=== PATIENT | male | born 1965 | race Caucasian/White ===

== ENCOUNTER 2024-12-26 15:17 | Emergency (ER) | payer OTHER ==
[2024-12-26 15:36] VITALS: RESP 18
--- NOTE | 2024-12-26 16:15 | ED ---
SOB HPI - General Chief Complaint: Shortness of Breath Stated Complaint: SOB Time Seen by Provider: 12/26/24 15:47 Source: patient Limitations: no limitations - History of Present Illness Initial Comments: This patient is a 59-year-old man who presents to have evaluation for what he is describing as lung congestion. The patient states that over the past 9 or 10 days or so he has been having increasingly frequent cough, and is now bringing up yellow to brown sputum. He states that it feels like it is affecting the left side of his lungs more than the right. He has not noted fever or chills. Denies elena pain. No hemoptysis. The patient feels short of breath when he w alks around. The review of systems also reveals that he has lost probably 15 pounds over the past few months. States that he does smoke maybe a couple of cigarettes per day though he may go a day without smoking any. MD Complaint: shortness of breath, cough Onset/Timin -: days(s) Severity scale (1-10): 0 Consistency: constant Improves With: nothing Worsens With: exertion Associated Symptoms: cough, sputum production Treatments Prior to Arrival: none - Related Data Home Oxygen Therapy: No Previous Rx's Medication Instructions Recorded Azithromycin [Zithromax] 0 mg PO DIRECTED #6 tab 12/26/24 Allergies Allergy/AdvReac Type Severity Reaction Status Date / Time No Known Allergies Allergy Verified 12/26/24 15:36 Review of Systems ROS Statement: Those systems with pertinent positive or pertinent negative responses have been documented in the HPI. ROS Other: All systems not noted in ROS Statement are negative. Constitutional: Reports: weight change. Denies: fever, chills, weakness Respiratory: Reports: cough. Denies: wheezes, hemoptysis, stridor Cardiovascular: Reports: dyspnea on exertion. Denies: chest pain, palpitations, edema, syncope Gastrointestinal: Denies: abdominal pain, nausea, vomiting Genitourinary: Denies: dysuria, hematuria Musculoskeletal: Denies: back pain Skin: Denies: rash Neurological: Denies: headache, weakness Past Medical History Additional Past Surgical History / Comment(s): broken leg@15 years old Past Psychological History: No Psychological Hx Reported Smoking Status: Current every day smoker Past Alcohol Use History: None Reported Past Drug Use History: Marijuana General Exam Limitations: no limitations General appearance: alert, in no apparent distress Head exam: Present: atraumatic, normocephalic Eye exam: Present: normal appearance. Absent: scleral icterus, conjunctival injection ENT exam: Present: normal oropharynx Neck exam: Present: normal inspection Respiratory exam: Present: wheezes. Absent: respiratory distress, rales, rhonchi, stridor, accessory muscle use Cardiovascular Exam: Present: regular rate, normal rhythm, normal heart sounds. Absent: systolic murmur, diastolic murmur, rubs, gallop GI/Abdominal exam: Present: soft. Absent: distended, tenderness, guarding, rebound, rigid, mass Extremities exam: Present: normal inspection, normal capillary refill. Absent: pedal edema, calf tenderness Back exam: Present: normal inspection. Absent: CVA tenderness (R), CVA tenderness (L) Neurological exam: Present: alert Skin exam: Present: warm, dry, intact, normal color. Absent: rash Course Vital Signs 12/26/24 12/26/24 12/26/24 15:31 16:10 19:51 Temperature 98.6 F Pulse Rate 102 H 86 Respiratory 18 18 18 Rate Blood Pressure 118/63 99/63 O2 Sat by Pulse 98 96 Oximetry Medical Decision Making - Medical Decision Making The patient had two-view chest x-ray that I interpreted that showing left upper lung cavitary mass concerning for possible malignancy. - Lab Data Result diagrams: 12/26/24 16:56 12/26/24 16:56 Lab Results 12/26/24 12/26/24 12/26/24 Range/Units 16:56 16:56 16:56 WBC 12.90 H (4.50-10.00) 10*3/uL RBC 3.93 L (4.40-5.60) 10*6/uL Hgb 12.3 L (13.0-17.0) g/dL Hct 35.0 L (39.6-50.0) % MCV 89.1 (80.0-97.0) fL MCH 31.3 (27.0-32.0) pg MCHC 35.1 (32.0-37.0) g/dL Plt Count 512 H (140-440) 10*3/uL MPV 9.1 L (9.5-12.2) fL Immature Gran % (Auto) 0.9 % Neutrophils % 83.8 % Lymphocytes % 7.8 % Monocytes % 6.8 % Eosinophils % 0.2 % Basophils % 0.5 % Immature Gran # 0.11 H (0.00-0.04) 10*3/uL Neutrophils # 10.82 H (1.80-7.70) 10*3/uL Lymphocytes # 1.00 (0.90-5.00) 10*3/uL Monocytes # 0.88 (0.20-1.00) 10*3/uL Eosinophils # 0.02 L (0.04-0.35) 10*3/uL Basophils # 0.07 (0.00-0.10) 10*3/uL PT 11.6 (10.0-12.5) sec INR 1.1 (<1.2) APTT 27.1 (22.0-30.0) sec D-Dimer 1.79 H (<0.60) mg/L FEU Sodium 126 L (137-145) mmol/L Potassium 3.8 (3.5-5.1) mmol/L Chloride 85 L (98-107) mmol/L Carbon Dioxide 35 H (22-30) mmol/L Anion Gap 6 mmol/L BUN 20 (9-20) mg/dL Creatinine 0.89 (0.66-1.25) mg/dL Est GFR (CKD-EPI)AfAm >90 (>60 ml/min/1.73 sqM) Est GFR (CKD-EPI)NonAf >90 (>60 ml/min/1.73 sqM) Glucose 131 H (74-99) mg/dL Lactic Ac Sepsis Rflx Plasma Lactic Acid Milton (0.7-2.0) mmol/L Calcium 8.5 (8.4-10.2) mg/dL Total Bilirubin 0.8 (0.2-1.3) mg/dL AST 31 (17-59) U/L ALT 19 (4-49) U/L Alkaline Phosphatase 85 (38-126) U/L Troponin I (0.000-0.034) ng/mL NT-Pro-B Natriuret Pep 330 pg/mL Total Protein 6.6 (6.3-8.2) g/dL Albumin 2.9 L (3.5-5.0) g/dL 12/26/24 12/26/24 12/26/24 Range/Units 16:56 16:56 17:43 WBC (4.50-10.00) 10*3/uL RBC (4.40-5.60) 10*6/uL Hgb (13.0-17.0) g/dL Hct (39.6-50.0) % MCV (80.0-97.0) fL MCH (27.0-32.0) pg MCHC (32.0-37.0) g/dL Plt Count (140-440) 10*3/uL MPV (9.5-12.2) fL Immature Gran % (Auto) % Neutrophils % % Lymphocytes % % Monocytes % % Eosinophils % % Basophils % % Immature Gran # (0.00-0.04) 10*3/uL Neutrophils # (1.80-7.70) 10*3/uL Lymphocytes # (0.90-5.00) 10*3/uL Monocytes # (0.20-1.00) 10*3/uL Eosinophils # (0.04-0.35) 10*3/uL Basophils # (0.00-0.10) 10*3/uL PT (10.0-12.5) sec INR (<1.2) APTT (22.0-30.0) sec D-Dimer (<0.60) mg/L FEU Sodium (137-145) mmol/L Potassium (3.5-5.1) mmol/L Chloride (98-107) mmol/L Carbon Dioxide (22-30) mmol/L Anion Gap mmol/L BUN (9-20) mg/dL Creatinine (0.66-1.25) mg/dL Est GFR (CKD-EPI)AfAm (>60 ml/min/1.73 sqM) Est GFR (CKD-EPI)NonAf (>60 ml/min/1.73 sqM) Glucose (74-99) mg/dL Lactic Ac Sepsis Rflx Y Plasma Lactic Acid Milton 2.2 H* (0.7-2.0) mmol/L Calcium (8.4-10.2) mg/dL Total Bilirubin (0.2-1.3) mg/dL AST (17-59) U/L ALT (4-49) U/L Alkaline Phosphatase (38-126) U/L Troponin I <0.012 (0.000-0.034) ng/mL NT-Pro-B Natriuret Pep pg/mL Total Protein (6.3-8.2) g/dL Albumin (3.5-5.0) g/dL - EKG Data -: EKG Interpreted by Me EKG shows normal: sinus rhythm (Rate 97 bpm), axis (Indeterminate axis), intervals (Normal), QRS complexes (Incomplete right bundle branch block.), ST-T waves (Elevation suggestive of early repolarization) Rate: normal Disposition Clinical Impression: Lung mass Narrative: suspected lung cancer Disposition: HOME SELF-CARE Condition: Fair Instructions (If sedation given, give patient instructions): Lung Cancer (DC) Additional Instructions: As we discussed, your CT scan is very suspicious for lung cancer. You must follow-up to have a biopsy or MRI to confirm this diagnosis. If there is any problem scheduling follow-up return to the emergency department. If your condition changes in any way return to the emergency department. Prescriptions: Azithromycin [Zithromax] 0 mg PO DIRECTED #6 tab Is patient prescribed a controlled substance at d/c from ED?: No Referrals: None,Stated [Primary Care Provider] - 1-2 days Joe Garcia DO [Doctor of Osteopathic Medicine] - 1-2 days Mario Lazaro MD [STAFF PHYSICIAN] - 1-2 days
[2024-12-26 17:08] LABS: Basophils # (A) 0.07 10*3/uL (0.00-0.10); Basophils % (A) 0.5 %; Eosinophils # (A) 0.02 10*3/uL (0.04-0.35); Eosinophils % (A) 0.2 %; HGB 12.3 g/dL (13.0-17.0); Lymphocytes % (A) 7.8 %; MCH 31.3 pg (27.0-32.0); MCHC 35.1 g/dL (32.0-37.0); MCV 89.1 fL (80.0-97.0); Mean Platelet Volume 9.1 fL (9.5-12.2); Monocytes # (A) 0.88 10*3/uL (0.20-1.00); Monocytes % (A) 6.8 %; Neutrophils # (A) 10.82 10*3/uL (1.80-7.70); Neutrophils % (A) 83.8 %; Platelet Count 512 10*3/uL (140-440); RBC 3.93 10*6/uL (4.40-5.60); RDW 13.5 % (11.5-14.5)
[2024-12-26 17:24] LABS: ALT 19 U/L (4-49); AST 31 U/L (17-59); African American GFR (CKD) >90 (>60 ml/min/1.73 sqM); Albumin 2.9 g/dL (3.5-5.0); Alkaline Phosphatase 85 U/L (38-126); Anion Gap 6 mmol/L; Blood Urea Nitrogen 20 mg/dL (9-20); Calcium 8.5 mg/dL (8.4-10.2); Carbon Dioxide 35 mmol/L (22-30); Chloride 85 mmol/L (98-107); Glucose 131 mg/dL (74-99); Non-African American GFR(CKD) >90 (>60 ml/min/1.73 sqM); Potassium 3.8 mmol/L (3.5-5.1); Sodium 126 mmol/L (137-145); Total Bilirubin 0.8 mg/dL (0.2-1.3); Total Protein 6.6 g/dL (6.3-8.2)
[2024-12-26 17:32] LABS: NT-Pro-B-Type Natriuretic Pept 330 pg/mL
--- NOTE | 2024-12-26 17:42 | XR ---
EXAMINATION TYPE: XR chest 2V DATE OF EXAM: 12/26/2024 5:03 PM COMPARISON: None. CLINICAL INDICATION: Male, 59 years old with history of difficulty breathing: Shortness of breath TECHNIQUE: XR chest 2V views of the chest are obtained. FINDINGS: Scattered senescent parenchymal changes noted. Hyperinflation compatible with COPD. Cavitary infiltrate or mass left upper lobe. Correlate for pneumonia or atypical pneumonia as well as fungal infection. Neoplasm is not excluded. Linear parenchymal scarring right upper lobe. Heart size is stable. Mediastinal structures are stable and grossly unremarkable. No evidence for hilar prominence. Degenerative changes dorsal spine. IMPRESSION: 1. Cavitary infiltrate or mass left upper lobe. Correlate for pneumonia or atypical pneumonia as well as fungal infection. Neoplasm is not excluded. [facility], , 12/26/2024 5:39 PM
[2024-12-26 18:05] LABS: INR 1.1 (<1.2); Partial Thromboplastin Time 27.1 sec (22.0-30.0); Prothrombin Time 11.6 sec (10.0-12.5)
[2024-12-26] MEDS: SODIUM CHLORIDE 0.9% 500 ML 500 ML IV STA (18:14)
--- NOTE | 2024-12-26 19:14 | CT ---
EXAMINATION TYPE: CT chest angio for PE DATE OF EXAM: 12/26/2024 6:52 PM COMPARISON: None. CLINICAL INDICATION: Male, 59 years old with history of elevated d-dimer, possible PE, cough/kerri, TECHNIQUE: CT of the chest is performed on a spiral scan at 2 mm thick sections. Study is performed with intravenous contrast timed for evaluation for pulmonary embolism. This will limit additional po rtions of the evaluation. 10mm MIP images reconstructed by the technologist are reviewed on the comp uter in the coronal and sagittal planes. Contrast used:100 mL of Isovue 370 with IV Contrast, (none if empty) Oral contrast used: (none if empty) CT DLP: 223 mGycm, Automated exposure control for dose reduction was used. FINDINGS: No persistent filling defects are evident to suggest an acute pulmonary embolism. Aortopulmonic window lymphadenopathy is present. The ascending aorta diameter at the level of the main pulmonary artery is 3.5 cm. The main pulmonary artery diameter at the bifurcation is 2.3 cm. There is a 5.1 cm mass at the anterior left apex. Additional consolidation is present posteriorly and inferiorly. There is a 0.8 cm nodule anterior right upper lobe. Series 401 image 40. Some peripheral increased de nsity lateral right upper lobe. Image 45. Lobular mass in the posterior right lung base measuring 1. 8 cm. Series 401 image 91. Some mild consolidation isn't posterior left mid to lower lung field. There is a calcification along the anterolateral right midlung. Image 70. There is a 1 cm density wit hin the periphery of the right upper lobe. Image 45. No significant coronary artery calcifications. Limited CT sections were through the upper abdomen. Upper abdomen appears unremarkable. IMPRESSION: 1. Left apical lung mass with adjacent consolidation. 2. Lobular density posterior right lung. 3. Additional small nodules consolidations discussed above. 4. No pulmonary embolism. [facility], , 12/26/2024 7:11 PM
[2024-12-26 20:56] VITALS: BP 103/63; PULSE 87; TEMP 99.3
== END 2024-12-26 21:10 | disposition home or self-care (01) ==
LOC: EC 15:17
DX: R91.8 Other nonspecific abnormal finding of lung field (principal); I45.10 Unspecified right bundle-branch block; F17.200 Nicotine dependence, unspecified, uncomplicated
CPT/HCPCS: 36415; 93005; 85379; 83880; 80053; 83605; 84484; 85025; 85610; 85730; 71046; 71275; 99285; Q9967

== ENCOUNTER 2025-01-18 16:50 | Inpatient (IN) | payer OTHER ==
--- NOTE | 2025-01-18 17:40 | ED ---
Weakness HPI - General Chief complaint: Weakness Stated complaint: SOB Time Seen by Provider: 01/18/25 17:05 Source: patient, EMS Mode of arrival: EMS Limitations: no limitations - History of Present Illness Initial comments: 59-year-old male presents to the emergency department with weakness. Patient has had difficulties with ambulation due to generalized weakness. He also reported to EMS that he was having some chest pain and shortness of breath. They found him to be saturating 78% at home. Patient typically does not wear oxygen. He was seen in the emergency department on December 26 and diagnosed with a lung mass. Patient wanted to go home at that time. He did see Dr. Garcia on January 08. The plan is to get a PET scan this . Sister is at bedside and states the patient has a extremely poor appetite. He has had 23 pounds of weight loss since December 26. Patient denies any chest pain at this time. Does report increased sputum production. No other alleviating, precipitating or modifying factors - Related Data Home Medications Medication Instructions Recorded Confirmed No Known Home Medications 01/18/25 01/18/25 Allergies Allergy/AdvReac Type Severity Reaction Status Date / Time No Known Allergies Allergy Verified 01/18/25 20:38 Review of Systems ROS Statement: Those systems with pertinent positive or pertinent negative responses have been documented in the HPI. ROS Other: All systems not noted in ROS Statement are negative. Past Medical History Additional Past Medical History / Comment(s): lung nodule History of Any Multi-Drug Resistant Organisms: None Reported Additional Past Surgical History / Comment(s): broken leg@15 years old Past Psychological History: No Psychological Hx Reported Smoking Status: Current some day smoker Past Alcohol Use History: None Reported Past Drug Use History: Marijuana General Exam Limitations: no limitations General appearance: cachectic Head exam: Present: atraumatic, normocephalic, normal inspection Eye exam: Present: normal appearance, PERRL, EOMI. Absent: scleral icterus, conjunctival injection, periorbital swelling ENT exam: Present: mucous membranes dry Respiratory exam: Present: decreased breath sounds (on the left) Cardiovascular Exam: Present: regular rate, normal rhythm, normal heart sounds. Absent: systolic murmur, diastolic murmur, rubs, gallop, clicks GI/Abdominal exam: Present: soft, normal bowel sounds. Absent: distended, tenderness, guarding, rebound, rigid Neurological exam: Present: alert, oriented X3, CN II-XII intact Psychiatric exam: Present: flat affect Skin exam: Present: warm, dry, intact, normal color. Absent: rash Course Vital Signs 01/18/25 01/18/25 01/18/25 17:03 17:13 23:03 Temperature 97.5 F L Pulse Rate 84 56 L Respiratory 21 22 16 Rate Blood Pressure 103/69 97/73 O2 Sat by Pulse 97 95 Oximetry 01/19/25 01/19/25 00:04 00:24 Temperature Pulse Rate 92 Respiratory 20 Rate Blood Pressure 93/63 O2 Sat by Pulse 95 95 Oximetry Medical Decision Making - Medical Decision Making Was pt. sent in by a medical professional or institution (, PA, AFTER SCHOOL TEACHER, urgent care, hospital, or longterm...) When possible be specific @ -No Did you speak to anyone other than the patient for history (EMS, parent, family, police, friend...)? What history was obtained from this source @ -Spoke with the sister for history Did you review nursing and triage notes (agree or disagree)? Why? @ -I reviewed and agree with nursing and triage notes Were old charts reviewed (outside hosp., previous admission, EMS record, old EKG, old radiological studies, urgent care reports/EKG's, longterm records)? Report findings @ -I reviewed the ER visit from December 26 Differential Diagnosis (chest pain, altered mental status, abdominal pain women, abdominal pain men, vaginal bleeding, weakness, fever, dyspnea, syncope, headache, dizziness, GI bleed, back pain, seizure, CVA, palpatations, mental health, musculoskeletal)? @ -Differential Dyspnea: Coronary syndrome, arrhythmia, tamponade, asthma, COPD, pulmonary embolism, pneumonia, pneumothorax, pulmonary effusion, anaphylaxis, diabetic ketoacidosis, flailed chest, pulmonary contusion, diaphragmatic rupture, anemia, neuromuscular, this is not meant to be an all-inclusive list. EKG interpreted by me (3pts min.). @ -Yes and demonstrates sinus rhythm with rate of 86. ND interval 140. QRS 10 5. QTc of 427. Incomplete right bundle branch block. No acute ST segment elevations X-rays interpreted by me (1pt min.). @ -Yes which demonstrates significant opacification of the left chest CT interpreted by me (1pt min.). @ -None done U/S interpreted by me (1pt. min.). @ -None done What testing was considered but not performed or refused? (CT, X-rays, U/S, labs)? Why? @ -None What meds were considered but not given or refused? Why? @ -None Did you discuss the management of the patient with other professionals (professionals i.e. , PA, AFTER SCHOOL TEACHER, lab, RT, psych nurse, social services aide, family medicine physician assistant, teacher, juvenile correctional officer, shoe caser)? Give summary @ -Spoke with Dr. Ortiz for the admission Was smoking cessation discussed for >3mins.? @ -No Was critical care preformed (if so, how long)? @ -No Were there social determinants of health that impacted care today? How? (Homelessness, low income, unemployed, alcoholism, drug addiction, transportation, low edu. Level, literacy, decrease access to med. care, custodial, rehab)? @ -No Was there de-escalation of care discussed even if they declined (Discuss DNR or withdrawal of care, Hospice)? DNR status @ -No What co-morbidities impacted this encounter? (DM, HTN, Smoking, COPD, CAD, Cancer, CVA, ARF, Chemo, Hep., AIDS, mental health diagnosis, sleep apnea, morbid obesity)? @ -None Was patient admitted / discharged? Hospital course, mention meds given and route, prescriptions, significant lab abnormalities, going to OR and other pertinent info. @ -Upon arrival patient seen and evaluated in hallway 21. Thorough history and physical exam was performed. Patient has diminished breath sounds on the left. Laboratory studies are conducted and chest x-ray was performed which demonstrates significant advancement of the opacity in the left lung. Patient's white blood cell count has increased to 17,000. I do feel that the patient should be admitted for IV antibiotics and pulm consult. Patient was agreeable to this. Spoke with Dr. Oritz for the admission Undiagnosed new problem with uncertain prognosis? @ -Yes Drug Therapy requiring intensive monitoring for toxicity (Heparin, Nitro, Insulin, Cardizem)? @ -No Were any procedures done? @ -No Diagnosis/symptom? @ -Acute hypoxic respiratory failure, acute left-sided lung mass/opacification, leukocytosis Acute, or Chronic, or Acute on Chronic? @ -Acute Uncomplicated (without systemic symptoms) or Complicated (systemic symptoms)? @ -Complicated Side effects of treatment? @ -No Exacerbation, Progression, or Severe Exacerbation? @ -No Poses a threat to life or bodily function? How? (Chest pain, [place], [place], pneumonia, PE, COPD, DKA, ARF, appy, cholecystitis, CVA, Diverticulitis, Homicidal, Suicidal, threat to staff... and all critical care pts) @ -No - Lab Data Result diagrams: 01/18/25 18:07 01/18/25 18:07 Lab Results 01/18/25 01/18/25 01/18/25 Range/Units 18:07 18:07 18:07 WBC 17.45 H (4.50-10.00) 10*3/uL RBC 3.32 L (4.40-5.60) 10*6/uL Hgb 10.0 L D (13.0-17.0) g/dL Hct 29.1 L (39.6-50.0) % MCV 87.7 (80.0-97.0) fL MCH 30.1 (27.0-32.0) pg MCHC 34.4 (32.0-37.0) g/dL Plt Count 309 (140-440) 10*3/uL MPV 10.0 (9.5-12.2) fL Immature Gran % (Auto) 0.6 % Neutrophils % 93.4 % Lymphocytes % 3.6 % Monocytes % 2.2 % Eosinophils % 0.0 % Basophils % 0.2 % Immature Gran # 0.10 H (0.00-0.04) 10*3/uL Neutrophils # 16.31 H (1.80-7.70) 10*3/uL Lymphocytes # 0.62 L (0.90-5.00) 10*3/uL Monocytes # 0.39 (0.20-1.00) 10*3/uL Eosinophils # 0.00 L (0.04-0.35) 10*3/uL Basophils # 0.03 (0.00-0.10) 10*3/uL PT 11.6 (10.0-12.5) sec INR 1.1 (<1.2) APTT 24.5 (22.0-30.0) sec Sodium 130 L (137-145) mmol/L Potassium 4.7 (3.5-5.1) mmol/L Chloride 91 L (98-107) mmol/L Carbon Dioxide 30 (22-30) mmol/L Anion Gap 9 mmol/L BUN 51 H (9-20) mg/dL Creatinine 1.07 (0.66-1.25) mg/dL Est GFR (CKD-EPI)AfAm 87 (>60 ml/min/1.73 sqM) Est GFR (CKD-EPI)NonAf 75 (>60 ml/min/1.73 sqM) Glucose 108 H (74-99) mg/dL Lactic Ac Sepsis Rflx Plasma Lactic Acid Milton (0.7-2.0) mmol/L Calcium 8.2 L (8.4-10.2) mg/dL Magnesium 2.0 (1.6-2.3) mg/dL Total Bilirubin 1.1 (0.2-1.3) mg/dL AST 61 H (17-59) U/L ALT 38 (4-49) U/L Alkaline Phosphatase 121 (38-126) U/L Troponin I (0.000-0.034) ng/mL NT-Pro-B Natriuret Pep 2610 pg/mL Total Protein 6.5 (6.3-8.2) g/dL Albumin 2.5 L (3.5-5.0) g/dL 01/18/25 01/18/25 01/18/25 Range/Units 18:07 18:07 18:55 WBC (4.50-10.00) 10*3/uL RBC (4.40-5.60) 10*6/uL Hgb (13.0-17.0) g/dL Hct (39.6-50.0) % MCV (80.0-97.0) fL MCH (27.0-32.0) pg MCHC (32.0-37.0) g/dL Plt Count (140-440) 10*3/uL MPV (9.5-12.2) fL Immature Gran % (Auto) % Neutrophils % % Lymphocytes % % Monocytes % % Eosinophils % % Basophils % % Immature Gran # (0.00-0.04) 10*3/uL Neutrophils # (1.80-7.70) 10*3/uL Lymphocytes # (0.90-5.00) 10*3/uL Monocytes # (0.20-1.00) 10*3/uL Eosinophils # (0.04-0.35) 10*3/uL Basophils # (0.00-0.10) 10*3/uL PT (10.0-12.5) sec INR (<1.2) APTT (22.0-30.0) sec Sodium (137-145) mmol/L Potassium (3.5-5.1) mmol/L Chloride (98-107) mmol/L Carbon Dioxide (22-30) mmol/L Anion Gap mmol/L BUN (9-20) mg/dL Creatinine (0.66-1.25) mg/dL Est GFR (CKD-EPI)AfAm (>60 ml/min/1.73 sqM) Est GFR (CKD-EPI)NonAf (>60 ml/min/1.73 sqM) Glucose (74-99) mg/dL Lactic Ac Sepsis Rflx Y Plasma Lactic Acid Milton 3.0 H* (0.7-2.0) mmol/L Calcium (8.4-10.2) mg/dL Magnesium (1.6-2.3) mg/dL Total Bilirubin (0.2-1.3) mg/dL AST (17-59) U/L ALT (4-49) U/L Alkaline Phosphatase (38-126) U/L Troponin I <0.012 (0.000-0.034) ng/mL NT-Pro-B Natriuret Pep pg/mL Total Protein (6.3-8.2) g/dL Albumin (3.5-5.0) g/dL Disposition Clinical Impression: Lung mass, Hypoxia, Leukocytosis Disposition: ADMITTED IP TO THIS [facility] Condition: Serious Is patient prescribed a controlled substance at d/c from ED?: No Time of Disposition: 19:35 Decision to Admit Reason: Admit from EC Decision Date: 01/18/25 Decision Time: 19:35
[2025-01-18] MEDS: SODIUM CHLORIDE 0.9% 1,000 ML IV ONE (18:13)
[2025-01-18 18:31] LABS: Basophils # (A) 0.03 10*3/uL (0.00-0.10); Basophils % (A) 0.2 %; Eosinophils # (A) 0.00 10*3/uL (0.04-0.35); Eosinophils % (A) 0.0 %; HCT 29.1 % (39.6-50.0); Lymphocytes # (A) 0.62 10*3/uL (0.90-5.00); Lymphocytes % (A) 3.6 %; MCH 30.1 pg (27.0-32.0); MCHC 34.4 g/dL (32.0-37.0); MCV 87.7 fL (80.0-97.0); Monocytes # (A) 0.39 10*3/uL (0.20-1.00); Monocytes % (A) 2.2 %; Neutrophils # (A) 16.31 10*3/uL (1.80-7.70); Neutrophils % (A) 93.4 %; Platelet Count 309 10*3/uL (140-440); RBC 3.32 10*6/uL (4.40-5.60); RDW 14.1 % (11.5-14.5); WBC 17.45 10*3/uL (4.50-10.00)
[2025-01-18 18:38] LABS: HGB 10.0 g/dL (13.0-17.0)
--- NOTE | 2025-01-18 18:41 | XR ---
EXAMINATION TYPE: XR chest 2V DATE OF EXAM: 01/18/2025 6:23 PM COMPARISON: CT CLINICAL INDICATION: Male, 59 years old with history of Weakness; [facility] TECHNIQUE: XR chest 2V Frontal and lateral views of the chest. FINDINGS: Lungs/Pleura: Worsening consolidation changes in left upper lung now extending more inferiorly. Right lung demonstrates no evidence of pleural effusion, focal consolidation, or pneumothorax. Pulmonary vascularity: Unremarkable. Heart/mediastinum: Cardiomediastinal silhouette is unremarkable. Musculoskeletal: No acute osseous pathology. Other findings: None IMPRESSION: Worsening consolidation changes in the left upper lung now extending more inferiorly correlate for pn eumonia and/or developing worsening atelectasis superimposed mass is obscured by airspace opacities. [facility], , 01/18/2025 6:39 PM
[2025-01-18 18:43] LABS: INR 1.1 (<1.2); Partial Thromboplastin Time 24.5 sec (22.0-30.0); Prothrombin Time 11.6 sec (10.0-12.5)
[2025-01-18 18:52] LABS: ALT 38 U/L (4-49); African American GFR (CKD) 87 (>60 ml/min/1.73 sqM); Anion Gap 9 mmol/L; Blood Urea Nitrogen 51 mg/dL (9-20); Calcium 8.2 mg/dL (8.4-10.2); Carbon Dioxide 30 mmol/L (22-30); Chloride 91 mmol/L (98-107); Glucose 108 mg/dL (74-99); Non-African American GFR(CKD) 75 (>60 ml/min/1.73 sqM); Sodium 130 mmol/L (137-145)
[2025-01-18 18:53] LABS: Magnesium 2.0 mg/dL (1.6-2.3); Potassium 4.7 mmol/L (3.5-5.1); Total Protein 6.5 g/dL (6.3-8.2)
[2025-01-18 18:54] LABS: AST 61 U/L (17-59); Albumin 2.5 g/dL (3.5-5.0); Alkaline Phosphatase 121 U/L (38-126)
[2025-01-18 19:00] LABS: NT-Pro-B-Type Natriuretic Pept 2610 pg/mL
[2025-01-18] MEDS ORDERED: NALOXONE 0.4 MG/ML 1 ML VIAL IV PRN (19:35)
[2025-01-18] MEDS ORDERED: ACETAMINOPHEN TAB 325 MG TAB PO PRN (19:35)
[2025-01-18] MEDS: SODIUM CHLORIDE 0.9% 1,000 ML IV SCH (20:49)
[2025-01-18] MEDS: PIPERACILLIN-TAZOBACTAM 3.375 GM in SODIUM CHLORIDE 0.9% 100 ML IVPB SCH (20:52)
[2025-01-18 23:57] LABS: RSV Not Detected (Not Detectd)
--- NOTE | 2025-01-19 05:36 | P.CNPUL ---
History of Present Illness Consult date: 01/19/25 Requesting physician: Tania Tamayo Reason for consult: lung mass Chief complaint: Shortness of breath History of present illness: Patient is a 59-year-old male with significant smoking history of over 40 pack years, recent unintentional weight loss, and recent findings of left upper lung mass. Chest CT angiogram done December 26, 2024 remarkable for left apical lung mas measuring 5.1 cm with adjacent consolidations, anteriorly and posteriorly. Lobular density in the posterior right lung measuring 1.8 cm. Also, 0.8 cm anterior right lung nodularity. Did have new patient visit with Dr. Garcia on January 08, 2025. Reportedly, scheduled to undergo outpatient PET scan on . Brought into the emergency department yesterday evening by EMS. He was short of breath and was found to be hypoxic when EMS arrived with an SpO2 of 78%. He has been increasingly weak and has lost some additional weight, reportedly an additional 23 pounds in less than a month. Chest x-ray done in the ED showing worsening consolidative changes in the left lung, concerning for obstructive atelectasis or pneumonia. CBC: WBC count 17.45, hemoglobin 10, platelets 309. BMP with a sodium 130, potassium 4.7, chloride 91, serum bicarb 30, BUN 51, creatinine 1.07, glucose 108. Lactic was 3 now down to 2. Troponin less than 0.012. Repeat 2610. Viral screen negative for influenza A/B, RSV, COVID. While in the emergency department, patient was empirically started on Zosyn. Also, normal saline started at 130 mL/h. He is currently being evaluated on the fifth floor. He is a poor historian. On 2 L/min nasal cannula, nondistressed. He has a congested cough with reportedly increased sputum production. Does have a green sputum in collection cup. Denies any hemoptysis. Denies any fevers. Reports left-sided chest pain with coughing and deep breathing. He continues to have weight loss. He is very frail and cachectic in appearance. Appetite has been poor. Denies any nausea, vomiting, diarrhea, abdominal pain. Nontachycardic. Blood pressure normotensive. Normal saline infusing at 130 mL/h. Review of Systems Constitutional: Reports fatigue, Reports poor appetite, Reports weight loss, Denies chills, Denies fever, Denies night sweats, Denies weight gain Ears, nose, mouth and throat: Denies dysphagia, Denies headache, Denies nasal congestion, Denies nasal discharge, Denies post-nasal drip, Denies sinus pain, Denies sinus pressure, Denies sore throat Cardiovascular: Reports chest pain (See HPI), Denies leg edema, Denies lightheadedness, Denies orthopnea, Denies palpitations, Denies paroxysmal nocturnal dyspnea, Denies syncope Respiratory: Reports as per HPI Gastrointestinal: Reports loss of appetite, Denies abdominal pain, Denies coffee ground emesis, Denies diarrhea, Denies hematemesis, Denies hematochezia, Denies melena, Denies nausea, Denies vomiting Genitourinary: Denies dysuria Musculoskeletal: Reports gait dysfunction (With generalized weakness), Denies limitation of motion Integumentary: Denies rash Neurological: Denies seizures, Denies syncope Psychiatric: Denies anxiety, Denies depression Past Medical History Additional Past Medical History / Comment(s): lung nodule History of Any Multi-Drug Resistant Organisms: None Reported Additional Past Surgical History / Comment(s): broken leg@15 years old Past Anesthesia/Blood Transfusion Reactions: No Reported Reaction Past Psychological History: No Psychological Hx Reported Smoking Status: Current some day smoker Past Alcohol Use History: None Reported Past Drug Use History: Marijuana Medications and Allergies Home Medications Medication Instructions Recorded Confirmed Type No Known Home Medications 01/18/25 01/18/25 History Allergies Allergy/AdvReac Type Severity Reaction Status Date / Time No Known Allergies Allergy Verified 01/18/25 20:38 Physical Exam Vitals: Vital Signs Temp Pulse Pulse Resp BP BP Pulse Ox 01/19/25 01:40 97.5 F L 54 L 18 101/65 97 01/19/25 01:10 20 01/19/25 00:24 92 20 93/63 95 01/19/25 00:04 95 01/18/25 23:03 56 L 16 97/73 95 01/18/25 17:13 22 01/18/25 17:03 97.5 F L 84 21 103/69 97 Intake and Output 01/18/25 01/18/25 01/19/25 14:59 22:59 06:59 Output Total 200 Balance -200 Output: Urine 200 Other: Voiding Method Diaper External Catheter Weight 55.792 kg 55.792 kg GENERAL EXAM: Alert, 59-year-old male, frail/cachectic, comfortable in no apparent distress. HEAD: Normocephalic and atraumatic EYES: Normal reaction of pupils, equal size. NOSE: Clear with pink turbinates. THROAT: No erythema or exudates. Poor dentition. NECK: No masses, no JVD. CHEST: No chest wall deformity. LUNGS: Equal air entry with markedly diminished lung sounds on the left. On 2 L/min nasal cannula. No conversational dyspnea or accessory muscle use.. CVS: S1 and S2 normal with no audible murmur, regular rhythm. No extra heart s ounds ABDOMEN: No hepatosplenomegaly, active bowel sounds, no guarding or rigidity. SPINE: No scoliosis or deformity SKIN: No rashes CENTRAL NERVOUS SYSTEM: No focal deficits, tone is normal in all 4 extremities. EXTREMITIES: There is no peripheral edema or cyanosis. Peripheral pulses are intact. Digital clubbing noted. Results - Laboratory Findings CBC and BMP: 01/19/25 04:19 01/19/25 04:19 PT/INR, D-dimer PT 11.6 sec (10.0-12.5) 01/18/25 18:07 INR 1.1 (<1.2) 01/18/25 18:07 Abnormal lab findings: Abnormal Labs 01/18/25 01/18/25 01/18/25 18:07 18:07 18:07 WBC 17.45 H RBC 3.32 L Hgb 10.0 L D Hct 29.1 L Immature Gran # 0.10 H Neutrophils # 16.31 H Lymphocytes # 0.62 L Eosinophils # 0.00 L Sodium 130 L Chloride 91 L BUN 51 H Glucose 108 H Plasma Lactic Acid Milton 3.0 H* Calcium 8.2 L AST 61 H Albumin 2.5 L - Diagnostic Findings Chest x-ray: image reviewed Assessment and Plan Assessment: Acute hypoxemic respiratory failure, currently on 2 L/min nasal cannula, repeat chest x-ray showing worsening consolidative changes in the left upper lung now extending inferiorly, concerning for disease progression and/or post-obstructive pneumonia Left upper lung mass, measuring 5.1 cm Right posterior lung nodule measuring 1.8 cm Acute leukocytosis Normocytic, normochromic anemia monitor for blood loss Unintentional weight loss Severe protein calorie malnutrition with a BMI of 16.2 kg/m Chronic tobacco dependence Plan: Patient's medications, labs, imaging reviewed Continue supplemental oxygen to maintain oxygen saturation 92% or greater Continue empiric antibiotics Patient currently undergoing outpatient workup for malignancy Reportedly has outpatient PET scan ordered on Consult Oncology Staff nurse reporting intermittent periods of nonsustained bradycardia, consult cardiology Case will be reviewed with my supervising physician, additional recommendations forthcoming I have personally seen and examined the patient, performed the documentation and the assessment and plan as written. Number of minutes spent on the visit:20 This is a joint evaluation that was done along with the nurse practitioner. This evaluation was done in 35 minutes. The patient is quite debilitated and has significant loss in total body muscle mass and carries a BMI of 16.2. He also has a left upper lobe mass measuring 5.1 cm in size. He presented to us with ac [place] hypoxic yas failure and worsening shortness of breath. A CT scan of the chest that was done on 12/26/2024 showed a large upper lobe mass with adjacent area of consolidation highly suspicious for underlying pneumonia. The patient has a weak cough. He has a congested cough and is bringing minute amount of sputum. He is currently covered with IV Zosyn as an empiric antibiotic coverage he is also receiving normal saline at rate of 130 cc an hour. Also on DuoNeb nebulized treatments [id number]. His white cell count is 11.1 from this morning which is improved compared to yesterday with hemoglobin 8.5 and a platelet count of 282. BUN is 43 with a creatinine of 1.1 and a sodium level is 134. Procalcitonin level is at 1.4. The viral screen at the time of admission was essentially negative. No hemoptysis. No pleurisy. No reported fever. Some chest discomfort especially with deep breathing. He has had significant weight loss and looks very frail and cachectic and he has poor insight in his condition. Furthermore, he is noted to have some altered mentation and confusion. No focal neurological deficits. Unable to do a bronchoscopy at this point as the patient's condition is unstable. Recommend a CAT scan of the brain to rule out any [employer] metastases. Will continue IV antibiotics for next 1 4 to 48 hours and reevaluate his condition. Carries a very poor prognosis based on very impaired performance of functional status and comorbidities as discussed above. Time with Patient: Greater than 30
[2025-01-19 07:55] LABS: Basophils # (A) 0.02 X 10*3/uL (0.00-0.10); Basophils % (A) 0.2 %; Eosinophils # (A) 0 X 10*3/uL (0.04-0.35); Eosinophils % (A) 0 %; HCT 25.9 % (39.6-50.0); HGB 8.5 g/dL (13.0-17.0); Immature Grans, Automated 0.70 %; Lymphocytes # (A) 0.57 X 10*3/uL (0.90-5.00); Lymphocytes % (A) 5.1 %; MCH 29.0 pg (27.0-32.0); MCHC 32.8 g/dL (32.0-37.0); MCV 88.4 FL (80.0-97.0); Monocytes # (A) 0.19 X 10*3/uL (0.20-1.00); Monocytes % (A) 1.7 %; NRBC Per 100 WBC 0 X 10*3/uL (0.00-0.01); Neutrophils # (A) 10.26 X 10*3/uL (1.80-7.70); Neutrophils % (A) 92.3 %; Platelet Count 282 X 10*3/uL (140-440); RBC 2.93 X 10*6/uL (4.40-5.60); RDW 14.1 % (11.5-14.5); WBC 11.12 X 10*3/uL (4.50-10.00)
[2025-01-19] MEDS: IPRATROPIUM-ALBUTEROL 3 ML NEB INHALATION SCH (07:59)
[2025-01-19 08:11] LABS: Anion Gap 11.00 mmol/L (4.00-12.00); BUN/Creat Ratio 39.18 Ratio (12.00-20.00); Blood Urea Nitrogen 43.1 mg/dL (9.0-27.0); Calcium 7.7 mg/dL (8.7-10.3); Carbon Dioxide 27.0 mmol/L (21.6-31.8); Chloride 96 mmol/L (96-109); Glucose 187 mg/dL (70-110); Potassium 3.8 mmol/L (3.5-5.5); Sodium 134 mmol/L (135-145)
--- NOTE | 2025-01-19 12:56 | P.CRDCN ---
History of Present Illness Consult date: 01/19/25 Requesting physician: Aiyana Spain Reason for Consult (text): bradycardia, abnormal tele Chief complaint: shortness of breath History of present illness: This is a pleasant 59-year-old male patient who does not follow regularly with cardiology and in fact up until recently had not been seen by a physician in many years. Presented to the hospital with complaints of discomfort in the chest and shortness of breath. In December he had presented to the emergency department with complaints of shortness of breath and had a chest x-ray that showed concerns for mass. He subsequently was seen in the office by Dr. Garcia and scheduled for a PET scan. Over the last 1-1/2 months he has had about a 25 pound weight loss. The patient is quite confused and has become increasingly more confused at home therefore the HPI was obtained from the daughter and the chart. He apparently been complaining of some discomfort or pressure in his chest on the left side and feels it is related to the mass. He has also been feeling more short of breath at home. He is a prior smoker smoked about 1-1/2 packs/day up until 1-1/2 months ago. We were asked to see the patient in consultation for bradycardia and pauses on telemetry at which time the patient is asymptomatic according to him and the daughter has not noticed any symptoms at the time and no symptoms were noted by nursing staff. Diagnostics -Chest x-ray: Worsening consolidation changes in the left upper lung now extending more inferiorly correlate for pneumonia and/or developing worsening atelectasis superimposed mass is obscured by airspace opacities -Laboratory studies: White blood cell count 11,000, hemoglobin 8.5, sodium 134, potassium 3.8, BUN 41, creatinine 1.1, troponin less than 0.012 and NT proBNP 2610 -Home cardiac medications: None -Prior stress test: None -Echocardiogram: None -Cardiac catheterization: None Review Of Systems: At the time of my exam: CONSTITUTIONAL: Denies fever or chills. HEENT: Denies blurred vision, vision changes. CARDIOVASCULAR: + chest discomfort. Denies orthopnea. Denies PND. Denies palpitations, dizziness, or syncope. RESPIRATORY: + shortness of breath, wheezing, and cough. + hemoptysis. GASTROINTESTINAL: Denies abdominal pain. Denies nausea or vomiting. Denies bleeding. HEMATOLOGIC: Denies bleeding disorders. GENITOURINARY: Denies hematuria. SKIN: Denies puritis. Denies rash. PHYSICAL EXAMINATION: This is a 59-year-old male in no apparent distress at the time of my examination. VITAL SIGNS: Reviewed. HEENT: Head is atraumatic, normocephalic. Pupils are equal, round. Sclerae anicteric. Conjunctivae are clear. Mucous membranes of the mouth are moist. Neck is supple. There is no elevated jugular venous pressure. No carotid bruit is heard. CHEST EXAMINATION: Lungs diminished bilaterally with wheezing and scattered rhonchi. Respirations even and nonlabored. HEART EXAMINATION: Heart regular, positive S1 and S2. No S3. No S4. Systolic murmur. ABDOMEN: Soft, nontender. Bowel sounds are heard. No organomegaly noted. EXTREMITIES: 2+ peripheral pulses with no evidence of peripheral edema and no calf tenderness noted. NEUROLOGIC EXAMINATION: Patient is awake, alert and oriented x1. Assessment: 1. Bradycardia with sinus pauses, intermittent, asymptomatic 2. Lung mass 3. Confusion Plan: From cardiology's perspective we will obtain a 2D echo with Doppler study to assess cardiac structure and function. We will check TSH. Await input from both pulmonary and oncology. Patient likely needs further workup due to underlying confusion to rule out brain metastasis. Thank you kindly for this consultation. Nurse practitioner note has been reviewed, I agree with documented findings and plan of care. Patient was seen and examined. Past Medical History Additional Past Medical History / Comment(s): lung nodule History of Any Multi-Drug Resistant Organisms: None Reported Additional Past Surgical History / Comment(s): broken leg@15 years old Past Anesthesia/Blood Transfusion Reactions: No Reported Reaction Past Psychological History: No Psychological Hx Reported Smoking Status: Current some day smoker Past Alcohol Use History: None Reported Past Drug Use History: Marijuana Medications and Allergies Home Medications Medication Instructions Recorded Confirmed Type No Known Home Medications 01/18/25 01/18/25 History Allergies Allergy/AdvReac Type Severity Reaction Status Date / Time No Known Allergies Allergy Verified 01/18/25 20:38 Physical Exam Vitals: Vital Signs Temp Pulse Pulse Resp BP BP Pulse Ox 01/19/25 12:26 98.5 F 84 16 85/39 99 01/19/25 12:12 96 01/19/25 11:57 92 01/19/25 09:54 98.1 F 81 20 85/48 98 01/19/25 08:09 94 01/19/25 07:59 96 99 01/19/25 07:14 97.7 F 96 18 102/59 99 01/19/25 06:00 89 105/65 01/19/25 05:30 84 101/65 01/19/25 05:00 87 102/61 01/19/25 04:20 89 105/64 01/19/25 04:00 89 138/55 01/19/25 03:30 87 95/59 01/19/25 03:06 79 102/66 01/19/25 01:40 97.5 F L 54 L 18 101/65 97 01/19/25 01:10 20 01/19/25 00:24 92 20 93/63 95 01/19/25 00:04 95 01/18/25 23:03 56 L 16 97/73 95 01/18/25 17:13 22 01/18/25 17:03 97.5 F L 84 21 103/69 97 Intake and Output 01/18/25 01/19/25 01/19/25 22:59 06:59 14:59 Intake Total 118 Output Total 500 Balance -500 118 Intake: Oral 118 Output: Urine 500 Other: Voiding Method Diaper External Catheter Weight 55.792 kg 55.792 kg Results 01/19/25 04:19 01/19/25 04:19 Cardiac Enzymes 01/18/25 01/18/25 Range/Units 18:07 18:07 AST 61 H (17-59) U/L Troponin I <0.012 (0.000-0.034) ng/mL Coagulation 01/18/25 Range/Units 18:07 PT 11.6 (10.0-12.5) sec APTT 24.5 (22.0-30.0) sec CBC 01/18/25 01/19/25 Range/Units 18:07 04:19 WBC 17.45 H 11.12 H (4.50-10.00) 10*3/uL RBC 3.32 L 2.93 L (4.40-5.60) 10*6/uL Hgb 10.0 L D 8.5 L (13.0-17.0) g/dL Hct 29.1 L 25.9 L (39.6-50.0) % Plt Count 309 282 (140-440) 10*3/uL Comprehensive Metabolic Panel 01/18/25 01/19/25 Range/Units 18:07 04:19 Sodium 130 L 134 L (137-145) mmol/L Potassium 4.7 3.8 (3.5-5.1) mmol/L Chloride 91 L 96 (98-107) mmol/L Carbon Dioxide 30 27.0 (22-30) mmol/L BUN 51 H 43.1 H (9-20) mg/dL Creatinine 1.07 1.1 (0.66-1.25) mg/dL Glucose 108 H 187 H (74-99) mg/dL Calcium 8.2 L 7.7 L (8.4-10.2) mg/dL AST 61 H (17-59) U/L ALT 38 (4-49) U/L Alkaline Phosphatase 121 (38-126) U/L Total Protein 6.5 (6.3-8.2) g/dL Albumin 2.5 L (3.5-5.0) g/dL Current Medications Generic Name Dose Route Start Last Admin Trade Name Freq PRN Reason Stop Dose Admin Acetaminophen 650 mg 01/18/25 19:35 Acetaminophen Tab 325 Mg Tab PO Q6HR PRN Mild Pain or Fever > 100.5 Albuterol/Ipratropium 3 ml 01/19/25 08:00 01/19/25 11:50 Ipratropium-Albuterol 3 Ml Neb INHALATION 3 ml RT-QID EDMOND Administration Sodium Chloride 1,000 mls @ 130 mls/hr 01/18/25 19:45 01/19/25 03:03 Saline 0.9% IV 130 mls/hr .[id number] EDMOND Administration Piperacillin Sod/Tazobactam 100 mls @ 25 mls/hr 01/18/25 20:00 01/19/25 12:37 Sod 3.375 gm/ Sodium Chloride IVPB 25 mls/hr Q8H EDMOND Administration Protocol Naloxone HCl 0.2 mg 01/18/25 19:35 Naloxone 0.4 Mg/Ml 1 Ml Vial IV Q2M PRN Opioid Reversal Intake and Output 01/18/25 01/19/25 01/19/25 22:59 06:59 14:59 Intake Total 118 Output Total 500 Balance -500 118 Intake: Oral 118 Output: Urine 500 Other: Voiding Method Diaper External Catheter Weight 55.792 kg 55.792 kg 01/19/25 04:19 01/19/25 04:19
[2025-01-19] MEDS ORDERED: RX INFO: IV CONTRAST WAS GIVEN 1 EACH MISC MISCELLANE PRN (14:02)
--- NOTE | 2025-01-19 14:29 | P.CONS ---
History of Present Illness - Reason for Consult Consult date: 01/19/25 Lung mass Requesting physician: Malvin Varner - History of Present Illness 59 year old man who presented to the emergency department on 01/18 with complaints of weakness. He has no known PMH. He underwent a CTA on 12/26/24 which showed a left apical lung mas measuring 5.1 cm with adjacent consolidations, anteriorly and posteriorly. Lobular density in the posterior right lung measuring 1.8 cm. Also, 0.8 cm anterior right lung nodularity. He had a new patient appointment with Dr. Garcia (Pulmonology) on 01/08/25 and was scheduled to undergo an outpatient PET scan this coming (01/22/25). He endorses having had worsening shortness of breath, weakness, fatigue and an inability to lie flat. Additionally, he notes having had unintentional weight loss, about 23 lbs over the past month. He does endorse having had a productive cough over that same time period, with some sputum he describes having been greenish in color, some left side chest pain with coughing and taking deep breaths. He also has had intermittent episodes of blurry vision, which he does not associate with head movement. He denies any hemoptysis, headaches, fevers, nausea or vomiting. He is a known former smoker over >40 pack year history, states he quit smoking 2-3 months ago. Review of Systems All systems reviewed, pertinent positives and negatives noted in HPI. All other symptoms are negative. Past Medical History Additional Past Medical History / Comment(s): lung nodule History of Any Multi-Drug Resistant Organisms: None Reported Additional Past Surgical History / Comment(s): broken leg@15 years old Past Anesthesia/Blood Transfusion Reactions: No Reported Reaction Past Psychological History: No Psychological Hx Reported Smoking Status: Current some day smoker Past Alcohol Use History: None Reported Past Drug Use History: Marijuana Medications and Allergies Home Medications Medication Instructions Recorded Confirmed Type No Known Home Medications 01/18/25 01/18/25 History Allergies Allergy/AdvReac Type Severity Reaction Status Date / Time No Known Allergies Allergy Verified 01/18/25 20:38 Physical Exam Vitals: Vital Signs Temp Pulse Pulse Resp BP BP Pulse Ox 01/19/25 12:26 98.5 F 84 16 85/39 99 01/19/25 12:12 96 01/19/25 11:57 92 01/19/25 09:54 98.1 F 81 20 85/48 98 01/19/25 08:09 94 01/19/25 07:59 96 99 01/19/25 07:14 97.7 F 96 18 102/59 99 01/19/25 06:00 89 105/65 01/19/25 05:30 84 101/65 01/19/25 05:00 87 102/61 01/19/25 04:20 89 105/64 01/19/25 04:00 89 138/55 01/19/25 03:30 87 95/59 01/19/25 03:06 79 102/66 01/19/25 01:40 97.5 F L 54 L 18 101/65 97 01/19/25 01:10 20 01/19/25 00:24 92 20 93/63 95 01/19/25 00:04 95 01/18/25 23:03 56 L 16 97/73 95 01/18/25 17:13 22 01/18/25 17:03 97.5 F L 84 21 103/69 97 Intake and Output 01/18/25 01/19/25 01/19/25 22:59 06:59 14:59 Intake Total 118 Output Total 500 Balance -500 118 Intake: Oral 118 Output: Urine 500 Other: Voiding Method Diaper External Catheter Weight 55.792 kg 55.792 kg Physical Exam: General: very thin, chacetic appearing, with noted muscle wasting Head: atraumatic, normocephalic, symmetric Eyes: EOMI, anicteric sclera Mouth: no lip lesion, mucus membranes moist Cardiovascular: S1 S2 reg, no murmur, rubs, or gallops Lungs: Diminished breath sounds bilaterally, wheeze noted on the right Abdominal: soft, non-tender to palpataion, no appreciable organomegaly Neuro: Alert, Oriented, CNII-XII grossly intact, gait normal Psych: well appearing, appropriate affect Results CBC & Chem 7: 01/20/25 06:01 01/20/25 06:01 Labs: Abnormal Lab Results - Last 24 Hours (Table) 01/18/25 01/18/25 01/18/25 Range/Units 18:07 18:07 18:07 WBC 17.45 H (4.50-10.00) 10*3/uL RBC 3.32 L (4.40-5.60) 10*6/uL Hgb 10.0 L D (13.0-17.0) g/dL Hct 29.1 L (39.6-50.0) % Immature Gran # 0.10 H (0.00-0.04) 10*3/uL Neutrophils # 16.31 H (1.80-7.70) 10*3/uL Lymphocytes # 0.62 L (0.90-5.00) 10*3/uL Monocytes # (0.20-1.00) X 10*3/uL Eosinophils # 0.00 L (0.04-0.35) 10*3/uL Sodium 130 L (137-145) mmol/L Chloride 91 L (98-107) mmol/L BUN 51 H (9-20) mg/dL BUN/Creatinine Ratio (12.00-20.00) Ratio Glucose 108 H (74-99) mg/dL Plasma Lactic Acid Milton 3.0 H* (0.7-2.0) mmol/L Calcium 8.2 L (8.4-10.2) mg/dL AST 61 H (17-59) U/L Albumin 2.5 L (3.5-5.0) g/dL Procalcitonin (0.02-0.50) ng/mL 01/19/25 01/19/25 01/19/25 Range/Units 04:19 04:19 04:50 WBC 11.12 H (4.50-10.00) 10*3/uL RBC 2.93 L (4.40-5.60) 10*6/uL Hgb 8.5 L (13.0-17.0) g/dL Hct 25.9 L (39.6-50.0) % Immature Gran # 0.08 H (0.00-0.04) 10*3/uL Neutrophils # 10.26 H (1.80-7.70) 10*3/uL Lymphocytes # 0.57 L (0.90-5.00) 10*3/uL Monocytes # 0.19 L (0.20-1.00) X 10*3/uL Eosinophils # 0 L (0.04-0.35) 10*3/uL Sodium 134 L (137-145) mmol/L Chloride (98-107) mmol/L BUN 43.1 H (9-20) mg/dL BUN/Creatinine Ratio 39.18 H (12.00-20.00) Ratio Glucose 187 H (74-99) mg/dL Plasma Lactic Acid [place] (0.7-2.0) mmol/L Calcium 7.7 L (8.4-10.2) mg/dL AST (17-59) U/L Albumin (3.5-5.0) g/dL Procalcitonin 1.40 H (0.02-0.50) ng/mL Assessment and Plan Assessment: #New onset lung masses, left upper lung measuring 5.1 cm and right posterior lung nodule measuring 1.8 cm - Currently undergoing outpatient malignancy workup - CTA on 12/26/24 confirmed the findings listed above - Outpatient PET scan was scheduled for this coming 01/22/25 - Unable to tolerate brain MRI as he is unable to lie flat - Brain CT ordered to evaluate for any brain met disease, with noted blurry vision - Will continue to follow for the duration of his stay - Pulmonology following for possible bronchoscopy/biopsy when patient stabilizes #Acute hypoxemic respiratory failure, possibly secondary to post-obstructive pneumonia #Leukocytosis, likely reactive - Chest x-ray done in the ED showing worsening consolidative changes in the left lung, concerning for obstructive atelectasis or pneumonia. - Continue supplemental oxygen to maintain oxygen saturation 92% or greater - Continue empiric antibiotics as perpulmonoary and primary team - Continue to monitor CBC #Normocytic normochromic anemia - Hgb 8.5 today, compared to 10.0 yesterday - Likely due to underlying inflammation from pneumonia and suspected malignancy - Continue to monitor CBC - Hgb <7 transfuse #Hyponatremia, improving - Sodium 134 today, as compared to 130 yesterday - Continue to monitor BMP Saul Gallagher MD PGY2 - IM Patient seen with resident and agree with assessment and plan outlined above. Discussed suspicious findings on imaging and need for bronchoscopy when stable to confirm diagnosis of malignancy. CT brain with contrast ordered to r/o intracranial metastases due to inability to lie flat for MRI. Mario Lazaro MD
--- NOTE | 2025-01-19 15:52 | P.HPIM ---
History of Present Illness Chief Complaint: Shortness of breath History of present illness; Patient is a 59-year-old male with significant past smoking history of [id number] with unintentional weight loss presents to the ER with significant shortness of breath hypoxic at SpO2 of 78% has increased weakness and additional weight loss of 23 pounds in the last month. Chest x-ray was performed in the ER showing worsening consolidation in the left lung concerning for atelectasis or pneumonia. Patient had a recent CTA in December 2024 with evidence of left apical lung mass measuring 5.1 cm with consolidation A&P. In the ER patient was started on Zosyn empirically with saline infusion 138 mL/h Labs in ER WBC 17.45 HBG 10 PLT 309 NA 130 K4.7 BUN 51 CR 1.07 GLU 108 lactic 3 Trop 0.012 Quad screen negative Patient was admitted with consults from pulmonology, cardiology and oncology. At time of encounter patient is on 2 L nasal cannula and not in acute distress, eating breakfast. He denies worsening shortness of breath, Dizziness, Fever or chills. Imaging: REVIEW OF SYSTEMS: As stated above in HPI. The rest of the 14-point review of systems is negative. PHYSICAL EXAMINATION: GENERAL: The patient is alert and oriented x3, not in any acute distress. Eating but poorly nourished HEENT: Pupils are round and equally reacting to light. EOMI. No scleral icterus. No conjunctival pallor. Normocephalic, atraumatic. CARDIOVASCULAR: S1 and S2 present. No murmurs, rubs, or gallops. PULMONARY: Decreased air entry bilaterally ABDOMEN: Soft, nontender, nondistended, normoactive bowel sounds. No palpable organomegaly. MUSCULOSKELETAL: No joint swelling or deformity. EXTREMITIES: No cyanosis, clubbing, or pedal edema. NEUROLOGICAL: Gross neurological examination did not reveal any focal deficits. SKIN: No rashes. Assessment and Plan #Acute hypoxic respiratory failure likely secondary to post obstructive PNA #Apical lung mass #acute leukocytosis #normocytic anemia -PET scan scheduled for 01/22 Supplemental oxygen SPO2 > 92% Continue Zosyn IV Consult oncology recommendations appreciated - Pulm assisted biopsy planned awaiting hemodynamic stability Pulmonology consult recommendations appreciated #unintentional weight loss #malnutrition Normal diet # Nonsustained bradycardia - Tele reports max to 30-40, transfered to cardiac 3S as a result -Since transfer, consistently 80-95, remains asymptomatic Consult cardiology recommendations appreciated 2D echocardiogram per cardiology DVT ppx: SCDs CODE STATUS: Full Dispo: Pending clinical course Past Medical History Additional Past Medical History / Comment(s): lung nodule History of Any Multi-Drug Resistant Organisms: None Reported Additional Past Surgical History / Comment(s): broken leg@15 years old Past Anesthesia/Blood Transfusion Reactions: No Reported Reaction Past Psychological History: No Psychological Hx Reported Smoking Status: Current some day smoker Past Alcohol Use History: None Reported Past Drug Use History: Marijuana Medications and Allergies Home Medications Medication Instructions Recorded Confirmed Type No Known Home Medications 01/18/25 01/18/25 History Allergies Allergy/AdvReac Type Severity Reaction Status Date / Time No Known Allergies Allergy Verified 01/18/25 20:38 Physical Exam Vitals: Vital Signs Temp Pulse Pulse Resp BP BP Pulse Ox 01/19/25 08:09 94 01/19/25 07:59 96 99 01/19/25 07:14 97.7 F 96 18 102/59 99 01/19/25 06:00 89 105/65 01/19/25 05:30 84 101/65 01/19/25 05:00 87 102/61 01/19/25 04:20 89 105/64 01/19/25 04:00 89 138/55 01/19/25 03:30 87 95/59 01/19/25 03:06 79 102/66 01/19/25 01:40 97.5 F L 54 L 18 101/65 97 01/19/25 01:10 20 01/19/25 00:24 92 20 93/63 95 01/19/25 00:04 95 01/18/25 23:03 56 L 16 97/73 95 01/18/25 17:13 22 01/18/25 17:03 97.5 F L 84 21 103/69 97 Intake and Output 01/18/25 01/19/25 01/19/25 22:59 06:59 14:59 Output Total 500 Balance -500 Output: Urine 500 Other: Voiding Method Diaper External Catheter Weight 55.792 kg 55.792 kg Results CBC & Chem 7: 01/19/25 04:19 01/19/25 04:19 Labs: Abnormal Lab Results - Last 24 Hours (Table) 01/18/25 01/18/25 01/18/25 Range/Units 18:07 18:07 18:07 WBC 17.45 H (4.50-10.00) 10*3/uL RBC 3.32 L (4.40-5.60) 10*6/uL Hgb 10.0 L D (13.0-17.0) g/dL Hct 29.1 L (39.6-50.0) % Immature Gran # 0.10 H (0.00-0.04) 10*3/uL Neutrophils # 16.31 H (1.80-7.70) 10*3/uL Lymphocytes # 0.62 L (0.90-5.00) 10*3/uL Monocytes # (0.20-1.00) X 10*3/uL Eosinophils # 0.00 L (0.04-0.35) 10*3/uL Sodium 130 L (137-145) mmol/L Chloride 91 L (98-107) mmol/L BUN 51 H (9-20) mg/dL BUN/Creatinine Ratio (12.00-20.00) Ratio Glucose 108 H (74-99) mg/dL Plasma Lactic Acid Milton 3.0 H* (0.7-2.0) mmol/L Calcium 8.2 L (8.4-10.2) mg/dL AST 61 H (17-59) U/L Albumin 2.5 L (3.5-5.0) g/dL Procalcitonin (0.02-0.50) ng/mL 01/19/25 01/19/25 01/19/25 Range/Units 04:19 04:19 04:50 WBC 11.12 H (4.50-10.00) 10*3/uL RBC 2.93 L (4.40-5.60) 10*6/uL Hgb 8.5 L (13.0-17.0) g/dL Hct 25.9 L (39.6-50.0) % Immature Gran # 0.08 H (0.00-0.04) 10*3/uL Neutrophils # 10.26 H (1.80-7.70) 10*3/uL Lymphocytes # 0.57 L (0.90-5.00) 10*3/uL Monocytes # 0.19 L (0.20-1.00) X 10*3/uL Eosinophils # 0 L (0.04-0.35) 10*3/uL Sodium 134 L (137-145) mmol/L Chloride (98-107) mmol/L BUN 43.1 H (9-20) mg/dL BUN/Creatinine Ratio 39.18 H (12.00-20.00) Ratio Glucose 187 H (74-99) mg/dL Plasma Lactic Acid Milton (0.7-2.0) mmol/L Calcium 7.7 L (8.4-10.2) mg/dL AST (17-59) U/L Albumin (3.5-5.0) g/dL Procalcitonin 1.40 H (0.02-0.50) ng/mL Thrombosis Risk Factor Assmnt - Choose All That Apply Any of the Below Risk Factors Present?: No Other Risk Factors: Yes Each Risk Factor Represents 2 Points: Age 61-74 years Other congenital or acquired thrombophilia - If yes, enter type in comment: No Thrombosis Risk Factor Assessment Total Risk Factor Score: 2 Thrombosis Risk Factor Assessment Level: Low Risk
--- NOTE | 2025-01-19 17:45 | CT ---
EXAMINATION TYPE: CT brain wo/w con DATE OF EXAM: 01/19/2025 5:22 PM COMPARISON: None. CLINICAL INDICATION: Male, 59 years old with history of Lung mass, blurry vision, hallucinations; ams , lung mass, hallucinations TECHNIQUE: Axial CT images were obtained with coronal and sagittal reformats created and reviewed. Contrast used:100 ml mL of Isovue 300 without and with IV Contrast, Oral contrast used: none. CT DLP: 2222.9 mGycm, Automated exposure control for dose reduction was used. FINDINGS: Extra-axial spaces: No abnormal extra-axial fluid collections. Ventricular system: Within normal limits Cerebral parenchyma: No acute intraparenchymal hemorrhage or mass effect. The senior-white junction is well differentiated. No abnormal enhancement is seen after the administration of intravenous contras t. Cerebellum: Unremarkable. Mass effect: No evidence for high-grade stenosis or aneurysm. Intracranial vasculature: unremarkable Soft tissues: Normal. Calvarium/osseous structures: No depressed skull fracture. Paranasal sinuses and mastoid air cells: Clear. Visualized orbits: Orbital contents are intact. IMPRESSION: No acute intracranial process. No abnormal enhancement consider MRI for further evaluation 4 several small masses. [facility], , 01/19/2025 5:43 PM
[2025-01-20 07:27] LABS: Basophils # (A) 0.01 10*3/uL (0.00-0.10); Basophils % (A) 0.1 %; Eosinophils # (A) 0.00 10*3/uL (0.04-0.35); Eosinophils % (A) 0.0 %; HCT 26.8 % (39.6-50.0); HGB 8.7 g/dL (13.0-17.0); Lymphocytes # (A) 0.98 10*3/uL (0.90-5.00); Lymphocytes % (A) 6.3 %; MCH 29.3 pg (27.0-32.0); MCHC 32.5 g/dL (32.0-37.0); MCV 90.2 fL (80.0-97.0); Monocytes # (A) 0.67 10*3/uL (0.20-1.00); Monocytes % (A) 4.3 %; Neutrophils # (A) 13.88 10*3/uL (1.80-7.70); Neutrophils % (A) 88.5 %; Platelet Count 270 10*3/uL (140-440); RBC 2.97 10*6/uL (4.40-5.60); RDW 14.4 % (11.5-14.5); WBC 15.67 10*3/uL (4.50-10.00)
[2025-01-20 07:49] LABS: ALT 55 U/L (4-49); AST 89 U/L (17-59); African American GFR (CKD) >90 (>60 ml/min/1.73 sqM); Albumin 2.0 g/dL (3.5-5.0); Alkaline Phosphatase 148 U/L (38-126); Anion Gap 5 mmol/L; Blood Urea Nitrogen 38 mg/dL (9-20); Calcium 8.1 mg/dL (8.4-10.2); Carbon Dioxide 29 mmol/L (22-30); Chloride 100 mmol/L (98-107); Glucose 85 mg/dL (74-99); Non-African American GFR(CKD) 82 (>60 ml/min/1.73 sqM); Potassium 3.9 mmol/L (3.5-5.1); Sodium 134 mmol/L (137-145); Total Protein 5.4 g/dL (6.3-8.2)
--- NOTE | 2025-01-20 08:52 | CA ---
Transthoracic Echo Report Name: Joe Mays Age: 59 Gender: M : 1965 Exam Date: 01/19/2025 13:47 Exam Location: [facility] Ht (in): 73 Wt (lb): 123 Ordering Physician: Shante Vivas Attending/Referring Phys: [id number], [facility] [employer] Yamel Hinton RDCS Procedure CPT: Indications: Bradycardia Cardiac Hx: Technical Quality: Fair Contrast 1: Total Dose (mL): Contrast 2: Total Dose (mL): MEASUREMENTS (Male / Female) Normal Values 2D ECHO LV Diastolic Diameter PLAX 3.8 cm 4.2 - 5.9 / 3.9 - 5.3 cm LV Systolic Diameter PLAX 2.6 cm IVS Diastolic Thickness 0.7 cm 0.6 - 1.0 / 0.6 - 0.9 cm LVPW Diastolic Thickness 0.9 cm 0.6 - 1.0 / 0.6 - 0.9 cm LV Relative Wall Thickness 0.4 LVOT Diameter 2.0 cm LV Diastolic Volume MOD 4C 88.0 cm??? LV Systolic Volume MOD 4C 35.3 cm??? LV Ejection Fraction MOD 4C 59.9 % LV Cardiac Index MOD 4C 2676.4 cm???/min???m??? LV Diastolic Length 4C 7.3 cm LV Systolic Length 4C 5.8 cm Ascending Aorta Diameter 3.2 cm DOPPLER AV Peak Velocity 141.6 cm/s AV Peak Gradient 8.0 mmHg AV Mean Velocity 98.4 cm/s AV Mean Gradient 4.5 mmHg AV Velocity Time Integral 27.6 cm LVOT Peak Velocity 101.1 cm/s LVOT Peak Gradient 4.1 mmHg LVOT Velocity Time Integral 20.4 cm LVOT Stroke Volume 67.0 cm??? LVOT Stroke Volume Index 38.3 ml/m??? LVOT Cardiac Index 3403.5 cm???/min???m??? AV Area Cont Eq vti 2.4 cm??? AV Area Cont Eq pk 2.3 cm??? MV Area PHT 4.0 cm??? Mitral E Point Velocity 68.0 cm/s Mitral A Point Velocity 46.1 cm/s Mitral E to A Ratio 1.5 MV Deceleration Time 190.5 ms TR Peak Velocity 321.1 cm/s TR Peak Gradient 41.2 mmHg Right Atrial Pressure 5.0 mmHg Pulmonary Artery Systolic Pressu 46.2 mmHg Right Ventricular Systolic Press 46.2 mmHg PV Peak Velocity 80.9 cm/s PV Peak Gradient 2.6 mmHg FINDINGS Left Ventricle Left ventricular ejection fraction is estimated at 55-60 %. Left ventricular cavity size normal. Left ventricular wall thickness normal. No obvious regional wall motion abnormalities. Right Ventricle Right ventricle not well visualized. Normal right ventricular global systolic function. Moderate pulmonary hypertension. Right Atrium Right atrium not well visualized. Left Atrium Normal left atrial size. Mitral Valve Mitral valve thickened. Mitral annular calcification. No mitral stenosis, regurgitation or prolapse. Aortic Valve Trileaflet aortic valve. Aortic valve sclerosis. No aortic valve stenosis or regurgitation. Tricuspid Valve Structurally normal tricuspid valve. No tricuspid stenosis. Mild to moderate tricuspid regurgitation. Pulmonic Valve Structurally normal pulmonic valve. No pulmonic stenosis. Mild pulmonic regurgitation. Pericardium No pericardial effusion. Aorta Normal size aortic root and proximal ascending aorta. CONCLUSIONS Pt dozed off during exam and HR dropped to 33bpm from 80-90 image 55 Normal biventricular systolic function Aortic sclerosis with no stenosis or insufficiency Mild mitral and tricuspid regurgitation Moderate pulmonary hypertension Previewed by: Dr. Michael Quick MD (Electronically Signed) Final Date: 20 January 2025 08:51
--- NOTE | 2025-01-20 09:20 | P.PN ---
Subjective Progress Note Date: 01/20/25 This is a pleasant 59-year-old male patient who does not follow regularly with cardiology and in fact up until recently had not been seen by a physician in many years. Presented to the hospital with complaints of discomfort in the chest and shortness of breath. In December he had presented to the emergency department with complaints of shortness of breath and had a chest x-ray that showed concerns for mass. He subsequently was seen in the office by Dr. Garcia and scheduled for a PET scan. Over the last 1-1/2 months he has had about a 25 pound weight loss. The patient is quite confused and has become increasingly more confused at home therefore the HPI was obtained from the daughter and the chart. He apparently been complaining of some discomfort or pressure in his chest on the left side and feels it is related to the mass. He has also been feeling more short of breath at home. He is a prior smoker smoked about 1-1/2 packs/day up until 1-1/2 months ago. We were asked to see the patient in consultation for bradycardia and pauses on telemetry at which time the patient is asymptomatic according to him and the daughter has not noticed any symptoms at the time and no symptoms were noted by nursing staff. Diagnostics -Chest x-ray: Worsening consolidation changes in the left upper lung now extending more inferiorly correlate for pneumonia and/or developing worsening atelectasis superimposed mass is obscured by airspace opacities -Laboratory studies: White blood cell count 11,000, hemoglobin 8.5, sodium 134, potassium 3.8, BUN 41, creatinine 1.1, troponin less than 0.012 and NT proBNP 2610 -Home cardiac medications: None -Prior stress test: None -Echocardiogram: None -Cardiac catheterization: None 01/20/2025 The patient was seen and examined resting comfortably in bed. Does not appear to be in any distress. Continues to have pauses on telemetry with the longest of 4.5 seconds occurring at night, patient likely sleeping. Episodes of sinus pause and sinus bradycardia are asymptomatic. Patient continues to be somewhat confused. Echocardiogram is pending. TSH is normal PHYSICAL EXAMINATION: This is a 59-year-old male in no apparent distress at the time of my examinati on. VITAL SIGNS: Reviewed. HEENT: Head is atraumatic, normocephalic. Pupils are equal, round. Sclerae anicteric. Conjunctivae are clear. Mucous membranes of the mouth are moist. Neck is supple. There is no elevated jugular venous pressure. No carotid bruit is heard. CHEST EXAMINATION: Lungs diminished bilaterally with wheezing and scattered rhonchi. Respirations even and nonlabored. HEART EXAMINATION: Heart regular, positive S1 and S2. No S3. No S4. Systolic murmur. ABDOMEN: Soft, nontender. Bowel sounds are heard. No organomegaly noted. EXTREMITIES: 2+ peripheral pulses with no evidence of peripheral edema and no calf tenderness noted. NEUROLOGIC EXAMINATION: Patient is awake, alert and oriented x1. Assessment: 1. Bradycardia with sinus pauses, intermittent, asymptomatic 2. Lung mass 3. Confusion Plan: From cardiology's perspective we will review the echocardiogram. Await input from both pulmonary and oncology. Patient likely needs further workup due to underlying confusion to rule out brain metastasis. We will continue to follow the patient and provide further recommendations accordingly. Nurse practitioner note has been reviewed, I agree with documented findings and plan of care. Patient was seen and examined. Objective - Vital Signs Vital signs: Vital Signs Temp 98.2 F 01/20/25 07:54 Pulse 103 H 01/20/25 07:54 Resp 14 01/20/25 07:54 BP 90/60 01/20/25 07:54 Pulse Ox 95 01/20/25 07:54 FiO2 Intake & Output 01/19/25 01/20/25 01/20/25 18:59 06:59 18:59 Intake Total 118 Output Total 600 Balance 118 -600 Weight 50 kg Intake: Oral 118 Output: Urine 600 Other: Voiding Method External Catheter External Catheter - Labs CBC & Chem 7: 01/20/25 06:01 01/20/25 06:01 Labs: Abnormal Lab Results - Last 24 Hours (Table) 01/20/25 01/20/25 Range/Units 06:01 06:01 WBC 15.67 H (4.50-10.00) 10*3/uL RBC 2.97 L (4.40-5.60) 10*6/uL Hgb 8.7 L (13.0-17.0) g/dL Hct 26.8 L (39.6-50.0) % Immature Gran # 0.13 H (0.00-0.04) 10*3/uL Neutrophils # 13.88 H (1.80-7.70) 10*3/uL Eosinophils # 0.00 L (0.04-0.35) 10*3/uL Sodium 134 L (137-145) mmol/L BUN 38 H (9-20) mg/dL Calcium 8.1 L (8.4-10.2) mg/dL AST 89 H (17-59) U/L ALT 55 H (4-49) U/L Alkaline Phosphatase 148 H (38-126) U/L Total Protein 5.4 L (6.3-8.2) g/dL Albumin 2.0 L (3.5-5.0) g/dL Microbiology - Last 24 Hours (Table) 01/18/25 19:43 Gram Stain - Preliminary Sputum
[2025-01-20] MEDS: guaiFENesin SYRUP 100MG/5ML 200 MG/10 ML CUP PO PRN (09:44)
[2025-01-20] MEDS: SODIUM CHLORIDE 0.9% 1,000 ML IV ONE (11:18)
--- NOTE | 2025-01-20 13:00 | P.PN ---
Subjective Subjective: History of present illness; Patient is a 59-year-old male with significant past smoking history of [id number] with unintentional weight loss presents to the ER with significant shortness of breath hypoxic at SpO2 of 78% has increased weakness and additional weight loss of 23 pounds in the last month. Chest x-ray was performed in the ER showing worsening consolidation in the left lung concerning for atelectasis or pneumonia. Patient had a recent CTA in December 2024 with evidence of left apical lung mass measuring 5.1 cm with consolidation A&P. In the ER patient was started on Zosyn empirically with saline infusion 138 mL/h Patient was admitted with consults from pulmonology, cardiology and oncology. At time of encounter patient is on 2 L nasal cannula and not in acute distress, eating breakfast. He denies worsening shortness of breath, Dizziness, Fever or chills. 01/20/2025: Patient seen at bedside last night notified about decreased blood pressure to 87 systolic on the left arm, blood pressure checked on right arm 107 systolic. Daughter at bedside discussed CODE STATUS family still wants full code. Pertinent positives and negatives discussed above, a complete review of systems was preformed and all the other sytems were negative. Vitals Signs Reveiwed. General: He is cachectic, appears older than stated age Head: Temporal wasting Eyes: EOMI, no lid lag, anicteric sclera, pupils equal round reactive to light ENT: Nose and ears atraumatic Neck: No cervical lymphadenopathy, trachea midline, supple Mouth: no lip lesion, mucus membranes moist Cardiovascular: S1S2 reg, no murmur, positive dorsalis pedis pulse bilateral, no edema Lungs: Decreased air entry bilaterally, no rhonchi, no rales, no accessory muscle use, several episodes of productive cough with green sputum Abdominal: soft, nontender to palpation, no guarding Ext: muscle strength 5 out of 5 in all 4 extremities grossly, no gross muscle atrophy, no contractures, Neuro: CN II-XI grossly intact, no gross focal neuro deficits Psych: Alert, oriented, appropriate affect Data Reveiwed Today: #Acute hypoxic respiratory failure likely secondary to post obstructive PNA #Apical lung mass 5.1 cm left side #acute leukocytosis (15.67) #normocytic anemia #Confusion secondary to malignancy Hgb 8.5 transfuse if less than 7 -PET scan scheduled for 01/22 Supplemental oxygen SPO2 > 92% Continue Zosyn IV, potentially broaden coverage Consult ID appreciate recommendations Oncology following - Pulm assisted biopsy planned awaiting hemodynamic stability Pulmonology following Brain CT to evaluate for metastasis Discussed CODE STATUS with family, still wants full code #unintentional weight loss #malnutrition Normal diet + protein supplament #Hypotension #Nonsustained bradycardia - Tele reports max to 30-40, transfered to cardiac 3S as a result -Since transfer, consistently 80-95, remains asymptomatic Consulted cardiology recommendations appreciated 2D echocardiogram per cardiology Fluid rate decreased from 130mL/h ro 70 ml/ hr, pt believed to be overloaded DVT ppx: SCDs CODE STATUS: Full Dispo: Pending clinical course Objective - Vital Signs Vital signs: Vital Signs Temp 98.2 F 01/20/25 07:54 Pulse 103 H 01/20/25 07:54 Resp 14 01/20/25 07:54 BP 90/60 01/20/25 07:54 Pulse Ox 95 01/20/25 07:54 FiO2 Intake & Output 01/19/25 01/20/25 01/20/25 18:59 06:59 18:59 Intake Total 118 Output Total 600 Balance 118 -600 Weight 50 kg Intake: Oral 118 Output: Urine 600 Other: Voiding Method External Catheter External Catheter - Labs CBC & Chem 7: 01/20/25 06:01 01/20/25 06:01 Labs: Abnormal Lab Results - Last 24 Hours (Table) 01/20/25 01/20/25 Range/Units 06:01 06:01 WBC 15.67 H (4.50-10.00) 10*3/uL RBC 2.97 L (4.40-5.60) 10*6/uL Hgb 8.7 L (13.0-17.0) g/dL Hct 26.8 L (39.6-50.0) % Immature Gran # 0.13 H (0.00-0.04) 10*3/uL Neutrophils # 13.88 H (1.80-7.70) 10*3/uL Eosinophils # 0.00 L (0.04-0.35) 10*3/uL Sodium 134 L (137-145) mmol/L BUN 38 H (9-20) mg/dL Calcium 8.1 L (8.4-10.2) mg/dL AST 89 H (17-59) U/L ALT 55 H (4-49) U/L Alkaline Phosphatase 148 H (38-126) U/L Total Protein 5.4 L (6.3-8.2) g/dL Albumin 2.0 L (3.5-5.0) g/dL Microbiology - Last 24 Hours (Table) 01/18/25 19:43 Gram Stain - Preliminary Sputum
--- NOTE | 2025-01-20 13:46 | P.PN ---
Subjective Progress Note Date: 01/20/25 Patient is a 59-year-old male with significant smoking history of over 40 pack years, recent unintentional weight loss, and recent findings of left upper lung mass. Chest CT angiogram done December 26, 2024 remarkable for left apical lung mas measuring 5.1 cm with adjacent consolidations, anteriorly and posteriorly. Lobular density in the posterior right lung measuring 1.8 cm. Also, 0.8 cm anterior right lung nodularity. Did have new patient visit with Dr. Garcia on January 08, 2025. Reportedly, scheduled to undergo outpatient PET scan on . Brought into the emergency department yesterday evening by EMS. He was short of breath and was found to be hypoxic when EMS arrived with an SpO2 of 78%. He has been increasingly weak and has lost some additional weight, reportedly an additional 23 pounds in less than a month. Chest x-ray done in the ED showing worsening consolidative changes in the left lung, concerning for obstructive atelectasis or pneumonia. CBC: WBC count 17.45, hemoglobin 10, platelets 309. BMP with a sodium 130, potassium 4.7, chloride 91, serum bicarb 30, BUN 51, creatinine 1.07, glucose 108. Lactic was 3 now down to 2. Troponin less than 0.012. Repeat 2610. Viral screen negative for influenza A/B, RSV, COVID. While in the emergency department, patient was empirically started on Zosyn. Also, normal saline started at 130 mL/h. He is currently being evalua ladarius on the fifth floor. He is a poor historian. On 2 L/min nasal cannula, nondistressed. He has a congested cough with reportedly increased sputum production. Does have a green sputum in collection cup. Denies any hemoptysis. Denies any fevers. Reports left-sided chest pain with coughing and deep breathing. He continues to have weight loss. He is very frail and cachectic in appearance. Appetite has been poor. Denies any nausea, vomiting, diarrhea, abdominal pain. Nontachycardic. Blood pressure normotensive. Normal saline infusing at 130 mL/h. On 01/20/2025, the patient is being seen for a follow-up. Extremely debilitated. Continues to have a congested cough. Trying to increase oral intake and the patient was given Ensure. Remains on IV Zosyn as a broad-spectrum antibiotic coverage. Sputum sample was positive for gram-negative/moderate Enterobacter cloacae complex. The patient remains also on bronchodilators. The patient is profoundly weak. No altered mentation for now. CAT scan of the brain was obtained yesterday and shows no evidence of any GARMENT PATTERNMAKER metastases. Echocardiogram also showed a preserved LV function with a left ventricular ejection fraction being in the order of 55 to 60%. Nevertheless, the patient had moderate degree of pulm hypertension with right ventricular systolic pressure estimated to be around 46 mmHg. No signs of any volume overload. The patient remains on IV fluids and the patient is currently at normal Saint rate of 130 cc an hour. Objective - Vital Signs Vital signs: Vital Signs Temp 98.2 F 01/20/25 07:54 Pulse 103 H 01/20/25 07:54 Resp 14 01/20/25 07:54 BP 90/60 01/20/25 07:54 Pulse Ox 95 01/20/25 07:54 FiO2 Intake & Output 01/19/25 01/20/25 01/20/25 18:59 06:59 18:59 Intake Total 118 Output Total 600 Balance 118 -600 Weight 50 kg Intake: Oral 118 Output: Urine 600 Other: Voiding Method External Catheter External Catheter - Exam GENERAL EXAM: Alert, 59-year-old male, frail/cachectic, comfortable in no apparent distress. HEAD: Normocephalic and atraumatic EYES: Normal reaction of pupils, equal size. NOSE: Clear with pink turbinates. THROAT: No erythema or exudates. Poor dentition. NECK: No masses, no JVD. CHEST: No chest wall deformity. LUNGS: Equal air entry with markedly diminished lung sounds on the left. On 2 L/min nasal cannula. No conversational dyspnea or accessory muscle use.. CVS: S1 and S2 normal with no audible murmur, regular rhythm. No extra heart sounds ABDOMEN: No hepatosplenomegaly, active bowel sounds, no guarding or rigidity. SPINE: No scoliosis or deformity SKIN: No rashes CENTRAL NERVOUS SYSTEM: No focal deficits, tone is normal in all 4 extremities. EXTREMITIES: There is no peripheral edema or cyanosis. Peripheral pulses are intact. Digital clubbing noted. - Labs CBC & Chem 7: 01/20/25 06:01 01/20/25 06:01 Labs: Abnormal Lab Results - Last 24 Hours (Table) 01/20/25 01/20/25 Range/Units 06:01 06:01 WBC 15.67 H (4.50-10.00) 10*3/uL RBC 2.97 L (4.40-5.60) 10*6/uL Hgb 8.7 L (13.0-17.0) g/dL Hct 26.8 L (39.6-50.0) % Immature Gran # 0.13 H (0.00-0.04) 10*3/uL Neutrophils # 13.88 H (1.80-7.70) 10*3/uL Eosinophils # 0.00 L (0.04-0.35) 10*3/uL Sodium 134 L (137-145) mmol/L BUN 38 H (9-20) mg/dL Calcium 8.1 L (8.4-10.2) mg/dL AST 89 H (17-59) U/L ALT 55 H (4-49) U/L Alkaline Phosphatase 148 H (38-126) U/L Total Protein 5.4 L (6.3-8.2) g/dL Albumin 2.0 L (3.5-5.0) g/dL Microbiology - Last 24 Hours (Table) 01/18/25 19:43 Gram Stain - Preliminary Sputum Assessment and Plan Assessment: Acute hypoxemic respiratory failure, currently on 2 L/min nasal cannula, repeat chest x-ray showing worsening consolidative changes in the left upper lung now extending inferiorly, concerning for disease progression and/or post-obstructive pneumonia. Extensive left lung pneumonia with a left upper lobe mass. Sputum positive for Enterobacter cloacae complex and the patient remains on IV Zosyn. No significant leukocytosis. No significant hemodynamic instability. The patient is normotensive. Left upper lung mass, measuring 5.1 cm Right posterior lung nodule measuring 1.8 cm Acute leukocytosis Normocytic, normochromic anemia monitor for blood loss Unintentional weight loss Severe protein calorie malnutrition with a BMI of 16.2 kg/m Chronic tobacco dependence Preserved RV function with moderate degree of pulm hypertension, likely group 3 pulmonary hypertension with an estimated RVSP of 46 mmHg. Plan: Keep oxygen 2 L/min nasal cannula Continue IV Zosyn Patient currently undergoing outpatient workup for malignancy Reportedly has outpatient PET scan ordered on Consult Oncology has been obtained The patient is being provided dietary support and the patient is currently on Ensure. CAT scan of the brain was negative Patient is still very much debilitated. As such, we are still unable to do a bronchoscopy at this point as the patient's condition is unstable. Will continue IV antibiotics and continue to reevaluate. May consider bronchoscopy within the next 24 to 48 hours based on his overall progress. Case was explained to the daughter at the bedside. Explained our concerns for doing a bronchoscopy which may be essentially complicated procedure and it may result into complication including respiratory failure. As such, we are going to support the patient medically and optimize his clinical condition prior to undergoing the bronchoscopy. Suspicion for malignancy is extremely high in this patient. Prognosis remains poor.
--- NOTE | 2025-01-21 11:28 | XR ---
EXAMINATION TYPE: XR chest 1V DATE OF EXAM: 01/21/2025 COMPARISON: 01/18/2025 CLINICAL INDICATION: Male, 59 years old with history of FU pneumonia; TECHNIQUE: Single frontal view of the chest is obtained. FINDINGS: The extensive pleural parenchymal opacities in the left hemithorax persist but show interv al worsening now obscuring the left heart margin and left sided mediastinal structures. Asymmetricall y smaller left hemithorax is similar. Calcified granuloma lateral right upper lobe. Mild interstitial densities in the right upper lung have increased. IMPRESSION: 1. Worsening severe pleural-parenchymal opacities throughout the left hemithorax. 2. There may be some developing interstitial infiltrate in the right upper lung now. [facility], , 01/21/2025 11:25 AM
[2025-01-21] MEDS: methylPREDNISolone SOD SUCCI 125 MG/2 ML VIAL IV SCH (11:39)
--- NOTE | 2025-01-21 12:44 | P.PN ---
Subjective Progress Note Date: 01/21/25 This is a pleasant 59-year-old male patient who does not follow regularly with cardiology and in fact up until recently had not been seen by a physician in many years. Presented to the hospital with complaints of discomfort in the chest and shortness of breath. In December he had presented to the emergency department with complaints of shortness of breath and had a chest x-ray that showed concerns for mass. He subsequently was seen in the office by Dr. Garcia and scheduled for a PET scan. Over the last 1-1/2 months he has had about a 25 pound weight loss. The patient is quite confused and has become increasingly more confused at home therefore the HPI was obtained from the daughter and the chart. He apparently been complaining of some discomfort or pressure in his chest on the left side and feels it is related to the mass. He has also been feeling more short of breath at home. He is a prior smoker smoked about 1-1/2 packs/day up until 1-1/2 months ago. We were asked to see the patient in consultation for bradycardia and pauses on telemetry at which time the patient is asymptomatic according to him and the daughter has not noticed any symptoms at the time and no symptoms were noted by nursing staff. Diagnostics -Chest x-ray: Worsening consolidation changes in the left upper lung now extending more inferiorly correlate for pneumonia and/or developing worsening atelectasis superimposed mass is obscured by airspace opacities -Laboratory studies: White blood cell count 11,000, hemoglobin 8.5, sodium 134, potassium 3.8, BUN 41, creatinine 1.1, troponin less than 0.012 and NT proBNP 2610 -Home cardiac medications: None -Prior stress test: None -Echocardiogram: None -Cardiac catheterization: None 01/20/2025 The patient was seen and examined resting comfortably in bed. Does not appear to be in any distress. Continues to have pauses on telemetry with the longest of 4.5 seconds occurring at night, patient likely sleeping. Episodes of sinus pause and sinus bradycardia are asymptomatic. Patient continues to be somewhat confused. Echocardiogram is pending. TSH is normal 01/21/2025 Patient seen and examined. Patient has had no further sinus pauses. He states his breathing is better. No chest pain, chest pressure no palpitations. Blood pressure 101/59, heart rate 100, pulse ox 86% on 5 L nasal cannula. Echocardiogram reveals EF 55 to 60%, mild mitral and tricuspid regurgitation, moderate pulmonary hypertension. PHYSICAL EXAMINATION: This is a 59-year-old male in no apparent distress at the time of my examination. VITAL SIGNS: Reviewed. HEENT: Head is atraumatic, normocephalic. Pupils are equal, round. Sclerae anicteric. Conjunctivae are clear. Mucous membranes of the mouth are moist. Neck is supple. There is no elevated jugular venous pressure. No carotid bruit is heard. CHEST EXAMINATION: Lungs diminished bilaterally with wheezing and scattered rhon chi. Respirations even and nonlabored. HEART EXAMINATION: Heart regular, positive S1 and S2. No S3. No S4. Systolic murmur. ABDOMEN: Soft, nontender. Bowel sounds are heard. No organomegaly noted. EXTREMITIES: 2+ peripheral pulses with no evidence of peripheral edema and no calf tenderness noted. NEUROLOGIC EXAMINATION: Patient is awake, alert and oriented x1. Assessment: 1. Bradycardia with sinus pauses, intermittent, asymptomatic 2. Lung mass 3. Confusion 4. Moderate pulmonary hypertension. Plan: Patient had sinus bradycardia predominantly at night and monitoring that showed no indication for pacemaker. Cardiology will sign off this case and follow on an as-needed basis. Please r econsult for any new concerns. Nurse practitioner note has been reviewed, I agree with documented findings and plan of care. Patient was seen and examined. Objective - Vital Signs Vital signs: Vital Signs Temp 98.4 F 01/21/25 03:34 Pulse 102 H 01/21/25 09:07 Resp 18 01/21/25 03:34 BP 99/60 01/21/25 03:34 Pulse Ox 93 L 01/21/25 03:34 FiO2 Intake & Output 01/20/25 01/21/25 01/21/25 18:59 06:59 18:59 Intake Total 473 Output Total 800 240 Balance -327 -240 Weight 50 kg 50.7 kg Intake: Oral 473 Output: Urine 800 240 Other: Voiding Method External Catheter External Catheter # Bowel Movements 1 - Labs CBC & Chem 7: 01/20/25 06:01 01/20/25 06:01 Labs: Microbiology - Last 24 Hours (Table) 01/18/25 20:22 Blood Culture - Preliminary Blood 01/18/25 19:43 Gram Stain - Preliminary Sputum Sputum Culture - Preliminary Enterobacter cloacae Complex
[2025-01-21] MEDS ORDERED: VANCOMYCIN IV PER PHARMACY 1 EACH MISC MISCELLANE PRN (14:07)
--- NOTE | 2025-01-21 14:07 | P.PN ---
Subjective Progress Note Date: 01/21/25 Patient is a 59-year-old male with significant smoking history of over 40 pack years, recent unintentional weight loss, and recent findings of left upper lung mass. Chest CT angiogram done December 26, 2024 remarkable for left apical lung mas measuring 5.1 cm with adjacent consolidations, anteriorly and posteriorly. Lobular density in the posterior right lung measuring 1.8 cm. Also, 0.8 cm anterior right lung nodularity. Did have new patient visit with Dr. Garcia on January 08, 2025. Reportedly, scheduled to undergo outpatient PET scan on . Brought into the emergency department yesterday evening by EMS. He was short of breath and was found to be hypoxic when EMS arrived with an SpO2 of 78%. He has been increasingly weak and has lost some additional weight, reportedly an additional 23 pounds in less than a month. Chest x-ray done in the ED showing worsening consolidative changes in the left lung, concerning for obstructive atelectasis or pneumonia. CBC: WBC count 17.45, hemoglobin 10, platelets 309. BMP with a sodium 130, potassium 4.7, chloride 91, serum bicarb 30, BUN 51, creatinine 1.07, glucose 108. Lactic was 3 now down to 2. Troponin less than 0.012. Repeat 2610. Viral screen negative for influenza A/B, RSV, COVID. While in the emergency department, patient was empirically started on Zosyn. Also, normal saline started at 130 mL/h. He is currently being evalua ladarius on the fifth floor. He is a poor historian. On 2 L/min nasal cannula, nondistressed. He has a congested cough with reportedly increased sputum production. Does have a green sputum in collection cup. Denies any hemoptysis. Denies any fevers. Reports left-sided chest pain with coughing and deep breathing. He continues to have weight loss. He is very frail and cachectic in appearance. Appetite has been poor. Denies any nausea, vomiting, diarrhea, abdominal pain. Nontachycardic. Blood pressure normotensive. Normal saline infusing at 130 mL/h. On 01/20/2025, the patient is being seen for a follow-up. Extremely debilitated. Continues to have a congested cough. Trying to increase oral intake and the patient was given Ensure. Remains on IV Zosyn as a broad-spectrum antibiotic coverage. Sputum sample was positive for gram-negative/moderate Enterobacter cloacae complex. The patient remains also on bronchodilators. The patient is profoundly weak. No altered mentation for now. CAT scan of the brain was obtained yesterday and shows no evidence of any MASTER FISHER metastases. Echocardiogram also showed a preserved LV function with a left ventricular ejection fraction being in the order of 55 to 60%. Nevertheless, the patient had moderate degree of pulm hypertension with right ventricular systolic pressure estimated to be around 46 mmHg. No signs of any volume overload. The patient remains on IV fluids and the patient is currently at normal Saint rate of 130 cc an hour. On today's evaluation of 01/21/2025, the patient remains extremely debilitated and weak. Continues to have cough and congestion. As mentioned earlier, the sputum sample was positive for Enterobacter cloacae and the patient was kept on IV Zosyn. Meanwhile, repeat chest x-ray was done and showed worsening in the pleural-parenchymal opacity on the left hemithorax and there was also some developing interstitial infiltrates in the right upper lobe. I also noted that the sputum sample was also positive for Aspergillus fumigatus. Oral intake remains quite diminished. The white cell count is 15.6 with a hemoglobin 8.7 and a platelet count of 270. Sodium is at 134, potassium is at 3.9, BUN is 38 with a creatinine 0.9. AST is at 89 with an ALT of 55 and alkaline phosphatase of 148. Procalcitonin level is at 1.4. TSH is 2.6. Objective - Vital Signs Vital signs: Vital Signs Temp 98.4 F 01/21/25 03:34 Pulse 102 H 01/21/25 09:07 Resp 18 01/21/25 03:34 BP 99/60 01/21/25 03:34 Pulse Ox 93 L 01/21/25 03:34 FiO2 Intake & Output 01/20/25 01/21/25 01/21/25 18:59 06:59 18:59 Intake Total 473 473 Output Total 800 240 Balance -327 -240 473 Weight 50 kg 50.7 kg Intake: Oral 473 473 Output: Urine 800 240 Other: Voiding Method External Catheter External Catheter # Bowel Movements 1 - Exam GENERAL EXAM: Alert, 59-year-old male, frail/cachectic, comfortable in no apparent distress.The patient carries a body mass index of 14. The patient is currently on oxygen at 4 L/min nasal cannula. Cachectic, debilitated, weak, significant loss in total body muscle mass along with temporal wasting. HEAD: Normocephalic and atraumatic EYES: Normal reaction of pupils, equal size. NOSE: Clear with pink turbinates. THROAT: No erythema or exudates. Poor dentition. NECK: No masses, no JVD. CHEST: No chest wall deformity. LUNGS: Equal air entry with markedly diminished lung sounds on the left. No conversational dyspnea or accessory muscle use.. CVS: S1 and S2 normal with no audible murmur, regular rhythm. No extra heart sounds ABDOMEN: No hepatosplenomegaly, active bowel sounds, no guarding or rigidity. SPINE: No scoliosis or deformity SKIN: No rashes CENTRAL NERVOUS SYSTEM: No focal deficits, tone is normal in all 4 extremities. EXTREMITIES: There is no peripheral edema or cyanosis. Peripheral pulses are intact. Digital clubbing noted. - Labs CBC & Chem 7: 01/20/25 06:01 01/20/25 06:01 Labs: Microbiology - Last 24 Hours (Table) 01/18/25 20:22 Blood Culture - Preliminary Blood 01/18/25 19:43 Gram Stain - Preliminary Sputum Sputum Culture - Preliminary Enterobacter cloacae Complex Assessment and Plan Assessment: Acute hypoxemic respiratory failure, currently on 4 L/min nasal cannula, repeat chest x-ray showing worsening consolidative changes in the left upper lung now extending inferiorly, concerning for disease progression and/or post-obstructive pneumonia. Noted the patient has a cavitating left upper lobe pulmonary infiltrate. Follow-up chest x-ray shows interval worsening of the left lung consolidation and the patient has a left upper lobe mass in the left lung seems to be completely consolidated at this point. Extensive left lung pneumonia with a left upper lobe mass. Sputum positive for Enterobacter cloacae complex and the patient remains on IV Zosyn. No significant leukocytosis. No significant hemodynamic instability. The patient is normotensive. Procalcitonin level was mildly elevated. Furthermore, the sputum sample was showed Aspergillus fumigatus. Possibility of a fungal pneumonia with cavitation/fungal ball cannot be completely excluded. Left upper lung mass, measuring 5.1 cm Right posterior lung nodule measuring 1.8 cm Acute leukocytosis Normocytic, normochromic anemia monitor for blood loss Unintentional weight loss Severe protein calorie malnutrition with a BMI of 16.2 kg/m Chronic tobacco dependence Preserved RV function with moderate degree of pulm hypertension, likely group 3 pulmonary hypertension with an estimated RVSP of 46 mmHg. Plan: Keep oxygen 4 L/min nasal cannula Continue IV Zosyn, will add vancomycin and will also add voriconazole due to suspicion for fungal cavitating pneumonia. Will check serum Aspergillus titers Consult Oncology has been obtained The patient is being provided dietary support and the patient is currently on Ensure. CAT scan of the brain was negative Patient is still very much debilitated. As such, we are still unable to do a bronchoscopy at this point as the patient's condition is unstable. Will continue IV antibiotics I will make further decisions based on his progress. As mentioned, he has severe loss in total body muscle protein and looks extremely emaciated and cachectic. He cannot handle any bronchoscopic intervention at this point in time. Will consult ID. Will monitor LFTs as the patient is going to be started on voriconazole. Case was explained to the daughter at the bedside. Explained our concerns for doing a bronchoscopy which may be essentially complicated procedure and it may result into complication including respiratory failure. As such, we are going to support the patient medically and optimize his clinical condition prior to undergoing the bronchoscopy. Suspicion for malignancy is extremely high in this patient. Prognosis remains poor. Time with Patient: Greater than 30
--- NOTE | 2025-01-21 14:15 | P.PN ---
Subjective Subjective: History of present illness; Patient is a 59-year-old male with significant past smoking history of [id number] with unintentional weight loss presents to the ER with significant shortness of breath hypoxic at SpO2 of 78% has increased weakness and additional weight loss of 23 pounds in the last month. Chest x-ray was performed in the ER showing worsening consolidation in the left lung concerning for atelectasis or pneumonia. Patient had a recent CTA in December 2024 with evidence of left apical lung mass measuring 5.1 cm with consolidation A&P. In the ER patient was started on Zosyn empirically with saline infusion 138 mL/h Patient was admitted with consults from pulmonology, cardiology and oncology. At time of encounter patient is on 2 L nasal cannula and not in acute distress, eating breakfast. He denies worsening shortness of breath, Dizziness, Fever or chills. 01/20/2025: Patient seen at bedside last night notified about decreased blood pressure to 87 systolic on the left arm, blood pressure checked on right arm 107 systolic. Daughter at bedside discussed CODE STATUS family still wants full code. 01/21/2025: Patient's blood pressure is improved since yesterday, he is still disoriented not able to give clear history. Patient denies pain or worsening shortness of breath. Endorses photophobia Pertinent positives and negatives discussed above, a complete review of systems was preformed and all the other sytems were negative. Vitals Signs Reveiwed. General: He is cachectic, appears older than stated age Head: Temporal wasting Eyes: EOMI, no lid lag, anicteric sclera, pupils equal round reactive to light ENT: Nose and ears atraumatic Neck: No cervical lymphadenopathy, trachea midline, supple Mouth: no lip lesion, mucus membranes moist Cardiovascular: S1S2 reg, no murmur, positive dorsalis pedis pulse bilateral, no edema Lungs: Decreased air entry bilaterally, no rhonchi, no rales, no accessory muscle use, several episodes of productive cough with green sputum Abdominal: soft, nontender to palpation, no guarding Ext: muscle strength 5 out of 5 in all 4 extremities grossly, no gross muscle atrophy, no contractures, Neuro: CN II-XI grossly intact, no gross focal neuro deficits Psych: Alert, oriented, appropriate affect Data Reveiwed Today: #Acute hypoxic respiratory failure likely secondary to post obstructive PNA #Apical lung mass 5.1 cm left side #acute leukocytosis (15.67) #normocytic anemia #Confusion secondary to malignancy Hgb 8.5 transfuse if less than 7 -PET scan scheduled for 01/22 Supplemental oxygen SPO2 > 92% Continue Zosyn IV, potentially broaden coverage Consult ID appreciate recommendations Oncology following - Pulm assisted biopsy planned awaiting hemodynamic stability Pulmonology following Brain CT reveals no acute process or metastatic disease Discussed CODE STATUS with family, still wants full code #unintentional weight loss #malnutrition Normal diet + protein supplament #Hypotension (improved) #Nonsustained bradycardia - Tele reports max to 30-40, transfered to cardiac 3S as a result -Since transfer, consistently 80-95, remains asymptomatic Consulted cardiology recommendations appreciated 2D echocardiogram per cardiology Fluid rate decreased from 130mL/h ro 70 ml/ hr, pt believed to be overloaded DVT ppx: SCDs CODE STATUS: Full Dispo: Pending clinical course Objective - Vital Signs Vital signs: Vital Signs Temp 98.4 F 01/21/25 03:34 Pulse 102 H 01/21/25 09:07 Resp 18 01/21/25 03:34 BP 99/60 01/21/25 03:34 Pulse Ox 93 L 01/21/25 03:34 FiO2 Intake & Output 01/20/25 01/21/25 01/21/25 18:59 06:59 18:59 Intake Total 473 Output Total 800 240 Balance -327 -240 Weight 50 kg 50.7 kg Intake: Oral 473 Output: Urine 800 240 Other: Voiding Method External Catheter External Catheter # Bowel Movements 1 - Labs CBC & Chem 7: 01/20/25 06:01 01/20/25 06:01 Labs: Microbiology - Last 24 Hours (Table) 01/18/25 20:22 Blood Culture - Preliminary Blood 01/18/25 19:43 Gram Stain - Preliminary Sputum Sputum Culture - Preliminary Enterobacter cloacae Complex
--- NOTE | 2025-01-21 15:00 | CT ---
EXAMINATION TYPE: CT abdomen pelvis w con DATE OF EXAM: 01/21/2025 COMPARISON: None CLINICAL INDICATION: Male, 59 years old with history of staging, eval for biopsy site. Known lung mas s; PHH, STAGING EVAL FOR BIOPSY, KNOWN LUNG MASS TECHNIQUE: Multiple axial images are obtained to the abdomen and pelvis following IV contrast. CT DLP: 524.[address] CTDI: mGy Automated exposure control for dose reduction was used. FINDINGS: There is a small right lower lobe infiltrate and pleural effusion. There is a large partially consoli dated infiltrate in the left lung with a small pleural effusion. The gallbladder is normal without distention, wall thickening, pericholecystic fluid or gallstones. T here is no biliary ductal dilatation. There is no focal mass or organomegaly involving the liver, pancreas, spleen or adrenal glands. There is no solid renal mass or hydronephrosis and there is homogeneous contrast enhancement of the r enal parenchyma. The caliber the abdominal aorta is normal is no retroperitoneal adenopathy or hemorr dorota. The bowel loops are normal in caliber and there is no evidence of dilatation or obstruction. No infla mmatory changes are identified in the bowel wall or mesentery. There is a large amount of stool withi n the colon and rectum. There is no free intraperitoneal air or fluid. No pelvic mass, free fluid, abscess or adenopathy. The osseous structures and soft tissues are intact. IMPRESSION: 1. Bilateral small pleural effusions, small right lower lobe infiltrate and large left lower lobe inf iltrate. 2. Large amount of stool within the colon and rectum but no bowel obstruction. 3. No other significant abnormality seen within the abdomen or pelvis [facility], , 01/21/2025 2:57 PM
[2025-01-21] MEDS: VANCOMYCIN 1,000 MG in SODIUM CHLORIDE 0.9% 250 ML IVPB STA (15:50)
[2025-01-21] MEDS: SODIUM CHLORIDE 0.9% IVPB SCH (15:51)
[2025-01-21] MEDS: VORICONAZOLE IVPB SCH (15:51)
--- NOTE | 2025-01-21 19:17 | P.PN ---
Subjective Progress Note Date: 01/21/25 Objective - Vital Signs Vital signs: Vital Signs Temp 97.9 F 01/21/25 15:00 Pulse 98 01/21/25 16:22 Resp 21 01/21/25 15:00 BP 104/54 01/21/25 15:00 Pulse Ox 95 01/21/25 15:00 FiO2 Intake & Output 01/21/25 01/21/25 01/22/25 06:59 18:59 06:59 Intake Total 768 Output Total 240 700 Balance -240 68 Weight 50.7 kg Intake: Oral 768 Output: Urine 240 700 Other: Voiding Method External Catheter External Catheter # Bowel Movements 1 - Labs CBC & Chem 7: 01/20/25 06:01 01/20/25 06:01 Labs: Microbiology - Last 24 Hours (Table) 01/18/25 20:22 Blood Culture - Preliminary Blood 01/18/25 19:43 Gram Stain - Final Sputum Sputum Culture - Final Enterobacter cloacae Complex Aspergillus fumigatus Assessment and Plan (1) Hypoxia Current Visit: Yes Status: Acute Code(s): R09.02 - HYPOXEMIA SNOMED Code(s): 833082308 (2) Leukocytosis Current Visit: Yes Status: Acute Code(s): D72.829 - ELEVATED WHITE BLOOD CELL COUNT, UNSPECIFIED SNOMED Code(s): 791568271 (3) Lung mass Current Visit: Yes Status: Acute Code(s): R91.8 - OTHER NONSPECIFIC ABNORMAL FINDING OF LUNG FIELD SNOMED Code(s): 810948398 Plan: #New onset lung masses, left upper lung measuring 5.1 cm and right posterior lung nodule measuring 1.8 cm - Currently undergoing outpatient malignancy workup - CTA on 12/26/24 confirmed the findings listed above - Outpatient PET scan was scheduled for this coming 01/22/25 - Unable to tolerate brain MRI as he is unable to lie flat - Brain CT ordered to evaluate for any brain met disease, with noted blurry vis ion. Scan was negative for metastatic disease - Will continue to follow for the duration of his stay - Pulmonology following for possible bronchoscopy/biopsy when patient stabilizes. Unfortunately, pt has been unable to undergo bronch due to poor respiratory status. Will obtain CT AP to try to identify other possible sites for biopsy and to complete staging #Acute hypoxemic respiratory failure, possibly secondary to post-obstructive pneumonia #Leukocytosis, likely reactive - Chest x-ray done in the ED showing worsening consolidative changes in the left lung, concerning for obstructive atelectasis or pneumonia. - Continue supplemental oxygen to maintain oxygen saturation 92% or greater - Sputum culture positive for Aspergillus fumigatus and Enterobacter cloacae - Continue antibiotics, per pulmonoary and primary team #Normocytic normochromic anemia - Hgb stable in 8 range - Likely due to underlying inflammation from pneumonia and suspected malignancy - Continue to monitor CBC - Hgb <7 transfuse #Hyponatremia, improving - Sodium stable at 134 today - Continue to monitor Doctor attests: I performed a history and physical examination of this patient, developed impression and plan of care. Discussed with dictator. I agree with dictators note, documented as a scribe.
[2025-01-22 07:04] LABS: Basophils # (A) 0.01 10*3/uL (0.00-0.10); Basophils % (A) 0.1 %; Eosinophils # (A) 0.00 10*3/uL (0.04-0.35); Eosinophils % (A) 0.0 %; HCT 28.4 % (39.6-50.0); HGB 9.1 g/dL (13.0-17.0); Lymphocytes # (A) 0.55 10*3/uL (0.90-5.00); Lymphocytes % (A) 3.7 %; MCH 29.4 pg (27.0-32.0); MCHC 32.0 g/dL (32.0-37.0); MCV 91.9 fL (80.0-97.0); Monocytes # (A) 0.09 10*3/uL (0.20-1.00); Monocytes % (A) 0.6 %; Neutrophils # (A) 14.23 10*3/uL (1.80-7.70); Neutrophils % (A) 94.8 %; Platelet Count 273 10*3/uL (140-440); RBC 3.09 10*6/uL (4.40-5.60); RDW 15.0 % (11.5-14.5); WBC 15.00 10*3/uL (4.50-10.00)
[2025-01-22 07:21] LABS: ALT 39 U/L (4-49); AST 36 U/L (17-59); African American GFR (CKD) >90 (>60 ml/min/1.73 sqM); Albumin 2.0 g/dL (3.5-5.0); Alkaline Phosphatase 123 U/L (38-126); Anion Gap 8 mmol/L; Blood Urea Nitrogen 25 mg/dL (9-20); Calcium 8.5 mg/dL (8.4-10.2); Carbon Dioxide 27 mmol/L (22-30); Chloride 101 mmol/L (98-107); Glucose 149 mg/dL (74-99); Non-African American GFR(CKD) >90 (>60 ml/min/1.73 sqM); Potassium 4.2 mmol/L (3.5-5.1); Sodium 136 mmol/L (137-145); Total Protein 5.5 g/dL (6.3-8.2)
--- NOTE | 2025-01-22 07:28 | P.CONS ---
History of Present Illness - Reason for Consult Consult date: 01/21/25 Pneumonia Requesting physician: Mehran Caba - Chief Complaint Weakness shortness of breath x days - History of Present Illness Patient is a 59-year-old male with a past medical history significant for recent finding of a left upper lung mass unintentional weight loss and [id number]-[id number] smoking presenting to the hospital 4 days ago for evaluation of generalized weakness patient was complaining of chest pain and shortness of breath and was noted to be hypoxic by EMS with lower sats of 78% at home patient also have a cough moderate intensity and bring up some sputum but no hemoptysis and did have decreased appetite along with 23 pound weight loss on presentation to the hospital the patient was afebrile and no fever have recorded subsequently patient has been tachycardic occasionally but not hypotensive hypoxic currently on 4 L nasal cannula oxygen patient did have a white count of 17.45 on admission creatinine 0.99 electrolytes has been normal liver enzymes mildly elevated Pro- Eleno is 1.40 influenza RSV COVID testing has been negative blood culture so far pending sputum is growing Enterobacter and Aspergillus patient did have a chest x-ray was because of increased change in the left upper lung extending more inferiorly correlate for pneumonia or developing worsening atelectasis and did have abdominal pelvis CT bilateral small effusion large left lower lobe infiltrate large amount of stool within the colon no significant abnormality seen within the abdomen pelvis patient being treated with Zosyn and vancomycin voriconazole was added today infectious disease was consulted regarding pneumonia Review of Systems Positive point and negatives has been mentioned in the HPI, complete review of systems was performed and all other systems are negative Past Medical History Additional Past Medical History / Comment(s): lung nodule History of Any Multi-Drug Resistant Organisms: None Reported Additional Past Surgical History / Comment(s): broken leg@15 years old Past Anesthesia/Blood Transfusion Reactions: No Reported Reaction Past Psychological History: No Psychological Hx Reported Smoking Status: Current some day smoker Past Alcohol Use History: None Reported Past Drug Use History: Marijuana Medications and Allergies Home Medications Medication Instructions Recorded Confirmed Type No Known Home Medications 01/18/25 01/18/25 History Allergies Allergy/AdvReac Type Severity Reaction Status Date / Time No Known Allergies Allergy Verified 01/18/25 20:38 Physical Exam Vitals: Vital Signs Temp Pulse Pulse Resp BP Pulse Ox 01/21/25 12:00 102 H 01/21/25 11:50 108 H 01/21/25 09:07 102 H 01/21/25 08:54 100 01/21/25 07:35 98.1 F 115 H 22 101/59 86 L 01/21/25 03:34 98.4 F 96 18 99/60 93 L 01/20/25 23:40 98.3 F 100 16 111/60 90 L 01/20/25 20:59 103 H 22 01/20/25 20:52 99 22 01/20/25 20:00 98.5 F 99 16 121/65 97 Intake and Output 01/21/25 01/21/25 01/21/25 06:59 14:59 22:59 Intake Total 709 Output Total 240 Balance -240 709 Intake: Oral 709 Output: Urine 240 Other: Voiding Method External Catheter External Catheter # Bowel Movements 1 Weight 50.7 kg GENERAL DESCRIPTION: Middle-age male who looks older than his age cachectic lying in bed, no distress. No tachypnea or accessory muscle of respiration use. HEENT: Shows Pallor , no scleral icterus. Oral mucous membrane is dry. NECK: Trachea central, no thyromegaly. LUNGS: Unlabored breathing. Coarse breath sounds left side HEART: S1, S2, regular rate and rhythm. No loud murmur ABDOMEN: Soft, no tenderness , EXTREMITIES: No edema of feet. SKIN: No rash, no masses palpable. NEUROLOGICAL: The patient is awake, alert, mood and affect normal. Results CBC & Chem 7: 01/22/25 06:26 01/22/25 06:26 Labs: Microbiology - Last 24 Hours (Table) 01/18/25 20:22 Blood Culture - Preliminary Blood 01/18/25 19:43 Gram Stain - Final Sputum Sputum Culture - Final Enterobacter cloacae Complex Aspergillus fumigatus Assessment and Plan (1) Postobstructive pneumonia Current Visit: Yes Status: Acute Code(s): J18.9 - PNEUMONIA, UNSPECIFIED ORGANISM SNOMED Code(s): 256985394 (2) Leukocytosis Current Visit: Yes Status: Acute Code(s): D72.829 - ELEVATED WHITE BLOOD CELL COUNT, UNSPECIFIED SNOMED Code(s): 069984140 (3) Aspergillus Current Visit: Yes Status: Acute Code(s): B44.9 - ASPERGILLOSIS, UNSPECIFIED SNOMED Code(s): 94724160 Plan: 1patient presented to hospital with increasing shortness of breath weakness did have a cough and this patient has been recently diagnosed with a lung nodule now with evidence of worsening pleural parenchymal opacity throughout the left hemithorax and may be developing disease contributing to right upper lung highly suspicious for malignancy and concern for possible postobstructive pneumonia patient sputum now growing Enterobacter as well as Aspergillus fumigatus 2-patient benefit from bronchoscopy and lavage and transbronchial biopsy to see the significance of the Aspergillus been growing in the culture and diagnosis primary condition more likely malignancy 3patient will be treated with Zosyn and voriconazole for now however discontinue vancomycin has no gram-positive has been grown and to decrease risk of his nephrotoxicity Prognosis guarded We will follow on clinical condition and cultures to further adjust medication if needed Thank you for this consultation we will follow the patient along with you Dictation was produced using [employer] dictation software. please excuse any grammatical, word or spelling errors. Time with Patient: Greater than 30
[2025-01-22] MEDS ORDERED: VANCOMYCIN 1,000 MG in SODIUM CHLORIDE 0.9% 250 ML IVPB SCH (08:00)
--- NOTE | 2025-01-22 12:30 | P.PN ---
Subjective Progress Note Date: 01/22/25 Patient is a 59-year-old male with significant smoking history of over 40 pack years, recent unintentional weight loss, and recent findings of left upper lung mass. Chest CT angiogram done December 26, 2024 remarkable for left apical lung mas measuring 5.1 cm with adjacent consolidations, anteriorly and posteriorly. Lobular density in the posterior right lung measuring 1.8 cm. Also, 0.8 cm anterior right lung nodularity. Did have new patient visit with Dr. Garcia on January 08, 2025. Reportedly, scheduled to undergo outpatient PET scan on . Brought into the emergency department yesterday evening by EMS. He was short of breath and was found to be hypoxic when EMS arrived with an SpO2 of 78%. He has been increasingly weak and has lost some additional weight, reportedly an additional 23 pounds in less than a month. Chest x-ray done in the ED showing worsening consolidative changes in the left lung, concerning for obstructive atelectasis or pneumonia. CBC: WBC count 17.45, hemoglobin 10, platelets 309. BMP with a sodium 130, potassium 4.7, chloride 91, serum bicarb 30, BUN 51, creatinine 1.07, glucose 108. Lactic was 3 now down to 2. Troponin less than 0.012. Repeat 2610. Viral screen negative for influenza A/B, RSV, COVID. While in the emergency department, patient was empirically started on Zosyn. Also, normal saline started at 130 mL/h. He is currently being evalua ladarius on the fifth floor. He is a poor historian. On 2 L/min nasal cannula, nondistressed. He has a congested cough with reportedly increased sputum production. Does have a green sputum in collection cup. Denies any hemoptysis. Denies any fevers. Reports left-sided chest pain with coughing and deep breathing. He continues to have weight loss. He is very frail and cachectic in appearance. Appetite has been poor. Denies any nausea, vomiting, diarrhea, abdominal pain. Nontachycardic. Blood pressure normotensive. Normal saline infusing at 130 mL/h. On 01/20/2025, the patient is being seen for a follow-up. Extremely debilitated. Continues to have a congested cough. Trying to increase oral intake and the patient was given Ensure. Remains on IV Zosyn as a broad-spectrum antibiotic coverage. Sputum sample was positive for gram-negative/moderate Enterobacter cloacae complex. The patient remains also on bronchodilators. The patient is profoundly weak. No altered mentation for now. CAT scan of the brain was obtained yesterday and shows no evidence of any RECTIFYING ATTENDANT metastases. Echocardiogram also showed a preserved LV function with a left ventricular ejection fraction being in the order of 55 to 60%. Nevertheless, the patient had moderate degree of pulm hypertension with right ventricular systolic pressure estimated to be around 46 mmHg. No signs of any volume overload. The patient remains on IV fluids and the patient is currently at normal Saint rate of 130 cc an hour. On today's evaluation of 01/21/2025, the patient remains extremely debilitated and weak. Continues to have cough and congestion. As mentioned earlier, the sputum sample was positive for Enterobacter cloacae and the patient was kept on IV Zosyn. Meanwhile, repeat chest x-ray was done and showed worsening in the pleural-parenchymal opacity on the left hemithorax and there was also some developing interstitial infiltrates in the right upper lobe. I also noted that the sputum sample was also positive for Aspergillus fumigatus. Oral intake remains quite diminished. The white cell count is 15.6 with a hemoglobin 8.7 and a platelet count of 270. Sodium is at 134, potassium is at 3.9, BUN is 38 with a creatinine 0.9. AST is at 89 with an ALT of 55 and alkaline phosphatase of 148. Procalcitonin level is at 1.4. TSH is 2.6. On 01/22/2025, the patient's overall condition is unchanged. Continues to produce copious amounts of thick and purulent respiratory secretions and mucus. Noted, the patient sputum sample was positive for Enterobacter and Aspergillus. Due to this cavitating left lung pneumonia and possibility of a fungus ball, the patient was started on voriconazole. Nutritional status remains poor. Oral intake is minimal. He is very much debilitated and weak. He is able to communicate. He remains on oxygen 4 L/min nasal cannula with a pulse ox of 96%. CAT scan of the abdomen and pelvis was also completed and it showed small bilateral pleural effusion and large amount of stool within the colon and the rectum and there is no evidence of any bowel obstruction. No other acute intra- abdominal abnormalities. Second 15 with a hemoglobin 9.1 and a platelet count o f 273. LFTs are improved compared to yesterday. AST is 39 and ALT is 39 with an alkaline phosphatase of 123. Total protein is 5.5 with an albumin of 2.0. The white cell count of 15 with hemoglobin 9.1. The patient is currently on DuoNeb treatment [id number], IV Solu-Medrol, IV Zosyn and IV voriconazole. Objective - Vital Signs Vital signs: Vital Signs Temp 97.5 F L 01/22/25 07:55 Pulse 70 01/22/25 08:35 Resp 16 01/22/25 07:55 BP 117/66 01/22/25 07:55 Pulse Ox 97 01/22/25 07:55 FiO2 Intake & Output 01/21/25 01/22/25 01/22/25 18:59 06:59 18:59 Intake Total 768 540 0 Output Total 700 1000 Balance 68 540 -1000 Weight 50 kg Intake: Oral 768 540 0 Output: Urine 700 1000 Other: Voiding Method External Catheter External Catheter - Exam GENERAL EXAM: Alert, 59-year-old male, frail/cachectic, comfortable in no apparent distress.The patient carries a body mass index of 14. The patient is currently on oxygen at 4 L/min nasal cannula. Cachectic, debilitated, weak, significant loss in total body muscle mass along with temporal wasting. HEAD: Normocephalic and atraumatic EYES: Normal reaction of pupils, equal size. NOSE: Clear with pink turbinates. THROAT: No erythema or exudates. Poor dentition. NECK: No masses, no JVD. CHEST: No chest wall deformity. LUNGS: Equal air entry with markedly diminished lung sounds on the left. No conversational dyspnea or accessory muscle use.. CVS: S1 and S2 normal with no audible murmur, regular rhythm. No extra heart sounds ABDOMEN: No hepatosplenomegaly, active bowel sounds, no guarding or rigidity. SPINE: No scoliosis or deformity SKIN: No rashes CENTRAL NERVOUS SYSTEM: No focal deficits, tone is normal in all 4 extremities. EXTREMITIES: There is no peripheral edema or cyanosis. Peripheral pulses are intact. Digital clubbing noted. - Labs CBC & Chem 7: 01/22/25 06:26 01/22/25 06:26 Labs: Abnormal Lab Results - Last 24 Hours (Table) 01/22/25 01/22/25 Range/Units 06:26 06:26 WBC 15.00 H (4.50-10.00) 10*3/uL RBC 3.09 L (4.40-5.60) 10*6/uL Hgb 9.1 L (13.0-17.0) g/dL Hct 28.4 L (39.6-50.0) % Immature Gran # 0.12 H (0.00-0.04) 10*3/uL Neutrophils # 14.23 H (1.80-7.70) 10*3/uL Lymphocytes # 0.55 L (0.90-5.00) 10*3/uL Monocytes # 0.09 L (0.20-1.00) 10*3/uL Eosinophils # 0.00 L (0.04-0.35) 10*3/uL Sodium 136 L (137-145) mmol/L BUN 25 H (9-20) mg/dL Glucose 149 H (74-99) mg/dL Total Protein 5.5 L (6.3-8.2) g/dL Albumin 2.0 L (3.5-5.0) g/dL Microbiology - Last 24 Hours (Table) 01/18/25 20:22 Blood Culture - Preliminary Blood 01/18/25 19:43 Gram Stain - Final Sputum Sputum Culture - Final Enterobacter cloacae Complex Aspergillus fumigatus Assessment and Plan Assessment: Acute hypoxemic respiratory failure, currently on 4 L/min nasal cannula, repeat chest x-ray showing worsening consolidative changes in the left upper lung now extending inferiorly, concerning for disease progression and/or post-obstructive pneumonia. Noted the patient has a cavitating left upper lobe pulmonary i nfiltrate. Follow-up chest x-ray shows interval worsening of the left lung consolidation and the patient has a left upper lobe mass in the left lung seems to be completely consolidated at this point. Extensive left lung pneumonia with a left upper lobe mass. Sputum positive for Enterobacter cloacae complex and the patient remains on IV Zosyn. No significant leukocytosis. No significant hemodynamic instability. The patient is normotensive. Procalcitonin level was mildly elevated. Furthermore, the sputum sample was showed Aspergillus fumigatus. Possibility of a fungal pneumonia with cavitation/fungal ball cannot be completely excluded. Left upper lung mass, measuring 5.1 cm Right posterior lung nodule measuring 1.8 cm Acute leukocytosis Normocytic, normochromic anemia monitor for blood loss Unintentional weight loss Severe protein calorie malnutrition with a BMI of 16.2 kg/m Chronic tobacco dependence Preserved RV function with moderate degree of pulm hypertension, likely group 3 pulmonary hypertension with an estimated RVSP of 46 mmHg. Plan: Condition is essentially unchanged compared to yesterday. Remains extremely debilitated and weak Keep oxygen 4 L/min nasal cannula Continue IV Zosyn and voriconazole due to suspicion for fungal cavitating pneumonia. Will check serum Aspergillus titers, results are still pending Consult Oncology has been obtained The patient is being provided dietary support and the patient is currently on Ensure. CAT scan of the brain was negative CT scan of the abdomen showed small bilateral pleural effusions and stool in the colon without any acute abnormalities. Patient is still very much debilitated. As such, we are still unable to do a bronchoscopy at this point as the patient's condition is unstable. Will continue IV antibiotics I will make further decisions based on his progress. As mentioned, he has severe loss in total body muscle protein and looks extremely emaciated and cachectic. He cannot handle any bronchoscopic intervention at this point in time. Will consult ID. Will monitor LFTs as the patient is going to be started on voriconazole. LFTs are stable and improved compared to yesterday Case was explained to the daughter at the bedside to the sister and earlier to the daughter.. Explained our concerns for doing a bronchoscopy which may be essentially complicated procedure and it may result into complication including respiratory failure. As such, we are going to support the patient medically and optimize his clinical condition prior to undergoing the bronchoscopy. Suspicion for malignancy is extremely high in this patient. Prognosis remains poor.
--- NOTE | 2025-01-22 14:39 | P.PN ---
Subjective Subjective: History of present illness; Patient is a 59-year-old male with significant past smoking history of [id number] with unintentional weight loss presents to the ER with significant shortness of breath hypoxic at SpO2 of 78% has increased weakness and additional weight loss of 23 pounds in the last month. Chest x-ray was performed in the ER showing worsening consolidation in the left lung concerning for atelectasis or pneumonia. Patient had a recent CTA in December 2024 with evidence of left apical lung mass measuring 5.1 cm with consolidation A&P. In the ER patient was started on Zosyn empirically with saline infusion 138 mL/h Patient was admitted with consults from pulmonology, cardiology and oncology. At time of encounter patient is on 2 L nasal cannula and not in acute distress, eating breakfast. He denies worsening shortness of breath, Dizziness, Fever or chills. 01/20/2025: Patient seen at bedside last night notified about decreased blood pressure to 87 systolic on the left arm, blood pressure checked on right arm 107 systolic. Daughter at bedside discussed CODE STATUS family still wants full code. 01/21/2025: Patient's blood pressure is improved since yesterday, he is still disoriented not able to give clear history. Patient denies pain or worsening shortness of breath. Endorses photophobia 01/22/2025 Pertinent positives and negatives discussed above, a complete review of systems was preformed and all the other sytems were negative. Vitals Signs Reveiwed. General: He is cachectic, appears older than stated age Head: Temporal wasting Eyes: EOMI, no lid lag, anicteric sclera, pupils equal round reactive to light ENT: Nose and ears atraumatic Neck: No cervical lymphadenopathy, trachea midline, supple Mouth: no lip lesion, mucus membranes moist Cardiovascular: S1S2 reg, no murmur, positive dorsalis pedis pulse bilateral, no edema Lungs: Decreased air entry bilaterally, no rhonchi, no rales, no accessory muscle use, several episodes of productive cough with green sputum Abdominal: soft, nontender to palpation, no guarding Ext: muscle strength 5 out of 5 in all 4 extremities grossly, no gross muscle atrophy, no contractures, Neuro: CN II-XI grossly intact, no gross focal neuro deficits Psych: Alert, oriented, appropriate affect Data Reveiwed Today: #Acute hypoxic respiratory failure likely secondary to post obstructive PNA #Postobstructive pneumonia positive for Aspergillus and Enterobacter #Apical lung mass 5.1 cm left side #acute leukocytosis #normocytic anemia #Confusion secondary to malignancy transfuse if less than 7 -PET scan scheduled for 01/22 Supplemental oxygen SPO2 > 92% Continue Zosyn IV, potentially broaden coverage Consult ID appreciate recommendations Oncology following - Pulm assisted biopsy planned awaiting hemodynamic stability Pulmonology following Brain CT reveals no acute process or metastatic disease Discussed CODE STATUS with family, still wants full code Sputum culture reveals Enterobacter and Aspergillus Discontinue vancomycin continue Zosyn, voriconazole and methylprednisolone #unintentional weight loss #malnutrition Normal diet + protein supplament #Hypotension (improved) #Nonsustained bradycardia - Tele reports max to 30-40, transfered to cardiac 3S as a result -Since transfer, consistently 80-95, remains asymptomatic Consulted cardiology recommendations appreciated 2D echocardiogram per cardiology -Continue NS 75/h DVT ppx: SCDs CODE STATUS: Full Dispo: Pending clinical course Objective - Vital Signs Vital signs: Vital Signs Temp 97.5 F L 01/22/25 07:55 Pulse 70 01/22/25 08:35 Resp 16 01/22/25 07:55 BP 117/66 01/22/25 07:55 Pulse Ox 97 01/22/25 07:55 FiO2 Intake & Output 01/21/25 01/22/25 01/22/25 18:59 06:59 18:59 Intake Total 768 540 0 Output Total 700 1000 Balance 68 540 -1000 Weight 50 kg Intake: Oral 768 540 0 Output: Urine 700 1000 Other: Voiding Method External Catheter External Catheter - Labs CBC & Chem 7: 01/22/25 06:26 01/22/25 06:26 Labs: Abnormal Lab Results - Last 24 Hours (Table) 01/22/25 01/22/25 Range/Units 06:26 06:26 WBC 15.00 H (4.50-10.00) 10*3/uL RBC 3.09 L (4.40-5.60) 10*6/uL Hgb 9.1 L (13.0-17.0) g/dL Hct 28.4 L (39.6-50.0) % Immature Gran # 0.12 H (0.00-0.04) 10*3/uL Neutrophils # 14.23 H (1.80-7.70) 10*3/uL Lymphocytes # 0.55 L (0.90-5.00) 10*3/uL Monocytes # 0.09 L (0.20-1.00) 10*3/uL Eosinophils # 0.00 L (0.04-0.35) 10*3/uL Sodium 136 L (137-145) mmol/L BUN 25 H (9-20) mg/dL Glucose 149 H (74-99) mg/dL Total Protein 5.5 L (6.3-8.2) g/dL Albumin 2.0 L (3.5-5.0) g/dL Microbiology - Last 24 Hours (Table) 01/18/25 20:22 Blood Culture - Preliminary Blood 01/18/25 19:43 Gram Stain - Final Sputum Sputum Culture - Final Enterobacter cloacae Complex Aspergillus fumigatus
--- NOTE | 2025-01-22 18:55 | P.PN ---
Subjective Progress Note Date: 01/22/25 Pt reporting improvement in breathing. Continues on IV abx and steroids. SPO2 97% on 4L. WBC 15.0, Hgb 9.1, Plt 273 Objective - Vital Signs Vital signs: Vital Signs Temp 97.5 F L 01/22/25 07:55 Pulse 70 01/22/25 11:28 Resp 16 01/22/25 07:55 BP 117/66 01/22/25 07:55 Pulse Ox 97 01/22/25 07:55 FiO2 Intake & Output 01/21/25 01/22/25 01/22/25 18:59 06:59 18:59 Intake Total 768 540 0 Output Total 700 1000 Balance 68 540 -1000 Weight 50 kg 50 kg Intake: Oral 768 540 0 Output: Urine 700 1000 Other: Voiding Method External Catheter External Catheter - Constitutional General appearance: Present: thin - EENT Eyes: Present: anicteric sclerae, EOMI ENT: Present: hearing grossly normal - Respiratory Details: breathing is mildly labored - Cardiovascular Details: skin warm and dry - Gastrointestinal General gastrointestinal: Present: soft. Absent: tenderness - Integumentary Integumentary: Absent: cyanotic, jaundiced - Psychiatric Psychiatric: Present: A&O x's 3 - Labs CBC & Chem 7: 01/22/25 06:26 01/22/25 06:26 Labs: Abnormal Lab Results - Last 24 Hours (Table) 01/22/25 01/22/25 Range/Units 06:26 06:26 WBC 15.00 H (4.50-10.00) 10*3/uL RBC 3.09 L (4.40-5.60) 10*6/uL Hgb 9.1 L (13.0-17.0) g/dL Hct 28.4 L (39.6-50.0) % Immature Gran # 0.12 H (0.00-0.04) 10*3/uL Neutrophils # 14.23 H (1.80-7.70) 10*3/uL Lymphocytes # 0.55 L (0.90-5.00) 10*3/uL Monocytes # 0.09 L (0.20-1.00) 10*3/uL Eosinophils # 0.00 L (0.04-0.35) 10*3/uL Sodium 136 L (137-145) mmol/L BUN 25 H (9-20) mg/dL Glucose 149 H (74-99) mg/dL Total Protein 5.5 L (6.3-8.2) g/dL Albumin 2.0 L (3.5-5.0) g/dL Microbiology - Last 24 Hours (Table) 01/18/25 20:22 Blood Culture - Preliminary Blood 01/18/25 19:43 Gram Stain - Final Sputum Sputum Culture - Final Enterobacter cloacae Complex Aspergillus fumigatus - Imaging and Cardiology CT scan - abdomen: report reviewed CT scan - pelvis: report reviewed Assessment and Plan (1) Hypoxia Current Visit: Yes Status: Acute Code(s): R09.02 - HYPOXEMIA SNOMED Code(s): 516465061 (2) Leukocytosis Current Visit: Yes Status: Acute Code(s): D72.829 - ELEVATED WHITE BLOOD CELL COUNT, UNSPECIFIED SNOMED Code(s): 475456053 (3) Lung mass Current Visit: Yes Status: Acute Code(s): R91.8 - OTHER NONSPECIFIC ABNORMAL FINDING OF LUNG FIELD SNOMED Code(s): 527588295 Plan: #New onset lung masses, left upper lung measuring 5.1 cm and right posterior lung nodule measuring 1.8 cm - Currently undergoing outpatient malignancy workup - CTA on 12/26/24 confirmed the findings listed above - Outpatient PET scan was scheduled for this coming 01/22/25 - Unable to tolerate brain MRI as he is unable to lie flat - Brain CT ordered to evaluate for any brain met disease, with noted blurry vision. Scan was negative for metastatic disease - Will continue to follow for the duration of his stay - Pulmonology following for possible bronchoscopy/biopsy when patient stabilizes. Unfortunately, pt has been unable to undergo bronch due to poor respiratory status. Will obtain CT AP to try to identify other possible sites for biopsy and to complete staging. CT AP revealed no abnormal lymphadenopathy or mass/lesions. Once respiratory status improves pt will hopefully be able to undergo bronch to obtain tissue diagnosis #Acute hypoxemic respiratory failure, possibly secondary to post-obstructive pneumonia #Leukocytosis, likely reactive - Chest x-ray done in the ED showing worsening consolidative changes in the left lung, concerning for obstructive atelectasis or pneumonia. - Continue supplemental oxygen to maintain oxygen saturation 92% or greater - Sputum culture positive for Aspergillus fumigatus and Enterobacter cloacae - Continue antibiotics, per pulmonoary and primary team #Normocytic normochromic anemia - Hgb stable in 8-9 range - Likely due to underlying inflammation from pneumonia and suspected malignancy - Continue to monitor CBC - Hgb <7 transfuse #Hyponatremia, improving - Sodium improving - Continue to monitor
--- NOTE | 2025-01-22 22:45 | P.PN ---
Subjective Progress Note Date: 01/22/25 Principal diagnosis: Reason for follow-up is pneumonia Patient is a 59-year-old male with a past medical history significant for recent finding of a left upper lung mass unintentional weight loss and [id number] smoking presenting to the hospital for evaluation of generalized weakness has been diagnosed with pneumonia sputum positive for Enterobacter Aspergillus prompted this consultation. On today's evaluation that is 01/22/2025,the patient remains to be afebrile, patient is on 4 L supplemental oxygen and mentioned breathing slightly comfortably with no chest pain still complaining of significant cough and sputum production.Patient denies having any nausea or vomiting, no abdominal pain and no diarrhea has been reported. Patient white count slightly down to 15,000 creatinine 0.80 Objective - Vital Signs Vital signs: Vital Signs Temp 97.6 F 01/22/25 12:09 Pulse 92 01/22/25 12:09 Resp 14 01/22/25 12:09 BP 105/61 01/22/25 12:09 Pulse Ox 96 01/22/25 12:09 FiO2 Intake & Output 01/21/25 01/22/25 01/22/25 18:59 06:59 18:59 Intake Total 768 540 180 Output Total 700 1000 Balance 68 540 -820 Weight 50 kg 50 kg Intake: Oral 768 540 180 Output: Urine 700 1000 Other: Voiding Method External Catheter External Catheter External Catheter # Bowel Movements 1 - Exam GENERAL DESCRIPTION: Middle-age male lying in bed in no distress RESPIRATORY SYSTEM: Unlabored breathing , decreased breath sounds at bases HEART: S1 S2 regular rate and rhythm , ABDOMEN: Soft , no tenderness EXTREMITIES: No edema feet - Labs CBC & Chem 7: 01/22/25 06:26 01/22/25 06:26 Labs: Abnormal Lab Results - Last 24 Hours (Table) 01/22/25 01/22/25 Range/Units 06:26 06:26 WBC 15.00 H (4.50-10.00) 10*3/uL RBC 3.09 L (4.40-5.60) 10*6/uL Hgb 9.1 L (13.0-17.0) g/dL Hct 28.4 L (39.6-50.0) % Immature Gran # 0.12 H (0.00-0.04) 10*3/uL Neutrophils # 14.23 H (1.80-7.70) 10*3/uL Lymphocytes # 0.55 L (0.90-5.00) 10*3/uL Monocytes # 0.09 L (0.20-1.00) 10*3/uL Eosinophils # 0.00 L (0.04-0.35) 10*3/uL Sodium 136 L (137-145) mmol/L BUN 25 H (9-20) mg/dL Glucose 149 H (74-99) mg/dL Total Protein 5.5 L (6.3-8.2) g/dL Albumin 2.0 L (3.5-5.0) g/dL Microbiology - Last 24 Hours (Table) 01/18/25 20:22 Blood Culture - Preliminary Blood Assessment and Plan (1) Postobstructive pneumonia Current Visit: Yes Status: Acute Code(s): J18.9 - PNEUMONIA, UNSPECIFIED ORGANISM SNOMED Code(s): 392721185 (2) Leukocytosis Current Visit: Yes Status: Acute Code(s): D72.829 - ELEVATED WHITE BLOOD CELL COUNT, UNSPECIFIED SNOMED Code(s): 656043202 (3) Aspergillus Current Visit: Yes Status: Acute Code(s): B44.9 - ASPERGILLOSIS, UNSPECIFIED SNOMED Code(s): 14946489 Plan: 1patient presented to hospital with increasing shortness of breath weakness did have a cough and this patient has been recently diagnosed with a lung nodule now with evidence of worsening pleural parenchymal opacity throughout the left he mithorax and may be developing disease contributing to right upper lung highly suspicious for malignancy and concern for possible postobstructive pneumonia patient sputum now growing Enterobacter as well as Aspergillus fumigatus 2-patient will benefit from bronchoscopy and lavage and transbronchial biopsy to see the significance of the Aspergillus been growing in the culture and diagnosis primary condition more likely malignancy 3patient patient to continue Zosyn and voriconazole while waiting for the workup to be completed Family at bedside question answered Dictation was produced using [employer] dictation software. please excuse any grammatical, word or spelling errors. Time with Patient: Less than 30
[2025-01-23 11:34] LABS: Basophils # (A) 0.03 10*3/uL (0.00-0.10); Basophils % (A) 0.2 %; Eosinophils # (A) 0.00 10*3/uL (0.04-0.35); Eosinophils % (A) 0.0 %; HCT 30.1 % (39.6-50.0); HGB 9.8 g/dL (13.0-17.0); Lymphocytes # (A) 0.67 10*3/uL (0.90-5.00); Lymphocytes % (A) 3.6 %; MCH 30.0 pg (27.0-32.0); MCHC 32.6 g/dL (32.0-37.0); MCV 92.0 fL (80.0-97.0); Monocytes # (A) 0.49 10*3/uL (0.20-1.00); Monocytes % (A) 2.7 %; Neutrophils # (A) 17.04 10*3/uL (1.80-7.70); Neutrophils % (A) 92.5 %; Platelet Count 375 10*3/uL (140-440); RBC 3.27 10*6/uL (4.40-5.60); RDW 15.6 % (11.5-14.5); WBC 18.42 10*3/uL (4.50-10.00)
[2025-01-23 11:46] LABS: ALT 50 U/L (4-49); AST 55 U/L (17-59); African American GFR (CKD) >90 (>60 ml/min/1.73 sqM); Albumin 2.2 g/dL (3.5-5.0); Alkaline Phosphatase 127 U/L (38-126); Anion Gap 6 mmol/L; Blood Urea Nitrogen 29 mg/dL (9-20); Calcium 8.5 mg/dL (8.4-10.2); Carbon Dioxide 29 mmol/L (22-30); Chloride 104 mmol/L (98-107); Glucose 157 mg/dL (74-99); Non-African American GFR(CKD) >90 (>60 ml/min/1.73 sqM); Potassium 3.6 mmol/L (3.5-5.1); Sodium 139 mmol/L (137-145); Total Protein 5.6 g/dL (6.3-8.2)
[2025-01-23] MEDS: ONDANSETRON ODT 4 MG TAB PO PRN (12:25)
--- NOTE | 2025-01-23 13:19 | XR ---
EXAMINATION TYPE: XR chest 1V DATE OF EXAM: 01/23/2025 COMPARISON: 01/21/2025 CLINICAL INDICATION: Male, 59 years old with history of FU pneumonia; TECHNIQUE: Single frontal view of the chest is obtained. FINDINGS: Extensive pleural parenchymal opacities persist throughout the left lung. Interstitial changes also p ersist on the right and may be slightly worsened. Calcified granuloma periphery of the right upper lo be. Background hyperinflation. IMPRESSION: 1. COPD with ongoing extensive abnormal pleural parenchymal opacities throughout the left lung. 2. Mild interstitial infiltrates throughout the right lung appear to have increased. [facility], , 01/23/2025 1:17 PM
--- NOTE | 2025-01-23 13:39 | P.PN ---
Subjective Progress Note Date: 01/23/25 Patient is a 59-year-old male with significant smoking history of over 40 pack years, recent unintentional weight loss, and recent findings of left upper lung mass. Chest CT angiogram done December 26, 2024 remarkable for left apical lung mas measuring 5.1 cm with adjacent consolidations, anteriorly and posteriorly. Lobular density in the posterior right lung measuring 1.8 cm. Also, 0.8 cm anterior right lung nodularity. Did have new patient visit with Dr. Garcia on January 08, 2025. Reportedly, scheduled to undergo outpatient PET scan on . Brought into the emergency department yesterday evening by EMS. He was short of breath and was found to be hypoxic when EMS arrived with an SpO2 of 78%. He has been increasingly weak and has lost some additional weight, reportedly an additional 23 pounds in less than a month. Chest x-ray done in the ED showing worsening consolidative changes in the left lung, concerning for obstructive atelectasis or pneumonia. CBC: WBC count 17.45, hemoglobin 10, platelets 309. BMP with a sodium 130, potassium 4.7, chloride 91, serum bicarb 30, BUN 51, creatinine 1.07, glucose 108. Lactic was 3 now down to 2. Troponin less than 0.012. Repeat 2610. Viral screen negative for influenza A/B, RSV, COVID. While in the emergency department, patient was empirically started on Zosyn. Also, normal saline started at 130 mL/h. He is currently being evalua ladarius on the fifth floor. He is a poor historian. On 2 L/min nasal cannula, nondistressed. He has a congested cough with reportedly increased sputum production. Does have a green sputum in collection cup. Denies any hemoptysis. Denies any fevers. Reports left-sided chest pain with coughing and deep breathing. He continues to have weight loss. He is very frail and cachectic in appearance. Appetite has been poor. Denies any nausea, vomiting, diarrhea, abdominal pain. Nontachycardic. Blood pressure normotensive. Normal saline infusing at 130 mL/h. On 01/20/2025, the patient is being seen for a follow-up. Extremely debilitated. Continues to have a congested cough. Trying to increase oral intake and the patient was given Ensure. Remains on IV Zosyn as a broad-spectrum antibiotic coverage. Sputum sample was positive for gram-negative/moderate Enterobacter cloacae complex. The patient remains also on bronchodilators. The patient is profoundly weak. No altered mentation for now. CAT scan of the brain was obtained yesterday and shows no evidence of any [employer] metastases. Echocardiogram also showed a preserved LV function with a left ventricular ejection fraction being in the order of 55 to 60%. Nevertheless, the patient had moderate degree of pulm hypertension with right ventricular systolic pressure estimated to be around 46 mmHg. No signs of any volume overload. The patient remains on IV fluids and the patient is currently at normal Saint rate of 130 cc an hour. On today's evaluation of 01/21/2025, the patient remains extremely debilitated and weak. Continues to have cough and congestion. As mentioned earlier, the sputum sample was positive for Enterobacter cloacae and the patient was kept on IV Zosyn. Meanwhile, repeat chest x-ray was done and showed worsening in the pleural-parenchymal opacity on the left hemithorax and there was also some developing interstitial infiltrates in the right upper lobe. I also noted that the sputum sample was also positive for Aspergillus fumigatus. Oral intake remains quite diminished. The white cell count is 15.6 with a hemoglobin 8.7 and a platelet count of 270. Sodium is at 134, potassium is at 3.9, BUN is 38 with a creatinine 0.9. AST is at 89 with an ALT of 55 and alkaline phosphatase of 148. Procalcitonin level is at 1.4. TSH is 2.6. On 01/22/2025, the patient's overall condition is unchanged. Continues to produce copious amounts of thick and purulent respiratory secretions and mucus. Noted, the patient sputum sample was positive for Enterobacter and Aspergillus. Due to this cavitating left lung pneumonia and possibility of a fungus ball, the patient was started on voriconazole. Nutritional status remains poor. Oral intake is minimal. He is very much debilitated and weak. He is able to communicate. He remains on oxygen 4 L/min nasal cannula with a pulse ox of 96%. CAT scan of the abdomen and pelvis was also completed and it showed small bilateral pleural effusion and large amount of stool within the colon and the rectum and there is no evidence of any bowel obstruction. No other acute intra- abdominal abnormalities. Second 15 with a hemoglobin 9.1 and a platelet count o f 273. LFTs are improved compared to yesterday. AST is 39 and ALT is 39 with an alkaline phosphatase of 123. Total protein is 5.5 with an albumin of 2.0. The white cell count of 15 with hemoglobin 9.1. The patient is currently on DuoNeb treatment [id number], IV Solu-Medrol, IV Zosyn and IV voriconazole. On 01/23/2025, the patient is being seen for a follow-up. The patient remains on 40 Suboxone by nasal cannula. The patient remains also on broad-spectrum antibiotics and the patient is on a combination of Zosyn and voriconazole. Repeat chest x-ray was done and shows COPD with ongoing extensive abnormal pleural-parenchymal opacity involving the left lung. Mild residual infiltrate throughout the right lung is also seen. Findings are essentially stable. Clinically, the patient is weak and lethargic and he continues to have a congested cough. He continues to produce excessive amounts of sputum. BUN is 29 with a creatinine of 0.8. The white cell count is 18.4 with a hemoglobin 9.8 and a platelet count of 375. Stool for C. difficile has been negative. ID is on the case. Objective - Vital Signs Vital signs: Vital Signs Temp 97.6 F 01/23/25 08:50 Pulse 92 01/23/25 09:06 Resp 18 01/23/25 09:06 BP 130/63 01/23/25 08:50 Pulse Ox 97 01/23/25 08:56 FiO2 Intake & Output 01/22/25 01/23/25 01/23/25 18:59 06:59 18:59 Intake Total 180 540 Output Total 1000 500 Balance -820 40 Weight 50 kg 53.5 kg Intake: Oral 180 540 Output: Urine 1000 500 Other: Voiding Method External Catheter External Catheter # Voids 1 # Bowel Movements 1 1 - Exam GENERAL EXAM: Alert, 59-year-old male, frail/cachectic, comfortable in no apparent distress.The patient carries a body mass index of 14. The patient is currently on oxygen at 4 L/min nasal cannula. Cachectic, debilitated, weak, significant loss in total body muscle mass along with temporal wasting. HEAD: Normocephalic and atraumatic EYES: Normal reaction of pupils, equal size. NOSE: Clear with pink turbinates. THROAT: No erythema or exudates. Poor dentition. NECK: No masses, no JVD. CHEST: No chest wall deformity. LUNGS: Equal air entry with markedly diminished lung sounds on the left. No conversational dyspnea or accessory muscle use.. CVS: S1 and S2 normal with no audible murmur, regular rhythm. No extra heart sounds ABDOMEN: No hepatosplenomegaly, active bowel sounds, no guarding or rigidity. SPINE: No scoliosis or deformity SKIN: No rashes CENTRAL NERVOUS SYSTEM: No focal deficits, tone is normal in all 4 extremities. EXTREMITIES: There is no peripheral edema or cyanosis. Peripheral pulses are intact. Digital clubbing noted. - Labs CBC & Chem 7: 01/23/25 11:10 01/23/25 11:10 Labs: Abnormal Lab Results - Last 24 Hours (Table) 01/23/25 01/23/25 Range/Units 11:10 11:10 WBC 18.42 H (4.50-10.00) 10*3/uL RBC 3.27 L (4.40-5.60) 10*6/uL Hgb 9.8 L (13.0-17.0) g/dL Hct 30.1 L (39.6-50.0) % Immature Gran # 0.19 H (0.00-0.04) 10*3/uL Neutrophils # 17.04 H (1.80-7.70) 10*3/uL Lymphocytes # 0.67 L (0.90-5.00) 10*3/uL Eosinophils # 0.00 L (0.04-0.35) 10*3/uL BUN 29 H (9-20) mg/dL Glucose 157 H (74-99) mg/dL ALT 50 H (4-49) U/L Alkaline Phosphatase 127 H (38-126) U/L Total Protein 5.6 L (6.3-8.2) g/dL Albumin 2.2 L (3.5-5.0) g/dL Microbiology - Last 24 Hours (Table) 01/18/25 20:22 Blood Culture - Preliminary Blood Assessment and Plan Assessment: Acute hypoxemic respiratory failure, currently on 4 L/min nasal cannula, repeat chest x-ray showing worsening consolidative changes in the left upper lung now extending inferiorly, concerning for disease progression and/or post-obstructive pneumonia. Noted the patient has a cavitating left upper lobe pulmonary infiltrate. Follow-up chest x-ray shows interval worsening of the left lung consolidation and the patient has a left upper lobe mass in the left lung seems to be completely consolidated at this point. Condition is essentially the same and unchanged over the past 24 hours that the patient receives broad-spectrum antibiotics. Remains on 40 of oxygen by nasal cannula. Extensive left lung pneumonia with a left upper lobe mass. Sputum positive for Enterobacter cloacae complex and the patient remains on IV Zosyn. No significant leukocytosis. No significant hemodynamic instability. The patient is normotensive. Procalcitonin level was mildly elevated. Furthermore, the sputum sample was showed Aspergillus fumigatus. Possibility of a fungal pneumonia with cavitation/fungal ball cannot be completely excluded. Infectious disease on the case and the patient will be kept on same antibiotic coverage Left upper lung mass, measuring 5.1 cm Right posterior lung nodule measuring 1.8 cm Acute leukocytosis Normocytic, normochromic anemia monitor for blood loss Unintentional weight loss Severe protein calorie malnutrition with a BMI of 16.2 kg/m Chronic tobacco dependence Preserved RV function with moderate degree of pulm hypertension, likely group 3 pulmonary hypertension with an estimated RVSP of 46 mmHg. Plan: Condition is essentially unchanged compared to yesterday. Remains extremely debilitated and weak Keep oxygen 4 L/min nasal cannula Continue IV Zosyn and voriconazole due to suspicion for fungal cavitating pneumonia. Will check serum Aspergillus titers, results are still pending Consult Oncology has been obtained The patient is being provided dietary support and the patient is currently on Ensure. CAT scan of the brain was negative CT scan of the abdomen showed small bilateral pleural effusions and stool in the colon without any acute abnormalities. Repeat chest x-ray on 01/23/2025 shows stable extensive pleural-parenchymal pulmonary opacity involving the left lung with some cavitation Patient is still very much debilitated. As such, we are still unable to do a b ronchoscopy at this point as the patient's condition is unstable. Will continue IV antibiotics I will make further decisions based on his progress. As mentioned, he has severe loss in total body muscle protein and looks extremely emaciated and cachectic. He cannot handle any bronchoscopic intervention at this point in time. ID input is appreciated Will monitor LFTs as the patient is going to be started on voriconazole. LFTs are stable and improved compared to yesterday Case was explained to the daughter at the bedside to the sister and earlier to the daughter.. Explained our concerns for doing a bronchoscopy which may be essentially complicated procedure and it may result into complication including respiratory failure. As such, we are going to support the patient medically and optimize his clinical condition prior to undergoing the bronchoscopy. Suspicion for malignancy is extremely high in this patient. Prognosis remains poor.
--- NOTE | 2025-01-23 14:41 | P.PN ---
Subjective Subjective: History of present illness; Patient is a 59-year-old male with significant past smoking history of [id number] with unintentional weight loss presents to the ER with significant shortness of breath hypoxic at SpO2 of 78% has increased weakness and additional weight loss of 23 pounds in the last month. Chest x-ray was performed in the ER showing worsening consolidation in the left lung concerning for atelectasis or pneumonia. Patient had a recent CTA in December 2024 with evidence of left apical lung mass measuring 5.1 cm with consolidation A&P. In the ER patient was started on Zosyn empirically with saline infusion 138 mL/h Patient was admitted with consults from pulmonology, cardiology and oncology. At time of encounter patient is on 2 L nasal cannula and not in acute distress, eating breakfast. He denies worsening shortness of breath, Dizziness, Fever or chills. 01/20/2025: Patient seen at bedside last night notified about decreased blood pressure to 87 systolic on the left arm, blood pressure checked on right arm 107 systolic. Daughter at bedside discussed CODE STATUS family still wants full code. 01/21/2025: Patient's blood pressure is improved since yesterday, he is still disoriented not able to give clear history. Patient denies pain or worsening shortness of breath. Endorses photophobia 01/22/2025: Patient seen and examined at bedside complaining of nausea and dizziness from coughing spells, otherwise denies new symptoms 01/23/2025: Patient seen and examined at bedside he still endorses nausea and vomiting due to coughing spells has Robitussin as needed Pertinent positives and negatives discussed above, a complete review of systems was preformed and all the other sytems were negative. Vitals Signs Reveiwed. General: He is cachectic, appears older than stated age Head: Temporal wasting Eyes: EOMI, no lid lag, anicteric sclera, pupils equal round reactive to light ENT: Nose and ears atraumatic Neck: No cervical lymphadenopathy, trachea midline, supple Mouth: no lip lesion, mucus membranes moist Cardiovascular: S1S2 reg, no murmur, positive dorsalis pedis pulse bilateral, no edema Lungs: Decreased air entry bilaterally, no rhonchi, no rales, no accessory muscle use, several episodes of productive cough with green sputum Abdominal: soft, nontender to palpation, no guarding Ext: muscle strength 5 out of 5 in all 4 extremities grossly, no gross muscle atrophy, no contractures, Neuro: CN II-XI grossly intact, no gross focal neuro deficits Psych: Alert, oriented, appropriate affect Data Reveiwed Today: #Acute hypoxic respiratory failure likely secondary to post obstructive PNA #Postobstructive pneumonia positive for Aspergillus and Enterobacter #Apical lung mass 5.1 cm left side #acute leukocytosis #normocytic anemia #Confusion secondary to malignancy transfuse if less than 7 -PET scan scheduled for 01/22 Supplemental oxygen SPO2 > 92% Continue Zosyn IV, potentially broaden coverage Consult ID appreciate recommendations Oncology following - Pulm assisted biopsy planned awaiting hemodynamic stability Pulmonology following Brain CT reveals no acute process or metastatic disease Discussed CODE STATUS with family, still wants full code Sputum culture reveals Enterobacter and Aspergillus -continue Zosyn, voriconazole and methylprednisolone #Nausea can Seth to coughing fits Robitussin as needed -Add Zofran as needed no evidence of elongated QT on EKG #unintentional weight loss #malnutrition Normal diet + protein supplament #Hypotension (improved) #Nonsustained bradycardia - Tele reports max to 30-40, transfered to cardiac 3S as a result -Since transfer, consistently 80-95, remains asymptomatic Consulted cardiology recommendations appreciated 2D echocardiogram per cardiology -Continue NS 75/h DVT ppx: SCDs CODE STATUS: Full Dispo: Pending clinical course Objective - Vital Signs Vital signs: Vital Signs Temp 97.6 F 01/23/25 08:50 Pulse 92 01/23/25 09:06 Resp 18 01/23/25 09:06 BP 130/63 01/23/25 08:50 Pulse Ox 97 01/23/25 08:56 FiO2 Intake & Output 01/22/25 01/23/25 01/23/25 18:59 06:59 18:59 Intake Total 180 540 Output Total 1000 500 Balance -820 40 Weight 50 kg 53.5 kg Intake: Oral 180 540 Output: Urine 1000 500 Other: Voiding Method External Catheter External Catheter # Voids 1 # Bowel Movements 1 1 - Labs CBC & Chem 7: 01/22/25 06:26 01/22/25 06:26 Labs: Microbiology - Last 24 Hours (Table) 01/18/25 20:22 Blood Culture - Preliminary Blood
--- NOTE | 2025-01-23 15:19 | P.PN ---
Subjective Progress Note Date: 01/23/25 Principal diagnosis: Reason for follow-up is pneumonia Patient is a 59-year-old male with a past medical history significant for recent finding of a left upper lung mass unintentional weight loss and [id number] smoking presenting to the hospital for evaluation of generalized weakness has been diagnosed with pneumonia sputum positive for Enterobacter Aspergillus prompted this consultation. On today's evaluation that is 01/23/2025, the patient continues to be afebrile, the patient is on 3 L nasal oxygen and breathing slightly comfortably, the Pt denies having any chest pain however still complaining of cough and is bringing up some sputum no hemoptysis, the patient denies having any abdominal pain no vomiting did have some diarrhea yesterday. Patient white count is up to 18.42, creatinine 0.80 stool for C. difficile PCR negative blood culture negative so far Objective - Vital Signs Vital signs: Vital Signs Temp 97.4 F L 01/23/25 12:22 Pulse 90 01/23/25 13:49 Resp 22 01/23/25 13:49 BP 154/72 01/23/25 12:22 Pulse Ox 96 01/23/25 12:22 FiO2 Intake & Output 01/22/25 01/23/25 01/23/25 18:59 06:59 18:59 Intake Total 180 540 Output Total 1000 500 750 Balance -820 40 -750 Weight 50 kg 53.5 kg Intake: Oral 180 540 Output: Urine 1000 500 750 Other: Voiding Method External Catheter External Catheter # Voids 1 # Bowel Movements 1 1 1 - Exam GENERAL DESCRIPTION: Middle-age male lying in bed in no distress RESPIRATORY SYSTEM: Unlabored breathing , decreased breath sounds at bases HEART: S1 S2 regular rate and rhythm , ABDOMEN: Soft , no tenderness EXTREMITIES: No edema feet - Labs CBC & Chem 7: 01/23/25 11:10 01/23/25 11:10 Labs: Abnormal Lab Results - Last 24 Hours (Table) 01/23/25 01/23/25 Range/Units 11:10 11:10 WBC 18.42 H (4.50-10.00) 10*3/uL RBC 3.27 L (4.40-5.60) 10*6/uL Hgb 9.8 L (13.0-17.0) g/dL Hct 30.1 L (39.6-50.0) % Immature Gran # 0.19 H (0.00-0.04) 10*3/uL Neutrophils # 17.04 H (1.80-7.70) 10*3/uL Lymphocytes # 0.67 L (0.90-5.00) 10*3/uL Eosinophils # 0.00 L (0.04-0.35) 10*3/uL BUN 29 H (9-20) mg/dL Glucose 157 H (74-99) mg/dL ALT 50 H (4-49) U/L Alkaline Phosphatase 127 H (38-126) U/L Total Protein 5.6 L (6.3-8.2) g/dL Albumin 2.2 L (3.5-5.0) g/dL Microbiology - Last 24 Hours (Table) 01/18/25 20:22 Blood Culture - Preliminary Blood Assessment and Plan (1) Postobstructive pneumonia Current Visit: Yes Status: Acute Code(s): J18.9 - PNEUMONIA, UNSPECIFIED ORGANISM SNOMED Code(s): 287180767 (2) Leukocytosis Current Visit: Yes Status: Acute Code(s): D72.829 - ELEVATED WHITE BLOOD CELL COUNT, UNSPECIFIED SNOMED Code(s): 427867120 (3) Aspergillus Current Visit: Yes Status: Acute Code(s): B44.9 - ASPERGILLOSIS, UNSPECIFIED SNOMED Code(s): 10919973 Plan: 1patient presented to hospital with increasing shortness of breath weakness did have a cough and this patient has been recently diagnosed with a lung nodule now with evidence of worsening pleural parenchymal opacity throughout the left hemithorax and may be developing disease contributing to right upper lung highly suspicious for malignancy and concern for possible postobstructive pneumonia patient sputum now growing Enterobacter as well as Aspergillus fumigatus 2-patient will benefit from bronchoscopy and lavage and transbronchial biopsy to see the significance of the Aspergillus been growing in the culture and diagnosis primary condition more likely malignancy 3patient did have diarrhea likely antibiotic associated stool for C. difficile negative encouraged to increase his yogurt intake if any further worsening of diarrhea will add Questran for symptomatic relief 4the patient is afebrile white count slightly up but need to be monitored closely for now continue with Zosyn and monitor clinical course closely Dictation was produced using Quibbation software. please excuse any grammatical, word or spelling errors. Time with Patient: Less than 30
[2025-01-24 07:29] LABS: Basophils # (A) 0.03 10*3/uL (0.00-0.10); Basophils % (A) 0.2 %; Eosinophils # (A) 0.01 10*3/uL (0.04-0.35); Eosinophils % (A) 0.1 %; HCT 27.1 % (39.6-50.0); HGB 8.7 g/dL (13.0-17.0); Lymphocytes # (A) 0.59 10*3/uL (0.90-5.00); Lymphocytes % (A) 3.9 %; MCH 29.5 pg (27.0-32.0); MCHC 32.1 g/dL (32.0-37.0); MCV 91.9 fL (80.0-97.0); Monocytes # (A) 0.23 10*3/uL (0.20-1.00); Monocytes % (A) 1.5 %; Neutrophils # (A) 14.10 10*3/uL (1.80-7.70); Neutrophils % (A) 92.7 %; Platelet Count 356 10*3/uL (140-440); RBC 2.95 10*6/uL (4.40-5.60); RDW 16.0 % (11.5-14.5); WBC 15.21 10*3/uL (4.50-10.00)
[2025-01-24 07:39] LABS: ALT 53 U/L (4-49); AST 48 U/L (17-59); African American GFR (CKD) >90 (>60 ml/min/1.73 sqM); Albumin 2.0 g/dL (3.5-5.0); Alkaline Phosphatase 113 U/L (38-126); Anion Gap 3 mmol/L; Blood Urea Nitrogen 32 mg/dL (9-20); Calcium 8.4 mg/dL (8.4-10.2); Carbon Dioxide 30 mmol/L (22-30); Chloride 107 mmol/L (98-107); Glucose 124 mg/dL (74-99); Non-African American GFR(CKD) >90 (>60 ml/min/1.73 sqM); Potassium 4.2 mmol/L (3.5-5.1); Sodium 140 mmol/L (137-145); Total Protein 5.4 g/dL (6.3-8.2)
[2025-01-24 08:16] LABS: Anisocytosis (M) Present
--- NOTE | 2025-01-24 14:26 | P.PN ---
Subjective Progress Note Date: 01/24/25 History of present illness; Patient is a 59-year-old male with significant past smoking history of 40-pack- year with unintentional weight loss presents to the ER with significant shortness of breath hypoxic at SpO2 of 78% has increased weakness and additional weight loss of 23 pounds in the last month. Chest x-ray was performed in the ER showing worsening consolidation in the left lung concerning for atelectasis or pneumonia. Patient had a recent CTA in December 2024 with evidence of left apical lung mass measuring 5.1 cm with consolidation A&P. In the ER patient was started on Zosyn empirically with saline infusion 138 mL/h Patient was admitted with consults from pulmonology, cardiology and oncology. At time of encounter patient is on 2 L nasal cannula and not in acute distress, eating breakfast. He denies worsening shortness of breath, Dizziness, Fever or chills. 01/20/2025: Patient seen at bedside last night notified about decreased blood pressure to 87 systolic on the left arm, blood pressure checked on right arm 107 systolic. Daughter at bedside discussed CODE STATUS family still wants full code. 01/21/2025: Patient's blood pressure is improved since yesterday, he is still disoriented not able to give clear history. Patient denies pain or worsening shortness of breath. Endorses photophobia 01/22/2025: Patient seen and examined at bedside complaining of nausea and dizziness from coughing spells, otherwise denies new symptoms 01/23/2025: Patient seen and examined at bedside he still endorses nausea and vomiting due to coughing spells has Robitussin as needed 01/24/2025: Patient seen at bedside, no significant overnight events. States his coughing and breathing have improved and is no longer feeling nauseous at this time. Patient has no other complaint or concerns at this time. Pertinent positives and negatives discussed above, a complete review of systems was preformed and all the other sytems were negative. Vitals Signs Reveiwed. General: He is cachectic, appears older than stated age Head: Temporal wasting Eyes: EOMI, no lid lag, anicteric sclera, pupils equal round reactive to light ENT: Nose and ears atraumatic Neck: No cervical lymphadenopathy, trachea midline, supple Mouth: no lip lesion, mucus membranes moist Cardiovascular: S1S2 reg, no murmur, positive dorsalis pedis pulse bilateral, no edema Lungs: Decreased air entry bilaterally, no rhonchi, no rales, no accessory muscle use, several episodes of productive cough with green sputum Abdominal: soft, nontender to palpation, no guarding Ext: muscle strength 5 out of 5 in all 4 extremities grossly, no gross muscle atrophy, no contractures, Psych: Alert, oriented, appropriate affect Data Reveiwed Today: #Acute hypoxic respiratory failure likely secondary to post obstructive PNA #Postobstructive pneumonia positive for Aspergillus and Enterobacter #Apical lung mass 5.1 cm left side #acute leukocytosis #Confusion secondary to malignancy - Completed 7-day course of Zosyn, continue voriconazole (day 4) Supplemental oxygen SPO2 > 92% Consult ID appreciate recommendations Oncology following - Pulm assisted biopsy planned awaiting hemodynamic stability Pulmonology following Sputum culture reveals Enterobacter and Aspergillus - Continue Solu-Medrol 60 mg IV Q6HR #Normocytic anemia transfuse if less than 7 - Hemoglobin relatively stable at this time #Nausea likely secondary to coughing fits Robitussin as needed - Will consider adding Zofran as needed for nausea #unintentional weight loss likely secondary to malignancy #malnutrition Normal diet + protein supplament #Hypotension (improved) #Nonsustained bradycardia - Tele reports max to 30-40, transfered to cardiac 3S as a result - Since transfer, consistently 80-95, remains asymptomatic Consulted cardiology recommendations appreciated 2D echocardiogram per cardiology - Continue NS 75/h F NS 75 cc/h E none N regular diet with dysphagia level 2 modification and came of weight daily with breakfast A as tolerated DVT ppx: SCDs GI ppx: None Code Status: Full code Benedict Amezcua MD PGY [address]: Pending clinical course Anticipated discharge time: Pending clinical course Attestation/ Key Account Director Note: Attestation to Progress Note, Participation (I saw and evaluated the patient with the Resident, and I reviewed and discussed the patient with the Resident and agree with the Resident's findings and plans as documented above., management reviewed and discussed), I agree with findings & plan, Provider Signature (CHINTAN HERRERA, [facility]) Objective - Vital Signs Vital signs: Vital Signs Temp 97.4 F L 01/24/25 04:00 Pulse 99 01/24/25 04:00 Resp 16 01/24/25 04:00 BP 106/73 01/24/25 04:00 Pulse Ox 96 01/24/25 04:00 FiO2 Intake & Output 01/23/25 01/24/25 01/24/25 18:59 06:59 18:59 Intake Total 70 Output Total 750 150 Balance -680 -150 Weight 53.5 kg Intake: Oral 70 Output: Urine 750 150 Other: Voiding Method External Catheter External Catheter # Voids 1 # Bowel Movements 1 - Labs CBC & Chem 7: 02/02/25 07:30 02/02/25 07:30 Labs: Abnormal Lab Results - Last 24 Hours (Table) 01/23/25 01/23/25 Range/Units 11:10 11:10 WBC 18.42 H (4.50-10.00) 10*3/uL RBC 3.27 L (4.40-5.60) 10*6/uL Hgb 9.8 L (13.0-17.0) g/dL Hct 30.1 L (39.6-50.0) % Immature Gran # 0.19 H (0.00-0.04) 10*3/uL Neutrophils # 17.04 H (1.80-7.70) 10*3/uL Lymphocytes # 0.67 L (0.90-5.00) 10*3/uL Eosinophils # 0.00 L (0.04-0.35) 10*3/uL BUN 29 H (9-20) mg/dL Glucose 157 H (74-99) mg/dL ALT 50 H (4-49) U/L Alkaline Phosphatase 127 H (38-126) U/L Total Protein 5.6 L (6.3-8.2) g/dL Albumin 2.2 L (3.5-5.0) g/dL
--- NOTE | 2025-01-24 15:17 | P.PN ---
Subjective Progress Note Date: 01/24/25 Principal diagnosis: Reason for follow-up is pneumonia Patient is a 59-year-old male with a past medical history significant for recent finding of a left upper lung mass unintentional weight loss and [id number] smoking presenting to the hospital for evaluation of generalized weakness has been diagnosed with pneumonia sputum positive for Enterobacter Aspergillus prompted this consultation. On today's evaluation that is 01/24/2025, patient did have a temperature of 98 F this morning and denies having any chills, patient is on 4 L of oxygen and breathing slightly comfortably no chest pain or any worsening cough, the patient did not have any nausea vomiting abdominal pain or any diarrhea. Patient white count is down to 15.1, creatinine 0.69 Objective - Vital Signs Vital signs: Vital Signs Temp 97.5 F L 01/24/25 08:17 Pulse 98 01/24/25 12:06 Resp 17 01/24/25 12:06 BP 125/76 01/24/25 12:06 Pulse Ox 96 01/24/25 12:06 FiO2 Intake & Output 01/23/25 01/24/25 01/24/25 18:59 06:59 18:59 Intake Total 70 236 Output Total 750 150 300 Balance -680 -150 -64 Weight 53.5 kg Intake: Oral 70 236 Output: Urine 750 150 300 Other: Voiding Method External Catheter External Catheter External Catheter # Voids 1 # Bowel Movements 1 - Exam GENERAL DESCRIPTION: Middle-age male lying in bed in no distress RESPIRATORY SYSTEM: Unlabored breathing , decreased breath sounds at bases HEART: S1 S2 regular rate and rhythm , ABDOMEN: Soft , no tenderness EXTREMITIES: No edema feet - Labs CBC & Chem 7: 01/24/25 06:18 01/24/25 06:18 Labs: Abnormal Lab Results - Last 24 Hours (Table) 01/24/25 01/24/25 Range/Units 06:18 06:18 WBC 15.21 H (4.50-10.00) 10*3/uL RBC 2.95 L (4.40-5.60) 10*6/uL Hgb 8.7 L (13.0-17.0) g/dL Hct 27.1 L (39.6-50.0) % Immature Gran # 0.25 H (0.00-0.04) 10*3/uL Neutrophils # 14.10 H (1.80-7.70) 10*3/uL Lymphocytes # 0.59 L (0.90-5.00) 10*3/uL Eosinophils # 0.01 L (0.04-0.35) 10*3/uL BUN 32 H (9-20) mg/dL Glucose 124 H (74-99) mg/dL ALT 53 H (4-49) U/L Total Protein 5.4 L (6.3-8.2) g/dL Albumin 2.0 L (3.5-5.0) g/dL Microbiology - Last 24 Hours (Table) 01/18/25 20:22 Blood Culture - Final Blood Assessment and Plan (1) Postobstructive pneumonia Current Visit: Yes Status: Acute Code(s): J18.9 - PNEUMONIA, UNSPECIFIED ORGANISM SNOMED Code(s): 212852967 (2) Leukocytosis Current Visit: Yes Status: Acute Code(s): D72.829 - ELEVATED WHITE BLOOD CELL COUNT, UNSPECIFIED SNOMED Code(s): 847177827 (3) Aspergillus Current Visit: Yes Status: Acute Code(s): B44.9 - ASPERGILLOSIS, UNSPECIFIED SNOMED Code(s): 76074658 Plan: 1patient presented to hospital with increasing shortness of breath weakness did have a cough and this patient has been recently diagnosed with a lung nodule now with evidence of worsening pleural parenchymal opacity throughout the left hemithorax and may be developing disease contributing to right upper lung highly suspicious for malignancy and concern for possible postobstructive pneumonia patient sputum now growing Enterobacter as well as Aspergillus fumigatus 2-patient will benefit from bronchoscopy and lavage and transbronchial biopsy to see the significance of the Aspergillus been growing in the culture and diagnosis primary condition more likely malignancy 3patient did have diarrhea likely antibiotic associated stool for C. difficile negative encouraged to increase his yogurt intake if any further worsening of di arrhea will add Questran for symptomatic relief 4the patient is afebrile white count is trending down we will continue patient on Zosyn and monitor clinical course closely Dictation was produced using [employer] dictation software. please excuse any grammatical, word or spelling errors. Time with Patient: Less than 30
[2025-01-24] MEDS: CALCIUM CARBONATE 500 MG CHEWABLE PO PRN (16:10)
--- NOTE | 2025-01-24 17:54 | P.PN ---
Subjective Progress Note Date: 01/24/25 Patient is a 59-year-old male with significant smoking history of over 40 pack years, recent unintentional weight loss, and recent findings of left upper lung mass. Chest CT angiogram done December 26, 2024 remarkable for left apical lung mas measuring 5.1 cm with adjacent consolidations, anteriorly and posteriorly. Lobular density in the posterior right lung measuring 1.8 cm. Also, 0.8 cm anterior right lung nodularity. Did have new patient visit with Dr. Garcia on January 08, 2025. Reportedly, scheduled to undergo outpatient PET scan on . Brought into the emergency department yesterday evening by EMS. He was short of breath and was found to be hypoxic when EMS arrived with an SpO2 of 78%. He has been increasingly weak and has lost some additional weight, reportedly an additional 23 pounds in less than a month. Chest x-ray done in the ED showing worsening consolidative changes in the left lung, concerning for obstructive atelectasis or pneumonia. CBC: WBC count 17.45, hemoglobin 10, platelets 309. BMP with a sodium 130, potassium 4.7, chloride 91, serum bicarb 30, BUN 51, creatinine 1.07, glucose 108. Lactic was 3 now down to 2. Troponin less than 0.012. Repeat 2610. Viral screen negative for influenza A/B, RSV, COVID. While in the emergency department, patient was empirically started on Zosyn. Also, normal saline started at 130 mL/h. He is currently being evalua ladarius on the fifth floor. He is a poor historian. On 2 L/min nasal cannula, nondistressed. He has a congested cough with reportedly increased sputum production. Does have a green sputum in collection cup. Denies any hemoptysis. Denies any fevers. Reports left-sided chest pain with coughing and deep breathing. He continues to have weight loss. He is very frail and cachectic in appearance. Appetite has been poor. Denies any nausea, vomiting, diarrhea, abdominal pain. Nontachycardic. Blood pressure normotensive. Normal saline infusing at 130 mL/h. On 01/20/2025, the patient is being seen for a follow-up. Extremely debilitated. Continues to have a congested cough. Trying to increase oral intake and the patient was given Ensure. Remains on IV Zosyn as a broad-spectrum antibiotic coverage. Sputum sample was positive for gram-negative/moderate Enterobacter cloacae complex. The patient remains also on bronchodilators. The patient is profoundly weak. No altered mentation for now. CAT scan of the brain was obtained yesterday and shows no evidence of any MAMMALOGIST metastases. Echocardiogram also showed a preserved LV function with a left ventricular ejection fraction being in the order of 55 to 60%. Nevertheless, the patient had moderate degree of pulm hypertension with right ventricular systolic pressure estimated to be around 46 mmHg. No signs of any volume overload. The patient remains on IV fluids and the patient is currently at normal Saint rate of 130 cc an hour. On today's evaluation of 01/21/2025, the patient remains extremely debilitated and weak. Continues to have cough and congestion. As mentioned earlier, the sputum sample was positive for Enterobacter cloacae and the patient was kept on IV Zosyn. Meanwhile, repeat chest x-ray was done and showed worsening in the pleural-parenchymal opacity on the left hemithorax and there was also some developing interstitial infiltrates in the right upper lobe. I also noted that the sputum sample was also positive for Aspergillus fumigatus. Oral intake remains quite diminished. The white cell count is 15.6 with a hemoglobin 8.7 and a platelet count of 270. Sodium is at 134, potassium is at 3.9, BUN is 38 with a creatinine 0.9. AST is at 89 with an ALT of 55 and alkaline phosphatase of 148. Procalcitonin level is at 1.4. TSH is 2.6. On 01/22/2025, the patient's overall condition is unchanged. Continues to produce copious amounts of thick and purulent respiratory secretions and mucus. Noted, the patient sputum sample was positive for Enterobacter and Aspergillus. Due to this cavitating left lung pneumonia and possibility of a fungus ball, the patient was started on voriconazole. Nutritional status remains poor. Oral intake is minimal. He is very much debilitated and weak. He is able to communicate. He remains on oxygen 4 L/min nasal cannula with a pulse ox of 96%. CAT scan of the abdomen and pelvis was also completed and it showed small bilateral pleural effusion and large amount of stool within the colon and the rectum and there is no evidence of any bowel obstruction. No other acute intra- abdominal abnormalities. Second 15 with a hemoglobin 9.1 and a platelet count o f 273. LFTs are improved compared to yesterday. AST is 39 and ALT is 39 with an alkaline phosphatase of 123. Total protein is 5.5 with an albumin of 2.0. The white cell count of 15 with hemoglobin 9.1. The patient is currently on DuoNeb treatment [id number], IV Solu-Medrol, IV Zosyn and IV voriconazole. On 01/23/2025, the patient is being seen for a follow-up. The patient remains on 40 Suboxone by nasal cannula. The patient remains also on broad-spectrum antibiotics and the patient is on a combination of Zosyn and voriconazole. Repeat chest x-ray was done and shows COPD with ongoing extensive abnormal pleural-parenchymal opacity involving the left lung. Mild residual infiltrate throughout the right lung is also seen. Findings are essentially stable. Clinically, the patient is weak and lethargic and he continues to have a congested cough. He continues to produce excessive amounts of sputum. BUN is 29 with a creatinine of 0.8. The white cell count is 18.4 with a hemoglobin 9.8 and a platelet count of 375. Stool for C. difficile has been negative. ID is on the case. On 01/24/2025, the patient is being seen for a follow-up. Patient is still being treated for an extensive left lung pneumonia. He is on a combination of IV Zosyn and voriconazole. The patient is still producing copious amounts of purulent respiratory secretions and he is able to cough effectively. Slightly more strong and more alert compared to yesterday. Improving his nutritional status. Earlier sputum sample that was collected on 02/04/2025 was consistent with Enterobacter and Aspergillus fumigatus. White cell count of 15.2 with a hemoglobin 8.7 and a platelet count of 356. BUN 32 with a creatinine of 0.6. Sodium level is at 140. Most recent chest x-ray was done on 01/23/2025 and this was reviewed and shows a left upper lobe mass in addition to extensive consolidation and cavitation left lung. Hemodynamically stable and the patient remains on oxygen 4 L/min nasal cannula with a pulse ox of 94%. Currently afebrile. No other significant complaints for now. Objective - Vital Signs Vital signs: Vital Signs Temp 97.5 F L 01/24/25 08:17 Pulse 93 01/24/25 08:49 Resp 18 01/24/25 08:17 BP 125/73 01/24/25 08:17 Pulse Ox 93 L 01/24/25 08:17 FiO2 Intake & Output 01/23/25 01/24/25 01/24/25 18:59 06:59 18:59 Intake Total 70 236 Output Total 750 150 300 Balance -680 -150 -64 Weight 53.5 kg Intake: Oral 70 236 Output: Urine 750 150 300 Other: Voiding Method External Catheter External Catheter External Catheter # Voids 1 # Bowel Movements 1 - Exam GENERAL EXAM: Alert, 59-year-old male, frail/cachectic, comfortable in no apparent distress.The patient carries a body mass index of 14. The patient is currently on oxygen at 4 L/min nasal cannula. Cachectic, debilitated, weak, significant loss in total body muscle mass along with temporal wasting. HEAD: Normocephalic and atraumatic EYES: Normal reaction of pupils, equal size. NOSE: Clear with pink turbinates. THROAT: No erythema or exudates. Poor dentition. NECK: No masses, no JVD. CHEST: No chest wall deformity. LUNGS: Equal air entry with markedly diminished lung sounds on the left. No conversational dyspnea or accessory muscle use.. CVS: S1 and S2 normal with no audible murmur, regular rhythm. No extra heart sounds ABDOMEN: No hepatosplenomegaly, active bowel sounds, no guarding or rigidity. SPINE: No scoliosis or deformity SKIN: No rashes CENTRAL NERVOUS SYSTEM: No focal deficits, tone is normal in all 4 extremities. EXTREMITIES: There is no peripheral edema or cyanosis. Peripheral pulses are intact. Digital clubbing noted. - Labs CBC & Chem 7: 01/24/25 06:18 01/24/25 06:18 Labs: Abnormal Lab Results - Last 24 Hours (Table) 01/23/25 01/23/25 01/24/25 Range/Units 11:10 11:10 06:18 WBC 18.42 H 15.21 H (4.50-10.00) 10*3/uL RBC 3.27 L 2.95 L (4.40-5.60) 10*6/uL Hgb 9.8 L 8.7 L (13.0-17.0) g/dL Hct 30.1 L 27.1 L (39.6-50.0) % Immature Gran # 0.19 H 0.25 H (0.00-0.04) 10*3/uL Neutrophils # 17.04 H 14.10 H (1.80-7.70) 10*3/uL Lymphocytes # 0.67 L 0.59 L (0.90-5.00) 10*3/uL Eosinophils # 0.00 L 0.01 L (0.04-0.35) 10*3/uL BUN 29 H (9-20) mg/dL Glucose 157 H (74-99) mg/dL ALT 50 H (4-49) U/L Alkaline Phosphatase 127 H (38-126) U/L Total Protein 5.6 L (6.3-8.2) g/dL Albumin 2.2 L (3.5-5.0) g/dL / Range/Units 06:18 WBC (4.50-10.00) 10*3/uL RBC (4.40-5.60) 10*6/uL Hgb (13.0-17.0) g/dL Hct (39.6-50.0) % Immature Gran # (0.00-0.04) 10*3/uL Neutrophils # (1.80-7.70) 10*3/uL Lymphocytes # (0.90-5.00) 10*3/uL Eosinophils # (0.04-0.35) 10*3/uL BUN 32 H (9-20) mg/dL Glucose 124 H (74-99) mg/dL ALT 53 H (4-49) U/L Alkaline Phosphatase (38-126) U/L Total Protein 5.4 L (6.3-8.2) g/dL Albumin 2.0 L (3.5-5.0) g/dL Assessment and Plan Assessment: Acute hypoxemic respiratory failure, currently on 4 L/min nasal cannula, repeat chest x-ray showing worsening consolidative changes in the left upper lung now extending inferiorly, concerning for disease progression and/or post-obstructive pneumonia. Noted the patient has a cavitating left upper lobe pulmonary infiltrate. Follow-up chest x-ray shows interval worsening of the left lung consolidation and the patient has a left upper lobe mass in the left lung seems to be completely consolidated at this point. Condition is essentially the same and unchanged over the past 24 hours that the patient receives broad-spectrum antibiotics. Remains on 40 of oxygen by nasal cannula. Extensive left lung pneumonia with a left upper lobe mass. Sputum positive for Enterobacter cloacae complex and the patient remains on IV Zosyn. No significant leukocytosis. No significant hemodynamic instability. The patient is normotensive. Procalcitonin level was mildly elevated. Furthermore, the sputum sample was showed Aspergillus fumigatus. Possibility of a fungal pneumonia with cavitation/fungal ball cannot be completely excluded. Infectious disease on the case and the patient will be kept on same antibiotic coverage Left upper lung mass, measuring 5.1 cm Right posterior lung nodule measuring 1.8 cm Acute leukocytosis Normocytic, normochromic anemia monitor for blood loss Unintentional weight loss Severe protein calorie malnutrition with a BMI of 16.2 kg/m Chronic tobacco dependence Preserved RV function with moderate degree of pulm hypertension, likely group 3 pulmonary hypertension with an estimated RVSP of 46 mmHg. Plan: The patient seems to be improving slowly in terms of his strength. Still coughing out copious amounts of purulent respiratory secretions. However, he remains extremely debilitated and weak Keep oxygen 4 L/min nasal cannula Continue IV Zosyn and voriconazole due to suspicion for fungal cavitating pneumo adonis. Will check serum Aspergillus titers, results are still pending Consult Oncology has been obtained The patient is being provided dietary support and the patient is currently on Ensure. CAT scan of the brain was negative CT scan of the abdomen showed small bilateral pleural effusions and stool in the colon without any acute abnormalities. Repeat chest x-ray on 01/23/2025 shows stable extensive pleural-parenchymal pulmonary opacity involving the left lung with some cavitation Patient is still very much debilitated. As such, we are still unable to do a bronchoscopy at this point as the patient's condition is unstable. Will continue IV antibiotics I will make further decisions based on his progress. As mentioned, he has severe loss in total body muscle protein and looks extremely emaciated and cachectic. He cannot handle any bronchoscopic intervention at this point in time. ID input is appreciated Will monitor LFTs as the patient is going to be started on voriconazole. LFTs are stable and improved compared to yesterday Case was explained to the daughter at the bedside to the sister and earlier to the daughter.. Explained our concerns for doing a bronchoscopy which may be e ssentially complicated procedure and it may result into complication including respiratory failure. As such, we are going to support the patient medically and optimize his clinical condition prior to undergoing the bronchoscopy. Suspicion for malignancy is extremely high in this patient. Patient may tolerate a fine-needle aspirate of the left upper lobe mass if diagnosis is to be established. This can be coordinated with interventional radiology. Bronchoscopy is going to be quite risky on this patient. Prognosis remains poor. Time with Patient: Greater than 30
[2025-01-25] MEDS: ENOXAPARIN 40 MG/0.4 ML SYRINGE SQ SCH (08:25)
[2025-01-25 08:47] LABS: Basophils # (A) 0.02 10*3/uL (0.00-0.10); Basophils % (A) 0.1 %; Eosinophils # (A) 0.00 10*3/uL (0.04-0.35); Eosinophils % (A) 0.0 %; HCT 30.1 % (39.6-50.0); HGB 9.6 g/dL (13.0-17.0); Lymphocytes # (A) 0.63 10*3/uL (0.90-5.00); Lymphocytes % (A) 4.3 %; MCH 29.5 pg (27.0-32.0); MCHC 31.9 g/dL (32.0-37.0); MCV 92.6 fL (80.0-97.0); Monocytes # (A) 0.26 10*3/uL (0.20-1.00); Monocytes % (A) 1.8 %; Neutrophils # (A) 13.48 10*3/uL (1.80-7.70); Neutrophils % (A) 92.5 %; Platelet Count 349 10*3/uL (140-440); RBC 3.25 10*6/uL (4.40-5.60); RDW 16.3 % (11.5-14.5); WBC 14.58 10*3/uL (4.50-10.00)
[2025-01-25 08:57] LABS: ALT 48 U/L (4-49); AST 43 U/L (17-59); African American GFR (CKD) >90 (>60 ml/min/1.73 sqM); Albumin 2.2 g/dL (3.5-5.0); Alkaline Phosphatase 125 U/L (38-126); Anion Gap 3 mmol/L; Blood Urea Nitrogen 29 mg/dL (9-20); Calcium 8.3 mg/dL (8.4-10.2); Carbon Dioxide 29 mmol/L (22-30); Chloride 107 mmol/L (98-107); Glucose 180 mg/dL (74-99); Non-African American GFR(CKD) >90 (>60 ml/min/1.73 sqM); Potassium 3.9 mmol/L (3.5-5.1); Sodium 139 mmol/L (137-145); Total Protein 5.5 g/dL (6.3-8.2)
--- NOTE | 2025-01-25 10:54 | P.PN ---
Subjective Subjective: History of present illness; Patient is a 59-year-old male with significant past smoking history of [id number] with unintentional weight loss presents to the ER with significant shortness of breath hypoxic at SpO2 of 78% has increased weakness and additional weight loss of 23 pounds in the last month. Chest x-ray was performed in the ER showing worsening consolidation in the left lung concerning for atelectasis or pneumonia. Patient had a recent CTA in December 2024 with evidence of left apical lung mass measuring 5.1 cm with consolidation A&P. In the ER patient was started on Zosyn empirically with saline infusion 138 mL/h Patient was admitted with consults from pulmonology, cardiology and oncology. At time of encounter patient is on 2 L nasal cannula and not in acute distress, eating breakfast. He denies worsening shortness of breath, Dizziness, Fever or chills. 01/20/2025: Patient seen at bedside last night notified about decreased blood pressure to 87 systolic on the left arm, blood pressure checked on right arm 107 systolic. Daughter at bedside discussed CODE STATUS family still wants full code. 01/21/2025: Patient's blood pressure is improved since yesterday, he is still disoriented not able to give clear history. Patient denies pain or worsening shortness of breath. Endorses photophobia 01/22/2025: Patient seen and examined at bedside complaining of nausea and dizziness from coughing spells, otherwise denies new symptoms 01/23/2025: Patient seen and examined at bedside he still endorses nausea and vomiting due to coughing spells has Robitussin as needed 01/24/2025: Patient seen at bedside, no significant overnight events. States his coughing and breathing have improved and is no longer feeling nauseous at this time. Patient has no other complaint or concerns at this time. 01/25/2025: Patient seen at bedside no significant overnight events patient is having fewer coughing fits and not feeling as nauseous. No other complaints at this time. Subjective plan for bronchoscopy Pertinent positives and negatives discussed above, a complete review of systems was preformed and all the other sytems were negative. Vitals Signs Reveiwed. General: He is cachectic, appears older than stated age Head: Temporal wasting Eyes: EOMI, no lid lag, anicteric sclera, pupils equal round reactive to light ENT: Nose and ears atraumatic Neck: No cervical lymphadenopathy, trachea midline, supple Mouth: no lip lesion, mucus membranes moist Cardiovascular: S1S2 reg, no murmur, positive dorsalis pedis pulse bilateral, no edema Lungs: Decreased air entry bilaterally, no rhonchi, no rales, no accessory muscle use, several episodes of productive cough with green sputum Abdominal: soft, nontender to palpation, no guarding Ext: muscle strength 5 out of 5 in all 4 extremities grossly, no gross muscle atrophy, no contractures, Neuro: CN II-XI grossly intact, no gross focal neuro deficits Psych: Alert, oriented, appropriate affect Data Reveiwed Today: #Acute hypoxic respiratory failure likely secondary to post obstructive PNA #Postobstructive pneumonia positive for Aspergillus and Enterobacter #Apical lung mass 5.1 cm left side #acute leukocytosis #normocytic anemia #Confusion secondary to malignancy transfuse if less than 7 -PET scan scheduled for 01/22 Supplemental oxygen SPO2 > 92% Continue Zosyn IV, potentially broaden coverage Consult ID appreciate recommendations Oncology following - Pulm assisted biopsy planned awaiting hemodynamic stability Pulmonology following, considering bronchoscopy when patient is stronger. No date set at this time Brain CT reveals no acute process or metastatic disease Discussed CODE STATUS with family, still wants full code Sputum culture reveals Enterobacter and Aspergillus -continue Zosyn, voriconazole and methylprednisolone #Normocytic anemia transfuse if less than 7 - Hemoglobin relatively stable at this time #Nausea likely secondary to coughing fits Robitussin as needed Zofran as needed for nausea #unintentional weight loss #malnutrition Normal diet + protein supplament #Hypotension (improved) #Nonsustained bradycardia - Tele reports max to 30-40, transfered to cardiac 3S as a result -Since transfer, consistently 80-95, remains asymptomatic Consulted cardiology recommendations appreciated 2D echocardiogram per cardiology -Continue NS 75/h DVT ppx: SCDs CODE STATUS: Full Dispo: Pending clinical course Attestation/ 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) Objective - Vital Signs Vital signs: Vital Signs Temp 97.4 F L 01/25/25 08:35 Pulse 98 01/25/25 08:35 Resp 20 01/25/25 08:35 BP 170/82 01/25/25 08:35 Pulse Ox 94 L 01/25/25 08:35 FiO2 Intake & Output 01/24/25 01/25/25 01/25/25 18:59 06:59 18:59 Intake Total 236 220 Output Total 900 420 Balance -664 -420 220 Weight 53.5 kg Intake: Oral 236 220 Output: Urine 900 420 Other: Voiding Method External Catheter External Catheter - Labs CBC & Chem 7: 02/02/25 07:30 02/02/25 07:30 Labs: Abnormal Lab Results - Last 24 Hours (Table) 01/25/25 01/25/25 Range/Units 08:35 08:35 WBC 14.58 H (4.50-10.00) 10*3/uL RBC 3.25 L (4.40-5.60) 10*6/uL Hgb 9.6 L (13.0-17.0) g/dL Hct 30.1 L (39.6-50.0) % MCHC 31.9 L (32.0-37.0) g/dL MPV 9.1 L (9.5-12.2) fL Immature Gran # 0.19 H (0.00-0.04) 10*3/uL Neutrophils # 13.48 H (1.80-7.70) 10*3/uL Lymphocytes # 0.63 L (0.90-5.00) 10*3/uL Eosinophils # 0.00 L (0.04-0.35) 10*3/uL BUN 29 H (9-20) mg/dL Glucose 180 H (74-99) mg/dL Calcium 8.3 L (8.4-10.2) mg/dL Total Protein 5.5 L (6.3-8.2) g/dL Albumin 2.2 L (3.5-5.0) g/dL Microbiology - Last 24 Hours (Table) 01/18/25 20:22 Blood Culture - Final Blood
--- NOTE | 2025-01-25 11:57 | P.PN ---
Subjective Progress Note Date: 01/25/25 Patient is a 59-year-old male with significant smoking history of over 40 pack years, recent unintentional weight loss, and recent findings of left upper lung mass. Chest CT angiogram done December 26, 2024 remarkable for left apical lung mas measuring 5.1 cm with adjacent consolidations, anteriorly and posteriorly. Lobular density in the posterior right lung measuring 1.8 cm. Also, 0.8 cm anterior right lung nodularity. Did have new patient visit with Dr. Garcia on January 08, 2025. Reportedly, scheduled to undergo outpatient PET scan on . Brought into the emergency department yesterday evening by EMS. He was short of breath and was found to be hypoxic when EMS arrived with an SpO2 of 78%. He has been increasingly weak and has lost some additional weight, reportedly an additional 23 pounds in less than a month. Chest x-ray done in the ED showing worsening consolidative changes in the left lung, concerning for obstructive atelectasis or pneumonia. CBC: WBC count 17.45, hemoglobin 10, platelets 309. BMP with a sodium 130, potassium 4.7, chloride 91, serum bicarb 30, BUN 51, creatinine 1.07, glucose 108. Lactic was 3 now down to 2. Troponin less than 0.012. Repeat 2610. Viral screen negative for influenza A/B, RSV, COVID. While in the emergency department, patient was empirically started on Zosyn. Also, normal saline started at 130 mL/h. He is currently being evalua ladarius on the fifth floor. He is a poor historian. On 2 L/min nasal cannula, nondistressed. He has a congested cough with reportedly increased sputum production. Does have a green sputum in collection cup. Denies any hemoptysis. Denies any fevers. Reports left-sided chest pain with coughing and deep breathing. He continues to have weight loss. He is very frail and cachectic in appearance. Appetite has been poor. Denies any nausea, vomiting, diarrhea, abdominal pain. Nontachycardic. Blood pressure normotensive. Normal saline infusing at 130 mL/h. On 01/20/2025, the patient is being seen for a follow-up. Extremely debilitated. Continues to have a congested cough. Trying to increase oral intake and the patient was given Ensure. Remains on IV Zosyn as a broad-spectrum antibiotic coverage. Sputum sample was positive for gram-negative/moderate Enterobacter cloacae complex. The patient remains also on bronchodilators. The patient is profoundly weak. No altered mentation for now. CAT scan of the brain was obtained yesterday and shows no evidence of any TEAM LEADER SURGERY metastases. Echocardiogram also showed a preserved LV function with a left ventricular ejection fraction being in the order of 55 to 60%. Nevertheless, the patient had moderate degree of pulm hypertension with right ventricular systolic pressure estimated to be around 46 mmHg. No signs of any volume overload. The patient remains on IV fluids and the patient is currently at normal Saint rate of 130 cc an hour. On today's evaluation of 01/21/2025, the patient remains extremely debilitated and weak. Continues to have cough and congestion. As mentioned earlier, the sputum sample was positive for Enterobacter cloacae and the patient was kept on IV Zosyn. Meanwhile, repeat chest x-ray was done and showed worsening in the pleural-parenchymal opacity on the left hemithorax and there was also some developing interstitial infiltrates in the right upper lobe. I also noted that the sputum sample was also positive for Aspergillus fumigatus. Oral intake remains quite diminished. The white cell count is 15.6 with a hemoglobin 8.7 and a platelet count of 270. Sodium is at 134, potassium is at 3.9, BUN is 38 with a creatinine 0.9. AST is at 89 with an ALT of 55 and alkaline phosphatase of 148. Procalcitonin level is at 1.4. TSH is 2.6. On 01/22/2025, the patient's overall condition is unchanged. Continues to produce copious amounts of thick and purulent respiratory secretions and mucus. Noted, the patient sputum sample was positive for Enterobacter and Aspergillus. Due to this cavitating left lung pneumonia and possibility of a fungus ball, the patient was started on voriconazole. Nutritional status remains poor. Oral intake is minimal. He is very much debilitated and weak. He is able to communicate. He remains on oxygen 4 L/min nasal cannula with a pulse ox of 96%. CAT scan of the abdomen and pelvis was also completed and it showed small bilateral pleural effusion and large amount of stool within the colon and the rectum and there is no evidence of any bowel obstruction. No other acute intra- abdominal abnormalities. Second 15 with a hemoglobin 9.1 and a platelet count o f 273. LFTs are improved compared to yesterday. AST is 39 and ALT is 39 with an alkaline phosphatase of 123. Total protein is 5.5 with an albumin of 2.0. The white cell count of 15 with hemoglobin 9.1. The patient is currently on DuoNeb treatment [id number], IV Solu-Medrol, IV Zosyn and IV voriconazole. On 01/23/2025, the patient is being seen for a follow-up. The patient remains on 40 Suboxone by nasal cannula. The patient remains also on broad-spectrum antibiotics and the patient is on a combination of Zosyn and voriconazole. Repeat chest x-ray was done and shows COPD with ongoing extensive abnormal pleural-parenchymal opacity involving the left lung. Mild residual infiltrate throughout the right lung is also seen. Findings are essentially stable. Clinically, the patient is weak and lethargic and he continues to have a congested cough. He continues to produce excessive amounts of sputum. BUN is 29 with a creatinine of 0.8. The white cell count is 18.4 with a hemoglobin 9.8 and a platelet count of 375. Stool for C. difficile has been negative. ID is on the case. On 01/24/2025, the patient is being seen for a follow-up. Patient is still being treated for an extensive left lung pneumonia. He is on a combination of IV Zosyn and voriconazole. The patient is still producing copious amounts of purulent respiratory secretions and he is able to cough effectively. Slightly more strong and more alert compared to yesterday. Improving his nutritional status. Earlier sputum sample that was collected on 02/04/2025 was consistent with Enterobacter and Aspergillus fumigatus. White cell count of 15.2 with a hemoglobin 8.7 and a platelet count of 356. BUN 32 with a creatinine of 0.6. Sodium level is at 140. Most recent chest x-ray was done on 01/23/2025 and this was reviewed and shows a left upper lobe mass in addition to extensive consolidation and cavitation left lung. Hemodynamically stable and the patient remains on oxygen 4 L/min nasal cannula with a pulse ox of 94%. Currently afebrile. No other significant complaints for now. On 01/25/2025, the patient is being seen for a follow-up. Clinically unchanged. Continues to produce copious amount of thick purulent respiratory secretions. Remains on voriconazole. Remains on IV Zosyn. White cell count of 14.8 hemoglobin 9.6 and a platelet count of 349. BUN is 29 with a creatinine of 0.7. Sitting up in a chair and there is no significant events overnight. Objective - Vital Signs Vital signs: Vital Signs Temp 97.4 F L 01/25/25 04:00 Pulse 94 01/25/25 08:19 Resp 18 01/25/25 04:00 BP 144/76 01/25/25 04:00 Pulse Ox 91 L 01/25/25 04:00 FiO2 Intake & Output 01/24/25 01/25/25 01/25/25 18:59 06:59 18:59 Intake Total 236 Output Total 900 420 Balance -664 -420 Weight 53.5 kg Intake: Oral 236 Output: Urine 900 420 Other: Voiding Method External Catheter External Catheter - Exam GENERAL EXAM: Alert, 59-year-old male, frail/cachectic, comfortable in no apparent distress.The patient carries a body mass index of 14. The patient is currently on oxygen at 4 L/min nasal cannula. Cachectic, debilitated, weak, significant loss in total body muscle mass along with temporal wasting. HEAD: Normocephalic and atraumatic EYES: Normal reaction of pupils, equal size. NOSE: Clear with pink turbinates. THROAT: No erythema or exudates. Poor dentition. NECK: No masses, no JVD. CHEST: No chest wall deformity. LUNGS: Equal air entry with markedly diminished lung sounds on the left. No conversational dyspnea or accessory muscle use.. CVS: S1 and S2 normal with no audible murmur, regular rhythm. No extra heart sounds ABDOMEN: No hepatosplenomegaly, active bowel sounds, no guarding or rigidity. SPINE: No scoliosis or deformity SKIN: No rashes CENTRAL NERVOUS SYSTEM: No focal deficits, tone is normal in all 4 extremities. EXTREMITIES: There is no peripheral edema or cyanosis. Peripheral pulses are intact. Digital clubbing noted. - Labs CBC & Chem 7: 01/25/25 08:35 01/25/25 08:35 Labs: Microbiology - Last 24 Hours (Table) 01/18/25 20:22 Blood Culture - Final Blood Assessment and Plan Assessment: Acute hypoxemic respiratory failure, currently on 4 L/min nasal cannula, repeat chest x-ray showing worsening consolidative changes in the left upper lung now extending inferiorly, concerning for disease progression and/or post-obstructive pneumonia. Noted the patient has a cavitating left upper lobe pulmonary infiltrate. Follow-up chest x-ray shows interval worsening of the left lung consolidation and the patient has a left upper lobe mass in the left lung seems to be completely consolidated at this point. Condition is essentially the same and unchanged over the past 24 hours that the patient receives broad-spectrum antibiotics. Remains on 40 of oxygen by nasal cannula. Extensive left lung pneumonia with a left upper lobe mass. Sputum positive for Enterobacter cloacae complex and the patient remains on IV Zosyn. No significant leukocytosis. No significant hemodynamic instability. The patient is normotensive. Procalcitonin level was mildly elevated. Furthermore, the sputum sample was showed Aspergillus fumigatus. Possibility of a fungal pneumonia with cavitation/fungal ball cannot be completely excluded. Infectious disease on the case and the patient will be kept on same antibiotic coverage Left upper lung mass, measuring 5.1 cm Right posterior lung nodule measuring 1.8 cm Acute leukocytosis Normocytic, normochromic anemia monitor for blood loss Unintentional weight loss Severe protein calorie malnutrition with a BMI of 16.2 kg/m Chronic tobacco dependence Preserved RV function with moderate degree of pulm hypertension, likely group 3 pulmonary hypertension with an estimated RVSP of 46 mmHg. Plan: The patient seems to be improving slowly in terms of his strength. Still coughing out copious amounts of purulent respiratory secretions. However, he remains extremely debilitated and weak Keep oxygen and wean down to 3 L of oxygen by nasal cannula Continue IV Zosyn and voriconazole due to suspicion for fungal cavitating pneum onia. Will check serum Aspergillus titers, results are still pending Consult Oncology has been obtained The patient is being provided dietary support and the patient is currently on Ensure. CAT scan of the brain was negative CT scan of the abdomen showed small bilateral pleural effusions and stool in the colon without any acute abnormalities. Repeat chest x-ray on 01/23/2025 shows stable extensive pleural-parenchymal pulmonary opacity involving the left lung with some cavitation Patient is still very much debilitated. As such, we are still unable to do a bronchoscopy at this point as the patient's condition is unstable. Will continue IV antibiotics I will make further decisions based on his progress. As mentioned, he has severe loss in total body muscle protein and looks extremely emaciated and cachectic. He cannot handle any bronchoscopic intervention at this point in time. ID input is appreciated Will monitor LFTs as the patient is going to be started on voriconazole. LFTs are stable and improved compared to yesterday Case was explained to the daughter at the bedside to the sister and earlier to the daughter.. Explained our concerns for doing a bronchoscopy which may be essentially complicated procedure and it may result into complication including respiratory failure. As such, we are going to support the patient medically and optimize his clinical condition prior to undergoing the bronchoscopy. Suspicion for malignancy is extremely high in this patient. Patient may tolerate a fine-needle aspirate of the left upper lobe mass if diagnosis is to be established. This can be coordinated with interventional radiology. Bronchoscopy is going to be quite risky on this patient. Prognosis remains poor.
--- NOTE | 2025-01-25 18:50 | P.PN ---
Subjective Progress Note Date: 01/25/25 Principal diagnosis: Reason for follow-up is pneumonia Patient is a 59-year-old male with a past medical history significant for recent finding of a left upper lung mass unintentional weight loss and [id number] smoking presenting to the hospital for evaluation of generalized weakness has been diagnosed with pneumonia sputum positive for Enterobacter Aspergillus prompted this consultation. On today's evaluation that is 01/25/2025, Patient is afebrile patient is c urrently on 3 L nasal oxygen and mention breathing slightly comfortably, the patient denies any chest pain or any worsening cough, the patient denies any nausea vomiting did not have any abdominal pain and no diarrhea. Patient white count is down to 14.58 creatinine 0.75 Objective - Vital Signs Vital signs: Vital Signs Temp 97.4 F L 01/25/25 08:35 Pulse 104 H 01/25/25 11:06 Resp 17 01/25/25 11:06 BP 134/79 01/25/25 11:06 Pulse Ox 92 L 01/25/25 11:06 FiO2 Intake & Output 01/24/25 01/25/25 01/25/25 18:59 06:59 18:59 Intake Total 236 220 Output Total 900 420 400 Balance -664 -420 -180 Weight 53.5 kg Intake: Oral 236 220 Output: Urine 900 420 400 Other: Voiding Method External Catheter External Catheter External Catheter - Exam GENERAL DESCRIPTION: Middle-age male lying in bed in no distress RESPIRATORY SYSTEM: Unlabored breathing , decreased breath sounds at bases HEART: S1 S2 regular rate and rhythm , ABDOMEN: Soft , no tenderness EXTREMITIES: No edema feet - Labs CBC & Chem 7: 01/25/25 08:35 01/25/25 08:35 Labs: Abnormal Lab Results - Last 24 Hours (Table) 01/25/25 01/25/25 Range/Units 08:35 08:35 WBC 14.58 H (4.50-10.00) 10*3/uL RBC 3.25 L (4.40-5.60) 10*6/uL Hgb 9.6 L (13.0-17.0) g/dL Hct 30.1 L (39.6-50.0) % MCHC 31.9 L (32.0-37.0) g/dL MPV 9.1 L (9.5-12.2) fL Immature Gran # 0.19 H (0.00-0.04) 10*3/uL Neutrophils # 13.48 H (1.80-7.70) 10*3/uL Lymphocytes # 0.63 L (0.90-5.00) 10*3/uL Eosinophils # 0.00 L (0.04-0.35) 10*3/uL BUN 29 H (9-20) mg/dL Glucose 180 H (74-99) mg/dL Calcium 8.3 L (8.4-10.2) mg/dL Total Protein 5.5 L (6.3-8.2) g/dL Albumin 2.2 L (3.5-5.0) g/dL Microbiology - Last 24 Hours (Table) 01/18/25 20:22 Blood Culture - Final Blood Assessment and Plan (1) Postobstructive pneumonia Current Visit: Yes Status: Acute Code(s): J18.9 - PNEUMONIA, UNSPECIFIED ORGANISM SNOMED Code(s): 926863518 (2) Leukocytosis Current Visit: Yes Status: Acute Code(s): D72.829 - ELEVATED WHITE BLOOD CELL COUNT, UNSPECIFIED SNOMED Code(s): 887559857 (3) Aspergillus Current Visit: Yes Status: Acute Code(s): B44.9 - ASPERGILLOSIS, UNSPECIFIED SNOMED Code(s): 63249078 Plan: 1patient presented to hospital with increasing shortness of breath weakness did have a cough and this patient has been recently diagnosed with a lung nodule now with evidence of worsening pleural parenchymal opacity throughout the left hemithorax and may be developing disease contributing to right upper lung highly suspicious for malignancy and concern for possible postobstructive pneumonia patient sputum now growing Enterobacter as well as Aspergillus fumigatus 2-patient did have diarrhea likely antibiotic associated stool for C. difficile negative encouraged to increase his yogurt intake if any further worsening of diarrhea will add Questran for symptomatic relief 3the patient is afebrile white count is trending down 4we will continue patient on Zosyn and monitor clinical course closely, patient currently scheduled for bronchoscopy and biopsy tomorrow that would clarify underlying pathology Dictation was produced using [employer] dictation software. please excuse any grammatical, word or spelling errors. Time with Patient: Less than 30
[2025-01-26 05:22] LABS: Basophils # (A) 0.01 10*3/uL (0.00-0.10); Basophils % (A) 0.1 %; Eosinophils # (A) 0.00 10*3/uL (0.04-0.35); Eosinophils % (A) 0.0 %; HCT 24.8 % (39.6-50.0); Lymphocytes # (A) 0.52 10*3/uL (0.90-5.00); Lymphocytes % (A) 4.2 %; MCH 30.0 pg (27.0-32.0); MCHC 32.7 g/dL (32.0-37.0); MCV 91.9 fL (80.0-97.0); Monocytes # (A) 0.15 10*3/uL (0.20-1.00); Monocytes % (A) 1.2 %; Neutrophils # (A) 11.71 10*3/uL (1.80-7.70); Neutrophils % (A) 93.7 %; Platelet Count 343 10*3/uL (140-440); RBC 2.70 10*6/uL (4.40-5.60); RDW 16.0 % (11.5-14.5); WBC 12.49 10*3/uL (4.50-10.00)
[2025-01-26 05:31] LABS: HGB 8.1 g/dL (13.0-17.0)
[2025-01-26 05:42] LABS: ALT 43 U/L (4-49); AST 34 U/L (17-59); African American GFR (CKD) >90 (>60 ml/min/1.73 sqM); Albumin 1.9 g/dL (3.5-5.0); Alkaline Phosphatase 106 U/L (38-126); Anion Gap 2 mmol/L; Blood Urea Nitrogen 26 mg/dL (9-20); Calcium 8.3 mg/dL (8.4-10.2); Carbon Dioxide 31 mmol/L (22-30); Chloride 105 mmol/L (98-107); Glucose 104 mg/dL (74-99); Non-African American GFR(CKD) >90 (>60 ml/min/1.73 sqM); Potassium 3.9 mmol/L (3.5-5.1); Sodium 138 mmol/L (137-145); Total Protein 5.0 g/dL (6.3-8.2)
--- NOTE | 2025-01-26 13:14 | P.PN ---
Subjective Progress Note Date: 01/26/25 Principal diagnosis: Failure secondary to extensive left-sided pneumonia Patient is a 59-year-old male with significant smoking history of over 40 pack years, recent unintentional weight loss, and recent findings of left upper lung mass. Chest CT angiogram done December 26, 2024 remarkable for left apical lung mas measuring 5.1 cm with adjacent consolidations, anteriorly and posteriorly. Lobular density in the posterior right lung measuring 1.8 cm. Also, 0.8 cm anterior right lung nodularity. Did have new patient visit with Dr. Garcia on January 08, 2025. Reportedly, scheduled to undergo outpatient PET scan on . Brought into the emergency department yesterday evening by EMS. He was short of breath and was found to be hypoxic when EMS arrived with an SpO2 of 78%. He has been increasingly weak and has lost some additional weight, reportedly an additional 23 pounds in less than a month. Chest x-ray done in the ED showing worsening consolidative changes in the left lung, concerning for obstructive atelectasis or pneumonia. CBC: WBC count 17.45, hemoglobin 10, platelets 309. BMP with a sodium 130, potassium 4.7, chloride 91, serum bicarb 30, BUN 51, creatinine 1.07, glucose 108. Lactic was 3 now down to 2. Troponin less than 0.012. Repeat 2610. Viral screen negative for influenza A/B, RSV, COVID. While in the emergency department, patient was empirically started on Zosyn. Also, normal saline started at 130 mL/h. He is currently being evalu ated on the fifth floor. He is a poor historian. On 2 L/min nasal cannula, nondistressed. He has a congested cough with reportedly increased sputum production. Does have a green sputum in collection cup. Denies any hemoptysis. Denies any fevers. Reports left-sided chest pain with coughing and deep breathing. He continues to have weight loss. He is very frail and cachectic in appearance. Appetite has been poor. Denies any nausea, vomiting, diarrhea, abdominal pain. Nontachycardic. Blood pressure normotensive. Normal saline infusing at 130 mL/h. On 01/20/2025, the patient is being seen for a follow-up. Extremely debilitated. Continues to have a congested cough. Trying to increase oral intake and the patient was given Ensure. Remains on IV Zosyn as a broad-spectrum antibiotic coverage. Sputum sample was positive for gram-negative/moderate Enterobacter cloacae complex. The patient remains also on bronchodilators. The patient is profoundly weak. No altered mentation for now. CAT scan of the brain was obtained yesterday and shows no evidence of any [employer] metastases. Echocardiogram also showed a preserved LV function with a left ventricular ejection fraction being in the order of 55 to 60%. Nevertheless, the patient had moderate degree of pulm hypertension with right ventricular systolic pressure estimated to be around 46 mmHg. No signs of any volume overload. The patient remains on IV fluids and the patient is currently at normal Saint rate of 130 cc an hour. On today's evaluation of 01/21/2025, the patient remains extremely debilitated and weak. Continues to have cough and congestion. As mentioned earlier, the sputum sample was positive for Enterobacter cloacae and the patient was kept on IV Zosyn. Meanwhile, repeat chest x-ray was done and showed worsening in the pleural-parenchymal opacity on the left hemithorax and there was also some developing interstitial infiltrates in the right upper lobe. I also noted that the sputum sample was also positive for Aspergillus fumigatus. Oral intake remains quite diminished. The white cell count is 15.6 with a hemoglobin 8.7 and a platelet count of 270. Sodium is at 134, potassium is at 3.9, BUN is 38 with a creatinine 0.9. AST is at 89 with an ALT of 55 and alkaline phosphatase of 148. Procalcitonin level is at 1.4. TSH is 2.6. On 01/22/2025, the patient's overall condition is unchanged. Continues to produce copious amounts of thick and purulent respiratory secretions and mucus. Noted, the patient sputum sample was positive for Enterobacter and Aspergillus. Due to this cavitating left lung pneumonia and possibility of a fungus ball, the patient was started on voriconazole. Nutritional status remains poor. Oral intake is minimal. He is very much debilitated and weak. He is able to communicate. He remains on oxygen 4 L/min nasal cannula with a pulse ox of 96%. CAT scan of the abdomen and pelvis was also completed and it showed small bilateral pleural effusion and large amount of stool within the colon and the rectum and there is no evidence of any bowel obstruction. No other acute intra- abdominal abnormalities. Second 15 with a hemoglobin 9.1 and a platelet count of 273. LFTs are improved compared to yesterday. AST is 39 and ALT is 39 with an alkaline phosphatase of 123. Total protein is 5.5 with an albumin of 2.0. The white cell count of 15 with hemoglobin 9.1. The patient is currently on DuoNeb treatment [id number], IV Solu-Medrol, IV Zosyn and IV voriconazole. On 01/23/2025, the patient is being seen for a follow-up. The patient remains on 40 Suboxone by nasal cannula. The patient remains also on broad-spectrum antibiotics and the patient is on a combination of Zosyn and voriconazole. Repeat chest x-ray was done and shows COPD with ongoing extensive abnormal pleural-parenchymal opacity involving the left lung. Mild residual infiltrate throughout the right lung is also seen. Findings are essentially stable. Clinically, the patient is weak and lethargic and he continues to have a congested cough. He continues to produce excessive amounts of sputum. BUN is 29 with a creatinine of 0.8. The white cell count is 18.4 with a hemoglobin 9.8 and a platelet count of 375. Stool for C. difficile has been negative. ID is on the case. On 01/24/2025, the patient is being seen for a follow-up. Patient is still being treated for an extensive left lung pneumonia. He is on a combination of IV Zosyn and voriconazole. The patient is still producing copious amounts of purulent respiratory secretions and he is able to cough effectively. Slightly more strong and more alert compared to yesterday. Improving his nutritional status. Earlier sputum sample that was collected on 02/04/2025 was consistent with Enterobacter and Aspergillus fumigatus. White cell count of 15.2 with a hemoglobin 8.7 and a platelet count of 356. BUN 32 with a creatinine of 0.6. Sodium level is at 140. Most recent chest x-ray was done on 01/23/2025 and this was reviewed and shows a left upper lobe mass in addition to extensive consolidation and cavitation left lung. Hemodynamically stable and the patient remains on oxygen 4 L/min nasal cannula with a pulse ox of 94%. Currently afebrile. No other significant complaints for now. On 01/25/2025, the patient is being seen for a follow-up. Clinically unchanged. Continues to produce copious amount of thick purulent respiratory secretions. Remains on voriconazole. Remains on IV Zosyn. White cell count of 14.8 hemoglobin 9.6 and a platelet count of 349. BUN is 29 with a creatinine of 0.7. Sitting up in a chair and there is no significant events overnight. Patient was seen today on 01/26/2025, remains on 4 L nasal cannula, continues to have intermittent cough, shortness of breath, he has significant purulent thick respiratory secretions, patient remains on Zosyn and on voriconazole. Patient looks frail, looks ill. Does not seem to be however in respiratory distress. WBC count is 12.5 hemoglobin 8.1 electrolytes are normal renal profile is normal sputum culture was positive for Enterobacter cloacae and positive for Aspergillus fumigatus. Objective - Vital Signs Vital signs: Vital Signs Temp 97.7 F 01/26/25 08:35 Pulse 104 H 01/26/25 12:03 Resp 18 01/26/25 08:35 BP 159/55 01/26/25 08:35 Pulse Ox 85 L 01/26/25 08:35 FiO2 Intake & Output 01/25/25 01/26/25 01/26/25 18:59 06:59 18:59 Intake Total 220 120 Output Total 900 700 Balance -680 -580 Weight 53.5 kg 53.5 kg Intake: Oral 220 120 Output: Urine 900 700 Other: Voiding Method External Catheter External Catheter External Catheter - Exam Physical exam revealed a 59year-old, ifrail looking, in no distress, on 4 L nasal cannula Head: Atraumatic, normocephalic EENT: PERRLA, EOMI, nonicteric, no neck masses, no JVD, no stridor, moist mucous membranes Chest: Symmetrical chest expansion Lungs: Rhonchi noted on the left side, right side is relatively clear. Abdomen: Soft nontender no megaly no rebound no guarding good bowel sounds Extremities: No clubbing edema or cyanosis, good pulses bilaterally Musculoskeletal: No deformities and no limitation range of motion Neurologic: Alert oriented x 3 no gross focal neurologic deficit Psychiatric: Normal mood and affect and no mental status examination Skin: No rashes. - Labs CBC & Chem 7: 01/26/25 04:33 01/26/25 04:33 Labs: Abnormal Lab Results - Last 24 Hours (Table) 01/26/25 01/26/25 Range/Units 04:33 04:33 WBC 12.49 H (4.50-10.00) 10*3/uL RBC 2.70 L (4.40-5.60) 10*6/uL Hgb 8.1 L D (13.0-17.0) g/dL Hct 24.8 L (39.6-50.0) % Immature Gran # 0.10 H (0.00-0.04) 10*3/uL Neutrophils # 11.71 H (1.80-7.70) 10*3/uL Lymphocytes # 0.52 L (0.90-5.00) 10*3/uL Monocytes # 0.15 L (0.20-1.00) 10*3/uL Eosinophils # 0.00 L (0.04-0.35) 10*3/uL Carbon Dioxide 31 H (22-30) mmol/L BUN 26 H (9-20) mg/dL Creatinine 0.60 L (0.66-1.25) mg/dL Glucose 104 H (74-99) mg/dL Calcium 8.3 L (8.4-10.2) mg/dL Total Protein 5.0 L (6.3-8.2) g/dL Albumin 1.9 L (3.5-5.0) g/dL Assessment and Plan Assessment: Impression: Acute hypoxemic respiratory failure, secondary to extensive left lung pneumonia with positive sputum cultures for Enterobacter cloacae and Aspergillus fumigatus, patient is on Zosyn and on voriconazole Left upper lung mass, measuring 5.1 cm Right posterior lung nodule measuring 1.8 cm Acute leukocytosis Normocytic, normochromic anemia monitor for blood loss Unintentional weight loss Severe protein calorie malnutrition with a BMI of 16.2 kg/m Chronic tobacco dependence Preserved RV function with moderate degree of pulm hypertension, likely group 3 pulmonary hypertension with an estimated RVSP of 46 mmHg. 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 Continue bronchodilators Continue present supportive care measures Patient is not a great candidate for bronchoscopy and biopsy at this point, We will treat conservatively Prognosis is extremely poor and guarded. Will continue to follow Time with Patient: Less than 30
--- NOTE | 2025-01-26 14:16 | XR ---
EXAMINATION TYPE: XR chest 1V portable DATE OF EXAM: 01/26/2025 12:53 PM COMPARISON: Chest x-ray 01/23/2025, CTA chest 12/26/2024 CLINICAL INDICATION: Male, 59 years old with history of pneumonia, TECHNIQUE: XR chest 1V portable view(s) obtained. FINDINGS: The heart size is normal. The pulmonary vasculature is normal. There is diffuse increased lung markings in the mid and lower left lung field. Small to moderate effu sajan likely is present. There is opacification and thickening through the left upper lung and lung ap ex. Mild infiltrate is developing at the right base. IMPRESSION: 1. Left lower and right lower lobe infiltrate can be compatible with developing pneumonia. 2. Opacity through the left upper lung field. Differential includes pulmonary fibrosis and neoplasm. [facility], Workstation: [facility], 01/26/2025 2:14 PM
--- NOTE | 2025-01-26 14:33 | P.PN ---
Subjective Progress Note Date: 01/26/25 Pt reporting improvement in breathing since admit. Continues on IV abx and steroids. SPO2 90% on 4L. Objective - Vital Signs Vital signs: Vital Signs Temp 97.7 F 01/26/25 08:35 Pulse 104 H 01/26/25 12:03 Resp 18 01/26/25 08:35 BP 159/55 01/26/25 08:35 Pulse Ox 85 L 01/26/25 08:35 FiO2 Intake & Output 01/25/25 01/26/25 01/26/25 18:59 06:59 18:59 Intake Total 220 120 Output Total 900 700 Balance -680 -580 Weight 53.5 kg 53.5 kg Intake: Oral 220 120 Output: Urine 900 700 Other: Voiding Method External Catheter External Catheter External Catheter - Constitutional General appearance: Present: average body habitus, no acute distress - EENT Eyes: Present: anicteric sclerae, EOMI ENT: Present: hearing grossly normal - Respiratory Details: breathing mildly labored - Cardiovascular Details: skin warm and dry - Integumentary Integumentary: Absent: cyanotic, jaundiced - Musculoskeletal Musculoskeletal: Present: generalized weakness - Psychiatric Psychiatric: Present: A&O x's 3 - Labs CBC & Chem 7: 01/26/25 04:33 01/26/25 04:33 Labs: Abnormal Lab Results - Last 24 Hours (Table) 01/26/25 01/26/25 Range/Units 04:33 04:33 WBC 12.49 H (4.50-10.00) 10*3/uL RBC 2.70 L (4.40-5.60) 10*6/uL Hgb 8.1 L D (13.0-17.0) g/dL Hct 24.8 L (39.6-50.0) % Immature Gran # 0.10 H (0.00-0.04) 10*3/uL Neutrophils # 11.71 H (1.80-7.70) 10*3/uL Lymphocytes # 0.52 L (0.90-5.00) 10*3/uL Monocytes # 0.15 L (0.20-1.00) 10*3/uL Eosinophils # 0.00 L (0.04-0.35) 10*3/uL Carbon Dioxide 31 H (22-30) mmol/L BUN 26 H (9-20) mg/dL Creatinine 0.60 L (0.66-1.25) mg/dL Glucose 104 H (74-99) mg/dL Calcium 8.3 L (8.4-10.2) mg/dL Total Protein 5.0 L (6.3-8.2) g/dL Albumin 1.9 L (3.5-5.0) g/dL Assessment and Plan (1) Hypoxia Current Visit: Yes Status: Acute Code(s): R09.02 - HYPOXEMIA SNOMED Code(s): 018596690 (2) Leukocytosis Current Visit: Yes Status: Acute Code(s): D72.829 - ELEVATED WHITE BLOOD CELL COUNT, UNSPECIFIED SNOMED Code(s): 626113969 (3) Lung mass Current Visit: Yes Status: Acute Code(s): R91.8 - OTHER NONSPECIFIC ABNORMAL FINDING OF LUNG FIELD SNOMED Code(s): 341888716 Plan: #New onset lung masses, left upper lung measuring 5.1 cm and right posterior lung nodule measuring 1.8 cm - Currently undergoing outpatient malignancy workup - CTA on 12/26/24 confirmed the findings listed above - Outpatient PET scan was scheduled for this coming 01/22/25 - Unable to tolerate brain MRI as he is unable to lie flat - Brain CT ordered to evaluate for any brain met disease, with noted blurry vision. Scan was negative for metastatic disease - Will continue to follow for the duration of his stay - Pulmonology following for possible bronchoscopy/biopsy when patient stabilizes. Unfortunately, pt has been unable to undergo bronch due to poor respiratory status. Will obtain CT AP to try to identify other possible sites for biopsy and to complete staging. CT AP revealed no abnormal lymphadenopathy or mass/lesions. Once respiratory status improves pt will hopefully be able to undergo bronch to obtain tissue diagnosis. Per pulm, unsure when pt will be appropriate for bronch. We will need to discuss case with IR to see if left lung mass is amendable to percutaneous biopsy #Acute hypoxemic respiratory failure, possibly secondary to post-obstructive pneumonia #Leukocytosis, likely reactive - Chest x-ray done in the ED showing worsening consolidative changes in the left lung, concerning for obstructive atelectasis or pneumonia. - Continue supplemental oxygen to maintain oxygen saturation 92% or greater - Sputum culture positive for Aspergillus fumigatus and Enterobacter cloacae - Continue antibiotics, per pulmonoary and primary team #Normocytic normochromic anemia - Hgb stable in 8-9 range - Likely due to underlying inflammation from pneumonia and suspected malignancy - Continue to monitor CBC - Hgb <7 transfuse #Hyponatremia, improving - Resolved - Continue to monitor
[2025-01-26] MEDS: PIPERACILLIN-TAZOBACTAM 3.375 GM in SODIUM CHLORIDE 0.9% 100 ML IVPB SCH (16:19)
--- NOTE | 2025-01-26 21:55 | P.PN ---
Subjective Progress Note Date: 01/26/25 Principal diagnosis: Reason for follow-up is pneumonia Patient is a 59-year-old male with a past medical history significant for recent finding of a left upper lung mass unintentional weight loss and [id number] smoking presenting to the hospital for evaluation of generalized weakness has been diagnosed with pneumonia sputum positive for Enterobacter Aspergillus prompted this consultation. On today's evaluation that is 01/26/2025, patient has been afebrile, patient is breathing slightly comfortably and is currently on 4 L nasal cannula oxygen, patient denies having any chest pain and cough mildly decreased in intensity, patient denies nausea vomiting or diarrhea and no abdominal pain. Patient white count is down to 12.49, creatinine 0.60 Aspergillus complement fixation antibodies high serum galactomannan is currently pending Objective - Vital Signs Vital signs: Vital Signs Temp 97.7 F 01/26/25 08:35 Pulse 104 H 01/26/25 12:03 Resp 18 01/26/25 08:35 BP 159/55 01/26/25 08:35 Pulse Ox 85 L 01/26/25 08:35 FiO2 Intake & Output 01/25/25 01/26/25 01/26/25 18:59 06:59 18:59 Intake Total 220 120 Output Total 900 700 Balance -680 -580 Weight 53.5 kg Intake: Oral 220 120 Output: Urine 900 700 Other: Voiding Method External Catheter External Catheter External Catheter - Exam GENERAL DESCRIPTION: Middle-age male lying in bed in no distress RESPIRATORY SYSTEM: Unlabored breathing , decreased breath sounds at bases HEART: S1 S2 regular rate and rhythm , ABDOMEN: Soft , no tenderness EXTREMITIES: No edema feet - Labs CBC & Chem 7: 01/26/25 04:33 01/26/25 04:33 Labs: Abnormal Lab Results - Last 24 Hours (Table) 01/26/25 01/26/25 Range/Units 04:33 04:33 WBC 12.49 H (4.50-10.00) 10*3/uL RBC 2.70 L (4.40-5.60) 10*6/uL Hgb 8.1 L D (13.0-17.0) g/dL Hct 24.8 L (39.6-50.0) % Immature Gran # 0.10 H (0.00-0.04) 10*3/uL Neutrophils # 11.71 H (1.80-7.70) 10*3/uL Lymphocytes # 0.52 L (0.90-5.00) 10*3/uL Monocytes # 0.15 L (0.20-1.00) 10*3/uL Eosinophils # 0.00 L (0.04-0.35) 10*3/uL Carbon Dioxide 31 H (22-30) mmol/L BUN 26 H (9-20) mg/dL Creatinine 0.60 L (0.66-1.25) mg/dL Glucose 104 H (74-99) mg/dL Calcium 8.3 L (8.4-10.2) mg/dL Total Protein 5.0 L (6.3-8.2) g/dL Albumin 1.9 L (3.5-5.0) g/dL Assessment and Plan (1) Postobstructive pneumonia Current Visit: Yes Status: Acute Code(s): J18.9 - PNEUMONIA, UNSPECIFIED ORGANISM SNOMED Code(s): 280758640 (2) Leukocytosis Current Visit: Yes Status: Acute Code(s): D72.829 - ELEVATED WHITE BLOOD CELL COUNT, UNSPECIFIED SNOMED Code(s): 177620893 (3) Aspergillus Current Visit: Yes Status: Acute Code(s): B44.9 - ASPERGILLOSIS, UNSPECIFIED SNOMED Code(s): 26741480 Plan: 1patient presented to hospital with increasing shortness of breath weakness did have a cough and this patient has been recently diagnosed with a lung nodule now with evidence of worsening pleural parenchymal opacity throughout the left hemithorax and may be developing disease contributing to right upper lung highly suspicious for malignancy and concern for possible postobstructive pneumonia patient sputum now growing Enterobacter as well as Aspergillus fumigatus 2-patient did have diarrhea likely antibiotic associated stool for C. difficile negative encouraged to increase his yogurt intake if any further worsening of diarrhea will add Questran for symptomatic relief 3the patient is afebrile white count is trending down 4patient's serum Aspergillus antibodies are high serum bilirubin is currently pending currently on Zosyn and voriconazole await bronchoscopy biopsy and culture Dictation was produced using [employer] software. please excuse any grammatical, word or spelling errors. Time with Patient: Less than 30
--- NOTE | 2025-01-27 08:21 | XR ---
EXAMINATION TYPE: XR chest 1V portable DATE OF EXAM: 01/27/2025 6:51 AM COMPARISON: 01/26/2025 CLINICAL INDICATION: Male, 59 years old with history of Pneumonia, TECHNIQUE: XR chest 1V portable view(s) obtained. FINDINGS: The heart size is normal. The pulmonary vasculature is normal. There is persistent density through the right peripheral apex. Aeration within the left upper lobe ma y be somewhat diminished from prior. There is infiltrate through the left lower lobe. Small effusion and/or pleural thickening may be present at the left base. There is increasing infiltrate at the righ t lower lobe. Correlate for pneumonia. Small nodular density measuring 0.3 cm in the periphery of the right upper lobe. IMPRESSION: 1. Persistent left lower lobe infiltrate suspicious for pneumonia. 2. Left upper peripheral masslike area. Pulmonary fibrosis neoplasm can be considered. 3. Increasing right lower lobe infiltrate. Correlate for pneumonia [facility], Workstation: [facility], 01/27/2025 8:19 AM
--- NOTE | 2025-01-27 08:27 | P.PN ---
Subjective Progress Note Date: 01/26/25 Subjective: History of present illness; Patient is a 59-year-old male with significant past smoking history of 23-xtbo-cmxd with unintentional weight loss presents to the ER with significant shortness of breath hypoxic at SpO2 of 78% has increased weakness and additional weight loss of 23 pounds in the last month. Chest x-ray was performed in the ER showing worsening consolidation in the left lung concerning for atelectasis or pneumonia. Patient had a recent CTA in December 2024 with evidence of left apical lung mass measuring 5.1 cm with consolidation A&P. In the ER patient was started on Zosyn empirically with saline infusion 138 mL/h Patient was admitted with consults from pulmonology, cardiology and oncology. At time of encounter patient is on 2 L nasal cannula and not in acute distress, eating breakfast. He denies worsening shortness of breath, Dizziness, Fever or chills. 01/20/2025: Patient seen at bedside last night notified about decreased blood pressure to 87 systolic on the left arm, blood pressure checked on right arm 107 systolic. Daughter at bedside discussed CODE STATUS family still wants full code. 01/21/2025: Patient's blood pressure is improved since yesterday, he is still disoriented not able to give clear history. Patient denies pain or worsening shortness of breath. Endorses photophobia 01/22/2025: Patient seen and examined at bedside complaining of nausea and dizziness from coughing spells, otherwise denies new symptoms 01/23/2025: Patient seen and examined at bedside he still endorses nausea and vomiting due to coughing spells has Robitussin as needed 01/24/2025: Patient seen at bedside, no significant overnight events. States his coughing and breathing have improved and is no longer feeling nauseous at this time. Patient has no other complaint or concerns at this time. 01/25/2025: Patient seen at bedside no significant overnight events patient is having fewer coughing fits and not feeling as nauseous. No other complaints at this time. Subjective plan for bronchoscopy 01/26/2025: Patienr seen at bedside, no significant overnight events. Patient is feeling better, scheduled for bronch and biopsy today. Pertinent positives and negatives discussed above, a complete review of systems was preformed and all the other sytems were negative. Vitals Signs Reveiwed. General: He is cachectic, appears older than stated age Head: Temporal wasting Eyes: EOMI, no lid lag, anicteric sclera, pupils equal round reactive to light ENT: Nose and ears atraumatic Neck: No cervical lymphadenopathy, trachea midline, supple Mouth: no lip lesion, mucus membranes moist Cardiovascular: S1S2 reg, no murmur, positive dorsalis pedis pulse bilateral, no edema Lungs: Decreased air entry bilaterally, no rhonchi, no rales, no accessory muscle use, several episodes of productive cough with green sputum Abdominal: soft, nontender to palpation, no guarding Ext: muscle strength 5 out of 5 in all 4 extremities grossly, no gross muscle atrophy, no contractures, Neuro: CN II-XI grossly intact, no gross focal neuro deficits Psych: Alert, oriented, appropriate affect Data Reveiwed Today: #Acute hypoxic respiratory failure likely secondary to post obstructive PNA #Postobstructive pneumonia positive for Aspergillus and Enterobacter #Apical lung mass 5.1 cm left side #acute leukocytosis #normocytic anemia #Confusion secondary to malignancy transfuse if less than 7 -PET scan scheduled for 01/22 Supplemental oxygen SPO2 > 92% Continue Zosyn IV, potentially broaden coverage Consult ID appreciate recommendations Oncology following - Pulm assisted biopsy planned awaiting hemodynamic stability Pulmonology following -Bronch and Biopsy today Brain CT reveals no acute process or metastatic disease Discussed CODE STATUS with family, still wants full code Sputum culture reveals Enterobacter and Aspergillus -continue Zosyn, voriconazole and methylprednisolone #Normocytic anemia transfuse if less than 7 - Hemoglobin relatively stable at this time #Nausea likely secondary to coughing fits Robitussin as needed Zofran as needed for nausea #unintentional weight loss #malnutrition Normal diet + protein supplament #Hypotension (improved) #Nonsustained bradycardia - Tele reports max to 30-40, transfered to cardiac 3S as a result -Since transfer, consistently 80-95, remains asymptomatic Consulted cardiology recommendations appreciated 2D echocardiogram per cardiology -Continue NS 75/h DVT ppx: SCDs CODE STATUS: Full Dispo: Pending clinical course Objective - Vital Signs Vital signs: Vital Signs Temp 97.7 F 01/26/25 04:00 Pulse 88 01/26/25 08:26 Resp 16 01/26/25 04:00 BP 155/71 01/26/25 04:00 Pulse Ox 90 L 01/26/25 08:13 FiO2 Intake & Output 01/25/25 01/26/25 01/26/25 18:59 06:59 18:59 Intake Total 220 120 Output Total 900 700 Balance -680 -580 Weight 53.5 kg Intake: Oral 220 120 Output: Urine 900 700 Other: Voiding Method External Catheter External Catheter - Labs CBC & Chem 7: 02/02/25 07:30 02/02/25 07:30 Labs: Abnormal Lab Results - Last 24 Hours (Table) 01/26/25 01/26/25 Range/Units 04:33 04:33 WBC 12.49 H (4.50-10.00) 10*3/uL RBC 2.70 L (4.40-5.60) 10*6/uL Hgb 8.1 L D (13.0-17.0) g/dL Hct 24.8 L (39.6-50.0) % Immature Gran # 0.10 H (0.00-0.04) 10*3/uL Neutrophils # 11.71 H (1.80-7.70) 10*3/uL Lymphocytes # 0.52 L (0.90-5.00) 10*3/uL Monocytes # 0.15 L (0.20-1.00) 10*3/uL Eosinophils # 0.00 L (0.04-0.35) 10*3/uL Carbon Dioxide 31 H (22-30) mmol/L BUN 26 H (9-20) mg/dL Creatinine 0.60 L (0.66-1.25) mg/dL Glucose 104 H (74-99) mg/dL Calcium 8.3 L (8.4-10.2) mg/dL Total Protein 5.0 L (6.3-8.2) g/dL Albumin 1.9 L (3.5-5.0) g/dL Assessment and Plan Assessment: Attestation Attestation/ Decorator Mannequin Note: Attestation to Progress Note, Participation (I saw and evaluated the patient with the Resident, and I reviewed and discussed the patient with the Resident and agree with the Resident's findings and plans as documented above., management reviewed and discussed), I agree with findings & plan, Provider Signature (FILOMENA HERRERA, VINEET Rodriguez Time with Patient: Greater than 30
[2025-01-27 08:35] LABS: Basophils # (A) 0.03 10*3/uL (0.00-0.10); Basophils % (A) 0.1 %; Eosinophils # (A) 0.00 10*3/uL (0.04-0.35); Eosinophils % (A) 0.0 %; HCT 30.6 % (39.6-50.0); Lymphocytes # (A) 0.61 10*3/uL (0.90-5.00); Lymphocytes % (A) 2.9 %; MCH 30.2 pg (27.0-32.0); MCHC 32.7 g/dL (32.0-37.0); MCV 92.4 fL (80.0-97.0); Monocytes # (A) 0.20 10*3/uL (0.20-1.00); Monocytes % (A) 0.9 %; Neutrophils # (A) 20.06 10*3/uL (1.80-7.70); Neutrophils % (A) 94.6 %; Platelet Count 385 10*3/uL (140-440); RBC 3.31 10*6/uL (4.40-5.60); RDW 16.5 % (11.5-14.5); WBC 21.21 10*3/uL (4.50-10.00)
[2025-01-27 08:44] LABS: HGB 10.0 g/dL (13.0-17.0)
[2025-01-27 08:48] LABS: ALT 42 U/L (4-49); African American GFR (CKD) >90 (>60 ml/min/1.73 sqM); Albumin 2.3 g/dL (3.5-5.0); Anion Gap 3 mmol/L; Blood Urea Nitrogen 28 mg/dL (9-20); Calcium 8.2 mg/dL (8.4-10.2); Carbon Dioxide 31 mmol/L (22-30); Chloride 106 mmol/L (98-107); Glucose 145 mg/dL (74-99); Non-African American GFR(CKD) >90 (>60 ml/min/1.73 sqM); Sodium 140 mmol/L (137-145); Total Protein 5.5 g/dL (6.3-8.2)
[2025-01-27 08:54] LABS: AST 36 U/L (17-59); Alkaline Phosphatase 103 U/L (38-126); Potassium 3.8 mmol/L (3.5-5.1)
--- NOTE | 2025-01-27 13:35 | P.PN ---
Subjective Progress Note Date: 01/27/25 Principal diagnosis: Acute hypoxic respiratory failure secondary to extensive left-sided pneumonia Patient is a 59-year-old male with significant smoking history of over 40 pack years, recent unintentional weight loss, and recent findings of left upper lung mass. Chest CT angiogram done December 26, 2024 remarkable for left apical lung mas measuring 5.1 cm with adjacent consolidations, anteriorly and posteriorly. Lobular density in the posterior right lung measuring 1.8 cm. Also, 0.8 cm anterior right lung nodularity. Did have new patient visit with Dr. Garcia on January 08, 2025. Reportedly, scheduled to undergo outpatient PET scan on . Brought into the emergency department yesterday evening by EMS. He was short of breath and was found to be hypoxic when EMS arrived with an SpO2 of 78%. He has been increasingly weak and has lost some additional weight, re portedly an additional 23 pounds in less than a month. Chest x-ray done in the ED showing worsening consolidative changes in the left lung, concerning for obstructive atelectasis or pneumonia. CBC: WBC count 17.45, hemoglobin 10, platelets 309. BMP with a sodium 130, potassium 4.7, chloride 91, serum bicarb 30, BUN 51, creatinine 1.07, glucose 108. Lactic was 3 now down to 2. Troponin less than 0.012. Repeat 2610. Viral screen negative for influenza A/B, RSV, COVID. While in the emergency department, patient was empirically started on Zosyn. Also, normal saline started at 130 mL/h. He is currently being evaluated on the fifth floor. He is a poor historian. On 2 L/min nasal cannul a, nondistressed. He has a congested cough with reportedly increased sputum production. Does have a green sputum in collection cup. Denies any hemoptysis. Denies any fevers. Reports left-sided chest pain with coughing and deep breathing. He continues to have weight loss. He is very frail and cachectic in appearance. Appetite has been poor. Denies any nausea, vomiting, diarrhea, abdominal pain. Nontachycardic. Blood pressure normotensive. Normal saline infusing at 130 mL/h. On 01/20/2025, the patient is being seen for a follow-up. Extremely debilitated. Continues to have a congested cough. Trying to increase oral intake and the patient was given Ensure. Remains on IV Zosyn as a broad-spectrum antibiotic coverage. Sputum sample was positive for gram-negative/moderate Enterobacter cloacae complex. The patient remains also on bronchodilators. The patient is profoundly weak. No altered mentation for now. CAT scan of the brain was obtained yesterday and shows no evidence of any HORSE RACER metastases. Echocardiogram also showed a preserved LV function with a left ventricular ejection fraction being in the order of 55 to 60%. Nevertheless, the patient had moderate degree of pulm hypertension with right ventricular systolic pressure estimated to be around 46 mmHg. No signs of any volume overload. The patient remains on IV fluids and the patient is currently at normal Saint rate of 130 cc an hour. On today's evaluation of 01/21/2025, the patient remains extremely debilitated and weak. Continues to have cough and congestion. As mentioned earlier, the sputum sample was positive for Enterobacter cloacae and the patient was kept on IV Zosyn. Meanwhile, repeat chest x-ray was done and showed worsening in the pleural-parenchymal opacity on the left hemithorax and there was also some developing interstitial infiltrates in the right upper lobe. I also noted that the sputum sample was also positive for Aspergillus fumigatus. Oral intake remains quite diminished. The white cell count is 15.6 with a hemoglobin 8.7 and a platelet count of 270. Sodium is at 134, potassium is at 3.9, BUN is 38 with a creatinine 0.9. AST is at 89 with an ALT of 55 and alkaline phosphatase of 148. Procalcitonin level is at 1.4. TSH is 2.6. On 01/22/2025, the patient's overall condition is unchanged. Continues to produce copious amounts of thick and purulent respiratory secretions and mucus. Noted, the patient sputum sample was positive for Enterobacter and Aspergillus. Due to this cavitating left lung pneumonia and possibility of a fungus ball, the patient was started on voriconazole. Nutritional status remains poor. Oral intake is minimal. He is very much debilitated and weak. He is able to communicate. He remains on oxygen 4 L/min nasal cannula with a pulse ox of 96%. CAT scan of the abdomen and pelvis was also completed and it showed small bilateral pleural effusion and large amount of stool within the colon and the rectum and there is no evidence of any bowel obstruction. No other acute intra- abdominal abnormalities. Second 15 with a hemoglobin 9.1 and a platelet count of 273. LFTs are improved compared to yesterday. AST is 39 and ALT is 39 with an alkaline phosphatase of 123. Total protein is 5.5 with an albumin of 2.0. The white cell count of 15 with hemoglobin 9.1. The patient is currently on DuoNeb treatment [id number], IV Solu-Medrol, IV Zosyn and IV voriconazole. On 01/23/2025, the patient is being seen for a follow-up. The patient remains on 40 Suboxone by nasal cannula. The patient remains also on broad-spectrum a ntibiotics and the patient is on a combination of Zosyn and voriconazole. Repeat chest x-ray was done and shows COPD with ongoing extensive abnormal pleural-parenchymal opacity involving the left lung. Mild residual infiltrate throughout the right lung is also seen. Findings are essentially stable. Clinically, the patient is weak and lethargic and he continues to have a congested cough. He continues to produce excessive amounts of sputum. BUN is 29 with a creatinine of 0.8. The white cell count is 18.4 with a hemoglobin 9.8 and a platelet count of 375. Stool for C. difficile has been negative. ID is on the case. On 01/24/2025, the patient is being seen for a follow-up. Patient is still being treated for an extensive left lung pneumonia. He is on a combination of IV Zosyn and voriconazole. The patient is still producing copious amounts of purulent respiratory secretions and he is able to cough effectively. Slightly more strong and more alert compared to yesterday. Improving his nutritional status. Earlier sputum sample that was collected on 02/04/2025 was consistent with Enterobacter and Aspergillus fumigatus. White cell count of 15.2 with a hemoglobin 8.7 and a platelet count of 356. BUN 32 with a creatinine of 0.6. Sodium level is at 140. Most recent chest x-ray was done on 01/23/2025 and this was reviewed and shows a left upper lobe mass in addition to extensive consolidation and cavitation left lung. Hemodynamically stable and the patient remains on oxygen 4 L/min nasal cannula with a pulse ox of 94%. Currently afebrile. No other significant complaints for now. On 01/25/2025, the patient is being seen for a follow-up. Clinically unchanged. Continues to produce copious amount of thick purulent respiratory secretions. Remains on voriconazole. Remains on IV Zosyn. White cell count of 14.8 hemoglobin 9.6 and a platelet count of 349. BUN is 29 with a creatinine of 0.7. Sitting up in a chair and there is no significant events overnight. Patient was seen today on 01/26/2025, remains on 4 L nasal cannula, continues to have intermittent cough, shortness of breath, he has significant purulent thick respiratory secretions, patient remains on Zosyn and on voriconazole. Patient looks frail, looks ill. Does not seem to be however in respiratory distress. WBC count is 12.5 hemoglobin 8.1 electrolytes are normal renal profile is normal sputum culture was positive for Enterobacter cloacae and positive for Aspergillus fumigatus. Seen today on 01/27/2025, patient is basically about the same remains on 5 L nasal cannula O2 saturation marginal at 91%, continues to have productive cough with thick yellow phlegm, no fever no chills no hemoptysis. No chest pain. Remains on Zosyn and on voriconazole continues to have leukocytosis with WBC c ount of 21.2 hemoglobin 10 electrolytes are normal BUN is normal creatinine is normal Patient looks frail and chronically ill. Chest x-ray today continues to show significant airspace disease involving the left lung, continues to have left upperperipheral masslike area, neoplasm is not entirely ruled out. Objective - Vital Signs Vital signs: Vital Signs Temp 97.5 F L 01/27/25 08:49 Pulse 105 H 01/27/25 12:14 Resp 18 01/27/25 12:14 BP 157/90 01/27/25 12:14 Pulse Ox 91 L 01/27/25 12:14 FiO2 Intake & Output 01/26/25 01/27/25 01/27/25 18:59 06:59 18:59 Intake Total 240 118 Output Total 722 793 9346 Balance -510 100 1082 Weight 53.5 kg 53 kg Intake: Oral 240 118 Output: Urine 064 540 3552 Other: Voiding Method External Catheter External Catheter External Catheter # Bowel Movements 1 1 - Exam Physical exam revealed a 59year-old, ifrail looking, in no distress, on 5 L nasal cannula Head: Atraumatic, normocephalic EENT: PERRLA, EOMI, nonicteric, no neck masses, no JVD, no stridor, moist mucous membranes Chest: Symmetrical chest expansion Lungs: Rhonchi noted on the left side, right side is relatively clear. Abdomen: Soft nontender no megaly no rebound no guarding good bowel sounds Extremities: No clubbing edema or cyanosis, good pulses bilaterally Musculoskeletal: No deformities and no limitation range of motion Neurologic: Alert oriented x 3 no gross focal neurologic deficit Psychiatric: Normal mood and affect and no mental status examination Skin: No rashes. - Labs CBC & Chem 7: 01/27/25 07:59 01/27/25 07:59 Labs: Abnormal Lab Results - Last 24 Hours (Table) 01/21/25 01/27/25 01/27/25 Range/Units 14:47 07:59 07:59 WBC 21.21 H (4.50-10.00) 10*3/uL RBC 3.31 L (4.40-5.60) 10*6/uL Hgb 10.0 L D (13.0-17.0) g/dL Hct 30.6 L (39.6-50.0) % Immature Gran # 0.31 H (0.00-0.04) 10*3/uL Neutrophils # 20.06 H (1.80-7.70) 10*3/uL Lymphocytes # 0.61 L (0.90-5.00) 10*3/uL Eosinophils # 0.00 L (0.04-0.35) 10*3/uL Carbon Dioxide 31 H (22-30) mmol/L BUN 28 H (9-20) mg/dL Creatinine 0.60 L (0.66-1.25) mg/dL Glucose 145 H (74-99) mg/dL Calcium 8.2 L (8.4-10.2) mg/dL Total Protein 5.5 L (6.3-8.2) g/dL Albumin 2.3 L (3.5-5.0) g/dL Aspergillus Ab (CompFix) 1:32 H (<1:8) Assessment and Plan Assessment: Impression: Acute hypoxemic respiratory failure, secondary to extensive left lung pneumonia with positive sputum cultures for Enterobacter cloacae and Aspergillus fumiga tus, patient is on Zosyn and on voriconazole Left upper lung mass, measuring 5.1 cm Right posterior lung nodule measuring 1.8 cm Acute leukocytosis Normocytic, normochromic anemia monitor for blood loss Unintentional weight loss Severe protein calorie malnutrition with a BMI of 16.2 kg/m Chronic tobacco dependence Preserved RV function with moderate degree of pulm hypertension, likely group 3 pulmonary hypertension with an estimated RVSP of 46 mmHg. 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 Continue bronchodilators Continue present supportive care measures Patient is not a great candidate for bronchoscopy and biopsy at this point, We will treat conservatively and will continue present supportive care measures as well as antifungal and antibiotics therapy Prognosis is extremely poor and guarded. Will continue to follow Time with Patient: Less than 30
--- NOTE | 2025-01-27 14:49 | P.PN ---
Subjective Progress Note Date: 01/27/25 Principal diagnosis: Reason for follow-up is pneumonia Patient is a 59-year-old male with a past medical history significant for recent finding of a left upper lung mass unintentional weight loss and 14-nnxv-xmls smoking presenting to the hospital for evaluation of generalized weakness has been diagnosed with pneumonia sputum positive for Enterobacter Aspergillus prompted this consultation. On today's evaluation that is 01/27/2025, Patient is afebrile this morning patient denies having any chest pain breathing slightly comfortably denies any worsening cough patient is currently 5 L nasal cannula oxygen no nausea vomiting no abdominal pain or diarrhea. Patient white count is up to 21.21, creatinine 0.60 chest x-ray this morning persistent left lower lobe infiltrate suspicious for pneumonia left upper lobe peripheral mass Objective - Vital Signs Vital signs: Vital Signs Temp 97.5 F L 01/27/25 08:49 Pulse 105 H 01/27/25 12:14 Resp 18 01/27/25 12:14 BP 157/90 01/27/25 12:14 Pulse Ox 91 L 01/27/25 12:14 FiO2 Intake & Output 01/26/25 01/27/25 01/27/25 18:59 06:59 18:59 Intake Total 240 118 Output Total 322 461 6335 Balance -510 -100 -1082 Weight 53.5 kg 53 kg Intake: Oral 240 118 Output: Urine 780 155 3120 Other: Voiding Method External Catheter External Catheter External Catheter # Bowel Movements 1 1 - Exam GENERAL DESCRIPTION: Middle-age male lying in bed in no distress RESPIRATORY SYSTEM: Unlabored breathing , decreased breath sounds at bases HEART: S1 S2 regular rate and rhythm , ABDOMEN: Soft , no tenderness EXTREMITIES: No edema feet - Labs CBC & Chem 7: 01/27/25 07:59 01/27/25 07:59 Labs: Abnormal Lab Results - Last 24 Hours (Table) 01/21/25 01/27/25 01/27/25 Range/Units 14:47 07:59 07:59 WBC 21.21 H (4.50-10.00) 10*3/uL RBC 3.31 L (4.40-5.60) 10*6/uL Hgb 10.0 L D (13.0-17.0) g/dL Hct 30.6 L (39.6-50.0) % Immature Gran # 0.31 H (0.00-0.04) 10*3/uL Neutrophils # 20.06 H (1.80-7.70) 10*3/uL Lymphocytes # 0.61 L (0.90-5.00) 10*3/uL Eosinophils # 0.00 L (0.04-0.35) 10*3/uL Carbon Dioxide 31 H (22-30) mmol/L BUN 28 H (9-20) mg/dL Creatinine 0.60 L (0.66-1.25) mg/dL Glucose 145 H (74-99) mg/dL Calcium 8.2 L (8.4-10.2) mg/dL Total Protein 5.5 L (6.3-8.2) g/dL Albumin 2.3 L (3.5-5.0) g/dL Aspergillus Ab (CompFix) 1:32 H (<1:8) Assessment and Plan (1) Postobstructive pneumonia Current Visit: Yes Status: Acute Code(s): J18.9 - PNEUMONIA, UNSPECIFIED ORGANISM SNOMED Code(s): 821251461 (2) Leukocytosis Current Visit: Yes Status: Acute Code(s): D72.829 - ELEVATED WHITE BLOOD CELL COUNT, UNSPECIFIED SNOMED Code(s): 625210715 (3) Aspergillus Current Visit: Yes Status: Acute Code(s): B44.9 - ASPERGILLOSIS, UNSPECIFIED SNOMED Code(s): 77981054 Plan: 1patient presented to hospital with increasing shortness of breath weakness did have a cough and this patient has been recently diagnosed with a lung nodule now with evidence of worsening pleural parenchymal opacity throughout the left hemithorax and may be developing disease contributing to right upper lung highly suspicious for malignancy and concern for possible postobstructive pneumonia patient sputum now growing Enterobacter as well as Aspergillus fumigatus 2-patient did have diarrhea likely antibiotic associated stool for C. difficile negative encouraged to increase his yogurt intake if any further worsening of diarrhea will add Questran for symptomatic relief 3the patient is afebrile white count is trending down as of yesterday however noted worsening of the white count and questionable steroid related and no evidence of any worsening clinical condition chest x-ray with persistent pneumonia and mass 4to continue with the Zosyn we will recheck his inflammatory markers with a.m. lab Dictation was produced using dragon dictation software. please excuse any grammatical, word or spelling errors. Time with Patient: Less than 30
--- NOTE | 2025-01-27 15:17 | P.PN ---
Subjective Progress Note Date: 01/27/25 Subjective: History of present illness; Patient is a 59-year-old male with significant past smoking history of [id number] with unintentional weight loss presents to the ER with significant shortness of breath hypoxic at SpO2 of 78% has increased weakness and additional weight loss of 23 pounds in the last month. Chest x-ray was performed in the ER showing worsening consolidation in the left lung concerning for atelectasis or pneumonia. Patient had a recent CTA in December 2024 with evidence of left apical lung mass measuring 5.1 cm with consolidation A&P. In the ER patient was started on Zosyn empirically with saline infusion 138 mL/h Patient was admitted with consults from pulmonology, cardiology and oncology. At time of encounter patient is on 2 L nasal cannula and not in acute distress, eating breakfast. He denies worsening shortness of breath, Dizziness, Fever or chills. 01/20/2025: Patient seen at bedside last night notified about decreased blood pressure to 87 systolic on the left arm, blood pressure checked on right arm 107 systolic. Daughter at bedside discussed CODE STATUS family still wants full code. 01/21/2025: Patient's blood pressure is improved since yesterday, he is still disoriented not able to give clear history. Patient denies pain or worsening shortness of breath. Endorses photophobia 01/22/2025: Patient seen and examined at bedside complaining of nausea and dizziness from coughing spells, otherwise denies new symptoms 01/23/2025: Patient seen and examined at bedside he still endorses nausea and vomiting due to coughing spells has Robitussin as needed 01/24/2025: Patient seen at bedside, no significant overnight events. States his coughing and breathing have improved and is no longer feeling nauseous at this time. Patient has no other complaint or concerns at this time. 01/25/2025: Patient seen at bedside no significant overnight events patient is having fewer coughing fits and not feeling as nauseous. No other complaints at this time. Subjective plan for bronchoscopy 01/26/2025: Patienr seen at bedside, no significant overnight events. Patient is feeling better, scheduled for bronch and biopsy today. 01/27/2025: Patient seen at bedside no significant overnight events, patient unable to get bronc and biopsy due to respiratory status. Awaiting stability Pertinent positives and negatives discussed above, a complete review of systems was preformed and all the other sytems were negative. Vitals Signs Reveiwed. General: He is cachectic, appears older than stated age Head: Temporal wasting Eyes: EOMI, no lid lag, anicteric sclera, pupils equal round reactive to light ENT: Nose and ears atraumatic Neck: No cervical lymphadenopathy, trachea midline, supple Mouth: no lip lesion, mucus membranes moist Cardiovascular: S1S2 reg, no murmur, positive dorsalis pedis pulse bilateral, no edema Lungs: Decreased air entry bilaterally, no rhonchi, no rales, no accessory muscle use, several episodes of productive cough with green sputum Abdominal: soft, nontender to palpation, no guarding Ext: muscle strength 5 out of 5 in all 4 extremities grossly, no gross muscle atrophy, no contractures, Neuro: CN II-XI grossly intact, no gross focal neuro deficits Psych: Alert, oriented, appropriate affect Data Reveiwed Today: #Acute hypoxic respiratory failure likely secondary to post obstructive PNA #Postobstructive pneumonia positive for Aspergillus and Enterobacter #Apical lung mass 5.1 cm left side #acute leukocytosis #normocytic anemia #Confusion secondary to malignancy transfuse if less than 7 -PET scan scheduled for 01/22 Supplemental oxygen SPO2 > 92% Continue Zosyn IV Consult ID appreciate recommendations Oncology following - Pulm assisted biopsy planned awaiting hemodynamic stability Pulmonology following Brain CT reveals no acute process or metastatic disease Discussed CODE STATUS with family, still wants full code Sputum culture reveals Enterobacter and Aspergillus -continue Zosyn, voriconazole and methylprednisolone, no plan for DC until biopsy #Normocytic anemia transfuse if less than 7 - Hemoglobin relatively stable at this time #Nausea likely secondary to coughing fits Robitussin as needed Zofran as needed for nausea #unintentional weight loss #malnutrition Normal diet + protein supplament #Hypotension (improved) #Nonsustained bradycardia - Tele reports max to 30-40, transfered to cardiac 3S as a result -Since transfer, consistently 80-95, remains asymptomatic Consulted cardiology recommendations appreciated 2D echocardiogram per cardiology -Continue NS 75/h DVT ppx: SCDs CODE STATUS: Full Dispo: Pending clinical course Objective - Vital Signs Vital signs: Vital Signs Temp 97.9 F 01/27/25 03:11 Pulse 104 H 07/22/25 07:57 Resp 18 01/27/25 03:11 BP 157/90 01/27/25 03:11 Pulse Ox 84 L 01/27/25 07:44 FiO2 Intake & Output 01/26/25 01/27/25 01/27/25 18:59 06:59 18:59 Intake Total 240 Output Total 750 100 Balance -510 -100 Weight 53.5 kg 53 kg Intake: Oral 240 Output: Urine 750 100 Other: Voiding Method External Catheter External Catheter # Bowel Movements 1 - Labs CBC & Chem 7: 02/02/25 07:30 02/02/25 07:30 Labs: Abnormal Lab Results - Last 24 Hours (Table) 01/21/25 Range/Units 14:47 Aspergillus Ab (CompFix) 1:32 H (<1:8) Assessment and Plan Assessment: 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
[2025-01-28] MEDS: hydrALAZINE HCL 20 MG/ML 1 ML VIAL IVP STA (05:00)
[2025-01-28 07:15] LABS: Basophils # (A) 0.02 10*3/uL (0.00-0.10); Basophils % (A) 0.1 %; Eosinophils # (A) 0.00 10*3/uL (0.04-0.35); Eosinophils % (A) 0.0 %; HCT 29.2 % (39.6-50.0); HGB 9.6 g/dL (13.0-17.0); Lymphocytes # (A) 0.44 10*3/uL (0.90-5.00); Lymphocytes % (A) 2.6 %; MCH 29.8 pg (27.0-32.0); MCHC 32.9 g/dL (32.0-37.0); MCV 90.7 fL (80.0-97.0); Monocytes # (A) 0.24 10*3/uL (0.20-1.00); Monocytes % (A) 1.4 %; Neutrophils # (A) 15.95 10*3/uL (1.80-7.70); Neutrophils % (A) 94.4 %; Platelet Count 401 10*3/uL (140-440); RBC 3.22 10*6/uL (4.40-5.60); RDW 16.5 % (11.5-14.5); WBC 16.91 10*3/uL (4.50-10.00)
[2025-01-28 07:36] LABS: ALT 37 U/L (4-49); AST 31 U/L (17-59); African American GFR (CKD) >90 (>60 ml/min/1.73 sqM); Albumin 2.1 g/dL (3.5-5.0); Alkaline Phosphatase 129 U/L (38-126); Anion Gap 5 mmol/L; Blood Urea Nitrogen 28 mg/dL (9-20); Calcium 8.3 mg/dL (8.4-10.2); Carbon Dioxide 30 mmol/L (22-30); Chloride 105 mmol/L (98-107); Glucose 139 mg/dL (74-99); Non-African American GFR(CKD) >90 (>60 ml/min/1.73 sqM); Potassium 3.4 mmol/L (3.5-5.1); Sodium 140 mmol/L (137-145); Total Protein 5.2 g/dL (6.3-8.2)
--- NOTE | 2025-01-28 12:32 | P.PN ---
Subjective Progress Note Date: 01/28/25 Patient is a 59-year-old male with significant smoking history of over 40 pack years, recent unintentional weight loss, and recent findings of left upper lung mass. Chest CT angiogram done December 26, 2024 remarkable for left apical lung mas measuring 5.1 cm with adjacent consolidations, anteriorly and posteriorly. Lobular density in the posterior right lung measuring 1.8 cm. Also, 0.8 cm anterior right lung nodularity. Did have new patient visit with Dr. Garcia on January 08, 2025. Reportedly, scheduled to undergo outpatient PET scan on . Brought into the emergency department yesterday evening by EMS. He was short of breath and was found to be hypoxic when EMS arrived with an SpO2 of 78%. He has been increasingly weak and has lost some additional weight, reportedly an additional 23 pounds in less than a month. Chest x-ray done in the ED showing worsening consolidative changes in the left lung, concerning for obstructive atelectasis or pneumonia. CBC: WBC count 17.45, hemoglobin 10, platelets 309. BMP with a sodium 130, potassium 4.7, chloride 91, serum bicarb 30, BUN 51, creatinine 1.07, glucose 108. Lactic was 3 now down to 2. Troponin less than 0.012. Repeat 2610. Viral screen negative for influenza A/B, RSV, COVID. While in the emergency department, patient was empirically started on Zosyn. Also, normal saline started at 130 mL/h. He is currently being evaluat ed on the fifth floor. He is a poor historian. On 2 L/min nasal cannula, nondistressed. He has a congested cough with reportedly increased sputum production. Does have a green sputum in collection cup. Denies any hemoptysis. Denies any fevers. Reports left-sided chest pain with coughing and deep breathing. He continues to have weight loss. He is very frail and cachectic in appearance. Appetite has been poor. Denies any nausea, vomiting, diarrhea, abdominal pain. Nontachycardic. Blood pressure normotensive. Normal saline infusing at 130 mL/h. On 01/20/2025, the patient is being seen for a follow-up. Extremely debilitated. Continues to have a congested cough. Trying to increase oral intake and the patient was given Ensure. Remains on IV Zosyn as a broad-spectrum antibiotic coverage. Sputum sample was positive for gram-negative/moderate Enterobacter cloacae complex. The patient remains also on bronchodilators. The patient is profoundly weak. No altered mentation for now. CAT scan of the brain was obtained yesterday and shows no evidence of any R[employer]ATOR metastases. Echocardiogram also showed a preserved LV function with a left ventricular ejection fraction being in the order of 55 to 60%. Nevertheless, the patient had moderate degree of pulm hypertension with right ventricular systolic pressure estimated to be around 46 mmHg. No signs of any volume overload. The patient remains on IV fluids and the patient is currently at normal Saint rate of 130 cc an hour. On today's evaluation of 01/21/2025, the patient remains extremely debilitated and weak. Continues to have cough and congestion. As mentioned earlier, the sputum sample was positive for Enterobacter cloacae and the patient was kept on IV Zosyn. Meanwhile, repeat chest x-ray was done and showed worsening in the pleural-parenchymal opacity on the left hemithorax and there was also some developing interstitial infiltrates in the right upper lobe. I also noted that the sputum sample was also positive for Aspergillus fumigatus. Oral intake remains quite diminished. The white cell count is 15.6 with a hemoglobin 8.7 and a platelet count of 270. Sodium is at 134, potassium is at 3.9, BUN is 38 with a creatinine 0.9. AST is at 89 with an ALT of 55 and alkaline phosphatase of 148. Procalcitonin level is at 1.4. TSH is 2.6. On 01/22/2025, the patient's overall condition is unchanged. Continues to produce copious amounts of thick and purulent respiratory secretions and mucus. Noted, the patient sputum sample was positive for Enterobacter and Aspergillus. Due to this cavitating left lung pneumonia and possibility of a fungus ball, the patient was started on voriconazole. Nutritional status remains poor. Oral intake is minimal. He is very much debilitated and weak. He is able to communicate. He remains on oxygen 4 L/min nasal cannula with a pulse ox of 96%. CAT scan of the abdomen and pelvis was also completed and it showed small bilateral pleural effusion and large amount of stool within the colon and the rectum and there is no evidence of any bowel obstruction. No other acute intra- abdominal abnormalities. Second 15 with a hemoglobin 9.1 and a platelet count of 273. LFTs are improved compared to yesterday. AST is 39 and ALT is 39 with an alkaline phosphatase of 123. Total protein is 5.5 with an albumin of 2.0. The white cell count of 15 with hemoglobin 9.1. The patient is currently on DuoNeb treatment [id number], IV Solu-Medrol, IV Zosyn and IV voriconazole. On 01/23/2025, the patient is being seen for a follow-up. The patient remains on 40 Suboxone by nasal cannula. The patient remains also on broad-spectrum antibiotics and the patient is on a combination of Zosyn and voriconazole. Repeat chest x-ray was done and shows COPD with ongoing extensive abnormal pleural-parenchymal opacity involving the left lung. Mild residual infiltrate throughout the right lung is also seen. Findings are essentially stable. Clinically, the patient is weak and lethargic and he continues to have a congested cough. He continues to produce excessive amounts of sputum. BUN is 29 with a creatinine of 0.8. The white cell count is 18.4 with a hemoglobin 9.8 and a platelet count of 375. Stool for C. difficile has been negative. ID is on the case. On 01/24/2025, the patient is being seen for a follow-up. Patient is still being treated for an extensive left lung pneumonia. He is on a combination of IV Zosyn and voriconazole. The patient is still producing copious amounts of purulent respiratory secretions and he is able to cough effectively. Slightly more strong and more alert compared to yesterday. Improving his nutritional status. Earlier sputum sample that was collected on 02/04/2025 was consistent with Enterobacter and Aspergillus fumigatus. White cell count of 15.2 with a hemoglobin 8.7 and a platelet count of 356. BUN 32 with a creatinine of 0.6. Sodium level is at 140. Most recent chest x-ray was done on 01/23/2025 and this was reviewed and shows a left upper lobe mass in addition to extensive consolidation and cavitation left lung. Hemodynamically stable and the patient remains on oxygen 4 L/min nasal cannula with a pulse ox of 94%. Currently afebrile. No other significant complaints for now. On 01/25/2025, the patient is being seen for a follow-up. Clinically unchanged. Continues to produce copious amount of thick purulent respiratory secretions. Remains on voriconazole. Remains on IV Zosyn. White cell count of 14.8 hemoglobin 9.6 and a platelet count of 349. BUN is 29 with a creatinine of 0.7. Sitting up in a chair and there is no significant events overnight. Patient was seen today on 01/26/2025, remains on 4 L nasal cannula, continues to have intermittent cough, shortness of breath, he has significant purulent thick respiratory secretions, patient remains on Zosyn and on voriconazole. Patient looks frail, looks ill. Does not seem to be however in respiratory distress. WBC count is 12.5 hemoglobin 8.1 electrolytes are normal renal profile is normal sputum culture was positive for Enterobacter cloacae and positive for Aspergillus fumigatus. Seen today on 01/27/2025, patient is basically about the same remains on 5 L nasal cannula O2 saturation marginal at 91%, continues to have productive cough with thick yellow phlegm, no fever no chills no hemoptysis. No chest pain. Remains on Zosyn and on voriconazole continues to have leukocytosis with WBC count of 21.2 hemoglobin 10 electrolytes are normal BUN is normal creatinine is normal Patient looks frail and chronically ill. Chest x-ray today continues to show significant airspace disease involving the left lung, continues to have left upperperipheral masslike area, neoplasm is not entirely ruled out. The patient is seen today January 28, 2025 in follow-up on the selective care unit. He is currently resting in bed. Awake and alert. Maintaining O2 saturations in the 90s on 3 L/min per nasal cannula. Has been afebrile. Hemodynamically stable. Sputum cultures positive for Enterobacter cloacae complex and Aspergill us fumigatus. White count 16.9. Hemoglobin 9.6. Platelets 401. Sodium 140. Potassium 3.4. Bicarb 30. BUN 28. Creatinine 0.57. Glucose 139. Procalcitonin negative at 0.10. He remains on DuoNeb inhalations, IV Solu- Medrol. Antibiotics in the form of Zosyn. Remains on voriconazole. Remains on Lovenox for DVT prophylaxis. Objective - Vital Signs Vital signs: Vital Signs Temp 97.8 F 01/27/25 19:40 Pulse 110 H 01/28/25 12:11 Resp 18 01/28/25 04:35 BP 170/88 01/28/25 04:35 Pulse Ox 92 L 01/28/25 08:15 FiO2 Intake & Output 01/27/25 01/28/25 01/28/25 18:59 06:59 18:59 Intake Total 476 Output Total 1200 1100 Balance -724 -1100 Weight 60.9 kg Intake: Oral 476 Output: Urine 1200 1100 Other: Voiding Method External Catheter External Catheter # Bowel Movements 1 - Exam GENERAL EXAM: Alert, thin, unkept 59-year-old male, on 3 L nasal cannula, comfortable in no apparent distress. HEAD: Normocephalic. EYES: Normal reaction of pupils, equal size. NOSE: Clear with pink turbinates. THROAT: No erythema or exudates. NECK: No masses, no JVD. CHEST: No chest wall deformity. LUNGS: Equal air entry with few scattered rhonchi diminished breath sounds on the left. CVS: S1 and S2 normal with no audible murmur, regular rhythm. ABDOMEN: No hepatosplenomegaly, normal bowel sounds, no guarding or rigidity. SPINE: No scoliosis or deformity SKIN: No rashes CENTRAL NERVOUS SYSTEM: No focal deficits, tone is normal in all 4 extremities. EXTREMITIES: There is no peripheral edema. No clubbing, no cyanosis. P eripheral pulses are intact. - Labs CBC & Chem 7: 01/28/25 06:14 01/28/25 06:14 Labs: Abnormal Lab Results - Last 24 Hours (Table) 01/28/25 01/28/25 Range/Units 06:14 06:14 WBC 16.91 H (4.50-10.00) 10*3/uL RBC 3.22 L (4.40-5.60) 10*6/uL Hgb 9.6 L (13.0-17.0) g/dL Hct 29.2 L (39.6-50.0) % Immature Gran # 0.26 H (0.00-0.04) 10*3/uL Neutrophils # 15.95 H (1.80-7.70) 10*3/uL Lymphocytes # 0.44 L (0.90-5.00) 10*3/uL Eosinophils # 0.00 L (0.04-0.35) 10*3/uL Potassium 3.4 L (3.5-5.1) mmol/L BUN 28 H (9-20) mg/dL Creatinine 0.57 L (0.66-1.25) mg/dL Glucose 139 H (74-99) mg/dL Calcium 8.3 L (8.4-10.2) mg/dL Alkaline Phosphatase 129 H (38-126) U/L C-Reactive Protein 1.4 H (<1.0) mg/dL Total Protein 5.2 L (6.3-8.2) g/dL Albumin 2.1 L (3.5-5.0) g/dL Assessment and Plan Assessment: Acute hypoxemic respiratory failure, secondary to extensive left lung pneumonia with positive sputum cultures for Enterobacter cloacae and Aspergillus fumigatus, 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 Remains on Zosyn and voriconazole Left upper lung mass, measuring 5.1 cm Right posterior lung nodule measuring 1.8 cm Acute leukocytosis, downtrending Normocytic, normochromic anemia monitor for blood loss Unintentional weight loss Severe protein calorie malnutrition with a BMI of 16.2 kg/m Chronic tobacco dependence Preserved RV function with moderate degree of pulm hypertension, likely group 3 pulmonary hypertension with an estimated RVSP of 46 mmHg Plan: The patient was seen and evaluated Microbiology, labs and medications reviewed Currently stable on 3 L nasal cannula Titrate the FiO2 as tolerated Continue DuoNeb inhalations Continue IV Solu-Medrol Continue Zosyn Continue voriconazole Infectious disease is following Continue to treat conservatively Prognosis remains poor We will continue to follow I have personally seen and examined the patient, performed the documentation and the assessment and plan as written. Number of minutes spent on the visit: 10 Dictation was produced using [employer] dictation software. Please excuse any grammatical, word or spelling errors.
--- NOTE | 2025-01-28 17:23 | P.PN ---
Subjective Progress Note Date: 01/28/25 Subjective: History of present illness; Patient is a 59-year-old male with significant past smoking history of [id number] with unintentional weight loss presents to the ER with significant shortness of breath hypoxic at SpO2 of 78% has increased weakness and additional weight loss of 23 pounds in the last month. Chest x-ray was performed in the ER showing worsening consolidation in the left lung concerning for atelectasis or pneumonia. Patient had a recent CTA in December 2024 with evidence of left apical lung mass measuring 5.1 cm with consolidation A&P. In the ER patient was started on Zosyn empirically with saline infusion 138 mL/h Patient was admitted with consults from pulmonology, cardiology and oncology. At time of encounter patient is on 2 L nasal cannula and not in acute distress, eating breakfast. He denies worsening shortness of breath, Dizziness, Fever or chills. 01/20/2025: Patient seen at bedside last night notified about decreased blood pressure to 87 systolic on the left arm, blood pressure checked on right arm 107 systolic. Daughter at bedside discussed CODE STATUS family still wants full code. 01/21/2025: Patient's blood pressure is improved since yesterday, he is still disoriented not able to give clear history. Patient denies pain or worsening shortness of breath. Endorses photophobia 01/22/2025: Patient seen and examined at bedside complaining of nausea and dizziness from coughing spells, otherwise denies new symptoms 01/23/2025: Patient seen and examined at bedside he still endorses nausea and vomiting due to coughing spells has Robitussin as needed 01/24/2025: Patient seen at bedside, no significant overnight events. States his coughing and breathing have improved and is no longer feeling nauseous at this time. Patient has no other complaint or concerns at this time. 01/25/2025: Patient seen at bedside no significant overnight events patient is having fewer coughing fits and not feeling as nauseous. No other complaints at this time. Subjective plan for bronchoscopy 01/26/2025: Patienr seen at bedside, no significant overnight events. Patient is feeling better, scheduled for bronch and biopsy today. 01/27/2025: Patient seen at bedside no significant overnight events, patient unable to get bronc and biopsy due to respiratory status. Awaiting stability 01/28/2025: Patient seen at bedside no significant overnight events still cou ghing producing sputum less than previously, nausea improved. Pertinent positives and negatives discussed above, a complete review of systems was preformed and all the other sytems were negative. Vitals Signs Reveiwed. General: He is cachectic, appears older than stated age Head: Temporal wasting Eyes: EOMI, no lid lag, anicteric sclera, pupils equal round reactive to light ENT: Nose and ears atraumatic Neck: No cervical lymphadenopathy, trachea midline, supple Mouth: no lip lesion, mucus membranes moist Cardiovascular: S1S2 reg, no murmur, positive dorsalis pedis pulse bilateral, no edema Lungs: Decreased air entry bilaterally, no rhonchi, no rales, no accessory muscle use, several episodes of productive cough with green sputum Abdominal: soft, nontender to palpation, no guarding Ext: muscle strength 5 out of 5 in all 4 extremities grossly, no gross muscle atrophy, no contractures, Neuro: CN II-XI grossly intact, no gross focal neuro deficits Psych: Alert, oriented, appropriate affect Data Reveiwed Today: #Acute hypoxic respiratory failure likely secondary to post obstructive PNA #Postobstructive pneumonia positive for Aspergillus and Enterobacter #Apical lung mass 5.1 cm left side #acute leukocytosis #normocytic anemia #Confusion secondary to malignancy transfuse if less than 7 -PET scan scheduled for 01/22 Supplemental oxygen SPO2 > 92% Continue Zosyn IV Consult ID appreciate recommendations Oncology following - Pulm assisted biopsy planned awaiting hemodynamic stability Pulmonology following Brain CT reveals no acute process or metastatic disease Discussed CODE STATUS with family, still wants full code Sputum culture reveals Enterobacter and Aspergillus -continue Zosyn, voriconazole and methylprednisolone, no plan for DC until biopsy -Pt mentioned transfer to higher level of care, currently no plan to do so, unstable for transfer. #Normocytic anemia transfuse if less than 7 - Hemoglobin relatively stable at this time #Nausea likely secondary to coughing fits Robitussin as needed Zofran as needed for nausea #unintentional weight loss #malnutrition Normal diet + protein supplament #Hypotension (improved) #Nonsustained bradycardia - Tele reports max to 30-40, transfered to cardiac 3S as a result -Since transfer, consistently 80-95, remains asymptomatic Consulted cardiology recommendations appreciated 2D echocardiogram per cardiology -Continue NS 75/h DVT ppx: SCDs CODE STATUS: Full Dispo: Pending clinical course Objective - Vital Signs Vital signs: Vital Signs Temp 97.8 F 01/27/25 19:40 Pulse 80 01/28/25 04:35 Resp 18 01/28/25 04:35 BP 170/88 01/28/25 04:35 Pulse Ox 93 L 01/28/25 04:35 FiO2 Intake & Output 01/27/25 01/28/25 01/28/25 18:59 06:59 18:59 Intake Total 476 Output Total 1200 1100 Balance -724 -1100 Weight 60.9 kg Intake: Oral 476 Output: Urine 1200 1100 Other: Voiding Method External Catheter External Catheter # Bowel Movements 1 - Labs CBC & Chem 7: 02/02/25 07:30 02/02/25 07:30 Labs: Abnormal Lab Results - Last 24 Hours (Table) 01/27/25 01/27/25 01/28/25 Range/Units 07:59 07:59 06:14 WBC 21.21 H 16.91 H (4.50-10.00) 10*3/uL RBC 3.31 L 3.22 L (4.40-5.60) 10*6/uL Hgb 10.0 L D 9.6 L (13.0-17.0) g/dL Hct 30.6 L 29.2 L (39.6-50.0) % Immature Gran # 0.31 H 0.26 H (0.00-0.04) 10*3/uL Neutrophils # 20.06 H 15.95 H (1.80-7.70) 10*3/uL Lymphocytes # 0.61 L 0.44 L (0.90-5.00) 10*3/uL Eosinophils # 0.00 L 0.00 L (0.04-0.35) 10*3/uL Potassium (3.5-5.1) mmol/L Carbon Dioxide 31 H (22-30) mmol/L BUN 28 H (9-20) mg/dL Creatinine 0.60 L (0.66-1.25) mg/dL Glucose 145 H (74-99) mg/dL Calcium 8.2 L (8.4-10.2) mg/dL Alkaline Phosphatase (38-126) U/L C-Reactive Protein (<1.0) mg/dL Total Protein 5.5 L (6.3-8.2) g/dL Albumin 2.3 L (3.5-5.0) g/dL 01/28/25 Range/Units 06:14 WBC (4.50-10.00) 10*3/uL RBC (4.40-5.60) 10*6/uL Hgb (13.0-17.0) g/dL Hct (39.6-50.0) % Immature Gran # (0.00-0.04) 10*3/uL Neutrophils # (1.80-7.70) 10*3/uL Lymphocytes # (0.90-5.00) 10*3/uL Eosinophils # (0.04-0.35) 10*3/uL Potassium 3.4 L (3.5-5.1) mmol/L Carbon Dioxide (22-30) mmol/L BUN 28 H (9-20) mg/dL Creatinine 0.57 L (0.66-1.25) mg/dL Glucose 139 H (74-99) mg/dL Calcium 8.3 L (8.4-10.2) mg/dL Alkaline Phosphatase 129 H (38-126) U/L C-Reactive Protein 1.4 H (<1.0) mg/dL Total Protein 5.2 L (6.3-8.2) g/dL Albumin 2.1 L (3.5-5.0) g/dL Assessment and Plan Assessment: Attestation Attestation/ Manager [employer] Note: Attestation to Progress Note, Participation (I saw and evaluated the patient with the Resident, and I reviewed and discussed the patient with the Resident and agree with the Resident's findings and plans as documented above., management reviewed and discussed), I agree with findings & plan, Provider Signature (FILOMENA HERRERA, VINEET Rodriguez Time with Patient: Greater than 30
--- NOTE | 2025-01-28 18:43 | P.PN ---
Subjective Progress Note Date: 01/28/25 Pt reporting improvement in breathing since admit. Continues on IV abx and steroids. SPO2 92% on 3L. Objective - Vital Signs Vital signs: Vital Signs Temp 97.8 F 01/27/25 19:40 Pulse 103 H 01/28/25 08:25 Resp 18 01/28/25 04:35 BP 170/88 01/28/25 04:35 Pulse Ox 92 L 01/28/25 08:15 FiO2 Intake & Output 01/27/25 01/28/25 01/28/25 18:59 06:59 18:59 Intake Total 476 Output Total 1200 1100 Balance -724 -1100 Weight 60.9 kg Intake: Oral 476 Output: Urine 1200 1100 Other: Voiding Method External Catheter External Catheter # Bowel Movements 1 - Constitutional General appearance: Present: no acute distress, thin - EENT Eyes: Present: anicteric sclerae, EOMI ENT: Present: hearing grossly normal - Respiratory Details: breathing is even and unlabored - Cardiovascular Details: skin warm and dry - Musculoskeletal Musculoskeletal: Present: generalized weakness - Psychiatric Psychiatric: Present: A&O x's 3 - Labs CBC & Chem 7: 01/28/25 06:14 01/28/25 06:14 Labs: Abnormal Lab Results - Last 24 Hours (Table) 01/28/25 01/28/25 Range/Units 06:14 06:14 WBC 16.91 H (4.50-10.00) 10*3/uL RBC 3.22 L (4.40-5.60) 10*6/uL Hgb 9.6 L (13.0-17.0) g/dL Hct 29.2 L (39.6-50.0) % Immature Gran # 0.26 H (0.00-0.04) 10*3/uL Neutrophils # 15.95 H (1.80-7.70) 10*3/uL Lymphocytes # 0.44 L (0.90-5.00) 10*3/uL Eosinophils # 0.00 L (0.04-0.35) 10*3/uL Potassium 3.4 L (3.5-5.1) mmol/L BUN 28 H (9-20) mg/dL Creatinine 0.57 L (0.66-1.25) mg/dL Glucose 139 H (74-99) mg/dL Calcium 8.3 L (8.4-10.2) mg/dL Alkaline Phosphatase 129 H (38-126) U/L C-Reactive Protein 1.4 H (<1.0) mg/dL Total Protein 5.2 L (6.3-8.2) g/dL Albumin 2.1 L (3.5-5.0) g/dL Assessment and Plan (1) Hypoxia Current Visit: Yes Status: Acute Code(s): R09.02 - HYPOXEMIA SNOMED Code(s): 961112205 (2) Leukocytosis Current Visit: Yes Status: Acute Code(s): D72.829 - ELEVATED WHITE BLOOD CELL COUNT, UNSPECIFIED SNOMED Code(s): 561759438 (3) Lung mass Current Visit: Yes Status: Acute Code(s): R91.8 - OTHER NONSPECIFIC ABNORMAL FINDING OF LUNG FIELD SNOMED Code(s): 028777979 Plan: #New onset lung masses, left upper lung measuring 5.1 cm and right posterior lung nodule measuring 1.8 cm - Currently undergoing outpatient malignancy workup - CTA on 12/26/24 confirmed the findings listed above - Outpatient PET scan was scheduled for this coming 01/22/25 - Unable to tolerate brain MRI as he is unable to lie flat - Brain CT ordered to evaluate for any brain met disease, with noted blurry vision. Scan was negative for metastatic disease - Will continue to follow for the duration of his stay - Pulmonology following for possible bronchoscopy/biopsy when patient stabilizes. Unfortunately, pt has been unable to undergo bronch due to poor respiratory status. Will obtain CT AP to try to identify other possible sites for biopsy and to complete staging. CT AP revealed no abnormal lymphadenopathy or mass/lesions. Once respiratory status improves pt will hopefully be able to undergo bronch to obtain tissue diagnosis. Per pulm, unsure when pt will be appropriate for bronch. We will send referral to IR, Dr. Orlando at [facility] for evaluation of left lung mass biopsy. Pt was agreeable to the same #Acute hypoxemic respiratory failure, possibly secondary to post-obstructive pneumonia #Leukocytosis, likely reactive - Chest x-ray done in the ED showing worsening consolidative changes in the left lung, concerning for obstructive atelectasis or pneumonia. - Continue supplemental oxygen to maintain oxygen saturation 92% or greater - Sputum culture positive for Aspergillus fumigatus and Enterobacter cloacae - Continue antibiotics, per pulmonoary and primary team #Normocytic normochromic anemia - Hgb stable in 8-9 range - Likely due to underlying inflammation from pneumonia and suspected malignancy - Continue to monitor CBC - Hgb <7 transfuse #Hyponatremia, improving - Resolved - Continue to monitor
[2025-01-28] MEDS ORDERED: Potassium Replacement Protocol 1 EACH MISC MISCELLANE PRN (22:33)
[2025-01-28] MEDS: POTASSIUM CHLORIDE ER 20 MEQ TAB.ER PO SCH (23:23)
[2025-01-29 07:38] LABS: African American GFR (CKD) >90 (>60 ml/min/1.73 sqM); Anion Gap 3 mmol/L; Blood Urea Nitrogen 28 mg/dL (9-20); Calcium 8.2 mg/dL (8.4-10.2); Carbon Dioxide 30 mmol/L (22-30); Chloride 107 mmol/L (98-107); Glucose 125 mg/dL (74-99); Non-African American GFR(CKD) >90 (>60 ml/min/1.73 sqM); Potassium 3.7 mmol/L (3.5-5.1); Sodium 140 mmol/L (137-145)
[2025-01-29 08:09] LABS: Basophils # (A) 0.03 10*3/uL (0.00-0.10); Basophils % (A) 0.1 %; Eosinophils # (A) 0.00 10*3/uL (0.04-0.35); Eosinophils % (A) 0.0 %; HCT 30.9 % (39.6-50.0); HGB 9.8 g/dL (13.0-17.0); Lymphocytes # (A) 0.40 10*3/uL (0.90-5.00); Lymphocytes % (A) 1.9 %; MCH 29.9 pg (27.0-32.0); MCHC 31.7 g/dL (32.0-37.0); MCV 94.2 fL (80.0-97.0); Monocytes # (A) 0.28 10*3/uL (0.20-1.00); Monocytes % (A) 1.4 %; Neutrophils # (A) 19.53 10*3/uL (1.80-7.70); Neutrophils % (A) 95.1 %; Platelet Count 411 10*3/uL (140-440); RBC 3.28 10*6/uL (4.40-5.60); RDW 16.8 % (11.5-14.5); WBC 20.55 10*3/uL (4.50-10.00)
[2025-01-29 08:40] LABS: ALT 44 U/L (4-49); AST 39 U/L (17-59); Albumin 2.1 g/dL (3.5-5.0); Alkaline Phosphatase 131 U/L (38-126); Total Protein 5.1 g/dL (6.3-8.2)
--- NOTE | 2025-01-29 12:35 | P.PN ---
Subjective Progress Note Date: 01/29/25 Principal diagnosis: Acute hypoxic respiratory failure secondary to extensive left-sided pneumonia Patient is a 59-year-old male with significant smoking history of over 40 pack years, recent unintentional weight loss, and recent findings of left upper lung mass. Chest CT angiogram done December 26, 2024 remarkable for left apical lung mas measuring 5.1 cm with adjacent consolidations, anteriorly and posteriorly. Lobular density in the posterior right lung measuring 1.8 cm. Also, 0.8 cm anterior right lung nodularity. Did have new patient visit with Dr. Garcia on January 08, 2025. Reportedly, scheduled to undergo outpatient PET scan on . Brought into the emergency department yesterday evening by EMS. He was short of breath and was found to be hypoxic when EMS arrived with an SpO2 of 78%. He has been increasingly weak and has lost some additional weight, re portedly an additional 23 pounds in less than a month. Chest x-ray done in the ED showing worsening consolidative changes in the left lung, concerning for obstructive atelectasis or pneumonia. CBC: WBC count 17.45, hemoglobin 10, platelets 309. BMP with a sodium 130, potassium 4.7, chloride 91, serum bicarb 30, BUN 51, creatinine 1.07, glucose 108. Lactic was 3 now down to 2. Troponin less than 0.012. Repeat 2610. Viral screen negative for influenza A/B, RSV, COVID. While in the emergency department, patient was empirically started on Zosyn. Also, normal saline started at 130 mL/h. He is currently being evaluated on the fifth floor. He is a poor historian. On 2 L/min nasal cannul a, nondistressed. He has a congested cough with reportedly increased sputum production. Does have a green sputum in collection cup. Denies any hemoptysis. Denies any fevers. Reports left-sided chest pain with coughing and deep breathing. He continues to have weight loss. He is very frail and cachectic in appearance. Appetite has been poor. Denies any nausea, vomiting, diarrhea, abdominal pain. Nontachycardic. Blood pressure normotensive. Normal saline infusing at 130 mL/h. On 01/20/2025, the patient is being seen for a follow-up. Extremely debilitated. Continues to have a congested cough. Trying to increase oral intake and the patient was given Ensure. Remains on IV Zosyn as a broad-spectrum antibiotic coverage. Sputum sample was positive for gram-negative/moderate Enterobacter cloacae complex. The patient remains also on bronchodilators. The patient is profoundly weak. No altered mentation for now. 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 Echocardiogram also showed a preserved LV function with a left ventricular ejection fraction being in the order of 55 to 60%. Nevertheless, the patient had moderate degree of pulm hypertension with right ventricular systolic pressure estimated to be around 46 mmHg. No signs of any volume overload. The patient remains on IV fluids and the patient is currently at normal Saint rate of 130 cc an hour. On today's evaluation of 01/21/2025, the patient remains extremely debilitated and weak. Continues to have cough and congestion. As mentioned earlier, the sputum sample was positive for Enterobacter cloacae and the patient was kept on IV Zosyn. Meanwhile, repeat chest x-ray was done and showed worsening in the pleural-parenchymal opacity on the left hemithorax and there was also some developing interstitial infiltrates in the right upper lobe. I also noted that the sputum sample was also positive for Aspergillus fumigatus. Oral intake remains quite diminished. The white cell count is 15.6 with a hemoglobin 8.7 and a platelet count of 270. Sodium is at 134, potassium is at 3.9, BUN is 38 with a creatinine 0.9. AST is at 89 with an ALT of 55 and alkaline phosphatase of 148. Procalcitonin level is at 1.4. TSH is 2.6. On 01/22/2025, the patient's overall condition is unchanged. Continues to produce copious amounts of thick and purulent respiratory secretions and mucus. Noted, the patient sputum sample was positive for Enterobacter and Aspergillus. Due to this cavitating left lung pneumonia and possibility of a fungus ball, the patient was started on voriconazole. Nutritional status remains poor. Oral intake is minimal. He is very much debilitated and weak. He is able to communicate. He remains on oxygen 4 L/min nasal cannula with a pulse ox of 96%. CAT scan of the abdomen and pelvis was also completed and it showed small bilateral pleural effusion and large amount of stool within the colon and the rectum and there is no evidence of any bowel obstruction. No other acute intra- abdominal abnormalities. Second 15 with a hemoglobin 9.1 and a platelet count of 273. LFTs are improved compared to yesterday. AST is 39 and ALT is 39 with an alkaline phosphatase of 123. Total protein is 5.5 with an albumin of 2.0. The white cell count of 15 with hemoglobin 9.1. The patient is currently on DuoNeb treatment [id number], IV Solu-Medrol, IV Zosyn and IV voriconazole. On 01/23/2025, the patient is being seen for a follow-up. The patient remains on 40 Suboxone by nasal cannula. The patient remains also on broad-spectrum a ntibiotics and the patient is on a combination of Zosyn and voriconazole. Repeat chest x-ray was done and shows COPD with ongoing extensive abnormal pleural-parenchymal opacity involving the left lung. Mild residual infiltrate throughout the right lung is also seen. Findings are essentially stable. Clinically, the patient is weak and lethargic and he continues to have a congested cough. He continues to produce excessive amounts of sputum. BUN is 29 with a creatinine of 0.8. The white cell count is 18.4 with a hemoglobin 9.8 and a platelet count of 375. Stool for C. difficile has been negative. ID is on the case. On 01/24/2025, the patient is being seen for a follow-up. Patient is still being treated for an extensive left lung pneumonia. He is on a combination of IV Zosyn and voriconazole. The patient is still producing copious amounts of purulent respiratory secretions and he is able to cough effectively. Slightly more strong and more alert compared to yesterday. Improving his nutritional status. Earlier sputum sample that was collected on 02/04/2025 was consistent with Enterobacter and Aspergillus fumigatus. White cell count of 15.2 with a hemoglobin 8.7 and a platelet count of 356. BUN 32 with a creatinine of 0.6. Sodium level is at 140. Most recent chest x-ray was done on 01/23/2025 and this was reviewed and shows a left upper lobe mass in addition to extensive consolidation and cavitation left lung. Hemodynamically stable and the patient remains on oxygen 4 L/min nasal cannula with a pulse ox of 94%. Currently afebrile. No other significant complaints for now. On 01/25/2025, the patient is being seen for a follow-up. Clinically unchanged. Continues to produce copious amount of thick purulent respiratory secretions. Remains on voriconazole. Remains on IV Zosyn. White cell count of 14.8 hemoglobin 9.6 and a platelet count of 349. BUN is 29 with a creatinine of 0.7. Sitting up in a chair and there is no significant events overnight. Patient was seen today on 01/26/2025, remains on 4 L nasal cannula, continues to have intermittent cough, shortness of breath, he has significant purulent thick respiratory secretions, patient remains on Zosyn and on voriconazole. Patient looks frail, looks ill. Does not seem to be however in respiratory distress. WBC count is 12.5 hemoglobin 8.1 electrolytes are normal renal profile is normal sputum culture was positive for Enterobacter cloacae and positive for Aspergillus fumigatus. Seen today on 01/27/2025, patient is basically about the same remains on 5 L nasal cannula O2 saturation marginal at 91%, continues to have productive cough with thick yellow phlegm, no fever no chills no hemoptysis. No chest pain. Remains on Zosyn and on voriconazole continues to have leukocytosis with WBC c ount of 21.2 hemoglobin 10 electrolytes are normal BUN is normal creatinine is normal Patient looks frail and chronically ill. Chest x-ray today continues to show significant airspace disease involving the left lung, continues to have left upperperipheral masslike area, neoplasm is not entirely ruled out. Patient was seen today on 01/25/2025, on 2 L nasal cannula, continues to have productive cough with thick yellow phlegm, temp is 97.5 heart rate is 115 blood pressure 156/88 O2 sat is 94% on 2 L nasal cannula. Clinically the patient remains quite frail and ill, continues to have leukocytosis with WBC count even higher today 20.5, hemoglobin 9.8 electrolytes are normal renal profile is nor mal, procalcitonin level is 0.10. Patient remains on antibiotics and antifungal including Zosyn and voriconazole. Objective - Vital Signs Vital signs: Vital Signs Temp 97.5 F L 01/29/25 08:29 Pulse 78 01/29/25 12:03 Resp 18 01/29/25 12:03 BP 156/88 01/29/25 12:03 Pulse Ox 94 L 01/29/25 08:29 FiO2 Intake & Output 07/01/29/25 01/29/25 18:59 06:59 18:59 Intake Total 240 30 180 Output Total 750 1200 Balance -510 -1170 180 Weight 62.9 kg Intake: IV 30 Invasive Line 2 20 Invasive Line 3 10 Oral 240 180 Output: Urine 750 1200 Other: Voiding Method External Catheter External Catheter External Catheter # Voids 1 # Bowel Movements 1 1 - Exam Physical exam revealed a 59year-old, frail looking, in no distress, on 2 L nasal cannula Head: Atraumatic, normocephalic EENT: PERRLA, EOMI, nonicteric, no neck masses, no JVD, no stridor, moist mucous membranes Chest: Symmetrical chest expansion Lungs: Rhonchi noted on the left side, right side is relatively clear. Abdomen: Soft nontender no megaly no rebound no guarding good bowel sounds Extremities: No clubbing edema or cyanosis, good pulses bilaterally Musculoskeletal: No deformities and no limitation range of motion Neurologic: Alert oriented x 3 no gross focal neurologic deficit Psychiatric: Normal mood and affect and no mental status examination Skin: No rashes. - Labs CBC & Chem 7: 01/29/25 07:12 01/29/25 07:12 Labs: Abnormal Lab Results - Last 24 Hours (Table) 01/29/25 01/29/25 Range/Units 07:12 07:12 WBC 20.55 H (4.50-10.00) 10*3/uL RBC 3.28 L (4.40-5.60) 10*6/uL Hgb 9.8 L (13.0-17.0) g/dL Hct 30.9 L (39.6-50.0) % MCHC 31.7 L (32.0-37.0) g/dL Immature Gran # 0.31 H (0.00-0.04) 10*3/uL Neutrophils # 19.53 H (1.80-7.70) 10*3/uL Lymphocytes # 0.40 L (0.90-5.00) 10*3/uL Eosinophils # 0.00 L (0.04-0.35) 10*3/uL BUN 28 H (9-20) mg/dL Creatinine 0.51 L (0.66-1.25) mg/dL Glucose 125 H (74-99) mg/dL Calcium 8.2 L (8.4-10.2) mg/dL Alkaline Phosphatase 131 H (38-126) U/L Total Protein 5.1 L (6.3-8.2) g/dL Albumin 2.1 L (3.5-5.0) g/dL Assessment and Plan Assessment: Impression: Acute hypoxemic respiratory failure, secondary to extensive left lung pneumonia with positive sputum cultures for Enterobacter cloacae and Aspergillus fumigatus, patient is on Zosyn and on voriconazole Left upper lung mass, measuring 5.1 cm Right posterior lung nodule measuring 1.8 cm Acute leukocytosis Normocytic, normochromic anemia monitor for blood loss Unintentional weight loss Severe protein calorie malnutrition with a BMI of 16.2 kg/m Chronic tobacco dependence Preserved RV function with moderate degree of pulm hypertension, likely group 3 pulmonary hypertension with an estimated RVSP of 46 mmHg. 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 Continue bronchodilators Continue present supportive care measures Patient is not a great candidate for bronchoscopy and biopsy at this point, We will treat conservatively and will continue present supportive care measures as well as antifungal and antibiotics therapy Prognosis is extremely poor and guarded. Will continue to follow Time with Patient: Less than 30
--- NOTE | 2025-01-29 15:06 | P.PN ---
Subjective Progress Note Date: 01/29/25 Subjective: History of present illness; Patient is a 59-year-old male with significant past smoking history of 83-ozva-ebzn with unintentional weight loss presents to the ER with significant shortness of breath hypoxic at SpO2 of 78% has increased weakness and additional weight loss of 23 pounds in the last month. Chest x-ray was performed in the ER showing worsening consolidation in the left lung concerning for atelectasis or pneumonia. Patient had a recent CTA in December 2024 with evidence of left apical lung mass measuring 5.1 cm with consolidation A&P. In the ER patient was started on Zosyn empirically with saline infusion 138 mL/h Patient was admitted with consults from pulmonology, cardiology and oncology. At time of encounter patient is on 2 L nasal cannula and not in acute distress, eating breakfast. He denies worsening shortness of breath, Dizziness, Fever or chills. 01/20/2025: Patient seen at bedside last night notified about decreased blood pressure to 87 systolic on the left arm, blood pressure checked on right arm 107 systolic. Daughter at bedside discussed CODE STATUS family still wants full code. 01/21/2025: Patient's blood pressure is improved since yesterday, he is still disoriented not able to give clear history. Patient denies pain or worsening shortness of breath. Endorses photophobia 01/22/2025: Patient seen and examined at bedside complaining of nausea and dizziness from coughing spells, otherwise denies new symptoms 01/23/2025: Patient seen and examined at bedside he still endorses nausea and vomiting due to coughing spells has Robitussin as needed 01/24/2025: Patient seen at bedside, no significant overnight events. States his coughing and breathing have improved and is no longer feeling nauseous at this time. Patient has no other complaint or concerns at this time. 01/25/2025: Patient seen at bedside no significant overnight events patient is having fewer coughing fits and not feeling as nauseous. No other complaints at this time. Subjective plan for bronchoscopy 01/26/2025: Patienr seen at bedside, no significant overnight events. Patient is feeling better, scheduled for bronch and biopsy today. 01/27/2025: Patient seen at bedside no significant overnight events, patient unable to get bronc and biopsy due to respiratory status. Awaiting stability 01/28/2025: Patient seen at bedside no significant overnight events still coug jamila producing sputum less than previously, nausea improved. 01/29/2025: Patient seen at bedside no significant overnight events cough persist nausea has improved still eating well Pertinent positives and negatives discussed above, a complete review of systems was preformed and all the other sytems were negative. Vitals Signs Reveiwed. General: He is cachectic, appears older than stated age Head: Temporal wasting Eyes: EOMI, no lid lag, anicteric sclera, pupils equal round reactive to light ENT: Nose and ears atraumatic Neck: No cervical lymphadenopathy, trachea midline, supple Mouth: no lip lesion, mucus membranes moist Cardiovascular: S1S2 reg, no murmur, positive dorsalis pedis pulse bilateral, no edema Lungs: Decreased air entry bilaterally, no rhonchi, no rales, no accessory muscle use, several episodes of productive cough with green sputum Abdominal: soft, nontender to palpation, no guarding Ext: muscle strength 5 out of 5 in all 4 extremities grossly, no gross muscle a trophy, no contractures, Neuro: CN II-XI grossly intact, no gross focal neuro deficits Psych: Alert, oriented, appropriate affect Data Reveiwed Today: #Acute hypoxic respiratory failure likely secondary to post obstructive PNA #Postobstructive pneumonia positive for Aspergillus and Enterobacter #Apical lung mass 5.1 cm left side #acute leukocytosis #normocytic anemia #Confusion secondary to malignancy transfuse if less than 7 -PET scan scheduled for 01/22 Supplemental oxygen SPO2 > 92% Continue Zosyn IV Consult ID appreciate recommendations Oncology following - Pulm assisted biopsy planned awaiting hemodynamic stability Pulmonology following Brain CT reveals no acute process or metastatic disease Discussed CODE STATUS with family, still wants full code Sputum culture reveals Enterobacter and Aspergillus -continue Zosyn, voriconazole and methylprednisolone, no plan for DC until biopsy -Pt mentioned transfer to higher level of care, currently no plan to do so, unst able for transfer. Considering IR referral for biopsy #Normocytic anemia transfuse if less than 7 - Hemoglobin relatively stable at this time #Nausea likely secondary to coughing fits Robitussin as needed Zofran as needed for nausea #unintentional weight loss #malnutrition Normal diet + protein supplament #Pedal Edema +1 -1x Lasix 20mg IV Once -Decrease fluid to 20mL #Hypotension (improved) #Nonsustained bradycardia - Tele reports max to 30-40, transfered to cardiac 3S as a result -Since transfer, consistently 80-95, remains asymptomatic Consulted cardiology recommendations appreciated 2D echocardiogram per cardiology -Continue NS 75/h DVT ppx: SCDs CODE STATUS: Full Dispo: Pending clinical course Objective - Vital Signs Vital signs: Vital Signs Temp 97.5 F L 01/29/25 03:00 Pulse 82 01/29/25 03:00 Resp 22 01/29/25 03:00 BP 163/86 01/29/25 03:00 Pulse Ox 96 01/29/25 03:00 FiO2 Intake & Output 01/28/25 01/29/25 01/29/25 18:59 06:59 18:59 Intake Total 240 30 Output Total 750 1200 Balance -510 -1170 Weight 62.9 kg Intake: IV 30 Invasive Line 2 20 Invasive Line 3 10 Oral 240 Output: Urine 750 1200 Other: Voiding Method External Catheter External Catheter # Bowel Movements 1 - Labs CBC & Chem 7: 02/02/25 07:30 02/02/25 07:30 Labs: Abnormal Lab Results - Last 24 Hours (Table) 01/28/25 Range/Units 06:14 Potassium 3.4 L (3.5-5.1) mmol/L BUN 28 H (9-20) mg/dL Creatinine 0.57 L (0.66-1.25) mg/dL Glucose 139 H (74-99) mg/dL Calcium 8.3 L (8.4-10.2) mg/dL Alkaline Phosphatase 129 H (38-126) U/L C-Reactive Protein 1.4 H (<1.0) mg/dL Total Protein 5.2 L (6.3-8.2) g/dL Albumin 2.1 L (3.5-5.0) g/dL Assessment and Plan Assessment: Attestation Attestation/ Shaker Tender Note: Attestation to Progress Note, Participation (I saw and evaluated the patient with the Resident, and I reviewed and discussed the patient with the Resident and agree with the Resident's findings and plans as documented above., management reviewed and discussed), I agree with findings & plan, Provider Signature (FILOMENA HERRERA, VINEET Rodriguez Time with Patient: Greater than 30
[2025-01-29] MEDS: FUROSEMIDE 10 MG/ML 2 ML VIAL IV ONE (15:28)
--- NOTE | 2025-01-29 15:35 | P.PN ---
Subjective Progress Note Date: 01/28/25 Principal diagnosis: Reason for follow-up is pneumonia Patient is a 59-year-old male with a past medical history significant for recent finding of a left upper lung mass unintentional weight loss and 60-blgl-yhui smoking presenting to the hospital for evaluation of generalized weakness has been diagnosed with pneumonia sputum positive for Enterobacter Aspergillus prompted this consultation. On today's evaluation that is 01/28/2025,the patient denies any fever or any chills, patient is breathing slightly comfortably on 2 L, oxygen the patient denies chest pain shortness of breath and denies any worsening cough, patient denies abdominal pain, no nausea vomiting or diarrhea. Patient white count is down to 16.91 creatinine 0.57 Objective - Vital Signs Vital signs: Vital Signs Temp 97.8 F 01/27/25 19:40 Pulse 110 H 01/28/25 12:11 Resp 18 01/28/25 04:35 BP 170/88 01/28/25 04:35 Pulse Ox 92 L 01/28/25 08:15 FiO2 Intake & Output 01/27/25 01/28/25 01/28/25 18:59 06:59 18:59 Intake Total 476 Output Total 1200 1100 Balance -724 -1100 Weight 60.9 kg Intake: Oral 476 Output: Urine 1200 1100 Other: Voiding Method External Catheter External Catheter # Bowel Movements 1 - Exam GENERAL DESCRIPTION: Middle-age male lying in bed in no distress RESPIRATORY SYSTEM: Unlabored breathing , decreased breath sounds at bases HEART: S1 S2 regular rate and rhythm , ABDOMEN: Soft , no tenderness EXTREMITIES: No edema feet - Labs CBC & Chem 7: 01/29/25 07:12 01/29/25 07:12 Labs: Abnormal Lab Results - Last 24 Hours (Table) 01/28/25 01/28/25 Range/Units 06:14 06:14 WBC 16.91 H (4.50-10.00) 10*3/uL RBC 3.22 L (4.40-5.60) 10*6/uL Hgb 9.6 L (13.0-17.0) g/dL Hct 29.2 L (39.6-50.0) % Immature Gran # 0.26 H (0.00-0.04) 10*3/uL Neutrophils # 15.95 H (1.80-7.70) 10*3/uL Lymphocytes # 0.44 L (0.90-5.00) 10*3/uL Eosinophils # 0.00 L (0.04-0.35) 10*3/uL Potassium 3.4 L (3.5-5.1) mmol/L BUN 28 H (9-20) mg/dL Creatinine 0.57 L (0.66-1.25) mg/dL Glucose 139 H (74-99) mg/dL Calcium 8.3 L (8.4-10.2) mg/dL Alkaline Phosphatase 129 H (38-126) U/L C-Reactive Protein 1.4 H (<1.0) mg/dL Total Protein 5.2 L (6.3-8.2) g/dL Albumin 2.1 L (3.5-5.0) g/dL Assessment and Plan (1) Postobstructive pneumonia Current Visit: Yes Status: Acute Code(s): J18.9 - PNEUMONIA, UNSPECIFIED ORGANISM SNOMED Code(s): 661924718 (2) Leukocytosis Current Visit: Yes Status: Acute Code(s): D72.829 - ELEVATED WHITE BLOOD CELL COUNT, UNSPECIFIED SNOMED Code(s): 701756251 (3) Aspergillus Current Visit: Yes Status: Acute Code(s): B44.9 - ASPERGILLOSIS, UNSPECIFIED SNOMED Code(s): 42476330 Plan: 1patient presented to hospital with increasing shortness of breath weakness did have a cough and this patient has been recently diagnosed with a lung nodule now with evidence of worsening pleural parenchymal opacity throughout the left hemithorax and may be developing disease contributing to right upper lung highly suspicious for malignancy and concern for possible postobstructive pneumonia patient sputum now growing Enterobacter as well as Aspergillus fumigatus 2-patient did have diarrhea likely antibiotic associated stool for C. difficile negative encouraged to increase his yogurt intake if any further worsening of diarrhea will add Questran for symptomatic relief 3the patient is afebrile white count is trending down today possible related to steroids and will be monitored closely 4patient to continue with the Zosyn did have normal procalcitonin 0.10 this morning Dictation was produced using [employer] dictation software. please excuse any grammatical, word or spelling errors. Time with Patient: Less than 30
--- NOTE | 2025-01-29 15:36 | P.PN ---
Subjective Progress Note Date: 01/29/25 Principal diagnosis: Reason for follow-up is pneumonia Patient is a 59-year-old male with a past medical history significant for recent finding of a left upper lung mass unintentional weight loss and 59-frej-zjve smoking presenting to the hospital for evaluation of generalized weakness has been diagnosed with pneumonia sputum positive for Enterobacter Aspergillus prompted this consultation. On today's evaluation that is 01/29/2025,the patient remains to be afebrile, patient is on 3 L nasal cannula supplemental oxygen and mentioned breathing slightly comfortably with no chest pain or any worsening cough.Patient denies having any nausea or vomiting, no abdominal pain and no diarrhea has been reported. Patient white count is up to 20.55 creatinine 0.51 Objective - Vital Signs Vital signs: Vital Signs Temp 97 F L 01/29/25 15:12 Pulse 101 H 01/29/25 15:12 Resp 18 01/29/25 15:12 BP 137/83 01/29/25 15:12 Pulse Ox 94 L 01/29/25 15:12 FiO2 Intake & Output 01/28/25 01/29/25 01/29/25 18:59 06:59 18:59 Intake Total 240 30 180 Output Total 750 1200 Balance -510 -1170 180 Weight 62.9 kg Intake: IV 30 Invasive Line 2 20 Invasive Line 3 10 Oral 240 180 Output: Urine 750 1200 Other: Voiding Method External Catheter External Catheter External Catheter # Voids 1 # Bowel Movements 1 1 - Exam GENERAL DESCRIPTION: Middle-age male lying in bed in no distress RESPIRATORY SYSTEM: Unlabored breathing , decreased breath sounds at bases HEART: S1 S2 regular rate and rhythm , ABDOMEN: Soft , no tenderness EXTREMITIES: No edema feet - Labs CBC & Chem 7: 01/29/25 07:12 01/29/25 07:12 Labs: Abnormal Lab Results - Last 24 Hours (Table) 01/29/25 01/29/25 Range/Units 07:12 07:12 WBC 20.55 H (4.50-10.00) 10*3/uL RBC 3.28 L (4.40-5.60) 10*6/uL Hgb 9.8 L (13.0-17.0) g/dL Hct 30.9 L (39.6-50.0) % MCHC 31.7 L (32.0-37.0) g/dL Immature Gran # 0.31 H (0.00-0.04) 10*3/uL Neutrophils # 19.53 H (1.80-7.70) 10*3/uL Lymphocytes # 0.40 L (0.90-5.00) 10*3/uL Eosinophils # 0.00 L (0.04-0.35) 10*3/uL BUN 28 H (9-20) mg/dL Creatinine 0.51 L (0.66-1.25) mg/dL Glucose 125 H (74-99) mg/dL Calcium 8.2 L (8.4-10.2) mg/dL Alkaline Phosphatase 131 H (38-126) U/L Total Protein 5.1 L (6.3-8.2) g/dL Albumin 2.1 L (3.5-5.0) g/dL Assessment and Plan (1) Postobstructive pneumonia Current Visit: Yes Status: Acute Code(s): J18.9 - PNEUMONIA, UNSPECIFIED ORGANISM SNOMED Code(s): 393331745 (2) Leukocytosis Current Visit: Yes Status: Acute Code(s): D72.829 - ELEVATED WHITE BLOOD CELL COUNT, UNSPECIFIED SNOMED Code(s): 159669267 (3) Aspergillus Current Visit: Yes Status: Acute Code(s): B44.9 - ASPERGILLOSIS, UNSPECIFIED SNOMED Code(s): 43852147 Plan: 1patient presented to hospital with increasing shortness of breath weakness did have a cough and this patient has been recently diagnosed with a lung nodule now with evidence of worsening pleural parenchymal opacity throughout the left hemithorax and may be developing disease contributing to right upper lung highly suspicious for malignancy and concern for possible postobstructive pneumonia patient sputum now growing Enterobacter as well as Aspergillus fumigatus 2-patient did have diarrhea likely antibiotic associated stool for C. difficile negative encouraged to increase his yogurt intake if any further worsening of diarrhea will add Questran for symptomatic relief 3the patient is afebrile white count is trending up is more likely due to the steroids as evidence of any worsening clinical condition procalcitonin has been normal Solu-Medrol has been discontinued hopefully the white count started trending down we will repeat a CBC with a.m. lab for now continue with Zosyn and monitor clinical course closely Dictation was produced using dragon dictation software. please excuse any grammatical, word or spelling errors. Time with Patient: Less than 30
[2025-01-30] MEDS: predniSONE 20 MG TAB PO SCH (08:19)
[2025-01-30 08:24] LABS: Basophils # (A) 0.03 10*3/uL (0.00-0.10); Basophils % (A) 0.1 %; Eosinophils # (A) 0.00 10*3/uL (0.04-0.35); Eosinophils % (A) 0.0 %; HCT 28.9 % (39.6-50.0); HGB 9.4 g/dL (13.0-17.0); Lymphocytes # (A) 0.66 10*3/uL (0.90-5.00); Lymphocytes % (A) 2.8 %; MCH 29.6 pg (27.0-32.0); MCHC 32.5 g/dL (32.0-37.0); MCV 90.9 fL (80.0-97.0); Monocytes # (A) 0.60 10*3/uL (0.20-1.00); Monocytes % (A) 2.5 %; Neutrophils # (A) 21.98 10*3/uL (1.80-7.70); Neutrophils % (A) 93.1 %; Platelet Count 351 10*3/uL (140-440); RBC 3.18 10*6/uL (4.40-5.60); RDW 17.1 % (11.5-14.5); WBC 23.63 10*3/uL (4.50-10.00)
[2025-01-30 08:28] LABS: ALT 45 U/L (4-49); AST 38 U/L (17-59); African American GFR (CKD) >90 (>60 ml/min/1.73 sqM); Albumin 2.0 g/dL (3.5-5.0); Alkaline Phosphatase 111 U/L (38-126); Anion Gap -1 mmol/L; Blood Urea Nitrogen 30 mg/dL (9-20); Calcium 7.8 mg/dL (8.4-10.2); Carbon Dioxide 34 mmol/L (22-30); Chloride 107 mmol/L (98-107); Glucose 93 mg/dL (74-99); Non-African American GFR(CKD) >90 (>60 ml/min/1.73 sqM); Potassium 3.9 mmol/L (3.5-5.1); Sodium 140 mmol/L (137-145); Total Protein 4.8 g/dL (6.3-8.2)
[2025-01-30] MEDS: FUROSEMIDE 10 MG/ML 2 ML VIAL IV ONE (11:54)
--- NOTE | 2025-01-30 14:29 | P.PN ---
Subjective Progress Note Date: 01/30/25 Subjective: History of present illness; Patient is a 59-year-old male with significant past smoking history of [id number]-[id number] with unintentional weight loss presents to the ER with significant shortness of breath hypoxic at SpO2 of 78% has increased weakness and additional weight loss of 23 pounds in the last month. Chest x-ray was performed in the ER showing worsening consolidation in the left lung concerning for atelectasis or pneumonia. Patient had a recent CTA in December 2024 with evidence of left apical lung mass measuring 5.1 cm with consolidation A&P. In the ER patient was started on Zosyn empirically with saline infusion 138 mL/h Patient was admitted with consults from pulmonology, cardiology and oncology. At time of encounter patient is on 2 L nasal cannula and not in acute distress, eating breakfast. He denies worsening shortness of breath, Dizziness, Fever or chills. 01/20/2025: Patient seen at bedside last night notified about decreased blood pressure to 87 systolic on the left arm, blood pressure checked on right arm 107 systolic. Daughter at bedside discussed CODE STATUS family still wants full code. 01/21/2025: Patient's blood pressure is improved since yesterday, he is still disoriented not able to give clear history. Patient denies pain or worsening shortness of breath. Endorses photophobia 01/22/2025: Patient seen and examined at bedside complaining of nausea and dizziness from coughing spells, otherwise denies new symptoms 01/23/2025: Patient seen and examined at bedside he still endorses nausea and vomiting due to coughing spells has Robitussin as needed 01/24/2025: Patient seen at bedside, no significant overnight events. States his coughing and breathing have improved and is no longer feeling nauseous at this time. Patient has no other complaint or concerns at this time. 01/25/2025: Patient seen at bedside no significant overnight events patient is having fewer coughing fits and not feeling as nauseous. No other complaints at this time. Subjective plan for bronchoscopy 01/26/2025: Patienr seen at bedside, no significant overnight events. Patient is feeling better, scheduled for bronch and biopsy today. 01/27/2025: Patient seen at bedside no significant overnight events, patient unable to get bronc and biopsy due to respiratory status. Awaiting stability 01/28/2025: Patient seen at bedside no significant overnight events still coug jamila producing sputum less than previously, nausea improved. 01/29/2025: Patient seen at bedside no significant overnight events cough persist nausea has improved still eating well 01/30/2025: Patient seen at bedside no significant overnight events no complaints at this time Pertinent positives and negatives discussed above, a complete review of systems was preformed and all the other sytems were negative. Vitals Signs Reveiwed. General: He is cachectic, appears older than stated age Head: Temporal wasting Eyes: EOMI, no lid lag, anicteric sclera, pupils equal round reactive to light ENT: Nose and ears atraumatic Neck: No cervical lymphadenopathy, trachea midline, supple Mouth: no lip lesion, mucus membranes moist Cardiovascular: S1S2 reg, no murmur, positive dorsalis pedis pulse bilateral, no edema Lungs: Decreased air entry bilaterally, no rhonchi, no rales, no accessory muscl e use, several episodes of productive cough with green sputum Abdominal: soft, nontender to palpation, no guarding Ext: muscle strength 5 out of 5 in all 4 extremities grossly, no gross muscle atrophy, no contractures, Neuro: CN II-XI grossly intact, no gross focal neuro deficits Psych: Alert, oriented, appropriate affect Data Reveiwed Today: #Acute hypoxic respiratory failure likely secondary to post obstructive PNA #Postobstructive pneumonia positive for Aspergillus and Enterobacter #Apical lung mass 5.1 cm left side #acute leukocytosis #normocytic anemia #Confusion secondary to malignancy transfuse if less than 7 -PET scan scheduled for 01/22 Supplemental oxygen SPO2 > 92% Continue Zosyn IV Consult ID appreciate recommendations Oncology following - Pulm assisted biopsy planned awaiting hemodynamic stability Pulmonology following Brain CT reveals no acute process or metastatic disease Discussed CODE STATUS with family, still wants full code Sputum culture reveals Enterobacter and Aspergillus -continue Zosyn, voriconazole no plan for DC until biopsy -Pt mentioned transfer to higher level of care, currently no plan to do so, unstable for transfer. #Persistent Leukocytosis -Hold Solumedrol -monitor CBC daily #Normocytic anemia transfuse if less than 7 - Hemoglobin relatively stable at this time #Nausea likely secondary to coughing fits Robitussin as needed Zofran as needed for nausea #unintentional weight loss #malnutrition Normal diet + protein supplament #Pedal Edema +1 -1x Lasix 20mg IV Once -Decrease fluid to 20mL #Hypotension (improved) #Nonsustained bradycardia - Tele reports max to 30-40, transfered to cardiac 3S as a result -Since transfer, consistently 80-95, remains asymptomatic Consulted cardiology recommendations appreciated 2D echocardiogram per cardiology -Continue NS 75/h DVT ppx: SCDs CODE STATUS: Full Dispo: Pending clinical course Objective - Vital Signs Vital signs: Vital Signs Temp 97.7 F 01/30/25 03:30 Pulse 90 01/30/25 03:30 Resp 24 01/30/25 03:30 BP 145/78 01/30/25 03:30 Pulse Ox 95 01/30/25 03:30 FiO2 Intake & Output 01/29/25 01/30/25 01/30/25 18:59 06:59 18:59 Intake Total 430 20 Output Total 1450 1500 Balance -1020 -1480 Weight 60.8 kg Intake: IV 10 20 Invasive Line 4 10 20 Oral 420 Output: Urine 1450 1500 Other: Voiding Method External Catheter External Catheter # Voids 1 # Bowel Movements 1 - Labs CBC & Chem 7: 02/02/25 07:30 02/02/25 07:30 Labs: Abnormal Lab Results - Last 24 Hours (Table) 01/29/25 01/29/25 Range/Units 07:12 07:12 WBC 20.55 H (4.50-10.00) 10*3/uL RBC 3.28 L (4.40-5.60) 10*6/uL Hgb 9.8 L (13.0-17.0) g/dL Hct 30.9 L (39.6-50.0) % MCHC 31.7 L (32.0-37.0) g/dL Immature Gran # 0.31 H (0.00-0.04) 10*3/uL Neutrophils # 19.53 H (1.80-7.70) 10*3/uL Lymphocytes # 0.40 L (0.90-5.00) 10*3/uL Eosinophils # 0.00 L (0.04-0.35) 10*3/uL BUN 28 H (9-20) mg/dL Creatinine 0.51 L (0.66-1.25) mg/dL Glucose 125 H (74-99) mg/dL Calcium 8.2 L (8.4-10.2) mg/dL Alkaline Phosphatase 131 H (38-126) U/L Total Protein 5.1 L (6.3-8.2) g/dL Albumin 2.1 L (3.5-5.0) g/dL Assessment and Plan Assessment: Attestation Attestation/ Commission Sales Associate Note: Attestation to Progress Note, Participation (I saw and evaluated the patient with the Resident, and I reviewed and discussed the patient with the Resident and agree with the Resident's findings and plans as documented above., management reviewed and discussed), I agree with findings & plan, Provider Signature (FILOMENA HERRERA, VINEET Rodriguez Time with Patient: Greater than 30
--- NOTE | 2025-01-30 14:54 | P.PN ---
Subjective Progress Note Date: 01/30/25 Principal diagnosis: Acute hypoxic respiratory failure secondary to extensive left-sided pneumonia Patient is a 59-year-old male with significant smoking history of over 40 pack years, recent unintentional weight loss, and recent findings of left upper lung mass. Chest CT angiogram done December 26, 2024 remarkable for left apical lung mas measuring 5.1 cm with adjacent consolidations, anteriorly and posteriorly. Lobular density in the posterior right lung measuring 1.8 cm. Also, 0.8 cm anterior right lung nodularity. Did have new patient visit with Dr. Garcia on January 08, 2025. Reportedly, scheduled to undergo outpatient PET scan on . Brought into the emergency department yesterday evening by EMS. He was short of breath and was found to be hypoxic when EMS arrived with an SpO2 of 78%. He has been increasingly weak and has lost some additional weight, re portedly an additional 23 pounds in less than a month. Chest x-ray done in the ED showing worsening consolidative changes in the left lung, concerning for obstructive atelectasis or pneumonia. CBC: WBC count 17.45, hemoglobin 10, platelets 309. BMP with a sodium 130, potassium 4.7, chloride 91, serum bicarb 30, BUN 51, creatinine 1.07, glucose 108. Lactic was 3 now down to 2. Troponin less than 0.012. Repeat 2610. Viral screen negative for influenza A/B, RSV, COVID. While in the emergency department, patient was empirically started on Zosyn. Also, normal saline started at 130 mL/h. He is currently being evaluated on the fifth floor. He is a poor historian. On 2 L/min nasal cannul a, nondistressed. He has a congested cough with reportedly increased sputum production. Does have a green sputum in collection cup. Denies any hemoptysis. Denies any fevers. Reports left-sided chest pain with coughing and deep breathing. He continues to have weight loss. He is very frail and cachectic in appearance. Appetite has been poor. Denies any nausea, vomiting, diarrhea, abdominal pain. Nontachycardic. Blood pressure normotensive. Normal saline infusing at 130 mL/h. On 01/20/2025, the patient is being seen for a follow-up. Extremely debilitated. Continues to have a congested cough. Trying to increase oral intake and the patient was given Ensure. Remains on IV Zosyn as a broad-spectrum antibiotic coverage. Sputum sample was positive for gram-negative/moderate Enterobacter cloacae complex. The patient remains also on bronchodilators. The patient is profoundly weak. No altered mentation for now. CAT scan of the brain was obtained yesterday and shows no evidence of any RECEIVER metastases. Echocardiogram also showed a preserved LV function with a left ventricular ejection fraction being in the order of 55 to 60%. Nevertheless, the patient had moderate degree of pulm hypertension with right ventricular systolic pressure estimated to be around 46 mmHg. No signs of any volume overload. The patient remains on IV fluids and the patient is currently at normal Saint rate of 130 cc an hour. On today's evaluation of 01/21/2025, the patient remains extremely debilitated and weak. Continues to have cough and congestion. As mentioned earlier, the sputum sample was positive for Enterobacter cloacae and the patient was kept on IV Zosyn. Meanwhile, repeat chest x-ray was done and showed worsening in the pleural-parenchymal opacity on the left hemithorax and there was also some developing interstitial infiltrates in the right upper lobe. I also noted that the sputum sample was also positive for Aspergillus fumigatus. Oral intake remains quite diminished. The white cell count is 15.6 with a hemoglobin 8.7 and a platelet count of 270. Sodium is at 134, potassium is at 3.9, BUN is 38 with a creatinine 0.9. AST is at 89 with an ALT of 55 and alkaline phosphatase of 148. Procalcitonin level is at 1.4. TSH is 2.6. On 01/22/2025, the patient's overall condition is unchanged. Continues to produce copious amounts of thick and purulent respiratory secretions and mucus. Noted, the patient sputum sample was positive for Enterobacter and Aspergillus. Due to this cavitating left lung pneumonia and possibility of a fungus ball, the patient was started on voriconazole. Nutritional status remains poor. Oral intake is minimal. He is very much debilitated and weak. He is able to communicate. He remains on oxygen 4 L/min nasal cannula with a pulse ox of 96%. CAT scan of the abdomen and pelvis was also completed and it showed small bilateral pleural effusion and large amount of stool within the colon and the rectum and there is no evidence of any bowel obstruction. No other acute intra- abdominal abnormalities. Second 15 with a hemoglobin 9.1 and a platelet count of 273. LFTs are improved compared to yesterday. AST is 39 and ALT is 39 with an alkaline phosphatase of 123. Total protein is 5.5 with an albumin of 2.0. The white cell count of 15 with hemoglobin 9.1. The patient is currently on DuoNeb treatment [id number], IV Solu-Medrol, IV Zosyn and IV voriconazole. On 01/23/2025, the patient is being seen for a follow-up. The patient remains on 40 Suboxone by nasal cannula. The patient remains also on broad-spectrum a ntibiotics and the patient is on a combination of Zosyn and voriconazole. Repeat chest x-ray was done and shows COPD with ongoing extensive abnormal pleural-parenchymal opacity involving the left lung. Mild residual infiltrate throughout the right lung is also seen. Findings are essentially stable. Clinically, the patient is weak and lethargic and he continues to have a congested cough. He continues to produce excessive amounts of sputum. BUN is 29 with a creatinine of 0.8. The white cell count is 18.4 with a hemoglobin 9.8 and a platelet count of 375. Stool for C. difficile has been negative. ID is on the case. On 01/24/2025, the patient is being seen for a follow-up. Patient is still being treated for an extensive left lung pneumonia. He is on a combination of IV Zosyn and voriconazole. The patient is still producing copious amounts of purulent respiratory secretions and he is able to cough effectively. Slightly more strong and more alert compared to yesterday. Improving his nutritional status. Earlier sputum sample that was collected on 02/04/2025 was consistent with Enterobacter and Aspergillus fumigatus. White cell count of 15.2 with a hemoglobin 8.7 and a platelet count of 356. BUN 32 with a creatinine of 0.6. Sodium level is at 140. Most recent chest x-ray was done on 01/23/2025 and this was reviewed and shows a left upper lobe mass in addition to extensive consolidation and cavitation left lung. Hemodynamically stable and the patient remains on oxygen 4 L/min nasal cannula with a pulse ox of 94%. Currently afebrile. No other significant complaints for now. On 01/25/2025, the patient is being seen for a follow-up. Clinically unchanged. Continues to produce copious amount of thick purulent respiratory secretions. Remains on voriconazole. Remains on IV Zosyn. White cell count of 14.8 hemoglobin 9.6 and a platelet count of 349. BUN is 29 with a creatinine of 0.7. Sitting up in a chair and there is no significant events overnight. Patient was seen today on 01/26/2025, remains on 4 L nasal cannula, continues to have intermittent cough, shortness of breath, he has significant purulent thick respiratory secretions, patient remains on Zosyn and on voriconazole. Patient looks frail, looks ill. Does not seem to be however in respiratory distress. WBC count is 12.5 hemoglobin 8.1 electrolytes are normal renal profile is normal sputum culture was positive for Enterobacter cloacae and positive for Aspergillus fumigatus. Seen today on 01/27/2025, patient is basically about the same remains on 5 L nasal cannula O2 saturation marginal at 91%, continues to have productive cough with thick yellow phlegm, no fever no chills no hemoptysis. No chest pain. Remains on Zosyn and on voriconazole continues to have leukocytosis with WBC c ount of 21.2 hemoglobin 10 electrolytes are normal BUN is normal creatinine is normal Patient looks frail and chronically ill. Chest x-ray today continues to show significant airspace disease involving the left lung, continues to have left upperperipheral masslike area, neoplasm is not entirely ruled out. Patient was seen today on 01/29/2025, on 2 L nasal cannula, continues to have productive cough with thick yellow phlegm, temp is 97.5 heart rate is 115 blood pressure 156/88 O2 sat is 94% on 2 L nasal cannula. Clinically the patient remains quite frail and ill, continues to have leukocytosis with WBC count even higher today 20.5, hemoglobin 9.8 electrolytes are normal renal profile is nor mal, procalcitonin level is 0.10. Patient remains on antibiotics and antifungal including Zosyn and voriconazole. Patient was seen today on 01/30/2025, on 3 L nasal cannula, patient seems short of breath, frail, continues to have intermittent cough, and able to clear secretions. Remains on Zosyn and voriconazole. Continues to have leukocytosis with WBC of 23.6 hemoglobin is 9.4 electrolytes are normal renal profile is normal Sister was noted today at bedside, discussed his condition with the sister and even discussed the CODE STATUS patient remains full code. Objective - Vital Signs Vital signs: Vital Signs Temp 97.4 F L 01/30/25 08:18 Pulse 104 H 01/30/25 11:51 Resp 28 H 01/30/25 14:12 BP 121/57 01/30/25 11:11 Pulse Ox 94 L 01/30/25 11:57 FiO2 Intake & Output 01/29/25 01/30/25 01/30/25 18:59 06:59 18:59 Intake Total 430 20 20 Output Total 1450 1500 600 Balance -1020 -1480 -580 Weight 60.8 kg 60.8 kg Intake: IV 10 20 20 Invasive Line 4 10 20 20 Oral 420 Output: Urine 1450 1500 600 Other: Voiding Method External Catheter External Catheter External Catheter # Voids 1 # Bowel Movements 1 - Exam Physical exam revealed a 59year-old, frail looking, in no distress, on 3 L nasal cannula Head: Atraumatic, normocephalic EENT: PERRLA, EOMI, nonicteric, no neck masses, no JVD, no stridor, moist mucous membranes Chest: Symmetrical chest expansion Lungs: Rhonchi noted on the left side, right side is relatively clear. Abdomen: Soft nontender no megaly no rebound no guarding good bowel sounds Extremities: No clubbing edema or cyanosis, good pulses bilaterally Musculoskeletal: No deformities and no limitation range of motion Neurologic: Alert oriented x 3 no gross focal neurologic deficit Psychiatric: Normal mood and affect and no mental status examination Skin: No rashes. - Labs CBC & Chem 7: 01/30/25 06:28 01/30/25 06:28 Labs: Abnormal Lab Results - Last 24 Hours (Table) 01/30/25 01/30/25 Range/Units 06:28 06:28 WBC 23.63 H (4.50-10.00) 10*3/uL RBC 3.18 L (4.40-5.60) 10*6/uL Hgb 9.4 L (13.0-17.0) g/dL Hct 28.9 L (39.6-50.0) % Immature Gran # 0.36 H (0.00-0.04) 10*3/uL Neutrophils # 21.98 H (1.80-7.70) 10*3/uL Lymphocytes # 0.66 L (0.90-5.00) 10*3/uL Eosinophils # 0.00 L (0.04-0.35) 10*3/uL Carbon Dioxide 34 H (22-30) mmol/L BUN 30 H (9-20) mg/dL Creatinine 0.60 L (0.66-1.25) mg/dL Calcium 7.8 L (8.4-10.2) mg/dL Total Protein 4.8 L (6.3-8.2) g/dL Albumin 2.0 L (3.5-5.0) g/dL Assessment and Plan Assessment: Impression: Acute hypoxemic respiratory failure, secondary to extensive left lung pneumonia with positive sputum cultures for Enterobacter cloacae and Aspergillus fumigatus, patient is on Zosyn and on voriconazole Left upper lung mass, measuring 5.1 cm Right posterior lung nodule measuring 1.8 cm Acute leukocytosis Normocytic, normochromic anemia monitor for blood loss Unintentional weight loss Severe protein calorie malnutrition with a BMI of 16.2 kg/m Chronic tobacco dependence Preserved RV function with moderate degree of pulm hypertension, likely group 3 pulmonary hypertension with an estimated RVSP of 46 mmHg. 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 Continue bronchodilators Continue present supportive care measures Patient is not a great candidate for bronchoscopy and biopsy at this point, however if the patient's clinical status shows slight improvement or if the patient deteriorates to the point that he is on mechanical ventilation bronchoscopy will be considered. We will treat conservatively and will continue present supportive care measures as well as antifungal and antibiotics therapy Prognosis is extremely poor and guarded. Updated his sister at bedside on his condition. Will continue to follow Time with Patient: Less than 30
--- NOTE | 2025-01-30 15:05 | P.PN ---
Subjective Progress Note Date: 01/30/25 Principal diagnosis: Reason for follow-up is pneumonia Patient is a 59-year-old male with a past medical history significant for recent finding of a left upper lung mass unintentional weight loss and [id number]-tydc-hror smoking presenting to the hospital for evaluation of generalized weakness has been diagnosed with pneumonia sputum positive for Enterobacter Aspergillus prompted this consultation. On today's evaluation that is 01/30/2025, the patient continues to be afebrile, the patient is on 3 L nasal oxygen and breathing slightly comfortably, the Pt denies having any chest pain or any worsening cough, the patient denies having any abdominal pain no vomiting or any diarrhea has been reported by the nursing staff. Patient white count is 23.63, creatinine 0.60 blood culture has been negative Objective - Vital Signs Vital signs: Vital Signs Temp 97.4 F L 01/30/25 08:18 Pulse 104 H 01/30/25 11:51 Resp 28 H 01/30/25 14:12 BP 121/57 01/30/25 11:11 Pulse Ox 94 L 01/30/25 11:57 FiO2 Intake & Output 01/29/25 01/30/25 01/30/25 18:59 06:59 18:59 Intake Total 430 20 20 Output Total 1450 1500 600 Balance -1020 -1480 -580 Weight 60.8 kg 60.8 kg Intake: IV 10 20 20 Invasive Line 4 10 20 20 Oral 420 Output: Urine 1450 1500 600 Other: Voiding Method External Catheter External Catheter External Catheter # Voids 1 # Bowel Movements 1 - Exam GENERAL DESCRIPTION: Middle-age male lying in bed in no distress RESPIRATORY SYSTEM: Unlabored breathing , decreased breath sounds at bases HEART: S1 S2 regular rate and rhythm , ABDOMEN: Soft , no tenderness EXTREMITIES: No edema feet - Labs CBC & Chem 7: 01/30/25 06:28 01/30/25 06:28 Labs: Abnormal Lab Results - Last 24 Hours (Table) 01/30/25 01/30/25 Range/Units 06:28 06:28 WBC 23.63 H (4.50-10.00) 10*3/uL RBC 3.18 L (4.40-5.60) 10*6/uL Hgb 9.4 L (13.0-17.0) g/dL Hct 28.9 L (39.6-50.0) % Immature Gran # 0.36 H (0.00-0.04) 10*3/uL Neutrophils # 21.98 H (1.80-7.70) 10*3/uL Lymphocytes # 0.66 L (0.90-5.00) 10*3/uL Eosinophils # 0.00 L (0.04-0.35) 10*3/uL Carbon Dioxide 34 H (22-30) mmol/L BUN 30 H (9-20) mg/dL Creatinine 0.60 L (0.66-1.25) mg/dL Calcium 7.8 L (8.4-10.2) mg/dL Total Protein 4.8 L (6.3-8.2) g/dL Albumin 2.0 L (3.5-5.0) g/dL Assessment and Plan (1) Postobstructive pneumonia Current Visit: Yes Status: Acute Code(s): J18.9 - PNEUMONIA, UNSPECIFIED ORGANISM SNOMED Code(s): 436748090 (2) Leukocytosis Current Visit: Yes Status: Acute Code(s): D72.829 - ELEVATED WHITE BLOOD CELL COUNT, UNSPECIFIED SNOMED Code(s): 203650920 (3) Aspergillus Current Visit: Yes Status: Acute Code(s): B44.9 - ASPERGILLOSIS, UNSPECIFIED SNOMED Code(s): 41170556 Plan: 1patient presented to hospital with increasing shortness of breath weakness did have a cough and this patient has been recently diagnosed with a lung nodule now with evidence of worsening pleural parenchymal opacity throughout the left hemithorax and may be developing disease contributing to right upper lung highly suspicious for malignancy and concern for possible postobstructive pneumonia patient sputum now growing Enterobacter as well as Aspergillus fumigatus 2-patient did have diarrhea likely antibiotic associated stool for C. difficile negative encouraged to increase his yogurt intake if any further worsening of diarrhea will add Questran for symptomatic relief 3the patient is afebrile however did have worsening of the leukocytosis more likely related to the steroids if any further worsening would recommend obtaining CT of the chest to be sure no evidence of any worsening pneumonia/empyema for now continue with Zosyn prognosis remains to be guarded and may benefit from hospice oriented care Dictation was produced using [employer] and [employer] software. please excuse any grammatical, word or spelling errors. Time with Patient: Less than 30
[2025-01-30 16:58] LABS: Glucose,Whole Blood 143 mg/dL (70-110)
[2025-01-31 07:24] LABS: Basophils # (A) 0.06 10*3/uL (0.00-0.10); Basophils % (A) 0.3 %; Eosinophils # (A) 0.00 10*3/uL (0.04-0.35); Eosinophils % (A) 0.0 %; HCT 31.8 % (39.6-50.0); HGB 10.1 g/dL (13.0-17.0); Lymphocytes # (A) 0.84 10*3/uL (0.90-5.00); Lymphocytes % (A) 3.9 %; MCH 30.2 pg (27.0-32.0); MCHC 31.8 g/dL (32.0-37.0); MCV 95.2 fL (80.0-97.0); Monocytes # (A) 0.60 10*3/uL (0.20-1.00); Monocytes % (A) 2.8 %; Neutrophils # (A) 19.54 10*3/uL (1.80-7.70); Neutrophils % (A) 91.3 %; Platelet Count 299 10*3/uL (140-440); RBC 3.34 10*6/uL (4.40-5.60); RDW 17.7 % (11.5-14.5); WBC 21.40 10*3/uL (4.50-10.00)
[2025-01-31 07:38] LABS: ALT 41 U/L (4-49); AST 35 U/L (17-59); African American GFR (CKD) >90 (>60 ml/min/1.73 sqM); Albumin 2.0 g/dL (3.5-5.0); Alkaline Phosphatase 113 U/L (38-126); Anion Gap 4 mmol/L; Blood Urea Nitrogen 28 mg/dL (9-20); Calcium 7.7 mg/dL (8.4-10.2); Carbon Dioxide 29 mmol/L (22-30); Chloride 107 mmol/L (98-107); Glucose 149 mg/dL (74-99); Non-African American GFR(CKD) >90 (>60 ml/min/1.73 sqM); Potassium 3.5 mmol/L (3.5-5.1); Sodium 140 mmol/L (137-145); Total Protein 4.8 g/dL (6.3-8.2)
--- NOTE | 2025-01-31 11:53 | P.PN ---
Subjective Progress Note Date: 01/31/25 Subjective: History of present illness; Patient is a 59-year-old male with significant past smoking history of [id number]-[id number] with unintentional weight loss presents to the ER with significant shortness of breath hypoxic at SpO2 of 78% has increased weakness and additional weight loss of 23 pounds in the last month. Chest x-ray was performed in the ER showing worsening consolidation in the left lung concerning for atelectasis or pneumonia. Patient had a recent CTA in December 2024 with evidence of left apical lung mass measuring 5.1 cm with consolidation A&P. In the ER patient was started on Zosyn empirically with saline infusion 138 mL/h Patient was admitted with consults from pulmonology, cardiology and oncology. At time of encounter patient is on 2 L nasal cannula and not in acute distress, eating breakfast. He denies worsening shortness of breath, Dizziness, Fever or chills. 01/20/2025: Patient seen at bedside last night notified about decreased blood pressure to 87 systolic on the left arm, blood pressure checked on right arm 107 systolic. Daughter at bedside discussed CODE STATUS family still wants full code. 01/21/2025: Patient's blood pressure is improved since yesterday, he is still disoriented not able to give clear history. Patient denies pain or worsening shortness of breath. Endorses photophobia 01/22/2025: Patient seen and examined at bedside complaining of nausea and dizziness from coughing spells, otherwise denies new symptoms 01/23/2025: Patient seen and examined at bedside he still endorses nausea and vomiting due to coughing spells has Robitussin as needed 01/24/2025: Patient seen at bedside, no significant overnight events. States his coughing and breathing have improved and is no longer feeling nauseous at this time. Patient has no other complaint or concerns at this time. 01/25/2025: Patient seen at bedside no significant overnight events patient is having fewer coughing fits and not feeling as nauseous. No other complaints at this time. Subjective plan for bronchoscopy 01/26/2025: Patienr seen at bedside, no significant overnight events. Patient is feeling better, scheduled for bronch and biopsy today. 01/27/2025: Patient seen at bedside no significant overnight events, patient unable to get bronc and biopsy due to respiratory status. Awaiting stability 01/28/2025: Patient seen at bedside no significant overnight events still coug jamila producing sputum less than previously, nausea improved. 01/29/2025: Patient seen at bedside no significant overnight events cough persist nausea has improved still eating well 01/30/2025: Patient seen at bedside no significant overnight events no complaints at this time 01/31/2025: Patient seen at bedside, no significant overnight events. Reports his breathing is about the same, denies any increasing sputum production at this time. After stopping steroids yesterday there was a small decrease in the white count, will continue to follow. Pertinent positives and negatives discussed above, a complete review of systems was preformed and all the other sytems were negative. Vitals Signs Reveiwed. General: He is cachectic, appears older than stated age Head: Temporal wasting Eyes: EOMI, no lid lag, anicteric sclera, pupils equal round reactive to light ENT: Nose and ears atraumatic Neck: No cervical lymphadenopathy, trachea midline, supple Mouth: no lip lesion, mucus membranes moist Cardiovascular: S1S2 reg, no murmur, positive dorsalis pedis pulse bilateral, no edema Lungs: Decreased air entry bilaterally, no rhonchi, no rales, no accessory muscle use, several episodes of productive cough with green sputum Abdominal: soft, nontender to palpation, no guarding Ext: muscle strength 5 out of 5 in all 4 extremities grossly, no gross muscle atrophy, no contractures, Neuro: CN II-XI grossly intact, no gross focal neuro deficits Psych: Alert, oriented, appropriate affect Data Reveiwed Today: #Acute hypoxic respiratory failure likely secondary to post obstructive PNA #Postobstructive pneumonia positive for Aspergillus and Enterobacter #Apical lung mass 5.1 cm left side #acute leukocytosis #normocytic anemia #Confusion secondary to malignancy - Patient continues to have similar respiratory issues and has not made significant progress and a discussion needs to be had with family for goals of care, talked with 1 family member yesterday who said they would chat with the family in terms of changing the strategy of care at this time for potentially co mfort but nothing is confirmed yet. -Discontinued steroids and saw improvement in white count transfuse if less than 7 -PET scan scheduled for 01/22 Supplemental oxygen SPO2 > 92% Continue Zosyn IV Consult ID appreciate recommendations Oncology following - Pulm assisted biopsy planned awaiting hemodynamic stability Pulmonology following Brain CT reveals no acute process or metastatic disease Sputum culture reveals Enterobacter and Aspergillus -continue Zosyn, voriconazole no plan for DC until biopsy -Pt mentioned transfer to higher level of care, currently no plan to do so, unstable for transfer. #Persistent Leukocytosis -Hold Solumedrol -monitor CBC daily #Normocytic anemia transfuse if less than 7 - Hemoglobin relatively stable at this time #Nausea likely secondary to coughing fits Robitussin as needed Zofran as needed for nausea #unintentional weight loss #malnutrition Normal diet + protein supplament #Pedal Edema +1 -1x Lasix 20mg IV Once -Decrease fluid to 20mL #Hypotension (improved) #Nonsustained bradycardia - Tele reports max to 30-40, transfered to cardiac 3S as a result -Since transfer, consistently 80-95, remains asymptomatic Consulted cardiology recommendations appreciated 2D echocardiogram per cardiology -Continue NS 75/h DVT ppx: SCDs CODE STATUS: Full Dispo: Pending clinical course Objective - Vital Signs Vital signs: Vital Signs Temp 97.8 F 01/31/25 04:00 Pulse 93 01/31/25 04:00 Resp 26 H 01/31/25 04:00 BP 152/89 01/31/25 04:00 Pulse Ox 90 L 01/31/25 04:00 FiO2 Intake & Output 01/30/25 01/31/25 01/31/25 18:59 06:59 18:59 Intake Total 140 150 Output Total 1100 1000 Balance -960 -850 Weight 60.8 kg 59.9 kg Intake: IV 20 Invasive Line 4 20 Oral 120 150 Output: Urine 1100 1000 Other: Voiding Method External Catheter External Catheter # Bowel Movements 1 1 - Labs CBC & Chem 7: 02/02/25 07:30 02/02/25 07:30 Labs: Abnormal Lab Results - Last 24 Hours (Table) 01/30/25 01/30/25 01/30/25 Range/Units 06:28 06:28 16:52 WBC 23.63 H (4.50-10.00) 10*3/uL RBC 3.18 L (4.40-5.60) 10*6/uL Hgb 9.4 L (13.0-17.0) g/dL Hct 28.9 L (39.6-50.0) % Immature Gran # 0.36 H (0.00-0.04) 10*3/uL Neutrophils # 21.98 H (1.80-7.70) 10*3/uL Lymphocytes # 0.66 L (0.90-5.00) 10*3/uL Eosinophils # 0.00 L (0.04-0.35) 10*3/uL Carbon Dioxide 34 H (22-30) mmol/L BUN 30 H (9-20) mg/dL Creatinine 0.60 L (0.66-1.25) mg/dL POC Glucose (mg/dL) 143 H (70-110) mg/dL Calcium 7.8 L (8.4-10.2) mg/dL Total Protein 4.8 L (6.3-8.2) g/dL Albumin 2.0 L (3.5-5.0) g/dL Assessment and Plan Assessment: 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
--- NOTE | 2025-01-31 11:53 | P.PN ---
Subjective Progress Note Date: 01/31/25 Principal diagnosis: Acute hypoxic respiratory failure secondary to extensive left-sided pneumonia Patient is a 59-year-old male with significant smoking history of over 40 pack years, recent unintentional weight loss, and recent findings of left upper lung mass. Chest CT angiogram done December 26, 2024 remarkable for left apical lung mas measuring 5.1 cm with adjacent consolidations, anteriorly and posteriorly. Lobular density in the posterior right lung measuring 1.8 cm. Also, 0.8 cm anterior right lung nodularity. Did have new patient visit with Dr. Garcia on January 08, 2025. Reportedly, scheduled to undergo outpatient PET scan on . Brought into the emergency department yesterday evening by EMS. He was short of breath and was found to be hypoxic when EMS arrived with an SpO2 of 78%. He has been increasingly weak and has lost some additional weight, re portedly an additional 23 pounds in less than a month. Chest x-ray done in the ED showing worsening consolidative changes in the left lung, concerning for obstructive atelectasis or pneumonia. CBC: WBC count 17.45, hemoglobin 10, platelets 309. BMP with a sodium 130, potassium 4.7, chloride 91, serum bicarb 30, BUN 51, creatinine 1.07, glucose 108. Lactic was 3 now down to 2. Troponin less than 0.012. Repeat 2610. Viral screen negative for influenza A/B, RSV, COVID. While in the emergency department, patient was empirically started on Zosyn. Also, normal saline started at 130 mL/h. He is currently being evaluated on the fifth floor. He is a poor historian. On 2 L/min nasal cannul a, nondistressed. He has a congested cough with reportedly increased sputum production. Does have a green sputum in collection cup. Denies any hemoptysis. Denies any fevers. Reports left-sided chest pain with coughing and deep breathing. He continues to have weight loss. He is very frail and cachectic in appearance. Appetite has been poor. Denies any nausea, vomiting, diarrhea, abdominal pain. Nontachycardic. Blood pressure normotensive. Normal saline infusing at 130 mL/h. On 01/20/2025, the patient is being seen for a follow-up. Extremely debilitated. Continues to have a congested cough. Trying to increase oral intake and the patient was given Ensure. Remains on IV Zosyn as a broad-spectrum antibiotic coverage. Sputum sample was positive for gram-negative/moderate Enterobacter cloacae complex. The patient remains also on bronchodilators. The patient is profoundly weak. No altered mentation for now. CAT scan of the brain was obtained yesterday and shows no evidence of any SAND CONDITIONER metastases. Echocardiogram also showed a preserved LV function with a left ventricular ejection fraction being in the order of 55 to 60%. Nevertheless, the patient had moderate degree of pulm hypertension with right ventricular systolic pressure estimated to be around 46 mmHg. No signs of any volume overload. The patient remains on IV fluids and the patient is currently at normal Saint rate of 130 cc an hour. On today's evaluation of 01/21/2025, the patient remains extremely debilitated and weak. Continues to have cough and congestion. As mentioned earlier, the sputum sample was positive for Enterobacter cloacae and the patient was kept on IV Zosyn. Meanwhile, repeat chest x-ray was done and showed worsening in the pleural-parenchymal opacity on the left hemithorax and there was also some developing interstitial infiltrates in the right upper lobe. I also noted that the sputum sample was also positive for Aspergillus fumigatus. Oral intake remains quite diminished. The white cell count is 15.6 with a hemoglobin 8.7 and a platelet count of 270. Sodium is at 134, potassium is at 3.9, BUN is 38 with a creatinine 0.9. AST is at 89 with an ALT of 55 and alkaline phosphatase of 148. Procalcitonin level is at 1.4. TSH is 2.6. On 01/22/2025, the patient's overall condition is unchanged. Continues to produce copious amounts of thick and purulent respiratory secretions and mucus. Noted, the patient sputum sample was positive for Enterobacter and Aspergillus. Due to this cavitating left lung pneumonia and possibility of a fungus ball, the patient was started on voriconazole. Nutritional status remains poor. Oral intake is minimal. He is very much debilitated and weak. He is able to communicate. He remains on oxygen 4 L/min nasal cannula with a pulse ox of 96%. CAT scan of the abdomen and pelvis was also completed and it showed small bilateral pleural effusion and large amount of stool within the colon and the rectum and there is no evidence of any bowel obstruction. No other acute intra- abdominal abnormalities. Second 15 with a hemoglobin 9.1 and a platelet count of 273. LFTs are improved compared to yesterday. AST is 39 and ALT is 39 with an alkaline phosphatase of 123. Total protein is 5.5 with an albumin of 2.0. The white cell count of 15 with hemoglobin 9.1. The patient is currently on DuoNeb treatment [id number], IV Solu-Medrol, IV Zosyn and IV voriconazole. On 01/23/2025, the patient is being seen for a follow-up. The patient remains on 40 Suboxone by nasal cannula. The patient remains also on broad-spectrum a ntibiotics and the patient is on a combination of Zosyn and voriconazole. Repeat chest x-ray was done and shows COPD with ongoing extensive abnormal pleural-parenchymal opacity involving the left lung. Mild residual infiltrate throughout the right lung is also seen. Findings are essentially stable. Clinically, the patient is weak and lethargic and he continues to have a congested cough. He continues to produce excessive amounts of sputum. BUN is 29 with a creatinine of 0.8. The white cell count is 18.4 with a hemoglobin 9.8 and a platelet count of 375. Stool for C. difficile has been negative. ID is on the case. On 01/24/2025, the patient is being seen for a follow-up. Patient is still being treated for an extensive left lung pneumonia. He is on a combination of IV Zosyn and voriconazole. The patient is still producing copious amounts of purulent respiratory secretions and he is able to cough effectively. Slightly more strong and more alert compared to yesterday. Improving his nutritional status. Earlier sputum sample that was collected on 02/04/2025 was consistent with Enterobacter and Aspergillus fumigatus. White cell count of 15.2 with a hemoglobin 8.7 and a platelet count of 356. BUN 32 with a creatinine of 0.6. Sodium level is at 140. Most recent chest x-ray was done on 01/23/2025 and this was reviewed and shows a left upper lobe mass in addition to extensive consolidation and cavitation left lung. Hemodynamically stable and the patient remains on oxygen 4 L/min nasal cannula with a pulse ox of 94%. Currently afebrile. No other significant complaints for now. On 01/25/2025, the patient is being seen for a follow-up. Clinically unchanged. Continues to produce copious amount of thick purulent respiratory secretions. Remains on voriconazole. Remains on IV Zosyn. White cell count of 14.8 hemoglobin 9.6 and a platelet count of 349. BUN is 29 with a creatinine of 0.7. Sitting up in a chair and there is no significant events overnight. Patient was seen today on 01/26/2025, remains on 4 L nasal cannula, continues to have intermittent cough, shortness of breath, he has significant purulent thick respiratory secretions, patient remains on Zosyn and on voriconazole. Patient looks frail, looks ill. Does not seem to be however in respiratory distress. WBC count is 12.5 hemoglobin 8.1 electrolytes are normal renal profile is normal sputum culture was positive for Enterobacter cloacae and positive for Aspergillus fumigatus. Seen today on 01/27/2025, patient is basically about the same remains on 5 L nasal cannula O2 saturation marginal at 91%, continues to have productive cough with thick yellow phlegm, no fever no chills no hemoptysis. No chest pain. Remains on Zosyn and on voriconazole continues to have leukocytosis with WBC c ount of 21.2 hemoglobin 10 electrolytes are normal BUN is normal creatinine is normal Patient looks frail and chronically ill. Chest x-ray today continues to show significant airspace disease involving the left lung, continues to have left upperperipheral masslike area, neoplasm is not entirely ruled out. Patient was seen today on 01/29/2025, on 2 L nasal cannula, continues to have productive cough with thick yellow phlegm, temp is 97.5 heart rate is 115 blood pressure 156/88 O2 sat is 94% on 2 L nasal cannula. Clinically the patient remains quite frail and ill, continues to have leukocytosis with WBC count even higher today 20.5, hemoglobin 9.8 electrolytes are normal renal profile is nor mal, procalcitonin level is 0.10. Patient remains on antibiotics and antifungal including Zosyn and voriconazole. Patient was seen today on 01/30/2025, on 3 L nasal cannula, patient seems short of breath, frail, continues to have intermittent cough, and able to clear secretions. Remains on Zosyn and voriconazole. Continues to have leukocytosis with WBC of 23.6 hemoglobin is 9.4 electrolytes are normal renal profile is normal Sister was noted today at bedside, discussed his condition with the sister and even discussed the CODE STATUS patient remains full code. Seen today on 01/31/2025, patient is about the same, on 4 L nasal cannula with O2 sat of 91%, he has intermittent cough, does not seem to be in distress but he looks extremely frail and weak. Continues to have leukocytosis with WBC count of 21.4 hemoglobin 10.1 electrolytes are normal renal profile is normal patient is being treated for postobstructive pneumonia, strongly suspect left upper lobe malignancy and his sputum have been positive for Enterobacter and for Aspergillus. Fumigatus. Objective - Vital Signs Vital signs: Vital Signs Temp 97.5 F L 01/31/25 08:00 Pulse 118 H 01/31/25 08:48 Resp 36 H 01/31/25 08:00 BP 133/79 01/31/25 08:00 Pulse Ox 91 L 01/31/25 08:38 FiO2 Intake & Output 01/30/25 01/31/25 01/31/25 18:59 06:59 18:59 Intake Total 140 150 Output Total 1100 1000 Balance -960 -850 Weight 60.8 kg 59.9 kg Intake: IV 20 Invasive Line 4 20 Oral 120 150 Output: Urine 1100 1000 Other: Voiding Method External Catheter External Catheter External Catheter # Bowel Movements 1 1 - Exam Physical exam revealed a 59year-old, frail looking, in no distress, on 4 L nasal cannula Head: Atraumatic, normocephalic EENT: PERRLA, EOMI, nonicteric, no neck masses, no JVD, no stridor, moist mucous membranes Chest: Symmetrical chest expansion Lungs: Rhonchi noted on the left side, right side is relatively clear. Abdomen: Soft nontender no megaly no rebound no guarding good bowel sounds Extremities: No clubbing edema or cyanosis, good pulses bilaterally Musculoskeletal: No deformities and no limitation range of motion Neurologic: Alert oriented x 3 no gross focal neurologic deficit Psychiatric: Normal mood and affect and no mental status examination Skin: No rashes. - Labs CBC & Chem 7: 01/31/25 06:12 01/31/25 06:12 Labs: Abnormal Lab Results - Last 24 Hours (Table) 01/30/25 01/31/25 01/31/25 Range/Units 16:52 06:12 06:12 WBC 21.40 H (4.50-10.00) 10*3/uL RBC 3.34 L (4.40-5.60) 10*6/uL Hgb 10.1 L (13.0-17.0) g/dL Hct 31.8 L (39.6-50.0) % MCHC 31.8 L (32.0-37.0) g/dL Immature Gran # 0.36 H (0.00-0.04) 10*3/uL Neutrophils # 19.54 H (1.80-7.70) 10*3/uL Lymphocytes # 0.84 L (0.90-5.00) 10*3/uL Eosinophils # 0.00 L (0.04-0.35) 10*3/uL BUN 28 H (9-20) mg/dL Creatinine 0.57 L (0.66-1.25) mg/dL Glucose 149 H (74-99) mg/dL POC Glucose (mg/dL) 143 H (70-110) mg/dL Calcium 7.7 L (8.4-10.2) mg/dL Total Protein 4.8 L (6.3-8.2) g/dL Albumin 2.0 L (3.5-5.0) g/dL Assessment and Plan Assessment: Impression: Acute hypoxemic respiratory failure, secondary to extensive left lung pneumonia with positive sputum cultures for Enterobacter cloacae and Aspergillus fumigatus, patient is on Zosyn and on voriconazole Left upper lung mass, measuring 5.1 cm Right posterior lung nodule measuring 1.8 cm Acute leukocytosis Normocytic, normochromic anemia monitor for blood loss Unintentional weight loss Severe protein calorie malnutrition with a BMI of 16.2 kg/m Chronic tobacco dependence Preserved RV function with moderate degree of pulm hypertension, likely group 3 pulmonary hypertension with an estimated RVSP of 46 mmHg. 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 Continue bronchodilators Continue present supportive care measures Patient is not a great candidate for bronchoscopy and biopsy at this point, however if the patient's clinical status shows slight improvement or if the patient deteriorates to the point that he is on mechanical ventilation bronchoscopy will be considered. We will treat conservatively and will continue present supportive care measures as well as antifungal and antibiotics therapy Prognosis is extremely poor and guarded. Will continue to follow Time with Patient: Less than 30
[2025-01-31] MEDS: POTASSIUM CHLORIDE ER 20 MEQ TAB.ER PO SCH (12:04)
--- NOTE | 2025-01-31 15:09 | P.PN ---
Subjective Progress Note Date: 01/31/25 Principal diagnosis: Reason for follow-up is pneumonia Patient is a 59-year-old male with a past medical history significant for recent finding of a left upper lung mass unintentional weight loss and [id number] smoking presenting to the hospital for evaluation of generalized weakness has been diagnosed with pneumonia sputum positive for Enterobacter Aspergillus prompted this consultation. On today's evaluation that is 01/31/2025, patient did have a temperature of 98 F this afternoon and denies having any chills, patient is on 3 L nasal oxygen and breathing slightly comfortably no chest pain or any worsening cough, the patient did not have any nausea vomiting abdominal pain or any diarrhea. Patient white count is down to 21.40, creatinine 0.57 Objective - Vital Signs Vital signs: Vital Signs Temp 98 F 01/31/25 12:01 Pulse 118 H 01/31/25 12:52 Resp 24 01/31/25 12:01 BP 152/92 01/31/25 12:01 Pulse Ox 92 L 01/31/25 12:01 FiO2 Intake & Output 01/30/25 01/31/25 01/31/25 18:59 06:59 18:59 Intake Total 140 150 490 Output Total 1100 1000 Balance -960 -850 490 Weight 60.8 kg 59.9 kg Intake: IV 20 Invasive Line 4 20 Intake, IV Titration 490 Amount Piperacillin-Tazobactam 3 100 .375 gm In Sodium Chloride 0.9% 100 ml @ 25 mls/hr IVPB Q8H [facility] Rx#: [id number] Sodium Chloride 0.9% 1, 140 000 ml @ 20 mls/hr IV . Q24H [facility] Rx#:[id number] Voriconazole 200 mg In 250 Sodium Chloride 0.9% 250 ml @ 125 mls/hr IVPB Q12HR [facility] Rx#:[id number] Oral 120 150 Output: Urine 1100 1000 Other: Voiding Method External Catheter External Catheter External Catheter # Bowel Movements 1 1 - Exam GENERAL DESCRIPTION: Middle-age male lying in bed in no distress RESPIRATORY SYSTEM: Unlabored breathing , decreased breath sounds at bases HEART: S1 S2 regular rate and rhythm , ABDOMEN: Soft , no tenderness EXTREMITIES: No edema feet - Labs CBC & Chem 7: 01/31/25 06:12 01/31/25 06:12 Labs: Abnormal Lab Results - Last 24 Hours (Table) 01/30/25 01/31/25 01/31/25 Range/Units 16:52 06:12 06:12 WBC 21.40 H (4.50-10.00) 10*3/uL RBC 3.34 L (4.40-5.60) 10*6/uL Hgb 10.1 L (13.0-17.0) g/dL Hct 31.8 L (39.6-50.0) % MCHC 31.8 L (32.0-37.0) g/dL Immature Gran # 0.36 H (0.00-0.04) 10*3/uL Neutrophils # 19.54 H (1.80-7.70) 10*3/uL Lymphocytes # 0.84 L (0.90-5.00) 10*3/uL Eosinophils # 0.00 L (0.04-0.35) 10*3/uL BUN 28 H (9-20) mg/dL Creatinine 0.57 L (0.66-1.25) mg/dL Glucose 149 H (74-99) mg/dL POC Glucose (mg/dL) 143 H (70-110) mg/dL Calcium 7.7 L (8.4-10.2) mg/dL Total Protein 4.8 L (6.3-8.2) g/dL Albumin 2.0 L (3.5-5.0) g/dL Assessment and Plan (1) Postobstructive pneumonia Current Visit: Yes Status: Acute Code(s): J18.9 - PNEUMONIA, UNSPECIFIED ORGANISM SNOMED Code(s): 083770747 (2) Leukocytosis Current Visit: Yes Status: Acute Code(s): D72.829 - ELEVATED WHITE BLOOD CELL COUNT, UNSPECIFIED SNOMED Code(s): 869062063 (3) Aspergillus Current Visit: Yes Status: Acute Code(s): B44.9 - ASPERGILLOSIS, UNSPECIFIED SNOMED Code(s): 52639319 Plan: 1patient presented to hospital with increasing shortness of breath weakness did have a cough and this patient has been recently diagnosed with a lung nodule now with evidence of worsening pleural parenchymal opacity throughout the left hemithorax and may be developing disease contributing to right upper lung highly suspicious for malignancy and concern for possible postobstructive pneumonia patient sputum now growing Enterobacter as well as Aspergillus fumigatus 2-patient did have diarrhea likely antibiotic associated stool for C. difficile negative encouraged to increase his yogurt intake if any further worsening of diarrhea, to use Questran for symptomatic relief as needed 3the patient is afebrile and the patient white count seem to be trending down down to 21,000 today for now continue with the Zosyn and voriconazole monitor clinical course closely Dictation was produced using [employer] dictation software. please excuse any grammatical, word or spelling errors. Time with Patient: Less than 30
[2025-01-31] MEDS: SODIUM CHLORIDE 0.65% NASAL SPRAY 44 ML BTL NASAL PRN (22:11)
[2025-02-01 07:17] LABS: Basophils # (A) 0.02 10*3/uL (0.00-0.10); Basophils % (A) 0.1 %; Eosinophils # (A) 0.02 10*3/uL (0.04-0.35); Eosinophils % (A) 0.1 %; HCT 29.0 % (39.6-50.0); HGB 9.0 g/dL (13.0-17.0); Lymphocytes # (A) 0.97 10*3/uL (0.90-5.00); Lymphocytes % (A) 5.1 %; MCH 29.4 pg (27.0-32.0); MCHC 31.0 g/dL (32.0-37.0); MCV 94.8 fL (80.0-97.0); Monocytes # (A) 0.69 10*3/uL (0.20-1.00); Monocytes % (A) 3.6 %; Neutrophils # (A) 17.02 10*3/uL (1.80-7.70); Neutrophils % (A) 89.7 %; Platelet Count 297 10*3/uL (140-440); RBC 3.06 10*6/uL (4.40-5.60); RDW 17.9 % (11.5-14.5); WBC 18.99 10*3/uL (4.50-10.00)
[2025-02-01 07:40] LABS: African American GFR (CKD) >90 (>60 ml/min/1.73 sqM); Anion Gap 0 mmol/L; Blood Urea Nitrogen 26 mg/dL (9-20); Calcium 8.0 mg/dL (8.4-10.2); Carbon Dioxide 32 mmol/L (22-30); Chloride 105 mmol/L (98-107); Glucose 74 mg/dL (74-99); Non-African American GFR(CKD) >90 (>60 ml/min/1.73 sqM); Potassium 4.4 mmol/L (3.5-5.1); Sodium 137 mmol/L (137-145)
--- NOTE | 2025-02-01 07:44 | XR ---
EXAMINATION TYPE: XR chest 1V portable DATE OF EXAM: 02/01/2025 5:47 AM COMPARISON: 01/27/2025 CLINICAL INDICATION: Male, 59 years old with history of Pneumonia, mass, TECHNIQUE: XR chest 1V portable views of the chest are obtained. FINDINGS: There is infiltrate noted throughout the left lung which appears stable. Cavitary changes suggested w ithin the left upper lobe. There is also focal infiltrate at the right medial lung base. The heart is stable. Hilar and mediastinal structures are within normal limits. Degenerative changes are seen of the dorsal spine. IMPRESSION: 1. There is infiltrate noted throughout the left lung which appears stable. Cavitary changes suggest ed within the left upper lobe. There is also focal infiltrate at the right medial lung base. [facility], , 02/01/2025 7:42 AM
--- NOTE | 2025-02-01 10:05 | P.PN ---
Subjective Progress Note Date: 02/01/25 Subjective: History of present illness; Patient is a 59-year-old male with significant past smoking history of [id number] with unintentional weight loss presents to the ER with significant shortness of breath hypoxic at SpO2 of 78% has increased weakness and additional weight loss of 23 pounds in the last month. Chest x-ray was performed in the ER showing worsening consolidation in the left lung concerning for atelectasis or pneumonia. Patient had a recent CTA in December 2024 with evidence of left apical lung mass measuring 5.1 cm with consolidation A&P. In the ER patient was started on Zosyn empirically with saline infusion 138 mL/h Patient was admitted with consults from pulmonology, cardiology and oncology. At time of encounter patient is on 2 L nasal cannula and not in acute distress, eating breakfast. He denies worsening shortness of breath, Dizziness, Fever or chills. 01/20/2025: Patient seen at bedside last night notified about decreased blood pressure to 87 systolic on the left arm, blood pressure checked on right arm 107 systolic. Daughter at bedside discussed CODE STATUS family still wants full code. 01/21/2025: Patient's blood pressure is improved since yesterday, he is still disoriented not able to give clear history. Patient denies pain or worsening shortness of breath. Endorses photophobia 01/22/2025: Patient seen and examined at bedside complaining of nausea and dizziness from coughing spells, otherwise denies new symptoms 01/23/2025: Patient seen and examined at bedside he still endorses nausea and vomiting due to coughing spells has Robitussin as needed 01/24/2025: Patient seen at bedside, no significant overnight events. States his coughing and breathing have improved and is no longer feeling nauseous at this time. Patient has no other complaint or concerns at this time. 01/25/2025: Patient seen at bedside no significant overnight events patient is having fewer coughing fits and not feeling as nauseous. No other complaints at this time. Subjective plan for bronchoscopy 01/26/2025: Patienr seen at bedside, no significant overnight events. Patient is feeling better, scheduled for bronch and biopsy today. 01/27/2025: Patient seen at bedside no significant overnight events, patient unable to get bronc and biopsy due to respiratory status. Awaiting stability 01/28/2025: Patient seen at bedside no significant overnight events still coug jamila producing sputum less than previously, nausea improved. 01/29/2025: Patient seen at bedside no significant overnight events cough persist nausea has improved still eating well 01/30/2025: Patient seen at bedside no significant overnight events no complaints at this time 01/31/2025: Patient seen at bedside, no significant overnight events. Reports his breathing is about the same, denies any increasing sputum production at this time. After stopping steroids yesterday there was a small decrease in the white count, will continue to follow. 02/01/2025: Patient seen at bedside no acute overnight events no new complaints Pertinent positives and negatives discussed above, a complete review of systems was preformed and all the other sytems were negative. Vitals Signs Reveiwed. General: He is cachectic, appears older than stated age Head: Temporal wasting Eyes: EOMI, no lid lag, anicteric sclera, pupils equal round reactive to light ENT: Nose and ears atraumatic Neck: No cervical lymphadenopathy, trachea midline, supple Mouth: no lip lesion, mucus membranes moist Cardiovascular: S1S2 reg, no murmur, positive dorsalis pedis pulse bilateral, no edema Lungs: Decreased air entry bilaterally, no rhonchi, no rales, no accessory muscle use, several episodes of productive cough with green sputum Abdominal: soft, nontender to palpation, no guarding Ext: muscle strength 5 out of 5 in all 4 extremities grossly, no gross muscle atrophy, no contractures, Neuro: CN II-XI grossly intact, no gross focal neuro deficits Psych: Alert, oriented, appropriate affect Data Reveiwed Today: #Acute hypoxic respiratory failure likely secondary to post obstructive PNA #Postobstructive pneumonia positive for Aspergillus and Enterobacter #Apical lung mass 5.1 cm left side #acute leukocytosis #normocytic anemia #Confusion secondary to malignancy - Patient continues to have similar respiratory issues and has not made significant progress and a discussion needs to be had with family for goals of care, talked with 1 family member yesterday who said they would chat with the family in terms of changing the strategy of care at this time for potentially comfort but nothing is confirmed yet. -Discontinued steroids and saw improvement in white count transfuse if less than 7 -PET scan scheduled for 01/22 Supplemental oxygen SPO2 > 92% Continue Zosyn IV Consult ID appreciate recommendations Oncology following - Pulm assisted biopsy planned awaiting hemodynamic stability Pulmonology following Brain CT reveals no acute process or metastatic disease Sputum culture reveals Enterobacter and Aspergillus -continue Zosyn, voriconazole no plan for DC until biopsy -Pt mentioned transfer to higher level of care, currently no plan to do so, unstable for transfer. #Persistent Leukocytosis (downtrending) -Hold Solumedrol -monitor CBC daily #Normocytic anemia transfuse if less than 7 - Hemoglobin relatively stable at this time #Nausea likely secondary to coughing fits Robitussin as needed Zofran as needed for nausea #unintentional weight loss #malnutrition Normal diet + protein supplament #Pedal Edema +1 -Decrease fluid to 20mL #Hypotension (improved) #Nonsustained bradycardia - Tele reports max to 30-40, transfered to cardiac 3S as a result -Since transfer, consistently 80-95, remains asymptomatic Consulted cardiology recommendations appreciated 2D echocardiogram per cardiology -Continue NS 75/h DVT ppx: SCDs CODE STATUS: Full Dispo: Pending clinical course Objective - Vital Signs Vital signs: Vital Signs Temp 97.6 F 02/01/25 03:59 Pulse 96 02/01/25 03:59 Resp 24 02/01/25 03:59 BP 136/78 02/01/25 03:59 Pulse Ox 93 L 02/01/25 03:59 FiO2 Intake & Output 01/31/25 02/01/25 02/01/25 18:59 06:59 18:59 Intake Total 490 Output Total 950 800 Balance -460 -800 Weight 60.1 kg Intake: Intake, IV Titration 490 Amount Piperacillin-Tazobactam 3 100 .375 gm In Sodium Chloride 0.9% 100 ml @ 25 mls/hr IVPB Q8H [facility] Rx#: [id number] Sodium Chloride 0.9% 1, 140 000 ml @ 20 mls/hr IV . Q24H [facility] Rx#:[id number] Voriconazole 200 mg In 250 Sodium Chloride 0.9% 250 ml @ 125 mls/hr IVPB Q12HR [facility] Rx#:[id number] Output: Urine 950 800 Other: Voiding Method External Catheter External Catheter # Bowel Movements 1 - Labs CBC & Chem 7: 02/02/25 07:30 02/02/25 07:30 Labs: Abnormal Lab Results - Last 24 Hours (Table) 01/31/25 01/31/25 02/01/25 Range/Units 06:12 06:12 06:12 WBC 21.40 H 18.99 H (4.50-10.00) 10*3/uL RBC 3.34 L 3.06 L (4.40-5.60) 10*6/uL Hgb 10.1 L 9.0 L (13.0-17.0) g/dL Hct 31.8 L 29.0 L (39.6-50.0) % MCHC 31.8 L 31.0 L (32.0-37.0) g/dL Immature Gran # 0.36 H 0.27 H (0.00-0.04) 10*3/uL Neutrophils # 19.54 H 17.02 H (1.80-7.70) 10*3/uL Lymphocytes # 0.84 L (0.90-5.00) 10*3/uL Eosinophils # 0.00 L 0.02 L (0.04-0.35) 10*3/uL BUN 28 H (9-20) mg/dL Creatinine 0.57 L (0.66-1.25) mg/dL Glucose 149 H (74-99) mg/dL Calcium 7.7 L (8.4-10.2) mg/dL Total Protein 4.8 L (6.3-8.2) g/dL Albumin 2.0 L (3.5-5.0) g/dL Assessment and Plan Assessment: Attestation Attestation/ Inside Wirer Note: Attestation to Progress Note, Participation (I saw and evaluated the patient with the Resident, and I reviewed and discussed the patient with the Resident and agree with the Resident's findings and plans as documented above., management reviewed and discussed), I agree with findings & plan, Provider Signature (FILOMENA HERRERA, VINEET Rodriguez Time with Patient: Greater than 30
--- NOTE | 2025-02-01 12:05 | P.PN ---
Subjective Progress Note Date: 02/01/25 Principal diagnosis: Acute hypoxic respiratory failure secondary to extensive left-sided pneumonia Patient is a 59-year-old male with significant smoking history of over 40 pack years, recent unintentional weight loss, and recent findings of left upper lung mass. Chest CT angiogram done December 26, 2024 remarkable for left apical lung mas measuring 5.1 cm with adjacent consolidations, anteriorly and posteriorly. Lobular density in the posterior right lung measuring 1.8 cm. Also, 0.8 cm anterior right lung nodularity. Did have new patient visit with Dr. Garcia on January 08, 2025. Reportedly, scheduled to undergo outpatient PET scan on . Brought into the emergency department yesterday evening by EMS. He was short of breath and was found to be hypoxic when EMS arrived with an SpO2 of 78%. He has been increasingly weak and has lost some additional weight, re portedly an additional 23 pounds in less than a month. Chest x-ray done in the ED showing worsening consolidative changes in the left lung, concerning for obstructive atelectasis or pneumonia. CBC: WBC count 17.45, hemoglobin 10, platelets 309. BMP with a sodium 130, potassium 4.7, chloride 91, serum bicarb 30, BUN 51, creatinine 1.07, glucose 108. Lactic was 3 now down to 2. Troponin less than 0.012. Repeat 2610. Viral screen negative for influenza A/B, RSV, COVID. While in the emergency department, patient was empirically started on Zosyn. Also, normal saline started at 130 mL/h. He is currently being evaluated on the fifth floor. He is a poor historian. On 2 L/min nasal cannul a, nondistressed. He has a congested cough with reportedly increased sputum production. Does have a green sputum in collection cup. Denies any hemoptysis. Denies any fevers. Reports left-sided chest pain with coughing and deep breathing. He continues to have weight loss. He is very frail and cachectic in appearance. Appetite has been poor. Denies any nausea, vomiting, diarrhea, abdominal pain. Nontachycardic. Blood pressure normotensive. Normal saline infusing at 130 mL/h. On 01/20/2025, the patient is being seen for a follow-up. Extremely debilitated. Continues to have a congested cough. Trying to increase oral intake and the patient was given Ensure. Remains on IV Zosyn as a broad-spectrum antibiotic coverage. Sputum sample was positive for gram-negative/moderate Enterobacter cloacae complex. The patient remains also on bronchodilators. The patient is profoundly weak. No altered mentation for now. CAT scan of the brain was obtained yesterday and shows no evidence of any [employer] metastases. Echocardiogram also showed a preserved LV function with a left ventricular ejection fraction being in the order of 55 to 60%. Nevertheless, the patient had moderate degree of pulm hypertension with right ventricular systolic pressure estimated to be around 46 mmHg. No signs of any volume overload. The patient remains on IV fluids and the patient is currently at normal Saint rate of 130 cc an hour. On today's evaluation of 01/21/2025, the patient remains extremely debilitated and weak. Continues to have cough and congestion. As mentioned earlier, the sputum sample was positive for Enterobacter cloacae and the patient was kept on IV Zosyn. Meanwhile, repeat chest x-ray was done and showed worsening in the pleural-parenchymal opacity on the left hemithorax and there was also some developing interstitial infiltrates in the right upper lobe. I also noted that the sputum sample was also positive for Aspergillus fumigatus. Oral intake remains quite diminished. The white cell count is 15.6 with a hemoglobin 8.7 and a platelet count of 270. Sodium is at 134, potassium is at 3.9, BUN is 38 with a creatinine 0.9. AST is at 89 with an ALT of 55 and alkaline phosphatase of 148. Procalcitonin level is at 1.4. TSH is 2.6. On 01/22/2025, the patient's overall condition is unchanged. Continues to produce copious amounts of thick and purulent respiratory secretions and mucus. Noted, the patient sputum sample was positive for Enterobacter and Aspergillus. Due to this cavitating left lung pneumonia and possibility of a fungus ball, the patient was started on voriconazole. Nutritional status remains poor. Oral intake is minimal. He is very much debilitated and weak. He is able to communicate. He remains on oxygen 4 L/min nasal cannula with a pulse ox of 96%. CAT scan of the abdomen and pelvis was also completed and it showed small bilateral pleural effusion and large amount of stool within the colon and the rectum and there is no evidence of any bowel obstruction. No other acute intra- abdominal abnormalities. Second 15 with a hemoglobin 9.1 and a platelet count of 273. LFTs are improved compared to yesterday. AST is 39 and ALT is 39 with an alkaline phosphatase of 123. Total protein is 5.5 with an albumin of 2.0. The white cell count of 15 with hemoglobin 9.1. The patient is currently on DuoNeb treatment [id number], IV Solu-Medrol, IV Zosyn and IV voriconazole. On 01/23/2025, the patient is being seen for a follow-up. The patient remains on 40 Suboxone by nasal cannula. The patient remains also on broad-spectrum a ntibiotics and the patient is on a combination of Zosyn and voriconazole. Repeat chest x-ray was done and shows COPD with ongoing extensive abnormal pleural-parenchymal opacity involving the left lung. Mild residual infiltrate throughout the right lung is also seen. Findings are essentially stable. Clinically, the patient is weak and lethargic and he continues to have a congested cough. He continues to produce excessive amounts of sputum. BUN is 29 with a creatinine of 0.8. The white cell count is 18.4 with a hemoglobin 9.8 and a platelet count of 375. Stool for C. difficile has been negative. ID is on the case. On 01/24/2025, the patient is being seen for a follow-up. Patient is still being treated for an extensive left lung pneumonia. He is on a combination of IV Zosyn and voriconazole. The patient is still producing copious amounts of purulent respiratory secretions and he is able to cough effectively. Slightly more strong and more alert compared to yesterday. Improving his nutritional status. Earlier sputum sample that was collected on 02/04/2025 was consistent with Enterobacter and Aspergillus fumigatus. White cell count of 15.2 with a hemoglobin 8.7 and a platelet count of 356. BUN 32 with a creatinine of 0.6. Sodium level is at 140. Most recent chest x-ray was done on 01/23/2025 and this was reviewed and shows a left upper lobe mass in addition to extensive consolidation and cavitation left lung. Hemodynamically stable and the patient remains on oxygen 4 L/min nasal cannula with a pulse ox of 94%. Currently afebrile. No other significant complaints for now. On 01/25/2025, the patient is being seen for a follow-up. Clinically unchanged. Continues to produce copious amount of thick purulent respiratory secretions. Remains on voriconazole. Remains on IV Zosyn. White cell count of 14.8 hemoglobin 9.6 and a platelet count of 349. BUN is 29 with a creatinine of 0.7. Sitting up in a chair and there is no significant events overnight. Patient was seen today on 01/26/2025, remains on 4 L nasal cannula, continues to have intermittent cough, shortness of breath, he has significant purulent thick respiratory secretions, patient remains on Zosyn and on voriconazole. Patient looks frail, looks ill. Does not seem to be however in respiratory distress. WBC count is 12.5 hemoglobin 8.1 electrolytes are normal renal profile is normal sputum culture was positive for Enterobacter cloacae and positive for Aspergillus fumigatus. Seen today on 01/27/2025, patient is basically about the same remains on 5 L nasal cannula O2 saturation marginal at 91%, continues to have productive cough with thick yellow phlegm, no fever no chills no hemoptysis. No chest pain. Remains on Zosyn and on voriconazole continues to have leukocytosis with WBC c ount of 21.2 hemoglobin 10 electrolytes are normal BUN is normal creatinine is normal Patient looks frail and chronically ill. Chest x-ray today continues to show significant airspace disease involving the left lung, continues to have left upperperipheral masslike area, neoplasm is not entirely ruled out. Patient was seen today on 01/29/2025, on 2 L nasal cannula, continues to have productive cough with thick yellow phlegm, temp is 97.5 heart rate is 115 blood pressure 156/88 O2 sat is 94% on 2 L nasal cannula. Clinically the patient remains quite frail and ill, continues to have leukocytosis with WBC count even higher today 20.5, hemoglobin 9.8 electrolytes are normal renal profile is nor mal, procalcitonin level is 0.10. Patient remains on antibiotics and antifungal including Zosyn and voriconazole. Patient was seen today on 01/30/2025, on 3 L nasal cannula, patient seems short of breath, frail, continues to have intermittent cough, and able to clear secretions. Remains on Zosyn and voriconazole. Continues to have leukocytosis with WBC of 23.6 hemoglobin is 9.4 electrolytes are normal renal profile is normal Sister was noted today at bedside, discussed his condition with the sister and even discussed the CODE STATUS patient remains full code. Seen today on 01/31/2025, patient is about the same, on 4 L nasal cannula with O2 sat of 91%, he has intermittent cough, does not seem to be in distress but he looks extremely frail and weak. Continues to have leukocytosis with WBC count of 21.4 hemoglobin 10.1 electrolytes are normal renal profile is normal patient is being treated for postobstructive pneumonia, strongly suspect left upper lobe malignancy and his sputum have been positive for Enterobacter and for Aspergillus. Fumigatus. Patient was seen today on 02/01/2025, basically about the same, looks extremely frail, short of breath, tachypneic, O2 sat is 99% on 3 L, follow-up chest x-ray showed worsening of airspace disease in the left lung reviewed his CT of the chest from a month ago and clearly showed a left upper lobe mass apparently he was seen for this by Dr Garcia on outpatient basis, he was supposed to have a PET scan which never happened. Still would not have really a tissue diagnosis to confirm malignancy, Dr Garcia will see him tomorrow, and it is quite challenging decision whether to proceed with bronchoscopy and biopsy with the patient intubated and most likely he will remain on mechanical ventilation post bronchoscopy or to leave alone for now. Patient is definitely high risk for bronchoscopy as he will end up intubated mechanically ventilated, and most likely will not be weaned easily from mechanical ventilation as he may require eventually tracheostomy and PEG tube placement. Objective - Vital Signs Vital signs: Vital Signs Temp 97.7 F 02/01/25 07:58 Pulse 111 H 02/01/25 11:32 Resp 22 02/01/25 07:58 BP 116/82 02/01/25 07:58 Pulse Ox 99 02/01/25 08:06 FiO2 Intake & Output 01/31/25 02/01/25 02/01/25 18:59 06:59 18:59 Intake Total 490 Output Total 950 800 Balance -460 -800 Weight 60.1 kg Intake: Intake, IV Titration 490 Amount Piperacillin-Tazobactam 3 100 .375 gm In Sodium Chloride 0.9% 100 ml @ 25 mls/hr IVPB Q8H [facility] Rx#: [id number] Sodium Chloride 0.9% 1, 140 000 ml @ 20 mls/hr IV . Q24H [facility] Rx#:[id number] Voriconazole 200 mg In 250 Sodium Chloride 0.9% 250 ml @ 125 mls/hr IVPB Q12HR [facility] Rx#:[id number] Output: Urine 950 800 Other: Voiding Method External Catheter External Catheter External Catheter # Bowel Movements 1 - Exam Physical exam revealed a 59year-old, frail looking, in no distress, on 3 L nasal cannula Head: Atraumatic, normocephalic EENT: PERRLA, EOMI, nonicteric, no neck masses, no JVD, no stridor, moist mucous membranes Chest: Symmetrical chest expansion Lungs: Rhonchi noted on the left side, right side is relatively clear. Abdomen: Soft nontender no megaly no rebound no guarding good bowel sounds Extremities: No clubbing edema or cyanosis, good pulses bilaterally Musculoskeletal: No deformities and no limitation range of motion Neurologic: Alert oriented x 3 no gross focal neurologic deficit Psychiatric: Normal mood and affect and no mental status examination Skin: No rashes. - Labs CBC & Chem 7: 02/01/25 06:12 02/01/25 06:12 Labs: Abnormal Lab Results - Last 24 Hours (Table) 02/01/25 02/01/25 Range/Units 06:12 06:12 WBC 18.99 H (4.50-10.00) 10*3/uL RBC 3.06 L (4.40-5.60) 10*6/uL Hgb 9.0 L (13.0-17.0) g/dL Hct 29.0 L (39.6-50.0) % MCHC 31.0 L (32.0-37.0) g/dL Immature Gran # 0.27 H (0.00-0.04) 10*3/uL Neutrophils # 17.02 H (1.80-7.70) 10*3/uL Eosinophils # 0.02 L (0.04-0.35) 10*3/uL Carbon Dioxide 32 H (22-30) mmol/L BUN 26 H (9-20) mg/dL Creatinine 0.58 L (0.66-1.25) mg/dL Calcium 8.0 L (8.4-10.2) mg/dL Assessment and Plan Assessment: Impression: Acute hypoxemic respiratory failure, secondary to extensive left lung pneumonia with positive sputum cultures for Enterobacter cloacae and Aspergillus fumigatus, patient is on Zosyn and on voriconazole Left upper lung mass, 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 Right posterior lung nodule measuring 1.8 cm Acute leukocytosis Normocytic, normochromic anemia monitor for blood loss Unintentional weight loss Severe protein calorie malnutrition with a BMI of 16.2 kg/m Chronic tobacco dependence Preserved RV function with moderate degree of pulm hypertension, likely group 3 pulmonary hypertension with an estimated RVSP of 46 mmHg. 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 This is most likely postobstructive picture as the patient seems to have lung mass highly consistent with bronchogenic carcinoma. Continue bronchodilators Continue present supportive care measures Patient is not a great candidate for bronchoscopy and biopsy at this point, unless this is done with the patient intubated and knowing in fact that the patient may remain intubated after the procedure and may eventually require tracheostomy and PEG tube placement, patient will be seen by Dr Garcia who is familiar with this patient from the beginning as he saw him on outpatient basis and recommended a PET scan which was never performed. Prognosis is extremely poor and guarded. Will continue to follow Time with Patient: Less than 30
--- NOTE | 2025-02-01 15:16 | P.PN ---
Subjective Progress Note Date: 02/01/25 Principal diagnosis: Reason for follow-up is pneumonia Patient is a 59-year-old male with a past medical history significant for recent finding of a left upper lung mass unintentional weight loss and [id number] smoking presenting to the hospital for evaluation of generalized weakness has been diagnosed with pneumonia sputum positive for Enterobacter Aspergillus prompted this consultation. On today's evaluation that is 02/01/2025, Patient is afebrile patient is c urrently on 4 L nasal oxygen and breathing slightly comfortably the patient denies any chest pain or any worsening cough, the patient denies any nausea vomiting did not have any abdominal pain and no diarrhea. Patient white count is down to 18.99, creatinine 0.58 Objective - Vital Signs Vital signs: Vital Signs Temp 98.3 F 02/01/25 12:09 Pulse 108 H 02/01/25 15:08 Resp 20 02/01/25 12:09 BP 117/71 02/01/25 12:09 Pulse Ox 94 L 02/01/25 12:09 FiO2 Intake & Output 01/31/25 02/01/25 02/01/25 18:59 06:59 18:59 Intake Total 490 608 Output Total 901 109 7979 Balance -460 -800 -1192 Weight 60.1 kg Intake: Intake, IV Titration 490 490 Amount Piperacillin-Tazobactam 3 100 100 .375 gm In Sodium Chloride 0.9% 100 ml @ 25 mls/hr IVPB Q8H [facility] Rx#: [id number] Sodium Chloride 0.9% 1, 140 140 000 ml @ 20 mls/hr IV . Q24H [facility] Rx#:[id number] Voriconazole 200 mg In 250 250 Sodium Chloride 0.9% 250 ml @ 125 mls/hr IVPB Q12HR [facility] Rx#:[id number] Oral 118 Output: Urine 457 300 6595 Other: Voiding Method External Catheter External Catheter External Catheter # Bowel Movements 1 - Exam GENERAL DESCRIPTION: Middle-age male lying in bed in no distress RESPIRATORY SYSTEM: Unlabored breathing , decreased breath sounds at bases HEART: S1 S2 regular rate and rhythm , ABDOMEN: Soft , no tenderness EXTREMITIES: No edema feet - Labs CBC & Chem 7: 02/01/25 06:12 02/01/25 06:12 Labs: Abnormal Lab Results - Last 24 Hours (Table) 02/01/25 02/01/25 Range/Units 06:12 06:12 WBC 18.99 H (4.50-10.00) 10*3/uL RBC 3.06 L (4.40-5.60) 10*6/uL Hgb 9.0 L (13.0-17.0) g/dL Hct 29.0 L (39.6-50.0) % MCHC 31.0 L (32.0-37.0) g/dL Immature Gran # 0.27 H (0.00-0.04) 10*3/uL Neutrophils # 17.02 H (1.80-7.70) 10*3/uL Eosinophils # 0.02 L (0.04-0.35) 10*3/uL Carbon Dioxide 32 H (22-30) mmol/L BUN 26 H (9-20) mg/dL Creatinine 0.58 L (0.66-1.25) mg/dL Calcium 8.0 L (8.4-10.2) mg/dL Assessment and Plan (1) Postobstructive pneumonia Current Visit: Yes Status: Acute Code(s): J18.9 - PNEUMONIA, UNSPECIFIED ORGANISM SNOMED Code(s): 770106560 (2) Leukocytosis Current Visit: Yes Status: Acute Code(s): D72.829 - ELEVATED WHITE BLOOD CELL COUNT, UNSPECIFIED SNOMED Code(s): 120252704 (3) Aspergillus Current Visit: Yes Status: Acute Code(s): B44.9 - ASPERGILLOSIS, UNSPECIFIED SNOMED Code(s): 53717083 Plan: 1patient presented to hospital with increasing shortness of breath weakness did have a cough and this patient has been recently diagnosed with a lung nodule now with evidence of worsening pleural parenchymal opacity throughout the left hemithorax and may be developing disease contributing to right upper lung highly suspicious for malignancy and concern for possible postobstructive pneumonia patient sputum now growing Enterobacter as well as Aspergillus fumigatus 2-patient did have diarrhea likely antibiotic associated stool for C. difficile negative encouraged to increase his yogurt intake if any further worsening of diarrhea, to use Questran for symptomatic relief as needed 3the patient is afebrile and the patient white count down to 18,000 today remains to be covered with Zosyn and voriconazole prognosis remains to be guarded Dictation was produced using COPsyncation software. please excuse any grammatical, word or spelling errors. Time with Patient: Less than 30
[2025-02-02 08:33] LABS: ALT 37 U/L (4-49); AST 29 U/L (17-59); African American GFR (CKD) >90 (>60 ml/min/1.73 sqM); Albumin 2.0 g/dL (3.5-5.0); Alkaline Phosphatase 112 U/L (38-126); Anion Gap 0 mmol/L; Blood Urea Nitrogen 24 mg/dL (9-20); Calcium 8.3 mg/dL (8.4-10.2); Carbon Dioxide 34 mmol/L (22-30); Chloride 101 mmol/L (98-107); Glucose 87 mg/dL (74-99); Non-African American GFR(CKD) >90 (>60 ml/min/1.73 sqM); Potassium 4.4 mmol/L (3.5-5.1); Sodium 135 mmol/L (137-145); Total Protein 4.8 g/dL (6.3-8.2)
[2025-02-02 08:36] LABS: Basophils # (A) 0.01 10*3/uL (0.00-0.10); Basophils % (A) 0.1 %; Eosinophils # (A) 0.06 10*3/uL (0.04-0.35); Eosinophils % (A) 0.4 %; HCT 29.6 % (39.6-50.0); HGB 9.5 g/dL (13.0-17.0); Lymphocytes # (A) 1.08 10*3/uL (0.90-5.00); Lymphocytes % (A) 6.7 %; MCH 29.8 pg (27.0-32.0); MCHC 32.1 g/dL (32.0-37.0); MCV 92.8 fL (80.0-97.0); Monocytes # (A) 0.85 10*3/uL (0.20-1.00); Monocytes % (A) 5.3 %; Neutrophils # (A) 13.68 10*3/uL (1.80-7.70); Neutrophils % (A) 85.0 %; Platelet Count 308 10*3/uL (140-440); RBC 3.19 10*6/uL (4.40-5.60); RDW 17.7 % (11.5-14.5); WBC 16.08 10*3/uL (4.50-10.00)
[2025-02-02] MEDS ORDERED: METOCLOPRAMIDE 5 MG/ML 2 ML VIAL IVP PRN (11:59)
--- NOTE | 2025-02-02 13:06 | P.PN ---
Subjective Progress Note Date: 02/02/25 Principal diagnosis: Respiratory failure. Patient is a 59-year-old male with significant smoking history of over 40 pack years, recent unintentional weight loss, and recent findings of left upper lung mass. Chest CT angiogram done December 26, 2024 remarkable for left apical lung mas measuring 5.1 cm with adjacent consolidations, anteriorly and posteriorly. Lobular density in the posterior right lung measuring 1.8 cm. Also, 0.8 cm anterior right lung nodularity. Did have new patient visit with Dr. Garcia on January 08, 2025. Reportedly, scheduled to undergo outpatient PET scan on . Brought into the emergency department yesterday evening by EMS. He was short of breath and was found to be hypoxic when EMS arrived with an SpO2 of 78%. He has been increasingly weak and has lost some additional weight, reportedly an additional 23 pounds in less than a month. Chest x-ray done in the ED showing worsening consolidative changes in the left lung, concerning for obstructive atelectasis or pneumonia. CBC: WBC count 17.45, hemoglobin 10, platelets 309. BMP with a sodium 130, potassium 4.7, chloride 91, serum bicarb 30, BUN 51, creatinine 1.07, glucose 108. Lactic was 3 now down to 2. Troponin less than 0.012. Repeat 2610. Viral screen negative for influenza A/B, RSV, COVID. While in the emergency department, patient was empirically started on Zosyn. Also, normal saline started at 130 mL/h. He is currently being evaluated on the fifth floor. He is a poor historian. On 2 L/min nasal cannula, nondistressed. He has a congested cough with reportedly increased sputum production. Does have a green sputum in collection cup. Denies any hemoptysis. Denies any fevers. Reports left-sided chest pain with coughing and deep breathing. He continues to have weight loss. He is very frail and cachectic in appearance. Appetite has been poor. Denies any nausea, vomiting, diarrhea, abdominal pain. Nontachycardic. Blood pressure normotensive. Normal saline infusing at 130 mL/h. On 01/20/2025, the patient is being seen for a follow-up. Extremely debilitated. Continues to have a congested cough. Trying to increase oral intake and the patient was given Ensure. Remains on IV Zosyn as a broad-spectrum antibiotic coverage. Sputum sample was positive for gram-negative/moderate Enterobacter cloacae complex. The patient remains also on bronchodilators. The patient is profoundly weak. No altered mentation for now. CAT scan of the brain was obtained yesterday and shows no evidence of any [employer] metastases. Echocardiogram also showed a preserved LV function with a left ventricular ejection fraction being in the order of 55 to 60%. Nevertheless, the patient had moderate degree of pulm hypertension with right ventricular systolic pressure estimated to be around 46 mmHg. No signs of any volume overload. The patient remains on IV fluids and the patient is currently at normal Saint rate of 130 cc an hour. On today's evaluation of 01/21/2025, the patient remains extremely debilitated and weak. Continues to have cough and congestion. As mentioned earlier, the sputum sample was positive for Enterobacter cloacae and the patient was kept on IV Zosyn. Meanwhile, repeat chest x-ray was done and showed worsening in the pleural-parenchymal opacity on the left hemithorax and there was also some developing interstitial infiltrates in the right upper lobe. I also noted that the sputum sample was also positive for Aspergillus fumigatus. Oral intake remains quite diminished. The white cell count is 15.6 with a hemoglobin 8.7 and a platelet count of 270. Sodium is at 134, potassium is at 3.9, BUN is 38 with a creatinine 0.9. AST is at 89 with an ALT of 55 and alkaline phosphatase of 148. Procalcitonin level is at 1.4. TSH is 2.6. On 01/22/2025, the patient's overall condition is unchanged. Continues to produce copious amounts of thick and purulent respiratory secretions and mucus. Noted, the patient sputum sample was positive for Enterobacter and Aspergillus. Due to this cavitating left lung pneumonia and possibility of a fungus ball, the patient was started on voriconazole. Nutritional status remains poor. Oral intake is minimal. He is very much debilitated and weak. He is able to communicate. He remains on oxygen 4 L/min nasal cannula with a pulse ox of 96%. CAT scan of the abdomen and pelvis was also completed and it showed small bilateral pleural effusion and large amount of stool within the colon and the rectum and there is no evidence of any bowel obstruction. No other acute intra- abdominal abnormalities. Second 15 with a hemoglobin 9.1 and a platelet count of 273. LFTs are improved compared to yesterday. AST is 39 and ALT is 39 with an alkaline phosphatase of 123. Total protein is 5.5 with an albumin of 2.0. The white cell count of 15 with hemoglobin 9.1. The patient is currently on DuoNeb treatment [id number], IV Solu-Medrol, IV Zosyn and IV voriconazole. On 01/23/2025, the patient is being seen for a follow-up. The patient remains on 40 Suboxone by nasal cannula. The patient remains also on broad-spectrum antibiotics and the patient is on a combination of Zosyn and voriconazole. Repeat chest x-ray was done and shows COPD with ongoing extensive abnormal pleural-parenchymal opacity involving the left lung. Mild residual infiltrate throughout the right lung is also seen. Findings are essentially stable. Clinically, the patient is weak and lethargic and he continues to have a congested cough. He continues to produce excessive amounts of sputum. BUN is 29 with a creatinine of 0.8. The white cell count is 18.4 with a hemoglobin 9.8 and a platelet count of 375. Stool for C. difficile has been negative. ID is on the case. On 01/24/2025, the patient is being seen for a follow-up. Patient is still being treated for an extensive left lung pneumonia. He is on a combination of IV Zosyn and voriconazole. The patient is still producing copious amounts of purulent respiratory secretions and he is able to cough effectively. Slightly more strong and more alert compared to yesterday. Improving his nutritional status. Earlier sputum sample that was collected on 02/04/2025 was consistent with Enterobacter and Aspergillus fumigatus. White cell count of 15.2 with a hemoglobin 8.7 and a platelet count of 356. BUN 32 with a creatinine of 0.6. Sodium level is at 140. Most recent chest x-ray was done on 01/23/2025 and this was reviewed and shows a left upper lobe mass in addition to extensive consolidation and cavitation left lung. Hemodynamically stable and the patient remains on oxygen 4 L/min nasal cannula with a pulse ox of 94%. Currently afebrile. No other significant complaints for now. On 01/25/2025, the patient is being seen for a follow-up. Clinically unchanged. Continues to produce copious amount of thick purulent respiratory secretions. Remains on voriconazole. Remains on IV Zosyn. White cell count of 14.8 hemoglobin 9.6 and a platelet count of 349. BUN is 29 with a creatinine of 0.7. Sitting up in a chair and there is no significant events overnight. Patient was seen today on 01/26/2025, remains on 4 L nasal cannula, continues to have intermittent cough, shortness of breath, he has significant purulent thick respiratory secretions, patient remains on Zosyn and on voriconazole. Patient looks frail, looks ill. Does not seem to be however in respiratory distress. WBC count is 12.5 hemoglobin 8.1 electrolytes are normal renal profile is normal sputum culture was positive for Enterobacter cloacae and positive for Aspergillus fumigatus. Seen today on 01/27/2025, patient is basically about the same remains on 5 L nasal cannula O2 saturation marginal at 91%, continues to have productive cough with thick yellow phlegm, no fever no chills no hemoptysis. No chest pain. Remains on Zosyn and on voriconazole continues to have leukocytosis with WBC count of 21.2 hemoglobin 10 electrolytes are normal BUN is normal creatinine is normal Patient looks frail and chronically ill. Chest x-ray today continues to show significant airspace disease involving the left lung, continues to have left upperperipheral masslike area, neoplasm is not entirely ruled out. Patient was seen today on 01/29/2025, on 2 L nasal cannula, continues to have productive cough with thick yellow phlegm, temp is 97.5 heart rate is 115 blood pressure 156/88 O2 sat is 94% on 2 L nasal cannula. Clinically the patient remains quite frail and ill, continues to have leukocytosis with WBC count even higher today 20.5, hemoglobin 9.8 electrolytes are normal renal profile is normal, procalcitonin level is 0.10. Patient remains on antibiotics and antifungal including Zosyn and voriconazole. Patient was seen today on 01/30/2025, on 3 L nasal cannula, patient seems short of breath, frail, continues to have intermittent cough, and able to clear secretions. Remains on Zosyn and voriconazole. Continues to have leukocytosis with WBC of 23.6 hemoglobin is 9.4 electrolytes are normal renal profile is normal Sister was noted today at bedside, discussed his condition with the sister and even discussed the CODE STATUS patient remains full code. Seen today on 01/31/2025, patient is about the same, on 4 L nasal cannula with O2 sat of 91%, he has intermittent cough, does not seem to be in distress but he looks extremely frail and weak. Continues to have leukocytosis with WBC count of 21.4 hemoglobin 10.1 electrolytes are normal renal profile is normal patient is being treated for postobstructive pneumonia, strongly suspect left upper lobe malignancy and his sputum have been positive for Enterobacter and for Aspergillus. Fumigatus. Patient was seen today on 02/01/2025, basically about the same, looks extremely frail, short of breath, tachypneic, O2 sat is 99% on 3 L, follow-up chest x-ray showed worsening of airspace disease in the left lung reviewed his CT of the chest from a month ago and clearly showed a left upper lobe mass apparently he was seen for this by Dr Garcia on outpatient basis, he was supposed to have a PET scan which never happened. Still would not have really a tissue diagnosis to confirm malignancy, Dr Garcia will see him tomorrow, and it is quite challenging decision whether to proceed with bronchoscopy and biopsy with the patient intubated and most likely he will remain on mechanical ventilation post bronchoscopy or to leave alone for now. Patient is definitely high risk for bronchoscopy as he will end up intubated mechanically ventilated, and most likely will not be weaned easily from mechanical ventilation as he may require eventually tracheostomy and PEG tube placement. Progress note dated February 02, 2025. The patient is seen today in room 358. He is on saline at 10 cc an hour, and 3 L by nasal cannula. The patient is very frail appearing, with significant debility. The patient was seen by me in the office, for an abnormal CT scan, and I ordered a PET scan, which never occurred. In my opinion, the patient is too frail, and ill-appearing, to benefit from bronchoscopy at this point, and, would likely require him going on mechanical ventilation. Current labs include a white count of 16.1, hemoglobin 9.5, hematocrit 29.6, and a platelet count of 308,000. Sodium 135, potassium 4.4, chlorides 101, CO2 34, BUN 24, creatinine 0.49. Calcium is 8.3. Albumin is 2. Sputum sample from January 18, was positive for Enterobacter cloacae, and Aspergillus fumigatus. Chest x-ray shows an infiltrate throughout the left lung, with cavitary changes, left upper lobe. There is also a focal infiltrate, right medial lung base. Objective - Vital Signs Vital signs: Vital Signs Temp 98.0 F 02/02/25 11:00 Pulse 115 H 02/02/25 12:32 Resp 22 02/02/25 11:00 BP 133/75 02/02/25 11:00 Pulse Ox 96 02/02/25 11:00 FiO2 Intake & Output 02/01/25 02/02/25 02/02/25 18:59 06:59 18:59 Intake Total 608 120 Output Total 2350 1200 650 Balance -1742 -1200 -530 Weight 60.6 kg Intake: Intake, IV Titration 490 Amount Piperacillin-Tazobactam 3 100 .375 gm In Sodium Chloride 0.9% 100 ml @ 25 mls/hr IVPB Q8H [facility] Rx#: [id number] Sodium Chloride 0.9% 1, 140 000 ml @ 20 mls/hr IV . Q24H [facility] Rx#:[id number] Voriconazole 200 mg In 250 Sodium Chloride 0.9% 250 ml @ 125 mls/hr IVPB Q12HR [facility] Rx#:[id number] Oral 118 120 Output: Urine 2350 1200 650 Other: Voiding Method External Catheter External Catheter External Catheter - Exam No acute distress, oriented 3. Frail, and very weak appearing. HEENT examination is grossly unremarkable. Mucous membranes are moist. No oral lesions. Neck supple. Full range of motion. No adenopathy thyromegaly or neck vein distention. Cardiovascular examination reveals regular rhythm rate. S1-S2 normal. No S3 or S4. No discernible murmur noted. Lungs reveal diffuse bilateral rhonchi, left greater than right. No wheezes. No crackles. Currently, the patient is on 3 L. Abdomen soft bowel sounds are heard. No masses or tenderness. Extremities are intact. No cyanosis clubbing or edema. Skin is without rash or lesion. Neurologic examination is brief but nonfocal. - Labs CBC & Chem 7: 02/02/25 07:30 02/02/25 07:30 Labs: Abnormal Lab Results - Last 24 Hours (Table) 02/02/25 02/02/25 Range/Units 07:30 07:30 WBC 16.08 H (4.50-10.00) 10*3/uL RBC 3.19 L (4.40-5.60) 10*6/uL Hgb 9.5 L (13.0-17.0) g/dL Hct 29.6 L (39.6-50.0) % Immature Gran # 0.40 H (0.00-0.04) 10*3/uL Neutrophils # 13.68 H (1.80-7.70) 10*3/uL Sodium 135 L (137-145) mmol/L Carbon Dioxide 34 H (22-30) mmol/L BUN 24 H (9-20) mg/dL Creatinine 0.49 L (0.66-1.25) mg/dL Calcium 8.3 L (8.4-10.2) mg/dL Total Protein 4.8 L (6.3-8.2) g/dL Albumin 2.0 L (3.5-5.0) g/dL Assessment and Plan Assessment: Acute hypoxemic respiratory failure, secondary to excess of pneumonia, left lung, secondary to Enterobacter cloacae, and Aspergillus. Left upper lung mass, measuring 5.1 cm, potentially consistent with bronchogenic carcinoma. Right posterior lung nodule, measuring 1.8 cm. Acute leukocytosis. Normocytic/normochromic anemia. Unintentional weight loss, potentially secondary to malignancy. Severe protein/calorie malnutrition. Chronic tobacco dependence. Mild to moderate pulmonary hypertension. Plan: Plan dated February 02, 2025. The patient is seen today in room 358. In my opinion, the patient is far too frail, and weak, to undergo any procedure at this time. I had seen him in the clinic, and ordered an outpatient PET scan. That was never done. I am certainly concerned about malignancy, secondary to the mass, in the left lung. In addition, the patient's sputum, showed evidence of Enterobacter, and Aspergillus. He is currently on Zosyn, and voriconazole. We will continue to follow. Prognosis is poor. Palliative care consultation or hospice consultation should be considered. Dictation was produced using [employer]ation software. Please excuse any grammatical, word or spelling errors. Time with Patient: Less than 30
--- NOTE | 2025-02-02 17:05 | P.PN ---
Subjective Progress Note Date: 02/02/25 History of present illness; Patient is a 59-year-old male with significant past smoking history of 40-pack- year with unintentional 23 pound weight loss in the last month, also with significant shortness with decreased oxygenation, PO2: Chest x-ray was performed in the ER showing worsening consolidation in the left lung concerning for atelectasis or pneumonia. CTA in December 2024 showed evidence of left apical lung mass measuring 5.1 cm with consolidation A&P. 02/02/2025: Patient seen at bedside patient was vomiting. nurse administered Zofran. Patient states he has no other complaints other than nausea and vomiting. Discussed with patient possible hospice care. Will talk to daughter and family tomorrow when patient's bedside. Patient patient has no complaints other than difficulty breathing. Patient on 3 L of nasal cannula and 94% O2 Pertinent positives and negatives discussed a complete review of systems was preformed and all the other systems were negative. Vitals Signs Reviewed. General: He is cachectic Head: Temporal wasting Cardiovascular: S1S2 reg, no murmur Lungs: Decreased air entry bilaterally, no accessory muscle use, Abdominal: soft, nontender to palpation Neuro: no gross focal neuro deficits Psych: Alert, oriented, appropriate affect Data Reviewed Today: #Acute hypoxic respiratory failure likely secondary to post obstructive PNA #Postobstructive pneumonia positive for Aspergillus and Enterobacter #Apical lung mass 5.1 cm left side #acute leukocytosis #normocytic anemia #Confusion secondary to malignancy -Discontinued steroids and saw improvement in white count transfuse if less than 7 Supplemental oxygen SPO2 > 92% Continue Zosyn IV Consult ID appreciate recommendations Oncology following - Pulm assisted biopsy planned awaiting hemodynamic stability Pulmonology following Brain CT reveals no acute process or metastatic disease Sputum culture reveals Enterobacter and Aspergillus -continue Zosyn, voriconazole #Persistent Leukocytosis -Hold Solumedrol -monitor CBC daily #Normocytic anemia transfuse if less than 7 - Hemoglobin relatively stable at this time #Nausea likely secondary to excessive coughing Robutussin as needed Zofran as needed for nausea - Reglan PRN if Zofran ineffective #unintentional weight loss #malnutrition, BMI 17.6 Normal diet + protein supplement #Pedal Edema +1 -Decrease fluid to 20mL - improving, continue to monitor #Hypotension (improved) #Nonsustained bradycardia - Tele reports max to 30-40, transfered to cardiac 3S as a result -Current HR 91-111, remains asymptomatic Consulted cardiology recommendations appreciated 2D echocardiogram per cardiology -Continue NS 75/h DVT ppx: SCDs CODE STATUS: Full Dispo: Pending clinical course. Possible hospice and comfort care. Awaiting family to be at bedside. Janki Waite MD PGY-1 FM Objective - Vital Signs Vital signs: Vital Signs Temp 97.9 F 02/02/25 08:19 Pulse 111 H 02/02/25 09:00 Resp 22 02/02/25 09:00 BP 114/75 02/02/25 08:19 Pulse Ox 100 02/02/25 08:47 FiO2 Intake & Output 02/01/25 02/02/25 02/02/25 18:59 06:59 18:59 Intake Total 608 120 Output Total 2350 1200 650 Balance -0987 -1200 -565 Weight 60.6 kg Intake: Intake, IV Titration 490 Amount Piperacillin-Tazobactam 3 100 .375 gm In Sodium Chloride 0.9% 100 ml @ 25 mls/hr IVPB Q8H [facility] Rx#: [id number] Sodium Chloride 0.9% 1, 140 000 ml @ 20 mls/hr IV . Q24H [facility] Rx#:[id number] Voriconazole 200 mg In 250 Sodium Chloride 0.9% 250 ml @ 125 mls/hr IVPB Q12HR [facility] Rx#:[id number] Oral 118 120 Output: Urine 2350 1200 650 Other: Voiding Method External Catheter External Catheter External Catheter - Labs CBC & Chem 7: 02/02/25 07:30 02/02/25 07:30 Labs: Abnormal Lab Results - Last 24 Hours (Table) 02/02/25 02/02/25 Range/Units 07:30 07:30 WBC 16.08 H (4.50-10.00) 10*3/uL RBC 3.19 L (4.40-5.60) 10*6/uL Hgb 9.5 L (13.0-17.0) g/dL Hct 29.6 L (39.6-50.0) % Immature Gran # 0.40 H (0.00-0.04) 10*3/uL Neutrophils # 13.68 H (1.80-7.70) 10*3/uL Sodium 135 L (137-145) mmol/L Carbon Dioxide 34 H (22-30) mmol/L BUN 24 H (9-20) mg/dL Creatinine 0.49 L (0.66-1.25) mg/dL Calcium 8.3 L (8.4-10.2) mg/dL Total Protein 4.8 L (6.3-8.2) g/dL Albumin 2.0 L (3.5-5.0) g/dL Assessment and Plan Assessment: 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
--- NOTE | 2025-02-02 17:50 | XR ---
EXAMINATION TYPE: XR chest 1V portable DATE OF EXAM: 02/02/2025 5:38 PM COMPARISON: Multiple radiographs, with the most recent on 02/01/2025, CTA chest 12/26/2024 TECHNIQUE: XR chest 1V portable Portable AP radiograph of the chest. CLINICAL INDICATION:Male, 59 years old with history of Elevated HR, known lung nodules; FINDINGS: Lungs/Pleura: Extensive pleural-parenchymal opacities persist throughout the left lung. Similar media l right lung base patchy airspace opacities. No pneumothorax. Calcified granuloma within the peripher y of the right upper lobe redemonstrated. Small left pleural effusion. Background degenerative change s. Pulmonary vascularity: Unremarkable. Heart/mediastinum: Cardiomediastinal silhouette is partially obscured due to overlying and adjacent o pacities. Musculoskeletal: No acute osseous pathology. IMPRESSION: Overall no significant change from earlier radiograph 02/01/2025. Continued extensive pleural-parenchy mal opacities throughout the left lung with small left pleural effusion. Similar infiltrate versus at electasis involving the medial right lung base. [facility], , 02/02/2025 5:48 PM
[2025-02-02] MEDS: DILTIAZEM 125 MG in DEXTROSE 5% IN WATER 100 ML IV SCH (17:55)
--- NOTE | 2025-02-03 12:24 | P.PN ---
Subjective Progress Note Date: 02/03/25 Principal diagnosis: Respiratory failure. Patient is a 59-year-old male with significant smoking history of over 40 pack years, recent unintentional weight loss, and recent findings of left upper lung mass. Chest CT angiogram done December 26, 2024 remarkable for left apical lung mas measuring 5.1 cm with adjacent consolidations, anteriorly and posteriorly. Lobular density in the posterior right lung measuring 1.8 cm. Also, 0.8 cm anterior right lung nodularity. Did have new patient visit with Dr. Garcia on January 08, 2025. Reportedly, scheduled to undergo outpatient PET scan on . Brought into the emergency department yesterday evening by EMS. He was short of breath and was found to be hypoxic when EMS arrived with an SpO2 of 78%. He has been increasingly weak and has lost some additional weight, reportedly an additional 23 pounds in less than a month. Chest x-ray done in the ED showing worsening consolidative changes in the left lung, concerning for obstructive atelectasis or pneumonia. CBC: WBC count 17.45, hemoglobin 10, platelets 309. BMP with a sodium 130, potassium 4.7, chloride 91, serum bicarb 30, BUN 51, creatinine 1.07, glucose 108. Lactic was 3 now down to 2. Troponin less than 0.012. Repeat 2610. Viral screen negative for influenza A/B, RSV, COVID. While in the emergency department, patient was empirically started on Zosyn. Also, normal saline started at 130 mL/h. He is currently being evaluated on the fifth floor. He is a poor historian. On 2 L/min nasal cannula, nondistressed. He has a congested cough with reportedly increased sputum production. Does have a green sputum in collection cup. Denies any hemoptysis. Denies any fevers. Reports left-sided chest pain with coughing and deep breathing. He continues to have weight loss. He is very frail and cachectic in appearance. Appetite has been poor. Denies any nausea, vomiting, diarrhea, abdominal pain. Nontachycardic. Blood pressure normotensive. Normal saline infusing at 130 mL/h. On 01/20/2025, the patient is being seen for a follow-up. Extremely debilitated. Continues to have a congested cough. Trying to increase oral intake and the patient was given Ensure. Remains on IV Zosyn as a broad-spectrum antibiotic coverage. Sputum sample was positive for gram-negative/moderate Enterobacter cloacae complex. The patient remains also on bronchodilators. The patient is profoundly weak. No altered mentation for now. CAT scan of the brain was obtained yesterday and shows no evidence of any [employer] metastases. Echocardiogram also showed a preserved LV function with a left ventricular ejection fraction being in the order of 55 to 60%. Nevertheless, the patient had moderate degree of pulm hypertension with right ventricular systolic pressure estimated to be around 46 mmHg. No signs of any volume overload. The patient remains on IV fluids and the patient is currently at normal Saint rate of 130 cc an hour. On today's evaluation of 01/21/2025, the patient remains extremely debilitated and weak. Continues to have cough and congestion. As mentioned earlier, the sputum sample was positive for Enterobacter cloacae and the patient was kept on IV Zosyn. Meanwhile, repeat chest x-ray was done and showed worsening in the pleural-parenchymal opacity on the left hemithorax and there was also some developing interstitial infiltrates in the right upper lobe. I also noted that the sputum sample was also positive for Aspergillus fumigatus. Oral intake remains quite diminished. The white cell count is 15.6 with a hemoglobin 8.7 and a platelet count of 270. Sodium is at 134, potassium is at 3.9, BUN is 38 with a creatinine 0.9. AST is at 89 with an ALT of 55 and alkaline phosphatase of 148. Procalcitonin level is at 1.4. TSH is 2.6. On 01/22/2025, the patient's overall condition is unchanged. Continues to produce copious amounts of thick and purulent respiratory secretions and mucus. Noted, the patient sputum sample was positive for Enterobacter and Aspergillus. Due to this cavitating left lung pneumonia and possibility of a fungus ball, the patient was started on voriconazole. Nutritional status remains poor. Oral intake is minimal. He is very much debilitated and weak. He is able to communicate. He remains on oxygen 4 L/min nasal cannula with a pulse ox of 96%. CAT scan of the abdomen and pelvis was also completed and it showed small bilateral pleural effusion and large amount of stool within the colon and the rectum and there is no evidence of any bowel obstruction. No other acute intra- abdominal abnormalities. Second 15 with a hemoglobin 9.1 and a platelet count of 273. LFTs are improved compared to yesterday. AST is 39 and ALT is 39 with an alkaline phosphatase of 123. Total protein is 5.5 with an albumin of 2.0. The white cell count of 15 with hemoglobin 9.1. The patient is currently on DuoNeb treatment [id number], IV Solu-Medrol, IV Zosyn and IV voriconazole. On 01/23/2025, the patient is being seen for a follow-up. The patient remains on 40 Suboxone by nasal cannula. The patient remains also on broad-spectrum antibiotics and the patient is on a combination of Zosyn and voriconazole. Repeat chest x-ray was done and shows COPD with ongoing extensive abnormal pleural-parenchymal opacity involving the left lung. Mild residual infiltrate throughout the right lung is also seen. Findings are essentially stable. Clinically, the patient is weak and lethargic and he continues to have a congested cough. He continues to produce excessive amounts of sputum. BUN is 29 with a creatinine of 0.8. The white cell count is 18.4 with a hemoglobin 9.8 and a platelet count of 375. Stool for C. difficile has been negative. ID is on the case. On 01/24/2025, the patient is being seen for a follow-up. Patient is still being treated for an extensive left lung pneumonia. He is on a combination of IV Zosyn and voriconazole. The patient is still producing copious amounts of purulent respiratory secretions and he is able to cough effectively. Slightly more strong and more alert compared to yesterday. Improving his nutritional status. Earlier sputum sample that was collected on 02/04/2025 was consistent with Enterobacter and Aspergillus fumigatus. White cell count of 15.2 with a hemoglobin 8.7 and a platelet count of 356. BUN 32 with a creatinine of 0.6. Sodium level is at 140. Most recent chest x-ray was done on 01/23/2025 and this was reviewed and shows a left upper lobe mass in addition to extensive consolidation and cavitation left lung. Hemodynamically stable and the patient remains on oxygen 4 L/min nasal cannula with a pulse ox of 94%. Currently afebrile. No other significant complaints for now. On 01/25/2025, the patient is being seen for a follow-up. Clinically unchanged. Continues to produce copious amount of thick purulent respiratory secretions. Remains on voriconazole. Remains on IV Zosyn. White cell count of 14.8 hemoglobin 9.6 and a platelet count of 349. BUN is 29 with a creatinine of 0.7. Sitting up in a chair and there is no significant events overnight. Patient was seen today on 01/26/2025, remains on 4 L nasal cannula, continues to have intermittent cough, shortness of breath, he has significant purulent thick respiratory secretions, patient remains on Zosyn and on voriconazole. Patient looks frail, looks ill. Does not seem to be however in respiratory distress. WBC count is 12.5 hemoglobin 8.1 electrolytes are normal renal profile is normal sputum culture was positive for Enterobacter cloacae and positive for Aspergillus fumigatus. Seen today on 01/27/2025, patient is basically about the same remains on 5 L nasal cannula O2 saturation marginal at 91%, continues to have productive cough with thick yellow phlegm, no fever no chills no hemoptysis. No chest pain. Remains on Zosyn and on voriconazole continues to have leukocytosis with WBC count of 21.2 hemoglobin 10 electrolytes are normal BUN is normal creatinine is normal Patient looks frail and chronically ill. Chest x-ray today continues to show significant airspace disease involving the left lung, continues to have left upperperipheral masslike area, neoplasm is not entirely ruled out. Patient was seen today on 01/29/2025, on 2 L nasal cannula, continues to have productive cough with thick yellow phlegm, temp is 97.5 heart rate is 115 blood pressure 156/88 O2 sat is 94% on 2 L nasal cannula. Clinically the patient remains quite frail and ill, continues to have leukocytosis with WBC count even higher today 20.5, hemoglobin 9.8 electrolytes are normal renal profile is normal, procalcitonin level is 0.10. Patient remains on antibiotics and antifungal including Zosyn and voriconazole. Patient was seen today on 01/30/2025, on 3 L nasal cannula, patient seems short of breath, frail, continues to have intermittent cough, and able to clear secretions. Remains on Zosyn and voriconazole. Continues to have leukocytosis with WBC of 23.6 hemoglobin is 9.4 electrolytes are normal renal profile is normal Sister was noted today at bedside, discussed his condition with the sister and even discussed the CODE STATUS patient remains full code. Seen today on 01/31/2025, patient is about the same, on 4 L nasal cannula with O2 sat of 91%, he has intermittent cough, does not seem to be in distress but he looks extremely frail and weak. Continues to have leukocytosis with WBC count of 21.4 hemoglobin 10.1 electrolytes are normal renal profile is normal patient is being treated for postobstructive pneumonia, strongly suspect left upper lobe malignancy and his sputum have been positive for Enterobacter and for Aspergillus. Fumigatus. Patient was seen today on 02/01/2025, basically about the same, looks extremely frail, short of breath, tachypneic, O2 sat is 99% on 3 L, follow-up chest x-ray showed worsening of airspace disease in the left lung reviewed his CT of the chest from a month ago and clearly showed a left upper lobe mass apparently he was seen for this by Dr Garcia on outpatient basis, he was supposed to have a PET scan which never happened. Still would not have really a tissue diagnosis to confirm malignancy, Dr Garcia will see him tomorrow, and it is quite challenging decision whether to proceed with bronchoscopy and biopsy with the patient intubated and most likely he will remain on mechanical ventilation post bronchoscopy or to leave alone for now. Patient is definitely high risk for bronchoscopy as he will end up intubated mechanically ventilated, and most likely will not be weaned easily from mechanical ventilation as he may require eventually tracheostomy and PEG tube placement. Progress note dated February 02, 2025. The patient is seen today in room 358. He is on saline at 10 cc an hour, and 3 L by nasal cannula. The patient is very frail appearing, with significant debility. The patient was seen by me in the office, for an abnormal CT scan, and I ordered a PET scan, which never occurred. In my opinion, the patient is too frail, and ill-appearing, to benefit from bronchoscopy at this point, and, would likely require him going on mechanical ventilation. Current labs include a white count of 16.1, hemoglobin 9.5, hematocrit 29.6, and a platelet count of 308,000. Sodium 135, potassium 4.4, chlorides 101, CO2 34, BUN 24, creatinine 0.49. Calcium is 8.3. Albumin is 2. Sputum sample from January 18, was positive for Enterobacter cloacae, and Aspergillus fumigatus. Chest x-ray shows an infiltrate throughout the left lung, with cavitary changes, left upper lobe. There is also a focal infiltrate, right medial lung base. Progress note dated February 03, 2025. The patient is again seen today in room 358. The patient's daughter is at the bedside. We have a long conversation about her, regards to discharge planning, hospice, versus something other than that. Anyway, the patient still looks very frail and weak. He is currently on nasal O2 at 5 L. His Cardizem drip is runni ng at 10 mg an hour. 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 No new labs today. Objective - Vital Signs Vital signs: Vital Signs Temp 97.9 F 02/03/25 08:00 Pulse 76 02/03/25 11:28 Resp 20 02/03/25 08:00 BP 100/55 02/03/25 08:00 Pulse Ox 93 L 02/03/25 11:22 FiO2 Intake & Output 02/02/25 02/03/25 02/03/25 18:59 06:59 18:59 Intake Total 244.5 89.667 390 Output Total 1775 1100 Balance -1530.5 -1010.333 390 Weight 56.6 kg Intake: Intake, IV Titration 4.5 89.667 150 Amount Diltiazem 125 mg In 4.5 89.667 Dextrose 5% in Water 100 ml @ 5 MG/HR 5 mls/hr IV .Q24H [facility] Rx#:[id number] Voriconazole 200 mg In 100 Sodium Chloride 0.9% 250 ml @ 125 mls/hr IVPB Q12HR [facility] Rx#:[id number] cefTRIAXone 2 gm In 50 Sodium Chloride 0.9% 50 ml @ 100 mls/hr IVPB Q24HR [facility] Rx#:[id number] Oral 240 240 Output: Urine 1775 1100 Other: Voiding Method External Catheter External Catheter External Catheter # Bowel Movements 1 1 - Exam No acute distress, oriented 3. Frail, and very weak appearing. HEENT examination is grossly unremarkable. Mucous membranes are moist. No oral lesions. Neck supple. Full range of motion. No adenopathy thyromegaly or neck vein distention. Cardiovascular examination reveals regular rhythm rate. S1-S2 normal. No S3 or S4. No discernible murmur noted. Lungs reveal diffuse bilateral rhonchi, left greater than right. No wheezes. No crackles. Currently, the patient is on 5 L. Abdomen soft bowel sounds are heard. No masses or tenderness. Extremities are intact. No cyanosis clubbing or edema. Skin is without rash or lesion. Neurologic examination is brief but nonfocal. - Labs CBC & Chem 7: 02/02/25 07:30 02/02/25 07:30 Assessment and Plan Assessment: Acute hypoxemic respiratory failure, secondary to excess of pneumonia, left yan ng, secondary to Enterobacter cloacae, and Aspergillus. Left upper lung mass, measuring 5.1 cm, potentially consistent with bronchogenic carcinoma. Right posterior lung nodule, measuring 1.8 cm. Acute leukocytosis. Normocytic/normochromic anemia. Unintentional weight loss, potentially secondary to malignancy. Severe protein/calorie malnutrition. Chronic tobacco dependence. Mild to moderate pulmonary hypertension. Plan: Plan dated February 02, 2025. The patient is seen today in room 358. In my opinion, the patient is far too frail, and weak, to undergo any procedure at this time. I had seen him in the clinic, and ordered an outpatient PET scan. That was never done. I am certainly concerned about malignancy, secondary to the mass, in the left lung. In addition, the patient's sputum, showed evidence of Enterobacter, and Aspergillus. He is currently on Zosyn, and voriconazole. We will continue to follow. Prognosis is poor. Palliative care consultation or hospice consultation should be considered. Dictation was produced using [employer] dictation software. Please excuse any grammatical, word or spelling errors. Plan dated February 03, 2025. The patient is seen today in room 358. The patient is resting comfortably in bed. His daughter is at the bedside. He is currently on 5 L nasal cannula. The patient continues to appear very weak and frail. We have a conversation for us about biopsy. I told the daughter, that he would probably not tolerate the biopsy, and would likely end up on the mechanical ventilator if we attempted bi opsy, whether it be with conscious sedation, or general anesthesia. In addition, I mentioned that even if the biopsy was done and showed cancer, the patient is currently not strong enough to receive any chemotherapy, and unlikely is also not strong enough to receive immunotherapy. She is going to give it some thought, in terms of discharge planning. They may decide on hospice. They have limited financial means. Additional recommendations and suggestions are forthcoming. Prognosis is poor. Dictation was produced using [employer] software. Please excuse any grammatical, word or spelling errors. Time with Patient: Less than 30
--- NOTE | 2025-02-03 15:25 | P.PN ---
Subjective Progress Note Date: 02/02/25 Principal diagnosis: Reason for follow-up is pneumonia Patient is a 59-year-old male with a past medical history significant for recent finding of a left upper lung mass unintentional weight loss and [id number] smoking presenting to the hospital for evaluation of generalized weakness has been diagnosed with pneumonia sputum positive for Enterobacter Aspergillus prompted this consultation. On today's evaluation that is 02/02/2025, patient has been afebrile, patient is breathing slightly comfortably and is currently on 3 L of oxygen, patient denies having any chest pain and cough has slightly decreased in intensity, patient denies nausea vomiting or diarrhea and no abdominal pain. Patient white count down to 16.08 creatinine 0.49 Objective - Vital Signs Vital signs: Vital Signs Temp 98.0 F 02/02/25 11:00 Pulse 115 H 02/02/25 12:32 Resp 22 02/02/25 11:00 BP 133/75 02/02/25 11:00 Pulse Ox 96 02/02/25 11:00 FiO2 Intake & Output 02/01/25 02/02/25 02/02/25 18:59 06:59 18:59 Intake Total 608 120 Output Total 2350 1200 650 Balance -1742 -1200 -530 Weight 60.6 kg Intake: Intake, IV Titration 490 Amount Piperacillin-Tazobactam 3 100 .375 gm In Sodium Chloride 0.9% 100 ml @ 25 mls/hr IVPB Q8H [facility] Rx#: [id number] Sodium Chloride 0.9% 1, 140 000 ml @ 20 mls/hr IV . Q24H [facility] Rx#:[id number] Voriconazole 200 mg In 250 Sodium Chloride 0.9% 250 ml @ 125 mls/hr IVPB Q12HR [facility] Rx#:[id number] Oral 118 120 Output: Urine 2350 1200 650 Other: Voiding Method External Catheter External Catheter External Catheter - Exam GENERAL DESCRIPTION: Middle-age male lying in bed in no distress RESPIRATORY SYSTEM: Unlabored breathing , decreased breath sounds at bases HEART: S1 S2 regular rate and rhythm , ABDOMEN: Soft , no tenderness EXTREMITIES: No edema feet - Labs CBC & Chem 7: 02/02/25 07:30 02/02/25 07:30 Labs: Abnormal Lab Results - Last 24 Hours (Table) 02/02/25 02/02/25 Range/Units 07:30 07:30 WBC 16.08 H (4.50-10.00) 10*3/uL RBC 3.19 L (4.40-5.60) 10*6/uL Hgb 9.5 L (13.0-17.0) g/dL Hct 29.6 L (39.6-50.0) % Immature Gran # 0.40 H (0.00-0.04) 10*3/uL Neutrophils # 13.68 H (1.80-7.70) 10*3/uL Sodium 135 L (137-145) mmol/L Carbon Dioxide 34 H (22-30) mmol/L BUN 24 H (9-20) mg/dL Creatinine 0.49 L (0.66-1.25) mg/dL Calcium 8.3 L (8.4-10.2) mg/dL Total Protein 4.8 L (6.3-8.2) g/dL Albumin 2.0 L (3.5-5.0) g/dL Assessment and Plan (1) Postobstructive pneumonia Current Visit: Yes Status: Acute Code(s): J18.9 - PNEUMONIA, UNSPECIFIED ORGANISM SNOMED Code(s): 508771059 (2) Leukocytosis Current Visit: Yes Status: Acute Code(s): D72.829 - ELEVATED WHITE BLOOD CELL COUNT, UNSPECIFIED SNOMED Code(s): 159360872 (3) Aspergillus Current Visit: Yes Status: Acute Code(s): B44.9 - ASPERGILLOSIS, UNSPECIFIED SNOMED Code(s): 89574464 Plan: 1patient presented to hospital with increasing shortness of breath weakness did have a cough and this patient has been recently diagnosed with a lung nodule now with evidence of worsening pleural parenchymal opacity throughout the left hemithorax and may be developing disease contributing to right upper lung highly suspicious for malignancy and concern for possible postobstructive pneumonia patient sputum now growing Enterobacter as well as Aspergillus fumigatus 2-patient is afebrile and the patient white count down to 16,000 today, the antibiotics were adjusted to Rocephin and monitor clinical course closely Dictation was produced using [employer] dictation software. please excuse any grammatical, word or spelling errors.
--- NOTE | 2025-02-03 17:26 | P.PN ---
Subjective Progress Note Date: 02/03/25 02/03/2025. Patient seen and examined at bedside. No acute events overnight. He is currently denying any pain, difficulty breathing, or other significant complaints. Daughter at bedside, attending Dr. Fang was able to have a discussion about prognosis/hospice with her as she is next of kin. Patient on 5 L high flow. Objective - Vital Signs Vital signs: Vital Signs Temp 97.1 F L 02/03/25 03:28 Pulse 72 02/03/25 08:08 Resp 18 02/03/25 03:28 BP 113/68 02/03/25 03:28 Pulse Ox 96 02/03/25 08:02 FiO2 Intake & Output 02/02/25 02/03/25 02/03/25 18:59 06:59 18:59 Intake Total 244.5 89.667 Output Total 1775 1100 Balance -1530.5 -1010.333 Weight 56.6 kg Intake: Intake, IV Titration 4.5 89.667 Amount Diltiazem 125 mg In 4.5 89.667 Dextrose 5% in Water 100 ml @ 5 MG/HR 5 mls/hr IV .Q24H [facility] Rx#:[id number] Oral 240 Output: Urine 1775 1100 Other: Voiding Method External Catheter External Catheter # Bowel Movements 1 - Exam Vital signs are stable. General: Patient is ill-appearing, cachectic. HEENT: Temporal wasting. EOMI bilaterally. ACs patent. Nares patent. Lungs: Decreased air entry bilaterally; no rhonchi, wheezes, or rales. No accessory muscle use. Heart: Rate and rhythm are regular. S1-S2 present. No murmur/rub/gallops. Abdomen: Soft, nontender, nondistended. Bowel sounds present. Extremities: No edema present. Psych: Appropriate affect and mood. Cooperative. - Labs CBC & Chem 7: 02/02/25 07:30 02/02/25 07:30 Labs: Abnormal Lab Results - Last 24 Hours (Table) 02/02/25 02/02/25 Range/Units 07: 07:30 WBC 16.08 H (4.50-10.00) 10*3/uL RBC 3.19 L (4.40-5.60) 10*6/uL Hgb 9.5 L (13.0-17.0) g/dL Hct 29.6 L (39.6-50.0) % Immature Gran # 0.40 H (0.00-0.04) 10*3/uL Neutrophils # 13.68 H (1.80-7.70) 10*3/uL Sodium 135 L (137-145) mmol/L Carbon Dioxide 34 H (22-30) mmol/L BUN 24 H (9-20) mg/dL Creatinine 0.49 L (0.66-1.25) mg/dL Calcium 8.3 L (8.4-10.2) mg/dL Total Protein 4.8 L (6.3-8.2) g/dL Albumin 2.0 L (3.5-5.0) g/dL Assessment and Plan Assessment: Patient is a 59-year-old male with no known past medical history admitted for acute hypoxic respiratory failure likely secondary to pneumonia. Plan: Active #. Acute hypoxic respiratory failure secondary to left lung pneumonia #. Sputum positive for Enterobacter and Aspergillus #. Acute leukocytosis, improving after discontinuation of steroids #. Left upper lung mass, measuring 5.1 cm #. Right posterior lung nodule, measuring 1.8 cm #. Unintentional weight loss, potentially secondary to likely malignancy #. Nausea likely secondary to coughing episodes Continue oxygen supplementation as needed, wean as tolerated Continue Rocephin and voriconazole Protein supplementation with regular dysphagia diet Zofran as needed for nausea Robitussin as needed for cough Pulmonology following Infectious disease following Oncology following Patient prognosis discussed at length with daughter, she is going to consider hospice care for patient but needs to think about it and discuss with her family #. Hypotension, improved #. Asymptomatic bradycardia Continue telemetry monitoring Chronic #. Nicotine dependence F: 0.9% saline at 20 cc/h E: Replete if required N: Level 1 regular dysphagia diet DVT prophylaxis: Lovenox 40 mg subcutaneous daily Code status: Full code Anticipated discharge place: Pending clinical course Vi Beasley MD PGY-2 Family Medicine Attestation I have seen and examined this patient with my resident , discussed the same with the resident/VIKA, and agree with the dictator's assessment and plan as written Dr. Matthias fang
--- NOTE | 2025-02-04 12:09 | P.PN ---
Subjective Progress Note Date: 02/04/25 Principal diagnosis: Respiratory failure. Patient is a 59-year-old male with significant smoking history of over 40 pack years, recent unintentional weight loss, and recent findings of left upper lung mass. Chest CT angiogram done December 26, 2024 remarkable for left apical lung mas measuring 5.1 cm with adjacent consolidations, anteriorly and posteriorly. Lobular density in the posterior right lung measuring 1.8 cm. Also, 0.8 cm anterior right lung nodularity. Did have new patient visit with Dr. Garcia on January 08, 2025. Reportedly, scheduled to undergo outpatient PET scan on . Brought into the emergency department yesterday evening by EMS. He was short of breath and was found to be hypoxic when EMS arrived with an SpO2 of 78%. He has been increasingly weak and has lost some additional weight, reportedly an additional 23 pounds in less than a month. Chest x-ray done in the ED showing worsening consolidative changes in the left lung, concerning for obstructive atelectasis or pneumonia. CBC: WBC count 17.45, hemoglobin 10, platelets 309. BMP with a sodium 130, potassium 4.7, chloride 91, serum bicarb 30, BUN 51, creatinine 1.07, glucose 108. Lactic was 3 now down to 2. Troponin less than 0.012. Repeat 2610. Viral screen negative for influenza A/B, RSV, COVID. While in the emergency department, patient was empirically started on Zosyn. Also, normal saline started at 130 mL/h. He is currently being evaluated on the fifth floor. He is a poor historian. On 2 L/min nasal cannula, nondistressed. He has a congested cough with reportedly increased sputum production. Does have a green sputum in collection cup. Denies any hemoptysis. Denies any fevers. Reports left-sided chest pain with coughing and deep breathing. He continues to have weight loss. He is very frail and cachectic in appearance. Appetite has been poor. Denies any nausea, vomiting, diarrhea, abdominal pain. Nontachycardic. Blood pressure normotensive. Normal saline infusing at 130 mL/h. On 01/20/2025, the patient is being seen for a follow-up. Extremely debilitated. Continues to have a congested cough. Trying to increase oral intake and the patient was given Ensure. Remains on IV Zosyn as a broad-spectrum antibiotic coverage. Sputum sample was positive for gram-negative/moderate Enterobacter cloacae complex. The patient remains also on bronchodilators. The patient is profoundly weak. No altered mentation for now. CAT scan of the brain was obtained yesterday and shows no evidence of any [employer] metastases. Echocardiogram also showed a preserved LV function with a left ventricular ejection fraction being in the order of 55 to 60%. Nevertheless, the patient had moderate degree of pulm hypertension with right ventricular systolic pressure estimated to be around 46 mmHg. No signs of any volume overload. The patient remains on IV fluids and the patient is currently at normal [facility] rate of 130 cc an hour. On today's evaluation of 01/21/2025, the patient remains extremely debilitated and weak. Continues to have cough and congestion. As mentioned earlier, the sputum sample was positive for Enterobacter cloacae and the patient was kept on IV Zosyn. Meanwhile, repeat chest x-ray was done and showed worsening in the pleural-parenchymal opacity on the left hemithorax and there was also some developing interstitial infiltrates in the right upper lobe. I also noted that the sputum sample was also positive for Aspergillus fumigatus. Oral intake remains quite diminished. The white cell count is 15.6 with a hemoglobin 8.7 and a platelet count of 270. Sodium is at 134, potassium is at 3.9, BUN is 38 with a creatinine 0.9. AST is at 89 with an ALT of 55 and alkaline phosphatase of 148. Procalcitonin level is at 1.4. TSH is 2.6. On 01/22/2025, the patient's overall condition is unchanged. Continues to produce copious amounts of thick and purulent respiratory secretions and mucus. Noted, the patient sputum sample was positive for Enterobacter and Aspergillus. Due to this cavitating left lung pneumonia and possibility of a fungus ball, the patient was started on voriconazole. Nutritional status remains poor. Oral intake is minimal. He is very much debilitated and weak. He is able to communicate. He remains on oxygen 4 L/min nasal cannula with a pulse ox of 96%. CAT scan of the abdomen and pelvis was also completed and it showed small bilateral pleural effusion and large amount of stool within the colon and the rectum and there is no evidence of any bowel obstruction. No other acute intra- abdominal abnormalities. Second 15 with a hemoglobin 9.1 and a platelet count of 273. LFTs are improved compared to yesterday. AST is 39 and ALT is 39 with an alkaline phosphatase of 123. Total protein is 5.5 with an albumin of 2.0. The white cell count of 15 with hemoglobin 9.1. The patient is currently on DuoNeb treatment [id number], IV Solu-Medrol, IV Zosyn and IV voriconazole. On 01/23/2025, the patient is being seen for a follow-up. The patient remains on 40 Suboxone by nasal cannula. The patient remains also on broad-spectrum antibiotics and the patient is on a combination of Zosyn and voriconazole. Repeat chest x-ray was done and shows COPD with ongoing extensive abnormal pleural-parenchymal opacity involving the left lung. Mild residual infiltrate throughout the right lung is also seen. Findings are essentially stable. Clinically, the patient is weak and lethargic and he continues to have a congested cough. He continues to produce excessive amounts of sputum. BUN is 29 with a creatinine of 0.8. The white cell count is 18.4 with a hemoglobin 9.8 and a platelet count of 375. Stool for C. difficile has been negative. ID is on the case. On 01/24/2025, the patient is being seen for a follow-up. Patient is still being treated for an extensive left lung pneumonia. He is on a combination of IV Zosyn and voriconazole. The patient is still producing copious amounts of purulent respiratory secretions and he is able to cough effectively. Slightly more strong and more alert compared to yesterday. Improving his nutritional status. Earlier sputum sample that was collected on 02/04/2025 was consistent with Enterobacter and Aspergillus fumigatus. White cell count of 15.2 with a hemoglobin 8.7 and a platelet count of 356. BUN 32 with a creatinine of 0.6. Sodium level is at 140. Most recent chest x-ray was done on 01/23/2025 and this was reviewed and shows a left upper lobe mass in addition to extensive consolidation and cavitation left lung. Hemodynamically stable and the patient remains on oxygen 4 L/min nasal cannula with a pulse ox of 94%. Currently afebrile. No other significant complaints for now. On 01/25/2025, the patient is being seen for a follow-up. Clinically unchanged. Continues to produce copious amount of thick purulent respiratory secretions. Remains on voriconazole. Remains on IV Zosyn. White cell count of 14.8 hemoglobin 9.6 and a platelet count of 349. BUN is 29 with a creatinine of 0.7. Sitting up in a chair and there is no significant events overnight. Patient was seen today on 01/26/2025, remains on 4 L nasal cannula, continues to have intermittent cough, shortness of breath, he has significant purulent thick respiratory secretions, patient remains on Zosyn and on voriconazole. Patient looks frail, looks ill. Does not seem to be however in respiratory distress. WBC count is 12.5 hemoglobin 8.1 electrolytes are normal renal profile is normal sputum culture was positive for Enterobacter cloacae and positive for Aspergillus fumigatus. Seen today on 01/27/2025, patient is basically about the same remains on 5 L nasal cannula O2 saturation marginal at 91%, continues to have productive cough with thick yellow phlegm, no fever no chills no hemoptysis. No chest pain. Remains on Zosyn and on voriconazole continues to have leukocytosis with WBC count of 21.2 hemoglobin 10 electrolytes are normal BUN is normal creatinine is normal Patient looks frail and chronically ill. Chest x-ray today continues to show significant airspace disease involving the left lung, continues to have left upperperipheral masslike area, neoplasm is not entirely ruled out. Patient was seen today on 01/29/2025, on 2 L nasal cannula, continues to have productive cough with thick yellow phlegm, temp is 97.5 heart rate is 115 blood pressure 156/88 O2 sat is 94% on 2 L nasal cannula. Clinically the patient remains quite frail and ill, continues to have leukocytosis with WBC count even higher today 20.5, hemoglobin 9.8 electrolytes are normal renal profile is normal, procalcitonin level is 0.10. Patient remains on antibiotics and antifungal including Zosyn and voriconazole. Patient was seen today on 01/30/2025, on 3 L nasal cannula, patient seems short of breath, frail, continues to have intermittent cough, and able to clear secretions. Remains on Zosyn and voriconazole. Continues to have leukocytosis with WBC of 23.6 hemoglobin is 9.4 electrolytes are normal renal profile is normal Sister was noted today at bedside, discussed his condition with the sister and even discussed the CODE STATUS patient remains full code. Seen today on 01/31/2025, patient is about the same, on 4 L nasal cannula with O2 sat of 91%, he has intermittent cough, does not seem to be in distress but he looks extremely frail and weak. Continues to have leukocytosis with WBC count of 21.4 hemoglobin 10.1 electrolytes are normal renal profile is normal patient is being treated for postobstructive pneumonia, strongly suspect left upper lobe malignancy and his sputum have been positive for Enterobacter and for Aspergillus. Fumigatus. Patient was seen today on 02/01/2025, basically about the same, looks extremely frail, short of breath, tachypneic, O2 sat is 99% on 3 L, follow-up chest x-ray showed worsening of airspace disease in the left lung reviewed his CT of the chest from a month ago and clearly showed a left upper lobe mass apparently he was seen for this by Dr Garcia on outpatient basis, he was supposed to have a PET scan which never happened. Still would not have really a tissue diagnosis to confirm malignancy, Dr Garcia will see him tomorrow, and it is quite challenging decision whether to proceed with bronchoscopy and biopsy with the patient intubated and most likely he will remain on mechanical ventilation post bronchoscopy or to leave alone for now. Patient is definitely high risk for bronchoscopy as he will end up intubated mechanically ventilated, and most likely will not be weaned easily from mechanical ventilation as he may require eventually tracheostomy and PEG tube placement. Progress note dated February 02, 2025. The patient is seen today in room 358. He is on saline at 10 cc an hour, and 3 L by nasal cannula. The patient is very frail appearing, with significant debility. The patient was seen by me in the office, for an abnormal CT scan, and I ordered a PET scan, which never occurred. In my opinion, the patient is too frail, and ill-appearing, to benefit from bronchoscopy at this point, and, would likely require him going on mechanical ventilation. Current labs include a white count of 16.1, hemoglobin 9.5, hematocrit 29.6, and a platelet count of 308,000. Sodium 135, potassium 4.4, chlorides 101, CO2 34, BUN 24, creatinine 0.49. Calcium is 8.3. Albumin is 2. Sputum sample from January 18, was positive for Enterobacter cloacae, and Aspergillus fumigatus. Chest x-ray shows an infiltrate throughout the left lung, with cavitary changes, left upper lobe. There is also a focal infiltrate, right medial lung base. Progress note dated February 03, 2025. The patient is again seen today in room 358. The patient's daughter is at the bedside. We have a long conversation about her, regards to discharge planning, hospice, versus something other than that. Anyway, the patient still looks very frail and weak. He is currently on nasal O2 at 5 L. His Cardizem drip is runni ng at 10 mg an hour. 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 No new labs today. Progress note dated February 04, 2025. 59-year-old male seen today in room 358. He continues on nasal cannula 6 L. His saturations are 90 to 92%. The patient continues on Rocephin and voricon azole. In addition, he is getting saline at 20 cc an hour, and Cardizem drip at 10 mg an hour. The patient remains a full code. We encouraged the daughter yesterday, to consider DNR, and even consider a hospice consultation. No new laboratory data. Last chest x-ray was done on February 02. Objective - Vital Signs Vital signs: Vital Signs Temp 97.7 F 02/04/25 04:00 Pulse 83 02/04/25 11:53 Resp 20 02/04/25 04:00 BP 126/76 02/04/25 04:00 Pulse Ox 90 L 02/04/25 08:02 FiO2 Intake & Output 02/03/25 02/04/25 02/04/25 18:59 06:59 18:59 Intake Total 990 0 Output Total 900 1600 500 Balance 90 -1600 -500 Weight 56.5 kg Intake: Intake, IV Titration 150 Amount Voriconazole 200 mg In 100 Sodium Chloride 0.9% 250 ml @ 125 mls/hr IVPB Q12HR [facility] Rx#:[id number] cefTRIAXone 2 gm In 50 Sodium Chloride 0.9% 50 ml @ 100 mls/hr IVPB Q24HR [facility] Rx#:[id number] Oral 840 0 Output: Urine 900 1600 500 Other: Voiding Method External Catheter External Catheter # Bowel Movements 1 1 1 - Exam No acute distress, oriented 3. Frail, and very weak appearing. HEENT examination is grossly unremarkable. Mucous membranes are moist. No oral lesions. Neck supple. Full range of motion. No adenopathy thyromegaly or neck vein distention. Cardiovascular examination reveals regular rhythm rate. S1-S2 normal. No S3 or S4. No discernible murmur noted. Lungs reveal diffuse bilateral rhonchi, left greater than right. No wheezes. No crackles. Currently, the patient is on 6 L. Abdomen soft bowel sounds are heard. No masses or tenderness. Extremities are intact. No cyanosis clubbing or edema. Skin is without rash or lesion. Neurologic examination is brief but nonfocal. - Labs CBC & Chem 7: 02/02/25 07:30 02/02/25 07:30 Assessment and Plan Assessment: Acute hypoxemic respiratory failure, secondary to excess of pneumonia, left lung, secondary to Enterobacter cloacae, and Aspergillus. Left upper lung mass, measuring 5.1 cm, potentially consistent with bronchogenic carcinoma. Right posterior lung nodule, measuring 1.8 cm. Acute leukocytosis. Normocytic/normochromic anemia. Unintentional weight loss, potentially secondary to malignancy. Severe protein/calorie malnutrition. Chronic tobacco dependence. Mild to moderate pulmonary hypertension. Plan: Plan dated February 02, 2025. The patient is seen today in room 358. In my opinion, the patient is far too frail, and weak, to undergo any procedure at this time. I had seen him in the clinic, and ordered an outpatient PET scan. That was never done. I am certainly concerned about malignancy, secondary to the mass, in the left lung. In addition, the patient's sputum, showed evidence of Enterobacter, and Aspergillus. He is currently on Zosyn, and voriconazole. We will continue to follow. Prognosis is poor. Palliative care consultation or hospice consultation should be considered. Dictation was produced using [employer] dictation software. Please excuse any grammatical, word or spelling errors. Plan dated February 03, 2025. The patient is seen today in room 358. The patient is resting comfortably in bed. His daughter is at the bedside. He is currently on 5 L nasal cannula. The patient continues to appear very weak and frail. We have a conversation for us about biopsy. I told the daughter, that he would probably not tolerate the biopsy, and would likely end up on the mechanical ventilator if we attempted biopsy, whether it be with conscious sedation, or general anesthesia. In addition, I mentioned that even if the biopsy was done and showed cancer, the patient is currently not strong enough to receive any chemotherapy, and unlikely is also not strong enough to receive immunotherapy. She is going to give it some thought, in terms of discharge planning. They may decide on hospice. They have limited financial means. Additional recommendations and suggestions are forthcoming. Prognosis is poor. Dictation was produced using [employer] software. Please excuse any grammatical, word or spelling errors. Plan dated February 04, 2025. The patient continues to do about the same. He is currently on 6 L. We did have a long talk with the daughter yesterday. Please see my note above. We are recommending consideration of hospice evaluation. The patient is too frail to have a procedure, and, if he was given a diagnosis of lung cancer, would not be able to undergo any treatment because of his general medical debility and very weak/frail situation. Labs, x-rays, medications are reviewed. We will continue to follow. Unfortunately, the patient remains a full code. Prognosis is very poor. Dictation was produced using [employer] software. Please excuse any grammatical, word or spelling errors. Time with Patient: Less than 30
[2025-02-04 12:31] VITALS: BMI 16.4
--- NOTE | 2025-02-04 13:53 | P.PN ---
Subjective Progress Note Date: 02/04/25 Hospital Course: 02/04/2025: Patient examined at bedside, pt had to have an increase in high flow oxygen. Patient states some shortness of breath. Patient and attending physican spoke about future plams. Patient understood diagnosis, and was cooperative, pt agreed he will speak to his daughter for future plans regrading hospice care. Subjective: Patient seen and examined at bedside. No acute events overnight. Pertinent positives and negatives as discussed above, a complete review of systems was performed and all other systems are negative. Vitals: Signs Reviewed Physical Exam: General: temporal wasting, cooperative no distress, appears at stated age Derm: warm, dry, intact Mouth: no lip lesion Cardiovascular: S1 S2 reg, no murmur, rubs, or gallops Lungs: CTA bilateral, no rhonchi, no rales, no accessory muscle use Abdominal: soft, non-tender to palpation, no appreciable organomegaly Extremities: no gross muscle atrophy, no edema, no contractures Neuro: Alert, Oriented, no focal neurological abnormalities Psych: well appearing, appropriate affect Data Received Today: Assessment and Plan: Active #. Acute hypoxic respiratory failure secondary to left lung pneumonia #. Sputum positive for Enterobacter and Aspergillus #. Acute leukocytosis, improving after discontinuation of steroids #. Left upper lung mass, measuring 5.1 cm #. Right posterior lung nodule, measuring 1.8 cm #. Unintentional weight loss, potentially secondary to likely malignancy #. Nausea likely secondary to coughing episodes Continue oxygen supplementation as needed, wean as tolerated Continue Rocephin and voriconazole Protein supplementation with regular dysphagia diet Zofran as needed for nausea Robitussin as needed for cough Pulmonology following Infectious disease following Oncology following Patient prognosis is guarded, spoke with patient about code status and future plans for hospice care. Patient stated he wants his daughter to make the decision. Patient states he will speak to her today when she comes and then speak to nurse about plans. #. Hypotension, improved #. Asymptomatic bradycardia Continue telemetry monitoring Chronic #. Nicotine dependence Anticipated discharge place: Pending clinical course and family discussion Anticipated discharge time: Pending clinical course and family discussion Janki Waite MD PGY-1 FM Dictation was produced using [employer] dictation software. please excuse any grammatical, word or spelling errors. Attestation I have seen and examined this patient with my resident , discussed the same with the resident/VIKA, and agree with the dictator's assessment and plan as written Dr. Matthias ladd Objective - Vital Signs Vital signs: Vital Signs Temp 97.7 F 02/04/25 04:00 Pulse 85 02/04/25 12:04 Resp 20 02/04/25 04:00 BP 126/76 02/04/25 04:00 Pulse Ox 90 L 02/04/25 08:02 FiO2 Intake & Output 02/03/25 02/04/25 02/04/25 18:59 06:59 18:59 Intake Total 990 0 Output Total 900 1600 500 Balance 90 -1600 -500 Weight 56.5 kg 56.5 kg Intake: Intake, IV Titration 150 Amount Voriconazole 200 mg In 100 Sodium Chloride 0.9% 250 ml @ 125 mls/hr IVPB Q12HR [facility] Rx#:[id number] cefTRIAXone 2 gm In 50 Sodium Chloride 0.9% 50 ml @ 100 mls/hr IVPB Q24HR [facility] Rx#:[id number] Oral 840 0 Output: Urine 900 1600 500 Other: Voiding Method External Catheter External Catheter # Bowel Movements 1 1 1 - Labs CBC & Chem 7: 02/02/25 07:30 02/02/25 07:30
--- NOTE | 2025-02-04 15:30 | P.PN ---
Subjective Progress Note Date: 02/03/25 Principal diagnosis: Reason for follow-up is pneumonia Patient is a 59-year-old male with a past medical history significant for recent finding of a left upper lung mass unintentional weight loss and [id number] smoking presenting to the hospital for evaluation of generalized weakness has been diagnosed with pneumonia sputum positive for Enterobacter Aspergillus prompted this consultation. On today's evaluation that is 02/03/2025, Patient is afebrile this morning patient denies having any chest pain or any worsening cough, the patient is currently on 4 L nasal cannula oxygen patient denies any abdominal pain no diarrhea no nausea no vomiting. No new lab has been obtained today Objective - Vital Signs Vital signs: Vital Signs Temp 97.9 F 02/03/25 08:00 Pulse 78 02/03/25 14:00 Resp 20 02/03/25 14:00 BP 129/68 02/03/25 12:00 Pulse Ox 89 L 02/03/25 12:00 FiO2 Intake & Output 02/02/25 02/03/25 02/03/25 18:59 06:59 18:59 Intake Total 244.5 89.667 390 Output Total 1775 1100 Balance -1530.5 -1010.333 390 Weight 56.6 kg Intake: Intake, IV Titration 4.5 89.667 150 Amount Diltiazem 125 mg In 4.5 89.667 Dextrose 5% in Water 100 ml @ 5 MG/HR 5 mls/hr IV .Q24H [facility] Rx#:[id number] Voriconazole 200 mg In 100 Sodium Chloride 0.9% 250 ml @ 125 mls/hr IVPB Q12HR [facility] Rx#:[id number] cefTRIAXone 2 gm In 50 Sodium Chloride 0.9% 50 ml @ 100 mls/hr IVPB Q24HR [facility] Rx#:[id number] Oral 240 240 Output: Urine 1775 1100 Other: Voiding Method External Catheter External Catheter External Catheter # Bowel Movements 1 1 - Labs CBC & Chem 7: 02/02/25 07:30 02/02/25 07:30 Assessment and Plan (1) Postobstructive pneumonia Current Visit: Yes Status: Acute Code(s): J18.9 - PNEUMONIA, UNSPECIFIED ORGANISM SNOMED Code(s): 895966560 (2) Leukocytosis Current Visit: Yes Status: Acute Code(s): D72.829 - ELEVATED WHITE BLOOD CELL COUNT, UNSPECIFIED SNOMED Code(s): 544071643 (3) Aspergillus Current Visit: Yes Status: Acute Code(s): B44.9 - ASPERGILLOSIS, UNSPECIFIED SNOMED Code(s): 50455314 Plan: 1patient presented to hospital with increasing shortness of breath weakness did have a cough and this patient has been recently diagnosed with a lung nodule now with evidence of worsening pleural parenchymal opacity throughout the left hemithorax and may be developing disease contributing to right upper lung highly suspicious for malignancy and concern for possible postobstructive pneumonia patient sputum now growing Enterobacter as well as Aspergillus fumigatus 2-patient is afebrile and the patient white count down to 16,000 as of yesterday no lab draw today, the is currently being treated with Rocephin prognosis remains to be guarded hospice may be a better option Dictation was produced using [employer] software. please excuse any grammatical, word or spelling errors.
--- NOTE | 2025-02-04 15:31 | P.PN ---
Subjective Progress Note Date: 02/04/25 Principal diagnosis: Reason for follow-up is pneumonia Patient is a 59-year-old male with a past medical history significant for recent finding of a left upper lung mass unintentional weight loss and [id number] smoking presenting to the hospital for evaluation of generalized weakness has been diagnosed with pneumonia sputum positive for Enterobacter Aspergillus prompted this consultation. On today's evaluation that is 02/04/2025,the patient denies any fever or any chills, patient is breathing slightly comfortably on 6 L nasal oxygen P denies chest pain worsening cough no abdominal pain no diarrhea. No new lab has been obtained today blood culture have been negative Objective - Vital Signs Vital signs: Vital Signs Temp 97.0 F L 02/04/25 08:05 Pulse 85 02/04/25 12:04 Resp 18 02/04/25 11:10 BP 127/67 02/04/25 11:10 Pulse Ox 94 L 02/04/25 11:10 FiO2 Intake & Output 02/03/25 02/04/25 02/04/25 18:59 06:59 18:59 Intake Total 990 0 Output Total 900 1600 500 Balance 90 -1600 -500 Weight 56.5 kg 56.5 kg Intake: Intake, IV Titration 150 Amount Voriconazole 200 mg In 100 Sodium Chloride 0.9% 250 ml @ 125 mls/hr IVPB Q12HR [facility] Rx#:[id number] cefTRIAXone 2 gm In 50 Sodium Chloride 0.9% 50 ml @ 100 mls/hr IVPB Q24HR [facility] Rx#:[id number] Oral 840 0 Output: Urine 900 1600 500 Other: Voiding Method External Catheter External Catheter External Catheter # Bowel Movements 1 1 1 - Exam GENERAL DESCRIPTION: Middle-age male lying in bed in no distress RESPIRATORY SYSTEM: Unlabored breathing , decreased breath sounds at bases HEART: S1 S2 regular rate and rhythm , ABDOMEN: Soft , no tenderness EXTREMITIES: No edema feet - Labs CBC & Chem 7: 02/02/25 07:30 02/02/25 07:30 Assessment and Plan (1) Postobstructive pneumonia Current Visit: Yes Status: Acute Code(s): J18.9 - PNEUMONIA, UNSPECIFIED ORGANISM SNOMED Code(s): 577853358 (2) Leukocytosis Current Visit: Yes Status: Acute Code(s): D72.829 - ELEVATED WHITE BLOOD CELL COUNT, UNSPECIFIED SNOMED Code(s): 970538997 (3) Aspergillus Current Visit: Yes Status: Acute Code(s): B44.9 - ASPERGILLOSIS, UNSPECIFIED SNOMED Code(s): 91725904 Plan: 1patient presented to hospital with increasing shortness of breath weakness did have a cough and this patient has been recently diagnosed with a lung nodule now with evidence of worsening pleural parenchymal opacity throughout the left hemithorax and may be developing disease contributing to right upper lung highly suspicious for malignancy and concern for possible postobstructive pneumonia patient sputum now growing Enterobacter as well as Aspergillus fumigatus 2-patient is afebrile and the patient white count down to 16,000 as of last blood draw no labs were obtained today he is on Rocephin for possible plan for hospice will consider oral Ceftin on discharge per family/hospice nurse request Dictation was produced using [employer] dictation software. please excuse any grammatical, word or spelling errors. Time with Patient: Less than 30
[2025-02-04 22:16] VITALS: TEMP 97.5
--- NOTE | 2025-02-05 12:39 | P.PN ---
Subjective Progress Note Date: 02/05/25 Principal diagnosis: Respiratory failure. Patient is a 59-year-old male with significant smoking history of over 40 pack years, recent unintentional weight loss, and recent findings of left upper lung mass. Chest CT angiogram done December 26, 2024 remarkable for left apical lung mas measuring 5.1 cm with adjacent consolidations, anteriorly and posteriorly. Lobular density in the posterior right lung measuring 1.8 cm. Also, 0.8 cm anterior right lung nodularity. Did have new patient visit with Dr. Garcia on January 08, 2025. Reportedly, scheduled to undergo outpatient PET scan on . Brought into the emergency department yesterday evening by EMS. He was short of breath and was found to be hypoxic when EMS arrived with an SpO2 of 78%. He has been increasingly weak and has lost some additional weight, reportedly an additional 23 pounds in less than a month. Chest x-ray done in the ED showing worsening consolidative changes in the left lung, concerning for obstructive atelectasis or pneumonia. CBC: WBC count 17.45, hemoglobin 10, platelets 309. BMP with a sodium 130, potassium 4.7, chloride 91, serum bicarb 30, BUN 51, creatinine 1.07, glucose 108. Lactic was 3 now down to 2. Troponin less than 0.012. Repeat 2610. Viral screen negative for influenza A/B, RSV, COVID. While in the emergency department, patient was empirically started on Zosyn. Also, normal saline started at 130 mL/h. He is currently being evaluated on the fifth floor. He is a poor historian. On 2 L/min nasal cannula, nondistressed. He has a congested cough with reportedly increased sputum production. Does have a green sputum in collection cup. Denies any hemoptysis. Denies any fevers. Reports left-sided chest pain with coughing and deep breathing. He continues to have weight loss. He is very frail and cachectic in appearance. Appetite has been poor. Denies any nausea, vomiting, diarrhea, abdominal pain. Nontachycardic. Blood pressure normotensive. Normal saline infusing at 130 mL/h. On 01/20/2025, the patient is being seen for a follow-up. Extremely debilitated. Continues to have a congested cough. Trying to increase oral intake and the patient was given Ensure. Remains on IV Zosyn as a broad-spectrum antibiotic coverage. Sputum sample was positive for gram-negative/moderate Enterobacter cloacae complex. The patient remains also on bronchodilators. The patient is profoundly weak. No altered mentation for now. CAT scan of the brain was obtained yesterday and shows no evidence of any [employer] metastases. Echocardiogram also showed a preserved LV function with a left ventricular ejection fraction being in the order of 55 to 60%. Nevertheless, the patient had moderate degree of pulm hypertension with right ventricular systolic pressure estimated to be around 46 mmHg. No signs of any volume overload. The patient remains on IV fluids and the patient is currently at normal Saint rate of 130 cc an hour. On today's evaluation of 01/21/2025, the patient remains extremely debilitated and weak. Continues to have cough and congestion. As mentioned earlier, the sputum sample was positive for Enterobacter cloacae and the patient was kept on IV Zosyn. Meanwhile, repeat chest x-ray was done and showed worsening in the pleural-parenchymal opacity on the left hemithorax and there was also some developing interstitial infiltrates in the right upper lobe. I also noted that the sputum sample was also positive for Aspergillus fumigatus. Oral intake remains quite diminished. The white cell count is 15.6 with a hemoglobin 8.7 and a platelet count of 270. Sodium is at 134, potassium is at 3.9, BUN is 38 with a creatinine 0.9. AST is at 89 with an ALT of 55 and alkaline phosphatase of 148. Procalcitonin level is at 1.4. TSH is 2.6. On 01/22/2025, the patient's overall condition is unchanged. Continues to produce copious amounts of thick and purulent respiratory secretions and mucus. Noted, the patient sputum sample was positive for Enterobacter and Aspergillus. Due to this cavitating left lung pneumonia and possibility of a fungus ball, the patient was started on voriconazole. Nutritional status remains poor. Oral intake is minimal. He is very much debilitated and weak. He is able to communicate. He remains on oxygen 4 L/min nasal cannula with a pulse ox of 96%. CAT scan of the abdomen and pelvis was also completed and it showed small bilateral pleural effusion and large amount of stool within the colon and the rectum and there is no evidence of any bowel obstruction. No other acute intra- abdominal abnormalities. Second 15 with a hemoglobin 9.1 and a platelet count of 273. LFTs are improved compared to yesterday. AST is 39 and ALT is 39 with an alkaline phosphatase of 123. Total protein is 5.5 with an albumin of 2.0. The white cell count of 15 with hemoglobin 9.1. The patient is currently on DuoNeb treatment [id number], IV Solu-Medrol, IV Zosyn and IV voriconazole. On 01/23/2025, the patient is being seen for a follow-up. The patient remains on 40 Suboxone by nasal cannula. The patient remains also on broad-spectrum antibiotics and the patient is on a combination of Zosyn and voriconazole. Repeat chest x-ray was done and shows COPD with ongoing extensive abnormal pleural-parenchymal opacity involving the left lung. Mild residual infiltrate throughout the right lung is also seen. Findings are essentially stable. Clinically, the patient is weak and lethargic and he continues to have a congested cough. He continues to produce excessive amounts of sputum. BUN is 29 with a creatinine of 0.8. The white cell count is 18.4 with a hemoglobin 9.8 and a platelet count of 375. Stool for C. difficile has been negative. ID is on the case. On 01/24/2025, the patient is being seen for a follow-up. Patient is still being treated for an extensive left lung pneumonia. He is on a combination of IV Zosyn and voriconazole. The patient is still producing copious amounts of purulent respiratory secretions and he is able to cough effectively. Slightly more strong and more alert compared to yesterday. Improving his nutritional status. Earlier sputum sample that was collected on 02/04/2025 was consistent with Enterobacter and Aspergillus fumigatus. White cell count of 15.2 with a hemoglobin 8.7 and a platelet count of 356. BUN 32 with a creatinine of 0.6. Sodium level is at 140. Most recent chest x-ray was done on 01/23/2025 and this was reviewed and shows a left upper lobe mass in addition to extensive consolidation and cavitation left lung. Hemodynamically stable and the patient remains on oxygen 4 L/min nasal cannula with a pulse ox of 94%. Currently afebrile. No other significant complaints for now. On 01/25/2025, the patient is being seen for a follow-up. Clinically unchanged. Continues to produce copious amount of thick purulent respiratory secretions. Remains on voriconazole. Remains on IV Zosyn. White cell count of 14.8 hemoglobin 9.6 and a platelet count of 349. BUN is 29 with a creatinine of 0.7. Sitting up in a chair and there is no significant events overnight. Patient was seen today on 01/26/2025, remains on 4 L nasal cannula, continues to have intermittent cough, shortness of breath, he has significant purulent thick respiratory secretions, patient remains on Zosyn and on voriconazole. Patient looks frail, looks ill. Does not seem to be however in respiratory distress. WBC count is 12.5 hemoglobin 8.1 electrolytes are normal renal profile is normal sputum culture was positive for Enterobacter cloacae and positive for Aspergillus fumigatus. Seen today on 01/27/2025, patient is basically about the same remains on 5 L nasal cannula O2 saturation marginal at 91%, continues to have productive cough with thick yellow phlegm, no fever no chills no hemoptysis. No chest pain. Remains on Zosyn and on voriconazole continues to have leukocytosis with WBC count of 21.2 hemoglobin 10 electrolytes are normal BUN is normal creatinine is normal Patient looks frail and chronically ill. Chest x-ray today continues to show significant airspace disease involving the left lung, continues to have left upperperipheral masslike area, neoplasm is not entirely ruled out. Patient was seen today on 01/29/2025, on 2 L nasal cannula, continues to have productive cough with thick yellow phlegm, temp is 97.5 heart rate is 115 blood pressure 156/88 O2 sat is 94% on 2 L nasal cannula. Clinically the patient remains quite frail and ill, continues to have leukocytosis with WBC count even higher today 20.5, hemoglobin 9.8 electrolytes are normal renal profile is normal, procalcitonin level is 0.10. Patient remains on antibiotics and antifungal including Zosyn and voriconazole. Patient was seen today on 01/30/2025, on 3 L nasal cannula, patient seems short of breath, frail, continues to have intermittent cough, and able to clear secretions. Remains on Zosyn and voriconazole. Continues to have leukocytosis with WBC of 23.6 hemoglobin is 9.4 electrolytes are normal renal profile is normal Sister was noted today at bedside, discussed his condition with the sister and even discussed the CODE STATUS patient remains full code. Seen today on 01/31/2025, patient is about the same, on 4 L nasal cannula with O2 sat of 91%, he has intermittent cough, does not seem to be in distress but he looks extremely frail and weak. Continues to have leukocytosis with WBC count of 21.4 hemoglobin 10.1 electrolytes are normal renal profile is normal patient is being treated for postobstructive pneumonia, strongly suspect left upper lobe malignancy and his sputum have been positive for Enterobacter and for Aspergillus. Fumigatus. Patient was seen today on 02/01/2025, basically about the same, looks extremely frail, short of breath, tachypneic, O2 sat is 99% on 3 L, follow-up chest x-ray showed worsening of airspace disease in the left lung reviewed his CT of the chest from a month ago and clearly showed a left upper lobe mass apparently he was seen for this by Dr Garcia on outpatient basis, he was supposed to have a PET scan which never happened. Still would not have really a tissue diagnosis to confirm malignancy, Dr Garcia will see him tomorrow, and it is quite challenging decision whether to proceed with bronchoscopy and biopsy with the patient intubated and most likely he will remain on mechanical ventilation post bronchoscopy or to leave alone for now. Patient is definitely high risk for bronchoscopy as he will end up intubated mechanically ventilated, and most likely will not be weaned easily from mechanical ventilation as he may require eventually tracheostomy and PEG tube placement. Progress note dated February 02, 2025. The patient is seen today in room 358. He is on saline at 10 cc an hour, and 3 L by nasal cannula. The patient is very frail appearing, with significant debility. The patient was seen by me in the office, for an abnormal CT scan, and I ordered a PET scan, which never occurred. In my opinion, the patient is too frail, and ill-appearing, to benefit from bronchoscopy at this point, and, would likely require him going on mechanical ventilation. Current labs include a white count of 16.1, hemoglobin 9.5, hematocrit 29.6, and a platelet count of 308,000. Sodium 135, potassium 4.4, chlorides 101, CO2 34, BUN 24, creatinine 0.49. Calcium is 8.3. Albumin is 2. Sputum sample from January 18, was positive for Enterobacter cloacae, and Aspergillus fumigatus. Chest x-ray shows an infiltrate throughout the left lung, with cavitary changes, left upper lobe. There is also a focal infiltrate, right medial lung base. Progress note dated February 03, 2025. The patient is again seen today in room 358. The patient's daughter is at the bedside. We have a long conversation about her, regards to discharge planning, hospice, versus something other than that. Anyway, the patient still looks very frail and weak. He is currently on nasal O2 at 5 L. His Cardizem drip is runni ng at 10 mg an hour. 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 No new labs today. Progress note dated February 04, 2025. 59-year-old male seen today in room 358. He continues on nasal cannula 6 L. His saturations are 90 to 92%. The patient continues on Rocephin and voricon azole. In addition, he is getting saline at 20 cc an hour, and Cardizem drip at 10 mg an hour. The patient remains a full code. We encouraged the daughter yesterday, to consider DNR, and even consider a hospice consultation. No new laboratory data. Last chest x-ray was done on February 02. Progress note dated February 05, 2025. 59-year-old male again seen today in room 358. The patient continues on nasal O2 at 6 L. No IV fluids. He is a DO NOT RESUSCITATE patient. He is currently on Rocephin, and voriconazole. We had a long conversation with the patient's daughter about CODE STATUS, palliative care, and hospice referral. The patient is very frail, and would not tolerate the procedure, and even if the biopsies were done, and showed cancer, the patient would not be a candidate for chemo therapy at this time. Apparently the plan is to take the patient home with hospice. No new laboratory data today. Objective - Vital Signs Vital signs: Vital Signs Temp 97.5 F L 02/04/25 19:50 Pulse 93 02/05/25 11:50 Resp 18 02/05/25 03:57 BP 133/76 02/05/25 03:57 Pulse Ox 94 L 02/05/25 07:45 FiO2 Intake & Output 02/04/25 02/05/25 02/05/25 18:59 06:59 18:59 Intake Total 0 90.167 Output Total 1100 1999 Balance -1100 -1909.833 Weight 56.5 kg 50 kg Intake: Intake, IV Titration 90.167 Amount Diltiazem 125 mg In 90.167 Dextrose 5% in Water 100 ml @ 5 MG/HR 5 mls/hr IV .Q24H COUNT INCLUDES THE [facility] Rx#:[id number] Oral 0 Output: Urine 1100 2000 Other: Voiding Method External Catheter External Catheter # Bowel Movements 1 - Exam No acute distress, oriented 3. Frail, and very weak appearing. HEENT examination is grossly unremarkable. Mucous membranes are moist. No oral lesions. Neck supple. Full range of motion. No adenopathy thyromegaly or neck vein distention. Cardiovascular examination reveals regular rhythm rate. S1-S2 normal. No S3 or S4. No discernible murmur noted. Lungs reveal diffuse bilateral rhonchi, left greater than right. No wheezes. No crackles. Currently, the patient is on 6 L. Abdomen soft bowel sounds are heard. No masses or tenderness. Extremities are intact. No cyanosis clubbing or edema. Skin is without rash or lesion. Neurologic examination is brief but nonfocal. - Labs CBC & Chem 7: 02/02/25 07:30 02/02/25 07:30 Assessment and Plan Assessment: Acute hypoxemic respiratory failure, secondary to excess of pneumonia, left lung, secondary to Enterobacter cloacae, and Aspergillus. Left upper lung mass, measuring 5.1 cm, potentially consistent with bronchogenic carcinoma. Right posterior lung nodule, measuring 1.8 cm. Acute leukocytosis. Normocytic/normochromic anemia. Unintentional weight loss, potentially secondary to malignancy. Severe protein/calorie malnutrition. Chronic tobacco dependence. Mild to moderate pulmonary hypertension. Plan: Plan dated February 02, 2025. The patient is seen today in room 358. In my opinion, the patient is far too frail, and weak, to undergo any procedure at this time. I had seen him in the clinic, and ordered an outpatient PET scan. That was never done. I am certainly concerned about malignancy, secondary to the mass, in the left lung. In addition, the patient's sputum, showed evidence of Enterobacter, and Asp ergillus. He is currently on Zosyn, and voriconazole. We will continue to follow. Prognosis is poor. Palliative care consultation or hospice consultation should be considered. Dictation was produced using [employer] software. Please excuse any grammatical, word or spelling errors. Plan dated February 03, 2025. The patient is seen today in room 358. The patient is resting comfortably in bed. His daughter is at the bedside. He is currently on 5 L nasal cannula. The patient continues to appear very weak and frail. We have a conversation for us about biopsy. I told the daughter, that he would probably not tolerate the biopsy, and would likely end up on the mechanical ventilator if we attempted biopsy, whether it be with conscious sedation, or general anesthesia. In addition, I mentioned that even if the biopsy was done and showed cancer, the patient is currently not strong enough to receive any chemotherapy, and unlikely is also not strong enough to receive immunotherapy. She is going to give it some thought, in terms of discharge planning. They may decide on hospice. They have limited financial means. Additional recommendations and suggestions are forthcoming. Prognosis is poor. Dictation was produced using [employer] software. Please excuse any grammatical, word or spelling errors. Plan dated February 04, 2025. The patient continues to do about the same. He is currently on 6 L. We did have a long talk with the daughter yesterday. Please see my note above. We are recommending consideration of hospice evaluation. The patient is too frail to have a procedure, and, if he was given a diagnosis of lung cancer, would not be able to undergo any treatment because of his general medical debility and very weak/frail situation. Labs, x-rays, medications are reviewed. We will continue to follow. Unfortunately, the patient remains a full code. Prognosis is very poor. Dictation was produced using [employer] software. Please excuse any grammatical, word or spelling errors. Plan dated February 05, 2025. The patient is seen today in room 358. He remains about the same. He is now we DO NOT RESUSCITATE patient, which is very appropriate. He is currently continuing on Rocephin and voriconazole. He continues on nasal O2 at 6 L. According to discharge planning, the patient is to be discharged home, with hospice. I think that is very appropriate, given his overall poor condition. The patient is very frail and weak, and would not tolerate a procedure, and even if the diagnosis was cancer, would be too weak to tolerate chemotherapy. Dictation was produced using [employer] software. Please excuse any grammatical, word or spelling errors. Time with Patient: Less than 30
--- NOTE | 2025-02-05 13:41 | P.DS ---
Providers Date of admission: 01/18/25 19:40 Expected date of discharge: 02/05/25 Attending physician: Aiyana Spain Consults: 01/18/25 19:35 Consult Physician Urgent Consulting Provider: Joe Garcia Consult Reason/Comments: left lung mass Do you want consulting provider notified?: Yes 01/19/25 05:15 Consult Physician Urgent Consulting Provider: Clem Ruiz Consult Reason/Comments: Bradycardia, abnormal tele Do you want consulting provider notified?: Already Contacted 01/19/25 05:36 Consult Physician Routine Consulting Provider: Mario Lazaro Consult Reason/Comments: Lung mass Do you want consulting provider notified?: Yes, Notify in am 01/21/25 14:09 Consult Physician Urgent Consulting Provider: Dany Akbar Consult Reason/Comments: Pneumonia Do you want consulting provider notified?: Yes Primary care physician: Stated None Hospital Course: Discharge Diagnosis: Acute hypoxic respiratory failure secondary to left lung pneumonia Left upper lung mass, measuring 5.1 cm Right posterior lung nodule, measuring 1.8 cm Hospital Course: Patient presented to the ER with significant hypoxia to 78%. he had unintentional weight loss, 23 pounds in the last month. CTA in December evident of left apical lung mass. Chest x-ray was performed showing worsening consolidation of the left lung. Patient was admitted and started on Zosyn. Sputum culture positive for Aspergillus and Enterobacter. Patient had hypotension cardio consulted and managed medication. Patient was started on voriconazole. Brain CT revealed no acute process or metastatic disease. Patient was scheduled for bron biopsy, pulmonology discussed with family that they do not recommend procedures due to respiratory and hemodynamic status. PET scan was scheduled for 01/22/2025, was not done due to hemodynamic instability. Nausea was controlled with Robitussin antiacid and Reglan. Protein supplementation with regular dysphagia diet. Patient's respiratory status continued to decline, last day of admission patient was on 6 L of high flow oxygen. Hospice team discussed hospice and CODE STATUS with family patient agreed for hospice care and DNR. Patient seen and examined at bedside. No acute overnight events. Vital signs reviewed and stable. Physical Exam: General: temporal wasting, cooperative Cardiovascular: S1 S2 reg, no murmur, rubs, or gallops Lungs: CTA bilateral, no rhonchi, no rales Abdominal: soft, non-tender to palpation, no appreciable organomegaly Extremities: no gross muscle atrophy, no edema Neuro: Alert, Oriented, no focal neurological abnormalities A total of greater than 30 minutes of time were spent preparing this complex discharge summary. Patient was discharged on 02/05/2025. Janki Waite MD PGY-1 FM Dictation was produced using [employer] dictation software. please excuse any grammatical, word or spelling errors. Plan - Discharge Summary New Discharge Prescriptions: New cefuroxime axetiL [Ceftin] 500 mg PO BID #20 tab Sodium Chloride 0.65% Nasal [Deep Sea (Saline)] 2 spray NASAL QID PRN ml PRN Reason: Congestion guaiFENesin SYRUP 100MG/5ML [Robitussin] 200 mg PO Q6HR PRN ml PRN Reason: Cough Calcium Carbonate [Tums] 500 mg PO BID PRN tab PRN Reason: Heartburn Acetaminophen Tab [Tylenol] 650 mg PO Q6HR PRN tab PRN Reason: Mild Pain Or Fever > 100.5 Ondansetron Odt [Zofran ODT] 4 mg PO Q8HR PRN tab PRN Reason: Nausea Voriconazole [Vfend] 200 mg PO Q12HR #30 tablet predniSONE [Deltasone] 40 mg PO DAILY tab Ipratropium-Albuterol Nebulize [Duoneb 0.5 mg-3 mg/3 ml Soln] 3 ml INHALATION RT-QID each Discharge Medication List Acetaminophen Tab [Tylenol] 650 mg PO Q6HR PRN tab 02/05/25 [Rx] Calcium Carbonate [Tums] 500 mg PO BID PRN tab 02/05/25 [Rx] Ipratropium-Albuterol Nebulize [Duoneb 0.5 mg-3 mg/3 ml Soln] 3 ml INHALATION RT-QID each 02/05/25 [Rx] Ondansetron Odt [Zofran ODT] 4 mg PO Q8HR PRN tab 02/05/25 [Rx] Sodium Chloride 0.65% Nasal [Deep Sea (Saline)] 2 spray NASAL QID PRN ml 02/05/25 [Rx] Voriconazole [Vfend] 200 mg PO Q12HR #30 tablet 02/05/25 [Rx] cefuroxime axetiL [Ceftin] 500 mg PO BID #20 tab 02/05/25 [Rx] guaiFENesin SYRUP 100MG/5ML [Robitussin] 200 mg PO Q6HR PRN ml 02/05/25 [Rx] predniSONE [Deltasone] 40 mg PO DAILY tab 02/05/25 [Rx] Follow up Appointment(s)/Referral(s): Johnathan Jasmine MD [STAFF PHYSICIAN] - As Needed None,Stated [Primary Care Provider] - As Needed Discharge/Stand Alone Forms: Area PCPs Discharge Disposition: HOME WITH HOSPICE
[2025-02-05 15:31] VITALS: BP 127/72; PULSE 100
[2025-02-05 15:35] VITALS: RESP 18
--- NOTE | 2025-02-06 15:06 | P.PN ---
Subjective Progress Note Date: 02/05/25 Principal diagnosis: Reason for follow-up is pneumonia Patient is a 59-year-old male with a past medical history significant for recent finding of a left upper lung mass unintentional weight loss and 79-iyat-shes smoking presenting to the hospital for evaluation of generalized weakness has been diagnosed with pneumonia sputum positive for Enterobacter Aspergillus prompted this consultation. On today's evaluation that is 02/05/2025,the patient remains to be afebrile, patient is on 6 L nasal cannula supplemental oxygen and mentioned breathing comfortably with no chest pain or any worsening cough.Patient denies having any nausea or vomiting, no abdominal pain and no diarrhea has been reported. No new lab has been obtained today Objective - Vital Signs Vital signs: Vital Signs Temp 97.5 F L 02/04/25 19:50 Pulse 80 02/05/25 08:00 Resp 18 02/05/25 03:57 BP 133/76 02/05/25 03:57 Pulse Ox 94 L 02/05/25 07:45 FiO2 Intake & Output 02/04/25 02/05/25 02/05/25 18:59 06:59 18:59 Intake Total 0 90.167 Output Total 1100 2000 Balance -1100 -6121.832 Weight 56.5 kg 50 kg Intake: Intake, IV Titration 90.167 Amount Diltiazem 125 mg In 90.167 Dextrose 5% in Water 100 ml @ 5 MG/HR 5 mls/hr IV .Q24H [facility] Rx#:[id number] Oral 0 Output: Urine 1100 2000 Other: Voiding Method External Catheter External Catheter # Bowel Movements 1 - Exam GENERAL DESCRIPTION: Middle-age male lying in bed in no distress RESPIRATORY SYSTEM: Unlabored breathing , decreased breath sounds at bases HEART: S1 S2 regular rate and rhythm , ABDOMEN: Soft , no tenderness EXTREMITIES: No edema feet - Labs CBC & Chem 7: 02/02/25 07:30 02/02/25 07:30 Assessment and Plan (1) Postobstructive pneumonia Status: Acute Code(s): J18.9 - PNEUMONIA, UNSPECIFIED ORGANISM SNOMED Code(s): 297875758 (2) Leukocytosis Status: Acute Code(s): D72.829 - ELEVATED WHITE BLOOD CELL COUNT, UNSPECIFIED SNOMED Code(s): 994338945 (3) Aspergillus Status: Acute Code(s): B44.9 - ASPERGILLOSIS, UNSPECIFIED SNOMED Code(s): 71390780 Plan: 1patient presented to hospital with increasing shortness of breath weakness did have a cough and this patient has been recently diagnosed with a lung nodule now with evidence of worsening pleural parenchymal opacity throughout the left hemithorax and may be developing disease contributing to right upper lung highly suspicious for malignancy and concern for possible postobstructive pneumonia patient sputum now growing Enterobacter as well as Aspergillus fumigatus 2-patient is afebrile and the patient is going hospice per the hospice note the patient's family is requesting for antibiotic on discharge prescription for Ceftin and voriconazole has been sent however treatment plan is more palliative rather than curative at this point and the family is aware as per discussion with the hospice nurse Dictation was produced using [employer] dictation software. please excuse any grammatical, word or spelling errors. Time with Patient: Less than 30
== END 2025-02-05 13:42 | disposition hospice, home (50) | DRG 136 ==
LOC: EC 16:50 → 5NMEDONC 19:40 → 3SCARD 01-19 08:47
PROVIDERS: ADMIT Hospitalist; ATTEND Hospitalist
DX: C34.32 Malignant neoplasm of lower lobe, left bronchus or lung (principal); J96.01 Acute respiratory failure with hypoxia; B44.1 Other pulmonary aspergillosis; E43 Unspecified severe protein-calorie malnutrition; I27.23 Pulmonary hypertension due to lung diseases and hypoxia; E88.A Wasting disease (syndrome) due to underlying condition; F05 Delirium due to known physiological condition; J44.0 Chronic obstructive pulmonary disease with (acute) lower respiratory infection; Z51.5 Encounter for palliative care; Z66 Do not resuscitate; E87.1 Hypo-osmolality and hyponatremia; R13.10 Dysphagia, unspecified; D63.0 Anemia in neoplastic disease; R00.1 Bradycardia, unspecified; R54 Age-related physical debility; H53.149 Visual discomfort, unspecified; I95.9 Hypotension, unspecified; R60.0 Localized edema; Z68.1 Body mass index [BMI] 19.9 or less, adult; Z87.891 Personal history of nicotine dependence
CPT/HCPCS: 36415; 70470; 71045; 71046; 74177; 80048; 80053; 83605; 83735; 83880; 84145; 84443; 84484; 85025; 85610; 85730; 86140; 86606; 87040; 87070; 87077; 87186; 87205; 87493; 87636; 93005; 93306; 94640; 94760; 96360; 99285